=== PATIENT | male | born 1955 | race Caucasian/White ===

== ENCOUNTER 2016-12-27 20:20 | Inpatient (IN) | payer MEDICARE, OTHER ==
[~2016-12-27] VITALS: Ht 170.2 cm; Wt 75.8 kg
[~2016-12-27 20:20] MED LIST: ACHD5005 PO; ADV1DS; ALBU0.632 IH; AMBIEN; AMIT50TA3 PO; AZOPT OP; BRIM5DRO12 OU; BRIN1S OU; CYAN1TAB16 PO; DLT180CCR PO; FLUT1DIS2 IH; FLUT1DIS26 IH; FOLI1TAB24 PO; GLAUCOMA EYE DROPS; HYDR-2890 PO; HYDR1TAB66 PO; IBP600T1 PO; LISI1TAB10 PO; OMEP20CA12 PO; ONDA8TAB6 PO; PRD20T PO; PRD50T PO; PRILOSEC OTC PO; TRAV5DRO OU; TRAVATAN; XANAX; [UNRECOGNIZED DRUG - CODE]
--- OUTSIDE RECORDS SUMMARY | 2016-12-27 20:25 | XMS REPORT | Clinical Summary ---
Author Author [facility] Organization [facility] Address Unknown Phone Unavailable Care Team Providers Care Dosimetrist Name Role Phone PCP Unavailable Source Comments Some departments are not documenting in the electronic medical record. If you do not see the information that you expected, contact Release of Information in the Health Information Management department at [phone] for further assistance in locating additional records.[facility] Allergies Not on File Current Medications Not on file Active Problems Not on file Social History Tobacco Use Types Packs/Day Years Used Date Never Assessed Sex Assigned at Date Recorded Not on file Last Filed Vital Signs Not on file Plan of Treatment Health Maintenance Due Date Last Done Comments HEPATITIS C SCREENING 1957 PHYSICAL (COMPREHENSIVE) 1964 EXAM PERTUSSIS VACCINE 1968 TETANUS VACCINE 1974 COLORECTAL CANCER 2007 SCREENING INFLUENZA VACCINE 01/08/2017 Results Not on filefrom Last 3 Months
--- OUTSIDE RECORDS SUMMARY | 2016-12-27 20:25 | XMS REPORT | Continuity of Care Document ---
Author Author [facility] Address Unknown Phone Unavailable Allergies Active Description Code Type Severity Reaction Onset Reported/Identified Relationship to Patient Clinical Status Yes NKANo Known Allergies NKA Miscellaneous Allergy Unknown N/ A 09/07/2006 Medications Problems Date Dx Coded Attending Type Code Diagnosis Diagnosed By 04/08/2011 Ot 562.11 04/08/2011 Ot 789.09 06/24/2011 Ot 211.3 06/24/2011 Ot 211.4 06/24/2011 Ot 562.10 06/24/2011 Ot V45.3 06/24/2011 Ot V45.72 06/24/2011 Ot V76.51 12/25/2011 Ot 491.21 12/25/2011 Ot 847.0 12/25/2011 Ot 910.0 12/25/2011 Ot 912.0 12/25/2011 Ot 922.1 12/25/2011 Ot 959.11 12/25/2011 Ot E000.8 12/25/2011 Ot E816.0 02/16/2014 SAMAN COLEMAN, JACEK Dee Ot 202.10 02/16/2014 SAMAN COLEMAN, JACEK Dee Ot 401.9 02/16/2014 SAMAN COLEMAN, JACEK Dee Ot 786.6 02/16/2014 SAMAN COLEMAN, JACEK Dee Ot V10.11 02/16/2014 SAMAN COLEMAN, JACEK Dee Ot V58.69 02/20/2014 ELBA CHAVA MORLEY V03.82 PCV-13 (PREVNAR) DX 04/17/2014 RAYMUNDO COLEMAN, RHONDA Maldonado Ot 276.50 04/17/2014 RAYMUNDO COLEMAN, RHONDA Maldonado Ot 288.00 04/17/2014 RAYMUNDO COLEMAN, RHONDA Maldonado Ot 427.31 04/17/2014 RHONDA FONSECA MD Ot 496 04/17/2014 RAYMUNDO COLEMAN, RHONDA Maldonado Ot 780.61 04/17/2014 RAYMUNDO COLEMAN, RHONDA Maldonado Ot V15.82 04/17/2014 RHONDA FONSECA MD Ot 197.0 04/17/2014 RAYMUNDO COLEMAN, RHONDA Maldonado Ot 198.5 04/17/2014 RAYMUNDO COLEMAN, RHONDA Maldonado Ot 198.89 04/17/2014 RAYMUNDO COLEMAN, RHONDA Maldonado Ot 202.10 04/17/2014 RAYMUNDO COLEMAN, RHONDA Maldonado Ot 276.50 04/17/2014 RAYMUNDO COLEMAN, RHONDA Maldonado Ot 288.00 04/17/2014 RAYMUNDO COLEMAN, RHONDA Maldonado Ot 427.31 04/17/2014 RAYMUNDO COLEMAN, RHONDA Maldonado Ot 491.21 04/17/2014 RAYMUNDO COLEMAN, RHONDA Maldonado Ot 496 04/17/2014 RAYMUNDO COLEMAN, RHONDA Maldonado Ot 585.3 04/17/2014 RAYMUNDO COLEMAN, RHONDA Maldonado Ot 780.61 04/17/2014 RAYMUNDO COLEMAN, RHONDA Maldonado Ot V10.11 04/17/2014 RAYMUNDO COLEMAN, RHONDA Maldonado Ot V12.55 04/17/2014 RAYMUNDO COLEMAN, RHONDA Maldonado Ot V15.82 04/18/2014 Ot 162.9 04/18/2014 Ot V72.84 04/18/2014 Ot 721.0 04/18/2014 Ot 737.30 04/18/2014 Ot E000.8 04/18/2014 Ot E816.0 04/18/2014 Ot V58.9 04/18/2014 Ot 162.9 04/18/2014 Ot 202.10 04/18/2014 RAYMUNDO COLEMAN, RHONDA Maldonado Ot 786.50 04/18/2014 RAYMUNDO COLEMAN, RHONDA Maldonado Ot 202.10 04/18/2014 RAYMUNDO COLEMAN, RHONDA Maldonado Ot 496 04/18/2014 RAYMUNDO COLEMAN, RHONDA Maldonado Ot V10.05 04/18/2014 RAYMUNDO COLEMAN, RHONDA Maldonado Ot 202.10 04/18/2014 RAYMUNDO COLEMAN, RHONDA Maldonado Ot 202.10 04/18/2014 RAYMUNDO COLEMAN, RHONDA Maldonado Ot 786.52 04/18/2014 Ot 202.10 04/18/2014 Ot 401.9 04/18/2014 Ot 786.6 04/18/2014 Ot V10.11 04/18/2014 Ot V58.69 04/21/2014 Ot 202.10 04/21/2014 Ot 401.9 04/21/2014 Ot 786.6 04/21/2014 Ot V10.11 04/21/2014 Ot V58.69 05/23/2014 ZORAIDA COLEMAN, WILFRED Wade Ot 202.10 05/23/2014 WILFRED CONWAY MD Ot 401.9 05/23/2014 WILFRED CONWAY MD Ot V10.11 05/23/2014 WILFRED CONWAY MD Ot V58.0 05/23/2014 WILFRED CONWAY MD Ot V58.69 07/20/2014 WILFRED CONWAY MD Ot 202.10 07/20/2014 WILFRED CONWAY MD Ot 401.9 07/20/2014 WILFRED CONWAY MD Ot V10.11 07/20/2014 WILFRED CONWAY MD Ot V58.0 07/20/2014 WILFRED CONWAY MD Ot V58.69 Procedures Results Encounters ACCT No. Visit Date/Time Discharge Status Pt. Type Provider Facility Loc./Unit Complaint [id number] 02/20/2014 16:01:00 02/20/2014 23: 59:59 CLS Outpatient ELBA MORLEYCHAVA Luiz [id number] 07/21/2014 00:10:00 2014 23:59:59 CLS Preadmit WILFRED CONWAY MD [facility] ONC [id number] 05/09/2014 09:42:00 2014 00:01:00 DIS Outpatient WILFRED CONWAY MD [facility] ONC [id number] 04/15/2014 20:04:00 2014 13:30:00 DIS Inpatient RHONDA FONSECA MD [facility] CSD [id number] 11/18/2013 12:14:00 2013 00:01:00 DIS Outpatient JACEK DAVISON MD [facility] ONC [id number] 10/16/2013 15:50:00 2013 23:59:59 CLS Outpatient RHONDA FONSECA MD [facility] RAD [id number] 07/19/2013 08:40:00 2013 23:59:59 CLS Outpatient RHONDA FONSECA MD [facility] LAB [id number] 04/19/2013 10:43:00 2013 23:59:59 CLS Outpatient RHONDA FONSECA MD [facility] LAB [id number] 12/21/2012 07:44:00 2012 23:59:59 CLS Outpatient RHONDA FONSECA MD [facility] LAB [id number] 11/12/2012 11:53:00 2012 23:59:59 CLS Outpatient RHONDA FONSECA MD [facility] LAB [id number] 12/27/2016 20:21:00 ACT Emergency KHALIF NASH DO [facility] ER ANXIETY;TROUBLE BREATHING [id number] 02/17/2014 00:00:00 Document Registration [id number] 04/26/2012 15:32:00 Document Registration [id number] 12/30/2011 10:55:00 Document Registration [id number] 12/25/2011 06:22:00 Document Registration [id number] 06/24/2011 07:01:00 Document Registration [id number] 06/22/2011 07:27:00 Document Registration [id number] 04/08/2011 09:04:00 Document Registration [id number] 02/14/2011 15:45:00 Document Registration
--- NOTE | 2016-12-27 20:46 | ED Respiratory ---
General Chief Complaint: Respiratory Problems Stated Complaint: ANXIETY;TROUBLE BREATHING Source: patient History of Present Illness Time seen by provider: 20:38 Initial Comments PT ARRIVES VIA POV FROM HOME STATES HE HAS SEVERE ANXIETY, AND GOT VERY ANXIOUS TODAY, AND THEN HAD A HARD TIME BREATHING STATES HE WAS STARTED ON A NEW MEDICATION TODAY AND THEN GOT VERY NERVOUS ABOUT TAKING IT--STARTED ON MORPHINE, (WAS ON FENTANYL PATCHES) FOR STAGE 4 LUNG CANCER. PT HAD CHEMO TODAY IN [place]--HAS BEEN ON THIS SAME CHEMO/SAME DOSE PT HAS HOME O2 WHICH HE USES PRN, BUT HAS NOT USED LATELY, AND NOT AT ALL TODAY , UNTIL JUST PRIOR TO ARRIVAL--USED IT ON THE WAY HERE PT ALSO HAS AN ALBUTEROL INHALER, WHICH HE USED ONCE THIS AM, BUT NOT SINCE STATES HE FEELS BETTER NOW. O2 SAT 95-98% ON 2L/NC ON ARRIVAL NO CHEST PAIN, OR PALPITATIONS NO FEVER NO SWELLING IN LEGS/ FEET OR PAIN IN CALVES PT SHORTLY AFTER ARRIVAL, PT NOW C/O NAUSEA AND ABDOMINAL DISCOMFORT PT WAS ADMITTED AT [facility] LAST WEEK FOR SMALL BOWEL OBSTRUCTION, TREATED WITH NG TUBE HAS NOT HAD A BM SINCE HE WAS DISMISSED ON MONDAY HAS HAD DECREASED INTAKE TODAY, AND DECREASED URINE OUTPUT STATES HE DID RECEIVE HEPARIN SHOTS WHILE HE WAS IN HOSPITAL FOR DVT PROPHYLAXIS , DOES NOT NORMALLY TAKE ANY ANTICOAGULANTS PCP: DR. FONSECA Allergies and Home Medications Allergies Coded Allergies: Cee Known Allergies (Verified Allergy, Unknown, 09/07/06) Home Medications Albuterol Sulfate 0.63 Mg/3 Ml Vial.neb, 1 EACH IH Q 4 - 6 HRS PRN, (Reported) Brimonidine Tartrate 10 Ml Drops, 1 DROP OU BID, (Reported) 0.1% Brinzolamide 5 Ml Drops.susp, 1 DROP OU BID, (Reported) Cyanocobalamin/Fa/Pyridoxine 1 Tab Tablet, 1 TAB PO DAILY, (Reported) Diltiazem Hcl 180 Mg Cap.er.24h, 180 MG PO DAILY, #30 Ref 12 Prescribed by: RHONDA FONSECA on 04/17/14 0821 Fluticasone/Salmeterol 1 Each Disk.w.dev, 0 IH Q12HR, #1 1 PUFF Prescribed by: RHONDA FONSECA on 04/17/14 0822 Folic Acid 1 Mg Tablet, 1 MG PO DAILY, (Reported) Hydrocodone Bit/Acetaminophen 1 Each Tablet, 1-2 TAB PO Q6H PRN for PAIN, ( Reported) Omeprazole 20 Mg Capsule.dr, 20 MG PO DAILY, (Reported) Ondansetron Hcl 8 Mg Tablet, 8 MG PO Q8H PRN for NAUSEA, (Reported) Prednisone 20 Mg Tab, 20 MG PO DAILY@0700 for 5 Days Prescribed by: RHONDA FONSECA on 04/17/14 0824 Travoprost 5 Ml Drops, 1 DROP OU HS, (Reported) Constitutional: No chills, No diaphoresis, No fever, malaise, weakness EENTM: no symptoms reported Respiratory: see HPI, cough, short of breath Cardiovascular: No chest pain, No edema, No palpitations, No syncope Gastrointestinal: see HPI, abdominal pain, loss of appetite, nausea, No vomiting Genitourinary: decreased output Musculoskeletal: other (HAS CHRONIC PAIN, ESPECIALLY IN BACK--HAS BONE METS) Skin: no symptoms reported Psychiatric/Neurological: See HPI, Anxiety Hematologic/Lymphatic: See HPI Immunological/Allergic: see HPI Past [id number] Hx Patient Social History Alcohol Use: Past History (MODERATE USE IN PAST, NONE FOR A FEW YEARS, PER PT ON 12/27/16) Recreational Drug Use: No Smoking Status: Former Smoker (04/11 PPD--QUIT 01/18/2005) Type Used: Cigarettes 2nd Hand Smoke Exposure: No Recent Foreign Travel: No Contact w/Someone Who Travel: No Recent Hopitalizations: No Physical Abuse: No Sexual Abuse: No Immunizations Up To Date Date of Pneumonia Vaccine: Oct 13, 2013 Date of Influenza Vaccine: Jan 13, 2014 Seasonal Allergies Seasonal Allergies: No Surgeries History of Surgeries: Yes (3 INGUNIAL HERNIA REPAIRS; 2 INCISIONAL HERNIA REPAIRS; COLON RESECTION FOR DIVERTICULAR DISEASE WITH TEMP COLOSTOMY AND LATER TAKEDOWN; LAZER SURGERY ON THROAT FOR SLEEP APNEA; EGD/COLONOSCOPIES; DRAINAGE OF ABDOMINAL WALL ABSCESS; RIGHT UPPER LOBECTOMY 2005; PORT LEFT CHEST;REPAIR OF PECTUS EXCAVATUM) Surgeries: Abdominal, Bowel Surgery, Lobectomy Respiratory History of Respiratory Disorde: Yes (LUNG CANCER) Respiratory Disorders: COPD Cardiovascular History of Cardiac Disorders: Yes (PAROXYSMAL A.FIB--NOT ON ANTICOAGULANTS OR ANTIARRHYTHMICS OF 12/27/16) Cardiac Disorders: Atrial Fibrillation, Hypertension Neurological History of Neurological Disord: No Reproductive System Hx Reproductive Disorders: No Genitourinary History of Genitourinary Disor: Yes (CHRONIC RENAL INSUFFICIENCY SINCE STARTING CHEMO ) Genitourinary Disorders: Renal Failure Gastrointestinal History of Gastrointestinal Di: Yes (MULTIPLE ABDOMINAL HERNIAS) Gastrointestinal Disorders: Abdominal Hernia, Gastroesophageal Reflux, Diverticulosis, Polyps Musculoskeletal History of Musculoskeletal Dis: No Endocrine History of Endocrine Disorders: No HEENT History of HEENT Disorders: Yes HEENT Disorders: Glaucoma Cancer History of Cancer: Yes Cancer: Lung Cancer Comment: LUNG CANCER DX 2005--HAD RUL LOBECTOMY, NO CHEMO OR RADIATION HAD RECURRENCE DX 2013--WITH METS TO BONE, HAS HAD RADIATION AND STILL RECEIVING CHEMO OF 12/27/16 Psychosocial History of Psychiatric Problem: Yes Behavioral Health Disorders: Anxiety, Depression Suicide Risk Score: 0 Integumentary History of Skin or Integumenta: No (MYCOSIS FUNGOIDES) Blood Transfusions History of Blood Disorders: No Family Medical History Family Medial History: Asthma Cancer of mouth 19 FATHER Cataracts 19 FATHER Prostate cancer 19 FATHER Respiratory disorder 19 FATHER Severe allergy G8 BROTHER No Family History of: AIDS Abdominal aortic aneurysm [place]'s disease Alcoholism Alzheimer's disease Aphasia Arthritis Cardiovascular disease Colon cancer Completed stroke Congenital disease Congenital heart disease Coronary thrombosis Cystic fibrosis Deafness or hearing loss Dementia Diabetes mellitus Drug abuse Dysphasia Fibrocystic disease of breast Gastroenteritis Glaucoma Headache disorder Hypercholesterolemia Hypertension Infertility Kidney disease Myocardial infarction Neoplasm Not obtainable due to adoption Osteoporosis Parkinson's disease Psychosocial problem Seizure disorder Thyroid disease Tuberculosis Visual disorder Physical Exam Vital Signs Vital Sign - Last 12Hours 12/27/16 20:22 Temp 98.1 Pulse 135 Resp 20 B/P (MAP) 145/91 Pulse Ox 96 O2 Delivery Nasal Cannula O2 Flow Rate 5.00 FiO2 96 Capillary Refill : General Appearance: mild distress, other (ANXIOUS) HEENT: PERRL/EOMI Neck: normal inspection Respiratory: decreased breath sounds (IN BASES RIGHT > LEFT), No rales, No rhonchi, No wheezing, other (MILDLY DYSPNEIC, TACHYPNEIC) Cardiovascular: no murmur, tachycardia Gastrointestinal: soft, distended (SLIGHTLY), No guarding, No rebound, tenderness (MILD DIFFUSE UPPER ABDMOMINAL TENDERNESS) Extremities: normal capillary refill, pedal edema (TRACE BILATERALLY) Neurologic/Psychiatric: engineering faculty II-XII nml as tested, no motor/sensory deficits, alert, oriented x 3 Skin: warm/dry, pallor Progress/Results/Core Measures Results/Orders Lab Results Laboratory Tests Test 12/27/16 19:48 12/27/16 21:32 12/28/16 00:48 Range/Units Blood Gas Puncture Site RIGHT RADIAL Blood Gas Patient Temperature 97.3 Arterial Blood pH 7.32 *L 7.37-7.43 Arterial Blood Partial Pressure CO2 51 H 35-45 MMHG Arterial Blood Partial Pressure O2 119 H 79-93 MMHG Arterial Blood HCO3 26 23-27 MMOL/L Arterial Blood Total CO2 27.2 21.0-31.0 MMOL/L Arterial Blood Oxygen Saturation 99 94-100 % Arterial Blood Base Excess 0.1 -2.5-2.5 MMOL/L Zachary Test POSITIVE Blood Gas Ventilator Setting NO Blood Gas Inspired Oxygen 5L White Blood Count 11.1 H 4.3-11.0 10^3/uL Red Blood Count 4.88 4.35-5.85 10^6/uL Hemoglobin 13.1 L 13.3-17.7 G/DL Hematocrit 44 40-54 % Mean Corpuscular Volume 91 80-99 FL Mean Corpuscular Hemoglobin 27 25-34 PG Mean Corpuscular Hemoglobin Concent 30 L 32-36 G/DL Red Cell Distribution Width 20.3 H 10.0-14.5 % Platelet Count 515 H 130-400 10^3/uL Mean Platelet Volume 11.1 H 7.4-10.4 FL Neutrophils (%) (Auto) 94 H 42-75 % Lymphocytes (%) (Auto) 3 L 12-44 % Monocytes (%) (Auto) 3 0-12 % Eosinophils (%) (Auto) 0 0-10 % Basophils (%) (Auto) 0 0-10 % Neutrophils # (Auto) 10.4 H 1.8-7.8 X 10^3 Lymphocytes # (Auto) 0.3 L 1.0-4.0 X 10^3 Monocytes # (Auto) 0.3 0.0-1.0 X 10^3 Eosinophils # (Auto) 0.0 0.0-0.3 10^3/uL Basophils # (Auto) 0.0 0.0-0.1 10^3/uL Neutrophils % (Manual) 89 % Lymphocytes % (Manual) 4 % Monocytes % (Manual) 0 % Eosinophils % (Manual) 0 % Basophils % (Manual) 0 % Band Neutrophils 7 % Blood Morphology Comment NORMAL Prothrombin Time 13.2 12.2-14.7 SEC INR Comment 1.0 0.8-1.4 Activated Partial Thromboplast Time 30 24-35 SEC Sodium Level 137 135-145 MMOL/L Potassium Level 4.6 3.6-5.0 MMOL/L Chloride Level 99 98-107 MMOL/L Carbon Dioxide Level 26 21-32 MMOL/L Anion Gap 12 5-14 MMOL/L Blood Urea Nitrogen 24 H 7-18 MG/DL Creatinine 1.75 H 0.60-1.30 MG/DL Estimat Glomerular Filtration Rate 40 BUN/Creatinine Ratio 14 Glucose Level 157 H 70-105 MG/DL Calcium Level 9.7 8.5-10.1 MG/DL Magnesium Level 1.7 L 1.8-2.4 MG/DL Total Bilirubin 0.5 0.1-1.0 MG/DL Aspartate Amino Transf (AST/SGOT) 10 5-34 U/L Alanine Aminotransferase (ALT/SGPT) 11 0-55 U/L Alkaline Phosphatase 72 40-136 U/L Total Creatine Kinase 30 30-200 U/L Creatine Kinase MB 1.1 <6.6 NG/ML Troponin I < 0.30 <0.30 NG/ML B-Type Natriuretic Peptide < 10.0 <100.0 PG/ML Total Protein 7.7 6.4-8.2 GM/DL Albumin 4.3 3.2-4.5 GM/DL Amylase Level 104 25-125 U/L Lipase 72 8-78 U/L TSH [place] Testing 1.50 0.35-4.94 UIU/ML Urine Color YELLOW Urine Clarity CLEAR Urine pH 5 5-9 Urine Specific Topping 1.025 H 1.016-1.022 Urine Protein 1+ H NEGATIVE Urine Glucose (UA) NEGATIVE NEGATIVE Urine Ketones NEGATIVE NEGATIVE Urine Nitrite NEGATIVE NEGATIVE Urine Bilirubin NEGATIVE NEGATIVE Urine Urobilinogen NORMAL NORMAL MG/DL Urine Leukocyte Esterase NEGATIVE NEGATIVE Urine RBC (Auto) NEGATIVE NEGATIVE Urine RBC NONE /HPF Urine WBC NONE /HPF Urine Squamous Epithelial Cells 0-2 /HPF Urine Crystals PRESENT H /LPF Urine Amorphous Sediment FEW ASHLEE URATES H /LPF Urine Bacteria TRACE /HPF Urine Casts PRESENT /LPF Urine Hyaline Casts 2-5 H /LPF Urine Mucus SMALL H /LPF Urine Culture Indicated NO My Orders Orders - CHARITY,KHALIF K DO Ekg Tracing (12/27/16 20:41) O2 (12/27/16 20:41) Monitor-Rhythm Ecg Trace Only (12/27/16 20:41) Chest Pa/Lat (2 View) (12/27/16 20:41) Saline Lock/Iv-Start (12/27/16 21:03) Arterial Blood Gas (12/27/16 21:03) BNP (12/27/16 21:03) Cbc With Automated Diff (12/27/16 21:03) Comprehensive Metabolic Panel (12/27/16 21:03) Creatine Kinase (12/27/16 21:03) Creatine Kinase Mb (12/27/16 21:03) Magnesium (12/27/16 21:03) Protime With Inr (12/27/16 21:03) Partial Thromboplastin Time (12/27/16 21:03) Thyroid Analyzer (12/27/16 21:03) Troponin I (12/27/16 21:03) Saline Lock/Iv-Start (12/27/16 21:03) Ns Iv 1000 Ml (Sodium Chloride 0.9%) (12/27/16 21:03) Ondansetron Injection (Zofran Injectio (12/27/16 21:15) Manual Differential (12/27/16 21:32) Ct Abdomen/Pelvis Wo (12/27/16 23:02) Amylase (12/27/16 23:28) Lipase (12/27/16 23:28) Ua Culture If Indicated (12/27/16 23:28) Ondansetron Injection (Zofran Injectio (12/27/16 23:45) Saline Lock/Iv-Start (12/27/16 23:45) Ng Tube Insert & Assessment (12/28/16 00:24) Chest 1 View, Ap/Pa Only (12/28/16 00:45) Ondansetron Injection (Zofran Injectio (12/28/16 01:00) Morphine Injection (Morphine Injection (12/28/16 00:51) Enoxaparin Injection (Lovenox Injection) (12/28/16 01:15) Fentanyl Injection (Sublimaze Injection (12/28/16 01:18) Medications Given in ED Current Medications Medications Dose Ordered Sig/Felix Route Start Time Stop Time Status Last Admin Dose Admin Enoxaparin Sodium 70 mg ONCE ONCE SC 12/28/16 01:15 12/28/16 01:16 DC 12/28/16 01:37 70 MG Ondansetron HCl 4 mg ONCE ONCE IVP 12/27/16 23:45 12/27/16 23:47 DC 12/28/16 00:01 4 MG Ondansetron HCl 8 mg ONCE ONCE IVP 12/27/16 21:15 12/27/16 21:16 DC 12/27/16 21:40 8 MG Ondansetron HCl 8 mg ONCE ONCE IVP 12/28/16 01:00 12/28/16 01:01 DC 12/28/16 01:06 8 MG Sodium Chloride 1,000 ml @ 0 mls/hr Q0M ONCE IV 12/27/16 21:03 12/27/16 21:06 DC 12/27/16 21:39 1,000 MLS/HR Vital Signs/I&O Vital Sign - Last 12Hours 12/27/16 12/27/16 20:22 20:22 Temp 98.1 Pulse 135 Resp 20 B/P (MAP) 145/91 Pulse Ox 96 96 O2 Delivery Nasal Cannula Nasal Cannula O2 Flow Rate 5.00 5.00 FiO2 96 Progress Note : Progress Note PT BEGAN VOMITING SHORTLY AFTER ARRIVAL, AND HAVING INCREASED ABDOMINAL AND BACK PAIN PT'S HEART RATE DID COME DOWN TO 110'S WITH FLUIDS, BUT STILL REMAINS MILDLY TACHYCARDIC O2 SATS DROPPED TO 90-91% ON 2L--O2 INCREASED TO 4L/NC AND SATS WENT UP TO 93-94 % AND REMAINED THERE FOR REMAINDER OF ER STAY ECG Initial ECG Impression Time: 20:45 Initial ECG Rate: 128 Initial ECG Rhythm: S.Tach Initial ECG Impression: Nonspecific Changes Initial ECG Comparisson: No Previous ECG Available Diagnostic Imaging Comments CXR--CHRONIC APPEARING CHANGES IN RIGHT LUNG BASE, PENDING RADIOLOGIST REVIEW CT ABDOMEN/ PELVIS--ILEUS VS PARTIAL SBO, CHOLELITHIASIS; BILATERAL LUNG NODULES , LIVER LESION, SUSPECTED LYTIC LESIONS OF OSSEOUS STRUCTURES--PER [facility] VIA FAX @ 4030 Reviewed: Reviewed by Me Departure Communication (Admissions) Progress Notes 0104--SPOKE WITH DR. MURRY, ACCEPTS PT FOR ADMIT. 0112--SPOKE WITH DR. HUNT, FOR HOSPITALIST CONSULT. WILL CONSULT E-ICU WELL Impression Impression: Primary Impression: DYSPNEA WITH HYPOXIA Additional Impressions: Metastatic lung cancer (metastasis from lung to other site) Small bowel obstruction Dehydration Renal insufficiency Disposition: ADMITTED INPATIENT Condition: Improved Admissions Decision to Admit Reason: Admit from ER (General) Decision to Admit/Date: Dec 28, 2016 Time/Decision to Admit Time: 01:05 Departure-Patient Inst. Referrals: RHONDA FONSECA MD (PCP) Primary Care Physician KHALIF NASH DO Dec 27, 2016 20:46
[2016-12-27] MEDS ORDERED: NS IV 1000 ML 1,000 ML IV ONE (21:03)
[2016-12-27] MEDS ORDERED: ONDANSETRON 4 MG/2 ML (SDV) Z0FRAN IVP ONE ×2 (21:15→23:45)
[2016-12-27 21:42] LABS: BASOPHILS % (AUTO) 0 % (0-10); EOSINOPHILS % (AUTO) 0 % (0-10); LYMPHOCYTES # (AUTO) 0.3 X 10^3 (1.0-4.0); LYMPHOCYTES % (AUTO) 3 % (12-44); MEAN CORPUSCULAR HEMOGLOBIN 27 PG (25-34); MEAN CORPUSCULAR HGB CONC 30 G/DL (32-36); MEAN CORPUSCULAR VOLUME 91 FL (80-99); MEAN PLATELET VOLUME 11.1 FL (7.4-10.4); MONOCYTES # (AUTO) 0.3 X 10^3 (0.0-1.0); MONOCYTES % (AUTO) 3 % (0-12); NEUTROPHILS # (AUTO) 10.4 X 10^3 (1.8-7.8); NEUTROPHILS % (AUTO) 94 % (42-75); PLATELET COUNT 515 10^3/uL (130-400); RED BLOOD COUNT 4.88 10^6/uL (4.35-5.85); RED CELL DISTRIBUTION WIDTH 20.3 % (10.0-14.5); WHITE BLOOD COUNT 11.1 10^3/uL (4.3-11.0)
[2016-12-27 21:57] LABS: BAND NEUTROPHILS 7 %; BASOPHILS % (MANUAL) 0 %; EOSINOPHILS % (MANUAL) 0 %; LYMPHOCYTES % (MANUAL) 4 %; NEUTROPHILS % (MANUAL) 89 %
[2016-12-27 22:02] LABS: ABG BASE EXCESS 0.1 MMOL/L (-2.5-2.5); ABG HCO3 26 MMOL/L (23-27); ABG OXYGEN SATURATION 99 % (94-100); ABG PCO2 51 MMHG (35-45); ABG PO2 119 MMHG (79-93); ABG TCO2 27.2 MMOL/L (21.0-31.0)
[2016-12-27 22:03] LABS: ALANINE AMINOTRANSFERASE 11 U/L (0-55); ALBUMIN 4.3 GM/DL (3.2-4.5); ANION GAP 12 MMOL/L (5-14); ASPARTATE AMINO TRANSFERASE 10 U/L (5-34); BILIRUBIN,TOTAL 0.5 MG/DL (0.1-1.0); BLOOD UREA NITROGEN 24 MG/DL (7-18); BUN/CREATININE RATIO 14; CALCIUM 9.7 MG/DL (8.5-10.1); CARBON DIOXIDE 26 MMOL/L (21-32); CHLORIDE 99 MMOL/L (98-107); CREATINE KINASE 30 U/L (30-200); CREATININE SERUM 1.75 MG/DL (0.60-1.30); GFR ESTIMATED 40; GLUCOSE 157 MG/DL (70-105); MAGNESIUM 1.7 MG/DL (1.8-2.4); POTASSIUM 4.6 MMOL/L (3.6-5.0); SODIUM 137 MMOL/L (135-145); TOTAL PROTEIN 7.7 GM/DL (6.4-8.2)
[2016-12-27 22:05] LABS: ABG PH 7.32 (7.37-7.43); ALLENS TEST POSITIVE; PATIENT TEMP 97.3
[2016-12-27 22:17] LABS: TROPONIN I < 0.30 NG/ML (<0.30)
[2016-12-27 23:13] LABS: PROTHROMBIN TIME PATIENT 13.2 SEC (12.2-14.7)
[2016-12-28] VITALS (10 sets, daily range): BP systolic 107–152; BP diastolic 60–111
[2016-12-28] LABS: AMYLASE 104 U/L (25-125); LIPASE 72 U/L (8-78)
[2016-12-28] MEDS ORDERED: morphine INJ 10 MG/ML 1ML (SYR OR VIAL) IVP STA (00:51)
[2016-12-28 00:54] LABS: BILIRUBIN,URINE NEGATIVE (NEGATIVE); KETONES,URINE NEGATIVE (NEGATIVE); LEUKOCYTE ESTERASE ,URINE NEGATIVE (NEGATIVE); NITRITE,URINE NEGATIVE (NEGATIVE); PH,URINE 5 (5-9); PROTEIN,URINE 1+ (NEGATIVE); UROBILINOGEN,URINE NORMAL (NORMAL)
[2016-12-28] MEDS ORDERED: ONDANSETRON 4 MG/2 ML (SDV) Z0FRAN IVP ONE (01:00)
[2016-12-28 01:02] LABS: SQUAMOUS EPITHELIAL CELL,UR 0-2 /HPF
[2016-12-28] MEDS ORDERED: ENOXAPARIN 80 MG/0.8 ML (LOVENOX) SYR SC ONE (01:15)
[2016-12-28] MEDS ORDERED: fentaNYL INJECTION 100 MCG/2 ML AMP IVP STA (01:18)
--- OUTSIDE RECORDS SUMMARY | 2016-12-28 02:20 | XMS REPORT | Clinical Summary ---
Author Author [facility] Organization [facility] Address Unknown Phone Unavailable Care Team Providers Care Sales Promoter Name Role Phone PCP Unavailable Source Comments Some departments are not documenting in the electronic medical record. If you do not see the information that you expected, contact Release of Information in the Health Information Management department at [phone] for further assistance in locating additional records.[facility] Allergies Not on File Current Medications Not [...]
[2016-12-28] MEDS ORDERED: D5 1/2 NS W/KCL 20 MEQ/L 1,000 ML IV ONE (02:35)
[2016-12-28] MEDS ORDERED: morphine INJ 10 MG/ML 1ML (SYR OR VIAL) IVP PRN (03:15)
[2016-12-28] MEDS ORDERED: fentaNYL INJECTION 100 MCG/2 ML AMP IVP PRN (03:15)
[2016-12-28] MEDS ORDERED: RT-ALBUTEROL SULF 2.5 MG/3 ML PRE-MIX VIAL IH PRN (03:30)
[2016-12-28] MEDS ORDERED: morphine INJ 10 MG/ML 1ML (SYR OR VIAL) IV PRN (03:30)
[2016-12-28] MEDS ORDERED: fentaNYL INJECTION 100 MCG/2 ML AMP IV PRN (03:30)
[2016-12-28] MEDS: CHLORASEPTIC SPRAY 177 ML LIQUID MC PRN ×3 (04:15→06:05)
[2016-12-28 04:16] LABS: BASOPHILS % (AUTO) 0 % (0-10); EOSINOPHILS % (AUTO) 0 % (0-10); LYMPHOCYTES # (AUTO) 0.4 X 10^3 (1.0-4.0); LYMPHOCYTES % (AUTO) 4 % (12-44); MEAN CORPUSCULAR HEMOGLOBIN 27 PG (25-34); MEAN CORPUSCULAR HGB CONC 30 G/DL (32-36); MEAN CORPUSCULAR VOLUME 91 FL (80-99); MONOCYTES # (AUTO) 0.4 X 10^3 (0.0-1.0); MONOCYTES % (AUTO) 5 % (0-12); NEUTROPHILS # (AUTO) 8.6 X 10^3 (1.8-7.8); NEUTROPHILS % (AUTO) 91 % (42-75); PLATELET COUNT 443 10^3/uL (130-400); RED BLOOD COUNT 4.49 10^6/uL (4.35-5.85); RED CELL DISTRIBUTION WIDTH 20.2 % (10.0-14.5); WHITE BLOOD COUNT 9.4 10^3/uL (4.3-11.0)
[2016-12-28 04:48] LABS: ALANINE AMINOTRANSFERASE 10 U/L (0-55); ALBUMIN 3.8 GM/DL (3.2-4.5); ANION GAP 9 MMOL/L (5-14); ASPARTATE AMINO TRANSFERASE 9 U/L (5-34); BILIRUBIN,TOTAL 0.3 MG/DL (0.1-1.0); BLOOD UREA NITROGEN 26 MG/DL (7-18); BUN/CREATININE RATIO 18; CALCIUM 9.1 MG/DL (8.5-10.1); CARBON DIOXIDE 24 MMOL/L (21-32); CHLORIDE 103 MMOL/L (98-107); CREATININE SERUM 1.46 MG/DL (0.60-1.30); GFR ESTIMATED 49; GLUCOSE 141 MG/DL (70-105); MAGNESIUM 1.9 MG/DL (1.8-2.4); PHOSPHORUS 3.6 MG/DL (2.3-4.7); POTASSIUM 4.6 MMOL/L (3.6-5.0); SODIUM 136 MMOL/L (135-145); TOTAL PROTEIN 6.8 GM/DL (6.4-8.2)
[2016-12-28 04:53] LABS: TROPONIN I < 0.30 NG/ML (<0.30)
[2016-12-28] MEDS: ONDANSETRON 4 MG/2 ML (SDV) Z0FRAN IV PRN (05:56)
[2016-12-28] MEDS ORDERED: MAGNESIUM 1 GM/100 ML IVPB 100 ML IV SCH (06:00)
[2016-12-28] MEDS: inSUlin (REGULAR) HUMAN 1 UNIT/0.01 ML (CHARGE PER UNIT) SC SCH ×3 (06:00→18:25)
[2016-12-28] MEDS ORDERED: KCL 20 MEQ TAB (K-DUR) PO SCH (06:00)
[2016-12-28] MEDS ORDERED: POTASSIUM CL 10MEQ/50ML IVPB 50 ML IV SCH (06:00)
[2016-12-28] MEDS: RT-ALBUTEROL SULF 2.5 MG/3 ML PRE-MIX VIAL IH SCH ×5 (06:38→22:06)
[2016-12-28] MEDS: RT-ADVAIR HFA 115/21 MCG PER PUFF IH SCH ×2 (06:40→18:50)
--- NOTE | 2016-12-28 06:49 | Pulmonary Consultation ---
History of Present Illness History of Present Illness Date of Consultation 12/28/16 06:44 Time Seen by Provider: 06:44 Date of Admission History of Present Illness 61yo with hx of lung cancer with mets presented secondary to worsening SOB, anxiety, and abdominal pain. He was found to have a SBO in the ED and admitted to ICU. While in ICU he had 2 large BMs. He still complains of abdominal pain and nausea. Pt is only requiring 2 liters of oxygen which is what he uses at home. Pt is currently undergoing chemotherapy in [place] and last chemo was yesterday prior to admit. PT was recently in [facility] for SBO last week. SOB is at his baseline. Denies CP currently. I am consulted for ICU management. Allergies and Home Medications Allergies Coded Allergies: Cee Known Allergies (Verified Allergy, Unknown, 09/07/06) Home Medications Albuterol Sulfate 0.63 Mg/3 Ml Vial.neb, 1 EACH IH Q 4 - 6 HRS PRN, (Reported) Brimonidine Tartrate 10 Ml Drops, 1 DROP OU BID, (Reported) 0.1% Brinzolamide 5 Ml Drops.susp, 1 DROP OU BID, (Reported) Cyanocobalamin/Fa/Pyridoxine 1 Tab Tablet, 1 TAB PO DAILY, (Reported) Diltiazem Hcl 180 Mg Cap.er.24h, 180 MG PO DAILY, #30 Ref 12 Prescribed by: RHONDA FONSECA on 04/17/14 0821 Fluticasone/Salmeterol 1 Each Disk.w.dev, 0 IH Q12HR, #1 1 PUFF Prescribed by: RHONDA FONSECA on 04/17/14 0822 Folic Acid 1 Mg Tablet, 1 MG PO DAILY, (Reported) Hydrocodone Bit/Acetaminophen 1 Each Tablet, 1-2 TAB PO Q6H PRN for PAIN, ( Reported) Omeprazole 20 Mg Capsule.dr, 20 MG PO DAILY, (Reported) Ondansetron Hcl 8 Mg Tablet, 8 MG PO Q8H PRN for NAUSEA, (Reported) Prednisone 20 Mg Tab, 20 MG PO DAILY@0700 for 5 Days Prescribed by: RHONDA FONSECA on 04/17/14 0824 Travoprost 5 Ml Drops, 1 DROP OU HS, (Reported) Past Btivjsc-Perczq-Fmqhqm Hx Patient Social History Alcohol Use: Past History Recreational Drug Use: No Smoking Status: Former Smoker Type Used: Cigarettes Former Smoker, Quit: Jan 18, 2005 2nd Hand Smoke Exposure: No Recent Foreign Travel: No Contact w/Someone Who Travel: No Recent Infectious Disease Expo: No Recent Hopitalizations: No Physical Abuse: No Sexual Abuse: No Immunizations Up To Date Date of Pneumonia Vaccine: Oct 13, 2013 Date of Influenza Vaccine: Jan 13, 2014 Seasonal Allergies Seasonal Allergies: No Surgeries History of Surgeries: Yes Surgeries: Abdominal, Bowel Surgery, Lobectomy Respiratory History of Respiratory Disorde: Yes (LUNG CANCER) Respiratory Disorders: COPD Currently Using CPAP: No Currently Using BIPAP: No Cardiovascular History of Cardiac Disorders: Yes (PAROXYSMAL A.FIB--NOT ON ANTICOAGULANTS OR ANTIARRHYTHMICS OF 12/27/16) Cardiac Disorders: Atrial Fibrillation, Hypertension Neurological History of Neurological Disord: No Reproductive System Hx Reproductive Disorders: No Genitourinary History of Genitourinary Disor: Yes (CHRONIC RENAL INSUFFICIENCY SINCE STARTING CHEMO ) Genitourinary Disorders: Renal Failure Gastrointestinal History of Gastrointestinal Di: Yes (MULTIPLE ABDOMINAL HERNIAS) Gastrointestinal Disorders: Abdominal Hernia, Gastroesophageal Reflux, Diverticulosis, Polyps Musculoskeletal History of Musculoskeletal Dis: No Endocrine History of Endocrine Disorders: No HEENT History of HEENT Disorders: Yes HEENT Disorders: Glaucoma Cancer History of Cancer: Yes Cancer: Lung Cancer Comment: LUNG CANCER DX 2005--HAD RUL LOBECTOMY, NO CHEMO OR RADIATION HAD RECURRENCE DX 2013--WITH METS TO BONE, HAS HAD RADIATION AND STILL RECEIVING CHEMO OF 12/27/16 Psychosocial History of Psychiatric Problem: Yes Behavioral Health Disorders: Anxiety, Depression Suicide Risk Score: 0 Integumentary History of Skin or Integumenta: No (MYCOSIS FUNGOIDES) Blood Transfusions History of Blood Disorders: No Family Medical History Family Medial History: Asthma Cancer of mouth 19 FATHER Cataracts 19 FATHER Prostate cancer 19 FATHER Respiratory disorder 19 FATHER Severe allergy G8 BROTHER No Family History of: AIDS Abdominal aortic aneurysm [place]'s disease Alcoholism Alzheimer's disease Aphasia Arthritis Cardiovascular disease Colon cancer Completed stroke Congenital disease Congenital heart disease Coronary thrombosis Cystic fibrosis Deafness or hearing loss Dementia Diabetes mellitus Drug abuse Dysphasia Fibrocystic disease of breast Gastroenteritis Glaucoma Headache disorder Hypercholesterolemia Hypertension Infertility Kidney disease Myocardial infarction Neoplasm Not obtainable due to adoption Osteoporosis Parkinson's disease Psychosocial problem Seizure disorder Thyroid disease Tuberculosis Visual disorder Review of Systems Time Seen by Provider: 07:07 Constitutional: Weakness, Malaise, No: Fever, Chills, Sweats, Other Respiratory: Cough, Dry, Shortness of breath, SOB with excertion Cardiovascular: Chest Pain, Edema Gastrointestinal: Nausea, Abdominal Pain, Constipation Neurological: Weakness Exam Exam Vital Signs Date Time Temp Pulse Resp B/P (MAP) Pulse Ox O2 Delivery O2 Flow Rate FiO2 12/28/16 06:00 102 10 128/79 96 Nasal Cannula 2.00 12/28/16 05:00 112 19 127/78 97 Nasal Cannula 2.00 12/28/16 04:00 105 14 143/85 96 Nasal Cannula 2.00 12/28/16 04:00 96 Nasal Cannula 2.00 12/28/16 03:13 104 94 12/28/16 03:00 104 12 130/80 96 Nasal Cannula 2.00 12/28/16 02:58 104 12/28/16 02:40 96 Nasal Cannula 2.00 12/28/16 02:35 98.1 105 20 94 Nasal Cannula 2.00 12/28/16 02:34 96 Nasal Cannula 2.00 12/28/16 02:30 96.3 106 16 152/90 96 Nasal Cannula 2.00 12/27/16 20:22 98.1 135 20 145/91 96 Nasal Cannula 5.00 12/27/16 20:22 96 Nasal Cannula 5.00 96 General Appearance: No Apparent Distress, WD/WN Neck: No JVD Respiratory: No Accessory Muscle Use, No Respiratory Distress, Decreased Breath Sounds Cardiovascular: Regular Rate, Rhythm, No Edema Capillary Refill: Less Than 3 Seconds Gastrointestinal: soft, distended (SLIGHTLY), No guarding, No rebound, tenderness (MILD DIFFUSE UPPER ABDMOMINAL TENDERNESS) Neurologic/Psychiatric: Alert, Oriented x3 Skin: Normal Color, Warm/Dry Results Lab Laboratory Tests 12/27/16 21:32 12/28/16 03:59 Assessment/Plan Assessment/Plan Abdominal pain with Constipation - improved -Pt had 2 large BMs last night SOB - now improved and currently at baseline -PT is only on 2 liters of oxygen- which he has at home -Advair - pt uses breo at home -Continue PRN SVNs Metastatic lung cancer -PT follows with [facility] renal failure probably prerenal -IVF Pt is doing much better will transfer to 4th floor. 254 Clinical Quality Measures DVT/VTE Risk/Contraindication: Risk Factor Score Per Nursin RFS Level Per Nursing on Admit: 4+=Very High LILLY BARROW DO Dec 28, 2016 06:49
[2016-12-28] MEDS ORDERED: morphine INJ 4 MG/ML 1 ML (VIAL/SYRINGE) IV PRN (07:15)
--- NOTE | 2016-12-28 07:52 | Diagnostic Imaging Report ---
INDICATION: Tube placement. TECHNIQUE: Single view chest 12:51 AM. CORRELATION STUDY: 12/27/2016 FINDINGS: Since prior study, a gastric tube has been placed with tip of the left hemidiaphragm. Side port, however, likely just proximal to the EG junction. Heart size and mediastinum appear unremarkable. Hilar structures are slightly prominent. There are scattered areas of parenchymal nodularity about the lungs concerning for underlying pulmonary nodules or masses. No definitive infiltrate. IMPRESSION: 1. Gastric tube is in place with tip just within the region of the body of the stomach with side-port just proximal to the EG junction. 2. Multiple pulmonary nodules suspect. Correlation with CT imaging recommended. Dictated by: Dictated on workstation # [id number]
--- NOTE | 2016-12-28 08:02 | Diagnostic Imaging Report ---
INDICATION: Increasing shortness of breath.. TECHNIQUE: Two view chest 10:39 PM CORRELATION STUDY: 04/15/2014 FINDINGS: Heart size and mediastinum are relatively stable. There is abnormal fullness and irregularity of the right michelle. There is asymmetric elevation of the right hemidiaphragm. Lungs are hyperinflated and lucent compatible with changes of COPD. No definitive superimposed infiltrate. Scattered areas of nodularity are suggested worrisome for underlying pulmonary nodules/masses. IMPRESSION: 1. Bilateral pulmonary nodules worrisome for potential neoplasm. No definitive consolidating infiltrate. Abnormal fullness of the right hilum could be reflective of underlying adenopathy or mass as well. Dictated by: Dictated on workstation # [id number]
[2016-12-28] MEDS: PANTOPRAZOLE 40 MG/10 ML (PROTONIX) VIAL IV SCH (08:37)
--- NOTE | 2016-12-28 08:45 | Diagnostic Imaging Report ---
PROCEDURE: CT abdomen and pelvis without contrast. TECHNIQUE: Multiple contiguous axial images were obtained through the abdomen and pelvis without the use of intravenous contrast. INDICATION: Low back and abdominal pain. History of small bowel obstruction. CORRELATION STUDY: 04/08/2011. FINDINGS: The lung bases demonstrate multiple bilateral lung nodules/masses, worrisome for metastatic disease. No definitive basilar infiltrate. There is rather prominent asymmetric elevation of the right diaphragm. Evaluation of the liver is limited. There is, however, at least one indeterminate low-density liver lesion at the right lobe. Given the findings in the chest, this raises concern for potential neoplasm. The gallbladder contains some high density contents dependently which may reflect debris or sludge with the presence of gallstones as well. The spleen, pancreas, and adrenal glands are unremarkable. The kidneys are unremarkable without evidence for obstruction. There is, however, the presence of nonspecific low-density foci in the kidneys. Moderate wall calcification of the abdominal aorta, nonaneurysmal. Gastric and small bowel distention without discrete transition identified. Air/fluid levels are present in the small bowel. The features favor a probable ileus or perhaps enteritis over a partial obstructive process. Moderate colonic stool retention is noted. There is the presence of diverticuli without evidence for diverticulitis. The stomach is rather significantly distended. The urinary bladder is unremarkable. The prostate gland is mildly prominent. The osseous structures demonstrate multiple areas of sclerosis and possible lytic foci. These findings have changed from the prior study. IMPRESSION: 1. Diffuse gastric and small bowel distention without definitive transition point. Features favor a probable ileus or enteritis versus partial obstructive process. Moderate colonic stool retention. 2. Bilateral lung nodules are most concerning for pulmonary metastatic disease. 3. At least one low-density mass within the liver is also worrisome for potential neoplasm given the overall findings. 4. Multifocal areas of sclerosis and potential lytic changes of the osseous structures, suspect for osseous metastasis. 5. A preliminary report was provided by [employer]. Dictated by: Dictated on workstation # [id number]
--- NOTE | 2016-12-28 08:51 | History & Physical-Hospitalist ---
HPI History of Present Illness: HPI/Chief Complaint Mr. 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 Initially there was no abdominal pain and he attributed to a reaction to recently administered morphine. He was concerned about an allergic reaction presented to the emergency room. There he did develop progressive abdominal pain followed by nausea and vomiting. CT scan of the abdomen was compatible with either small bowel obstruction or ileus he was subsequent admitted after NG tube placement to low intermittent suction. There was no evidence for intra-abdominal tumor but he did have a fair amount of stool in the right colon.previously he been on fentanyl and hydrocodone but he was having difficulty getting his patch to stick with progressive lumbar and right buttock pain. He has known L4 5 metastasis and probable iliac metastasis. Jennifer's undergone palliative radiotherapy for right rib metastasis and right femoral neck metastasis. He denied chills or fever. He had a similar admission a little over a week ago to [facility] for what was felt to be a partial small bowel obstruction. He was discharged requiring nothing but several days of NG tube decompression. Date Seen 12/28/16 Time Seen by Provider: 07:00 Attending Physician Rhonda Neville PCP Rhonda Morgan MD Referring Physician Date of Admission Dec 28, 2016 at 01:00 Home Medications & Allergies Home Medications Reviewed patient Home Medication Reconciliation Form Allergies Allergies Coded Allergies NKANo Known Allergies (Verified Allergy, Unknown, 09/07/06) Past Xgilpmb-Jzlizw-Ztjaez Hx Patient Social History Alcohol Use: Past History Recreational Drug Use: No Smoking Status: Former Smoker Former Smoker, Quit: Jan 18, 2005 Type Used: Cigarettes 2nd Hand Smoke Exposure: No Physical Abuse Screen: No Sexual Abuse: No Recent Foreign Travel: No Contact w/other who traveled: No Recent Hopitalizations: No Recent Infectious Disease Expo: No Immunizations Up To Date Date of Pneumonia Vaccine: Oct 13, 2013 Date of Influenza Vaccine: Jan 13, 2014 Seasonal Allergies Seasonal Allergies: No Surgeries Yes Abdominal, Bowel Surgery, Lobectomy Respiratory Yes (LUNG CANCER) Currently Using CPAP: No Currently Using BIPAP: No Cardiovascular Yes (PAROXYSMAL A.FIB--NOT ON ANTICOAGULANTS OR ANTIARRHYTHMICS OF 12/27/16) Atrial Fibrillation, Hypertension Neurological No Reproductive System Hx Reproductive Disorders: No Genitourinary Yes (CHRONIC RENAL INSUFFICIENCY SINCE STARTING CHEMO ) Renal Failure Gastrointestinal Yes (MULTIPLE ABDOMINAL HERNIAS) Abdominal Hernia, Gastroesophageal Reflux, Diverticulosis, Polyps Musculoskeletal No Endocrine History of Endocrine Disorders: No HEENT History of HEENT Disorders: Yes HEENT Disorders: Glaucoma Cancer Yes Lung Cancer Comment: LUNG CANCER DX 2005--HAD RUL LOBECTOMY, NO CHEMO OR RADIATION HAD RECURRENCE DX 2014--WITH METS TO BONE, HAS HAD RADIATION AND STILL RECEIVING CHEMO OF 12/27/16 Psychosocial History of Psychiatric Problem: Yes Behavioral Health Disorders: Anxiety, Depression Integumentary History of Skin or Integumenta: No (MYCOSIS FUNGOIDES) Blood Transfusions History of Blood Disorders: No Family Medical History Family Hx: Asthma Cancer of mouth 19 FATHER Cataracts 19 FATHER Prostate cancer 19 FATHER Respiratory disorder 19 FATHER Severe allergy G8 BROTHER No Family History of: AIDS Abdominal aortic aneurysm [place]'s disease Alcoholism Alzheimer's disease Aphasia Arthritis Cardiovascular disease Colon cancer Completed stroke Congenital disease Congenital heart disease Coronary thrombosis Cystic fibrosis Deafness or hearing loss Dementia Diabetes mellitus Drug abuse Dysphasia Fibrocystic disease of breast Gastroenteritis Glaucoma Headache disorder Hypercholesterolemia Hypertension Infertility Kidney disease Myocardial infarction Neoplasm Not obtainable due to adoption Osteoporosis Parkinson's disease Psychosocial problem Seizure disorder Thyroid disease Tuberculosis Visual disorder Review of Systems Constitutional: No chills, No diaphoresis, No dizziness, No fever, No malaise, No weakness, No weight gain, weight loss, No other Cardiovascular: No no symptoms reported, see HPI, No chest pain, No edema, No Hx of Intervention, No palpitations, No syncope, No vascular heart diseas, No other Gastrointestinal: No RUQ, No LUQ, RLQ (pain), No LLQ, No no symptoms reported, No see HPI, abdominal pain (RLQ), No constipation, No diarrhea, No dysphagia, No hematemesis, No heartburn, No jaundice, loss of appetite, No melena, nausea, vomiting, No other Skin: rash (Lila's rash laterally above left iliac crest unchanged no evidence for plaque formation is noted no skin breakdown is noted.) Physical Exam Physical Exam Vital Signs Vital Sign - Last 12Hours 12/27/16 20:22 Temp 98.1 Pulse 135 Resp 20 B/P (MAP) 145/91 Pulse Ox 96 O2 Delivery Nasal Cannula O2 Flow Rate 5.00 FiO2 96 Capillary Refill : Less Than 3 Seconds General Appearance: Anxious, Chronically ill Results Results/Procedures Lab Laboratory Tests 12/29/16 05:15 Assessment/Plan Admission Diagnosis 1. Partial small bowel obstruction appears to be resolving will clamp NG tube and defer further management to Dr. George. 2. Adenocarcinoma the lung with bony metastasis. Patient most symptomatically in the L45 area and right ischial area will consult Dr. Portillo to evaluate for possibility of radiation therapy for palliation. Patient will require rather high-dose narcotic therapy that he is been used to likely reinitiating long- acting morphine 100 twice a day when the patient is taking by mouth fluids again. Continue IV morphine for now. Clinical Quality Measures DVT/VTE Risk/Contraindication: Risk Factor Score Per Nursin RFS Level Per Nursing on Admit: 4+=Very High RHONDA MORGAN MD Dec 28, 2016 08:51
[2016-12-28] MEDS ORDERED: MORP100T37 PO (09:11)
[2016-12-28] MEDS ORDERED: FLUT1AER INH (09:16)
[2016-12-28] MEDS ORDERED: AMIT100T2 PO (09:16)
[2016-12-28] MEDS ORDERED: FURO20TA4 PO (09:16)
[2016-12-28] MEDS ORDERED: HYDR-3820 PO (09:16)
[2016-12-28] MEDS ORDERED: OMEP20TA33 PO (09:16)
[2016-12-28] MEDS ORDERED: LORA-407 PO (09:21)
[2016-12-28] MEDS ORDERED: LEVO50TA6 PO (09:21)
[2016-12-28] MEDS ORDERED: RT-ALBUINH IH (09:21)
[2016-12-28] MEDS ORDERED: ONDA8TAB9 PO (09:21)
[2016-12-28] MEDS: D5 1/2 NS W/KCL 20 MEQ/L 1,000 ML IV SCH ×3 (09:44→21:47)
[2016-12-28] MEDS ORDERED: LEVO25TA5 PO (10:31)
[2016-12-28] MEDS: morphine INJ 10 MG/ML 1ML (SYR OR VIAL) IVP PRN ×5 (11:00→23:37)
--- NOTE | 2016-12-28 17:30 | Consultation ---
History of Present Illness History of Present Illness Patient Consulted On(mack/time) 12/28/16 17:25 Date Seen by Provider: Dec 28, 2016 Time Seen by Provider: 08:30 History of Present Illness Consult requested for partial small bowel obstruction Dr. Morgan. Patient is a 61-year-old male with metastatic lung cancer. Patient has also had previous multiple hernia and colon surgery. Patient 1 week ago was in the hospital for small bowel obstruction which was resolved and patient discharged from [facility]. Patient began having abdominal distention again some abdominal discomfort with mild discomfort diffusely. No radiation of pain. Patient also some shortness of breath which she is on home oxygen. Patient had a CT scan demonstrating dilated stomach and small bowel with no definitive transition point. An NG tube was placed in the emergency department and placed to low intermittent wall suction. Patient overnight started passing flatus and had 2 large bowel movements. Patient states that his abdominal distention has improved and he is feeling better. He still has issues with his chronic pain which is the hips and low back. His NG tube has been clamped. He is not having any nausea or vomiting at this time. He denies any fever sweats chills shortness of breath or chest pain. He did receive chemotherapy yesterday. Allergies and Home Medications Allergies Coded Allergies: SERENAANo Known Allergies (Verified Allergy, Unknown, 09/07/06) Home Medications Albuterol Sulfate 1 Puff Puff, 2 PUFF IH Q4H PRN for SHORTNESS OF BREATH, ( Reported) 1 PUFF = 90 MCG Amitriptyline HCl 100 Mg Tablet, 100 MG PO HS, (Reported) Fluticasone/Vilanterol 1 Each Blst.w.dev, 1 PUFF INH DAILY, (Reported) Furosemide 20 Mg Tablet, 10 MG PO DAILY, (Reported) TAKES 1/2 (20MG) TABLET Hydrocodone/Acetaminophen 1 Each Tablet, 2 TAB PO Q4H PRN for PAIN-BREAKTHROUGH, (Reported) Levothyroxine Sodium 25 Mcg Tablet, 25 MCG PO DAILY, (Reported) Lorazepam 2 Mg Tablet, 2 MG PO Q6H PRN for ANXIETY, (Reported) Morphine Sulfate 100 Mg Tablet.er, 100 MG PO BID, (Reported) Omeprazole Magnesium 20 Mg Tablet.dr, 20 MG PO DAILY, (Reported) Ondansetron 8 Mg Tab.rapdis, 8 MG PO Q8H PRN for NAUSEA/VOMITING-1ST LINE, ( Reported) Past Vaowpzc-Mchyqm-Frvqvi Hx Patient Social History Alcohol Use: Past History Recreational Drug Use: No Smoking Status: Former Smoker Former Smoker, Quit: Jan 18, 2005 Type Used: Cigarettes 2nd Hand Smoke Exposure: No Recent Foreign Travel: No Contact w/Someone Who Travel: No Recent Infectious Disease Expo: No Recent Hopitalizations: No Physical Abuse Screen: No Sexual Abuse: No Immunizations Up To Date Date of Pneumonia Vaccine: Oct 13, 2013 Date of Influenza Vaccine: Jan 13, 2014 Seasonal Allergies Seasonal Allergies: No Surgeries History of Surgeries: Yes Surgeries: Abdominal, Bowel Surgery, Lobectomy Respiratory History of Respiratory Disorde: Yes (LUNG CANCER) Respiratory Disorders: COPD Cardiovascular History of Cardiac Disorders: Yes (PAROXYSMAL A.FIB--NOT ON ANTICOAGULANTS OR ANTIARRHYTHMICS OF 12/27/16) Cardiac Disorders: Atrial Fibrillation, Hypertension Neurological History of Neurological Disord: No Reproductive System Hx Reproductive Disorders: No Genitourinary History of Genitourinary Disor: Yes (CHRONIC RENAL INSUFFICIENCY SINCE STARTING CHEMO ) Genitourinary Disorders: Renal Failure Gastrointestinal History of Gastrointestinal Di: Yes (MULTIPLE ABDOMINAL HERNIAS) Gastrointestinal Disorders: Abdominal Hernia, Gastroesophageal Reflux, Diverticulosis, Polyps Musculoskeletal History of Musculoskeletal Dis: No Endocrine History of Endocrine Disorders: No HEENT History of HEENT Disorders: Yes HEENT Disorders: Glaucoma Cancer History of Cancer: Yes Cancer: Lung Psychosocial History of Psychiatric Problem: Yes Behavioral Health Disorders: Anxiety, Depression Integumentary History of Skin or Integumenta: No (MYCOSIS FUNGOIDES) Blood Transfusions History of Blood Disorders: No Family Medical History Significant Family History: No Pertinent Family Hx Family Medial History: Asthma Cancer of mouth 19 FATHER Cataracts 19 FATHER Prostate cancer 19 FATHER Respiratory disorder 19 FATHER Severe allergy G8 BROTHER No Family History of: AIDS Abdominal aortic aneurysm Garland's disease Alcoholism Alzheimer's disease Aphasia Arthritis Cardiovascular disease Colon cancer Completed stroke Congenital disease Congenital heart disease Coronary thrombosis Cystic fibrosis Deafness or hearing loss Dementia Diabetes mellitus Drug abuse Dysphasia Fibrocystic disease of breast Gastroenteritis Glaucoma Headache disorder Hypercholesterolemia Hypertension Infertility Kidney disease Myocardial infarction Neoplasm Not obtainable due to adoption Osteoporosis Parkinson's disease Psychosocial problem Seizure disorder Thyroid disease Tuberculosis Visual disorder Review of Systems-General Constitutional: no symptoms reported EENTM: no symptoms reported Respiratory: see HPI Cardiovascular: no symptoms reported Gastrointestinal: see HPI Genitourinary: no symptoms reported Musculoskeletal: see HPI, back pain Skin: no symptoms reported Psychiatric/Neurological: No Symptoms Reported Physical Exam-General Problems Physical Exam Vital Signs Vital Sign - Last 12Hours 12/27/16 20:22 Temp 98.1 Pulse 135 Resp 20 B/P (MAP) 145/91 Pulse Ox 96 O2 Delivery Nasal Cannula O2 Flow Rate 5.00 FiO2 96 Capillary Refill : Less Than 3 Seconds General Appearance: no apparent distress HEENT: PERRL/EOMI Neck: supple Respiratory: no respiratory distress, no accessory muscle use Cardiovascular: irregularly irregular Gastrointestinal: soft, distended (some tympany with percussion, no significant tenderness on palpation, no organomegaly), No guarding, No rebound Rectal: deferred Back: other (slight low back tenderness) Extremities: non-tender Neurologic/Psychiatric: alert, normal mood/affect, oriented x 3 Skin: warm/dry Lymphatic: no adenopathy Data Review Labs Laboratory Tests 12/27/16 19:48: Blood Gas Puncture Site RIGHT RADIAL, Blood Gas Patient Temperature 97.3, Arterial Blood pH 7.32*L, Arterial Blood Partial Pressure CO2 51H, Arterial Blood Partial Pressure O2 119H, Arterial Blood HCO3 26, Arterial Blood Total CO2 27.2, Arterial Blood Oxygen Saturation 99, Arterial Blood Base Excess 0.1, Zachary Test POSITIVE, Blood Gas Ventilator Setting NO, Blood Gas Inspired Oxygen 5L 12/27/16 21:32: White Blood Count 11.1H, Red Blood Count 4.88, Hemoglobin 13.1L, Hematocrit 44, Mean Corpuscular Volume 91, Mean Corpuscular Hemoglobin 27, Mean Corpuscular Hemoglobin Concent 30L, Red Cell Distribution Width 20.3H, Platelet Count 515H, Mean Platelet Volume 11.1H, Neutrophils (%) (Auto) 94H, Lymphocytes (%) (Auto) 3L, Monocytes (%) (Auto) 3, Eosinophils (%) (Auto) 0, Basophils (%) (Auto) 0, Neutrophils # (Auto) 10.4H, Lymphocytes # (Auto) 0.3L, Monocytes # (Auto) 0.3, Eosinophils # (Auto) 0.0, Basophils # (Auto) 0.0, Neutrophils % (Manual) 89, Lymphocytes % (Manual) 4, Monocytes % (Manual) 0, Eosinophils % (Manual) 0, Basophils % (Manual) 0, Band Neutrophils 7, Blood Morphology Comment NORMAL, Prothrombin Time 13.2, INR Comment 1.0, Activated Partial Thromboplast Time 30, Sodium Level 137, Potassium Level 4.6, Chloride Level 99, Carbon Dioxide Level 26, Anion Gap 12, Blood Urea Nitrogen 24H, Creatinine 1.75H, Estimat Glomerular Filtration Rate 40, BUN/Creatinine Ratio 14, Glucose Level 157H, Calcium Level 9.7, Magnesium Level 1.7L, Total Bilirubin 0.5, Aspartate Amino Transf (AST/SGOT ) 10, Alanine Aminotransferase (ALT/SGPT) 11, Alkaline Phosphatase 72, Total Creatine Kinase 30, Creatine Kinase MB 1.1, Troponin I < 0.30, B-Type Natriuretic Peptide < 10.0, Total Protein 7.7, Albumin 4.3, Amylase Level 104, Lipase 72, TSH Elbert Testing 1.50 12/28/16 00:48: Urine Color YELLOW, Urine Clarity CLEAR, Urine pH 5, Urine Specific Hines 1.025H, Urine Protein 1+H, Urine Glucose (UA) NEGATIVE, Urine Ketones NEGATIVE, Urine Nitrite NEGATIVE, Urine Bilirubin NEGATIVE, Urine Urobilinogen NORMAL, Urine Leukocyte Esterase NEGATIVE, Urine RBC (Auto) NEGATIVE, Urine RBC NONE, Urine WBC NONE, Urine Squamous Epithelial Cells 0-2, Urine Crystals PRESENTH, Urine Amorphous Sediment FEW ASHLEE URATESH, Urine Bacteria TRACE, Urine Casts PRESENT, Urine Hyaline Casts 2-5H, Urine Mucus SMALLH, Urine Culture Indicated NO 12/28/16 03:59: White Blood Count 9.4, Red Blood Count 4.49, Hemoglobin 12.1L, Hematocrit 41, Mean Corpuscular Volume 91, Mean Corpuscular Hemoglobin 27, Mean Corpuscular Hemoglobin Concent 30L, Red Cell Distribution Width 20.2H, Platelet Count 443H, Mean Platelet Volume 11.0H, Neutrophils (%) (Auto) 91H, Lymphocytes (%) (Auto) 4L, Monocytes (%) (Auto) 5, Eosinophils (%) (Auto) 0, Basophils (%) (Auto) 0, Neutrophils # (Auto) 8.6H, Lymphocytes # (Auto) 0.4L, Monocytes # (Auto) 0.4, Eosinophils # (Auto) 0.0, Basophils # (Auto) 0.0, Sodium Level 136, Potassium Level 4.6, Chloride Level 103, Carbon Dioxide Level 24, Anion Gap 9, Blood Urea Nitrogen 26H, Creatinine 1.46H, Estimat Glomerular Filtration Rate 49, BUN/ Creatinine Ratio 18, Glucose Level 141H, Calcium Level 9.1, Magnesium Level 1.9 , Total Bilirubin 0.3, Aspartate Amino Transf (AST/SGOT) 9, Alanine Aminotransferase (ALT/SGPT) 10, Alkaline Phosphatase 60, Troponin I < 0.30, Total Protein 6.8, Albumin 3.8, Phosphorus Level 3.6 12/28/16 12:32: Glucometer 110 Assessment/Plan Assessment/Plan Assessment/Plan Partial small bowel obstruction, metastatic lung cancer, renal failure, shortness of breath Patient passing flatus and having bowel movement overnight abdomen less distended NG tube is been clamped. If continues to pass flatus or bowel movement could discontinue and started on liquids. If he does not continue to progress would get a small bowel follow-through Pain control IV hydration No surgical intervention at this time we'll continue to follow Clinical Quality Measures DVT/VTE Risk/Contraindication: Risk Factor Score Per Nursin RFS Level Per Nursing on Admit: 4+=Very High DESTIN MURRY DO Dec 28, 2016 17:30
[2016-12-28] MEDS: morphine ER 100 MG (MS CONTIN) TAB PO SCH (20:16)
[2016-12-28] MEDS ORDERED: morphine ER 100 MG (MS CONTIN) TAB PO SCH (21:00)
[2016-12-29] VITALS: BP 136/67
[2016-12-29] MEDS: inSUlin (REGULAR) HUMAN 1 UNIT/0.01 ML (CHARGE PER UNIT) SC SCH ×4 (00:17→18:23)
[2016-12-29] MEDS: RT-ALBUTEROL SULF 2.5 MG/3 ML PRE-MIX VIAL IH SCH ×6 (02:28→22:12)
[2016-12-29 04:00] VITALS: BP_SYST 117; BP_SYST 129; BP_DIAS 68; BP_DIAS 74
[2016-12-29] MEDS: morphine INJ 10 MG/ML 1ML (SYR OR VIAL) IVP PRN ×4 (04:06→16:30)
[2016-12-29] MEDS: D5 1/2 NS W/KCL 20 MEQ/L 1,000 ML IV SCH ×3 (04:12→20:17)
[2016-12-29 05:27] LABS: BASOPHILS % (AUTO) 0 % (0-10); EOSINOPHILS % (AUTO) 1 % (0-10); LYMPHOCYTES # (AUTO) 0.5 X 10^3 (1.0-4.0); LYMPHOCYTES % (AUTO) 9 % (12-44); MEAN CORPUSCULAR HEMOGLOBIN 27 PG (25-34); MEAN CORPUSCULAR HGB CONC 30 G/DL (32-36); MEAN CORPUSCULAR VOLUME 93 FL (80-99); MEAN PLATELET VOLUME 10.8 FL (7.4-10.4); MONOCYTES # (AUTO) 0.6 X 10^3 (0.0-1.0); MONOCYTES % (AUTO) 11 % (0-12); NEUTROPHILS # (AUTO) 4.5 X 10^3 (1.8-7.8); NEUTROPHILS % (AUTO) 80 % (42-75); PLATELET COUNT 337 10^3/uL (130-400); RED BLOOD COUNT 3.74 10^6/uL (4.35-5.85); RED CELL DISTRIBUTION WIDTH 20.1 % (10.0-14.5); WHITE BLOOD COUNT 5.6 10^3/uL (4.3-11.0)
[2016-12-29 06:39] LABS: ANION GAP 7 MMOL/L (5-14); BLOOD UREA NITROGEN 15 MG/DL (7-18); BUN/CREATININE RATIO 13; CALCIUM 7.9 MG/DL (8.5-10.1); CARBON DIOXIDE 25 MMOL/L (21-32); CHLORIDE 103 MMOL/L (98-107); CREATININE SERUM 1.19 MG/DL (0.60-1.30); GFR ESTIMATED > 60; GLUCOSE 123 MG/DL (70-105); MAGNESIUM 1.6 MG/DL (1.8-2.4); PHOSPHORUS 2.8 MG/DL (2.3-4.7); POTASSIUM 4.5 MMOL/L (3.6-5.0); SODIUM 135 MMOL/L (135-145)
[2016-12-29 08:00] VITALS: BP 122/70
[2016-12-29] MEDS: RT-ADVAIR HFA 115/21 MCG PER PUFF IH SCH ×3 (08:12→19:00)
--- NOTE | 2016-12-29 08:34 | Progress Note-Hospitalist ---
Subjective HPI/CC On Admission Date Seen by Provider: Dec 29, 2016 Time Seen by Provider: 07:00 Subjective/Events-last exam patient denies abdominal pain or bloating. NG tube has been clamped since yesterday. He is not however pass any gas and has had no further bowel movements. His biggest complaint is lumbar-related back pain where he has known metastatic disease from his adenocarcinoma of the lung. He denies any radicular associated pain. There've been no issues with oversedation with the initiation of morphine high-dose 100 mg every 12. He is still requiring IV morphine for breakthrough symptoms. He reports that he is not yet feeling hungry. Objective Exam Vital Signs Vital Sign - Last 12Hours 12/27/16 20:22 Temp 98.1 Pulse 135 Resp 20 B/P (MAP) 145/91 Pulse Ox 96 O2 Delivery Nasal Cannula O2 Flow Rate 5.00 FiO2 96 Capillary Refill : Less Than 3 Seconds General Appearance: Anxious Respiratory: Other (scattered rales without rhonchi or wheezing there are diminished breath sounds posteriorly but at this patient's baseline.) Cardiovascular: Regular Rate, Rhythm, No Edema, No Gallop, No JVD, No Murmur, Normal Peripheral Pulses Gastrointestinal: No Organomegaly, Non Tender, Soft, Other (mild distention unchanged from yesterday. Hypoactive bowel sounds are noted no tenderness to palpation is noted.) Extremity: Normal Inspection, Normal Range of Motion, Non Tender, No Calf Tenderness, No Pedal Edema Results/Procedures Lab Laboratory Tests 12/29/16 05:15 Assessment/Plan Assessment and Plan Assess & Plan/Chief Complaint 1. Partial small bowel obstruction versus ileus. Unfortunately there is probable component of narcotic bowel but due to pain from bony metastasis he will continue to require high-dose morphine. Dr. Adams has been consulted for evaluation for palliative radiotherapy. Patient encouraged to ambulate at least 3 times daily. 2. Adenocarcinoma the lung with bony metastasis. 3. 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 RHONDA FONSECA MD Dec 29, 2016 08:33
[2016-12-29] MEDS: ONDANSETRON 4 MG/2 ML (SDV) Z0FRAN IV PRN ×3 (08:54→21:09)
[2016-12-29] MEDS: PANTOPRAZOLE 40 MG/10 ML (PROTONIX) VIAL IV SCH (09:01)
[2016-12-29] MEDS: morphine ER 100 MG (MS CONTIN) TAB PO SCH ×2 (09:04→20:17)
[2016-12-29] MEDS: PROMETHAZINE INJ 25 MG/ML (PHENERGAN) AMP IVP PRN ×2 (10:23→17:42)
[2016-12-29 12:00] VITALS: BP 103/66
[2016-12-29] MEDS: morphine INJ 4 MG/ML 1 ML (VIAL/SYRINGE) IVP NR ×2 (14:45→14:58)
--- NOTE | 2016-12-29 15:49 | Progress Note ---
Subjective Date Seen by Provider: Dec 29, 2016 Time Seen by Provider: 15:44 Subjective/Events-last exam Patient states having some right lower quadrant abdominal pain. He is not passing more flatus or having any more bowel movements. Patient states he has more discomfort in the right lower quadrant. He needs more pain medication he states. Patient NG tube has been clamped. He feels like his abdomen is getting more distended today. He is not having any significant nausea or vomiting. He denies any fever sweats chills shortness breath chest pain. Objective Exam Vital Signs Date Time Temp Pulse Resp B/P (MAP) Pulse Ox O2 Delivery O2 Flow Rate FiO2 12/29/16 14:37 91 Nasal Cannula 1.00 12/29/16 13:00 118 12/29/16 12:00 100.1 128 20 103/66 91 Nasal Cannula 2.00 12/29/16 11:18 91 Nasal Cannula 1.00 12/29/16 08:12 93 Nasal Cannula 1.00 12/29/16 08:00 Nasal Cannula 12/29/16 08:00 99.8 116 18 122/70 90 Nasal Cannula 2.00 12/29/16 07:00 108 12/29/16 04:00 99.4 110 12 117/74 93 Nasal Cannula 2.00 12/29/16 02:28 90 Nasal Cannula 1.00 12/29/16 01:00 109 12/29/16 00:00 99.8 115 12 136/67 96 Nasal Cannula 2.00 12/28/16 22:06 89 Nasal Cannula 1.00 12/28/16 20:10 Nasal Cannula 12/28/16 20:00 98.9 115 20 121/60 94 Nasal Cannula 2.00 12/28/16 19:00 119 12/28/16 18:47 93 Nasal Cannula 1.00 12/28/16 18:21 98.8 12/28/16 16:54 98.8 12/28/16 16:32 98.8 12/28/16 16:01 98.6 12/28/16 16:00 98.8 117 20 136/62 91 Nasal Cannula 2.00 I & O 12/30/16 07:00 Intake Total 0 ml Output Total 975 ml Balance -975 ml Capillary Refill : Less Than 3 Seconds General Appearance: No Apparent Distress Neck: Supple, No JVD Respiratory: No Accessory Muscle Use, No Respiratory Distress, Other ( scattered rales without rhonchi or wheezing there are diminished breath sounds posteriorly but at this patient's baseline.) Cardiovascular: Regular Rate, Rhythm Gastrointestinal: soft, distended (some slight tenderness the right lower quadrant slightly more distended today), No guarding, No rebound Extremity: Normal Inspection, Normal Range of Motion, Non Tender, No Calf Tenderness, No Pedal Edema Neurologic/Psychiatric: Alert, Oriented x3 Skin: Normal Color, Warm/Dry Results Lab Laboratory Tests 12/28/16 18:04: Glucometer 112H 12/29/16 00:01: Glucometer 123H 12/29/16 05:15: White Blood Count 5.6, Red Blood Count 3.74L, Hemoglobin 10.2L, Hematocrit 35L, Mean Corpuscular Volume 93, Mean Corpuscular Hemoglobin 27, Mean Corpuscular Hemoglobin Concent 30L, Red Cell Distribution Width 20.1H, Platelet Count 337, Mean Platelet Volume 10.8H, Neutrophils (%) (Auto) 80H, Lymphocytes (%) (Auto) 9L, Monocytes (%) (Auto) 11, Eosinophils (%) (Auto) 1, Basophils (%) (Auto) 0, Neutrophils # (Auto) 4.5, Lymphocytes # (Auto) 0.5L, Monocytes # (Auto) 0.6, Eosinophils # (Auto) 0.0, Basophils # (Auto) 0.0, Sodium Level 135, Potassium Level 4.5, Chloride Level 103, Carbon Dioxide Level 25, Anion Gap 7, Blood Urea Nitrogen 15, Creatinine 1.19, Estimat Glomerular Filtration Rate > 60, BUN/ Creatinine Ratio 13, Glucose Level 123H, Calcium Level 7.9L, Phosphorus Level 2.8, Magnesium Level 1.6L 12/29/16 05:17: Glucometer 118H Microbiology 12/28/16 MRSA Screen - Final, Complete MRSA not isolated Assessment/Plan Assessment/Plan Assessment/Plan Partial small bowel obstruction, metastatic lung cancer, renal failure, shortness of breath Patient abdominal distention allowed bit worse today and having more right lower quadrant abdominal pain. We'll place him back on low intermittent wall suction. We'll go ahead and plan on small bowel follow-through tomorrow morning. This could be related narcotic bowel to one sure that he has no obstruction. Patient is in agreement with plan. We'll also give him 1 time dose of 2 mg morphine for breakthrough pain. Clinical Quality Measures DVT/VTE Risk/Contraindication: Risk Factor Score Per Nursin RFS Level Per Nursing on Admit: 4+=Very High DESTIN MURRY DO Dec 29, 2016 15:49
[2016-12-29 16:17] VITALS: BP 117/81
[2016-12-29 19:11] VITALS: BP 129/66
[2016-12-30] VITALS (7 sets, daily range): BP systolic 108–161; BP diastolic 58–73
[2016-12-30] MEDS: PROMETHAZINE INJ 25 MG/ML (PHENERGAN) AMP IVP PRN (00:28)
[2016-12-30] MEDS: inSUlin (REGULAR) HUMAN 1 UNIT/0.01 ML (CHARGE PER UNIT) SC SCH ×3 (00:40→11:57)
[2016-12-30] MEDS: RT-ALBUTEROL SULF 2.5 MG/3 ML PRE-MIX VIAL IH SCH ×5 (02:49→18:51)
[2016-12-30] MEDS: morphine INJ 10 MG/ML 1ML (SYR OR VIAL) IVP PRN ×6 (03:13→21:14)
[2016-12-30] MEDS: D5 1/2 NS W/KCL 20 MEQ/L 1,000 ML IV SCH ×4 (03:13→20:45)
[2016-12-30] MEDS: RT-ADVAIR HFA 115/21 MCG PER PUFF IH SCH ×2 (06:34→18:59)
[2016-12-30] MEDS: PANTOPRAZOLE 40 MG/10 ML (PROTONIX) VIAL IV SCH (07:49)
[2016-12-30] MEDS: morphine ER 100 MG (MS CONTIN) TAB PO SCH ×2 (07:50→20:42)
[2016-12-30] MEDS ORDERED: DIATRIZOATE MEGLUM/SODIUM 37% 120 ML (GASTROGRAFIN) NG ONE (09:30)
[2016-12-30] MEDS: ONDANSETRON 4 MG/2 ML (SDV) Z0FRAN IV PRN ×3 (10:03→21:14)
--- NOTE | 2016-12-30 12:51 | Diagnostic Imaging Report ---
EXAMINATION: Gastrografin small bowel follow through. INDICATION: Bowel obstruction and bloating. TECHNIQUE: Assistant Associate Full Professor image of the abdomen was performed. Subsequently, the patient was given Gastrografin via NG tube and serial images of the abdomen were obtained. FINDINGS: Assistant Associate Full Professor image of the abdomen demonstrates small to moderate amount of fecal material. Surgical clips also seen in the mid and lower abdomen There is prompt gastric emptying into the small bowel loops. There is a transient time through the small bowel of 2 hours. The small bowel caliber and fold pattern and thickness are normal. The terminal ileum appears normal. There are no filling defects seen. IMPRESSION: Unremarkable small bowel follow through. Dictated by: Dictated on workstation # [id number]
--- NOTE | 2016-12-30 13:05 | Progress Note-Hospitalist ---
Subjective HPI/CC On Admission Date Seen by Provider: Dec 30, 2016 Time Seen by Provider: 12:30 Subjective/Events-last exam patient had some mild nausea with instillation of barium for small bowel follow- through this morning. Otherwise he has had no nausea and reports decreased right lower quadrant abdominal pain. Lumbar and right posterior buttock discomfort under improved control on morphine without oversedation. Patient had a large amount of gas with liquid stool for which she was incontinent this morning. Objective Exam Vital Signs Vital Sign - Last 12Hours 12/27/16 20:22 Temp 98.1 Pulse 135 Resp 20 B/P (MAP) 145/91 Pulse Ox 96 O2 Delivery Nasal Cannula O2 Flow Rate 5.00 FiO2 96 Capillary Refill : Less Than 3 Seconds General Appearance: Anxious, Chronically ill Respiratory: No Accessory Muscle Use, No Respiratory Distress, Other (few fine bilateral rales diminished breath sounds posteriorly with no wheezing patient's baseline exam.) Cardiovascular: Regular Rate, Rhythm, No Edema, No Murmur, Tachycardia (regular ) Gastrointestinal: Other (sounds present but hypoactive abdominal distention mild stable from yesterday with clamped NG tube. No masses organomegaly noted mild right lower quadrant discomfort to palpation without rebound or guarding.) Assessment/Plan Assessment and Plan Assess & Plan/Chief Complaint 1. all bowel follow-through reveals no evidence for intestinal blockage. Symptoms most compatible with ileus considering no evidence for obstruction. Patient encouraged to continue ice chips with NG tube in place. A for Dr. George's evaluation later on today consideration for removal if he is tolerating ice chips.. Unfortunately there is probable component of narcotic bowel but due to pain from bony metastasis he will continue to require high- dose morphine. Dr. Adams has been consulted for evaluation for palliative radiotherapy. Patient encouraged to ambulate at least 3 times daily. 2. Adenocarcinoma the lung with bony metastasis. 3. 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 RHONDA FONSECA MD Dec 30, 2016 13:05
--- NOTE | 2016-12-30 16:02 | Progress Note ---
Subjective Date Seen by Provider: Dec 30, 2016 Time Seen by Provider: 09:00 Subjective/Events-last exam Patient with less pain today. Slight nausea with small bowel follow through which then resolved. Patient reported not passing any flatus or bm last night but now passing flatus and small bm. Patient still with chronic pain. No nausea fever sweats chills shortness of breath or chest pain at this time. Objective Exam Vital Signs Date Time Temp Pulse Resp B/P (MAP) Pulse Ox O2 Delivery O2 Flow Rate FiO2 12/30/16 14:10 94 OxyMask 3.00 12/30/16 13:00 115 12/30/16 12:30 99.3 120 28 118/58 98 OxyMask 3.50 12/30/16 08:30 97.3 113 22 116/73 92 OxyMask 2.00 12/30/16 08:00 Nasal Cannula 3.00 12/30/16 06:34 95 OxyMask 3.00 12/30/16 04:12 99.2 107 20 158/71 95 Nasal Cannula 2.00 12/30/16 02:50 94 Nasal Cannula 3.00 12/30/16 01:00 117 12/30/16 00:05 100.4 122 18 161/69 93 Nasal Cannula 2.00 12/29/16 22:13 93 Nasal Cannula 3.00 12/29/16 20:32 100.4 12/29/16 20:00 Nasal Cannula 3.00 12/29/16 19:42 120 12/29/16 19:11 101.4 124 14 129/66 94 12/29/16 19:00 94 Nasal Cannula 3.00 12/29/16 16:17 98.0 124 16 117/81 92 Nasal Cannula 3.00 Capillary Refill : Less Than 3 Seconds General Appearance: Anxious HEENT: PERRL/EOMI Neck: Supple, No JVD Respiratory: No Accessory Muscle Use, No Respiratory Distress Cardiovascular: Regular Rate, Rhythm, No Edema, No Murmur, Tachycardia (regular ) Gastrointestinal: soft, distended (some slight tenderness the right lower quadrant improved, less distention compared to yesterday.), No guarding, No rebound Extremity: Normal Inspection, Normal Range of Motion, Non Tender, No Calf Tenderness, No Pedal Edema Neurologic/Psychiatric: Alert, Oriented x3 Skin: Normal Color, Warm/Dry Results Lab Laboratory Tests 12/29/16 17:57: Glucometer 101 12/30/16 00:36: Glucometer 114H 12/30/16 04:48: Glucometer 114H 12/30/16 11:36: Glucometer 101 Microbiology 12/28/16 MRSA Screen - Final, Complete MRSA not isolated Assessment/Plan Assessment/Plan Assessment/Plan Partial small bowel obstruction, metastatic lung cancer, renal failure, shortness of breath Patient with small bowel follow through. Demonstrates unremarkable study. Likely narcotic bowel. Will DC ng tube and start clears, would slowly advance if tolerates. No surgical intervention at this time. Clinical Quality Measures DVT/VTE Risk/Contraindication: Risk Factor Score Per Nursin RFS Level Per Nursing on Admit: 4+=Very High DESTIN MURRY DO Dec 30, 2016 16:02
[2016-12-31] VITALS: BP 96/54
[2016-12-31 04:00] VITALS: BP 123/75
[2016-12-31] MEDS: morphine INJ 10 MG/ML 1ML (SYR OR VIAL) IVP PRN ×7 (04:08→23:24)
[2016-12-31] MEDS: D5 1/2 NS W/KCL 20 MEQ/L 1,000 ML IV SCH (05:03)
[2016-12-31 06:43] LABS: BASOPHILS % (AUTO) 1 % (0-10); EOSINOPHILS # (AUTO) 0.1 10^3/uL (0.0-0.3); EOSINOPHILS % (AUTO) 1 % (0-10); LYMPHOCYTES # (AUTO) 0.5 X 10^3 (1.0-4.0); LYMPHOCYTES % (AUTO) 10 % (12-44); MEAN CORPUSCULAR HEMOGLOBIN 27 PG (25-34); MEAN CORPUSCULAR HGB CONC 29 G/DL (32-36); MEAN CORPUSCULAR VOLUME 92 FL (80-99); MEAN PLATELET VOLUME 10.7 FL (7.4-10.4); MONOCYTES # (AUTO) 0.1 X 10^3 (0.0-1.0); MONOCYTES % (AUTO) 2 % (0-12); NEUTROPHILS # (AUTO) 4.5 X 10^3 (1.8-7.8); NEUTROPHILS % (AUTO) 86 % (42-75); PLATELET COUNT 273 10^3/uL (130-400); RED CELL DISTRIBUTION WIDTH 19.3 % (10.0-14.5); WHITE BLOOD COUNT 5.3 10^3/uL (4.3-11.0)
[2016-12-31] MEDS: RT-ALBUTEROL SULF 2.5 MG/3 ML PRE-MIX VIAL IH SCH ×4 (06:56→18:52)
[2016-12-31] MEDS: RT-ADVAIR HFA 115/21 MCG PER PUFF IH SCH ×2 (06:56→18:52)
[2016-12-31 07:00] LABS: ANION GAP 5 MMOL/L (5-14); BLOOD UREA NITROGEN 14 MG/DL (7-18); BUN/CREATININE RATIO 13; CALCIUM 7.9 MG/DL (8.5-10.1); CARBON DIOXIDE 27 MMOL/L (21-32); CHLORIDE 101 MMOL/L (98-107); CREATININE SERUM 1.07 MG/DL (0.60-1.30); GFR ESTIMATED > 60; GLUCOSE 105 MG/DL (70-105); SODIUM 133 MMOL/L (135-145)
[2016-12-31 08:00] VITALS: BP 129/67
[2016-12-31] MEDS: morphine ER 100 MG (MS CONTIN) TAB PO SCH ×2 (08:04→20:11)
[2016-12-31] MEDS: PANTOPRAZOLE 40 MG/10 ML (PROTONIX) VIAL IV SCH (08:04)
--- NOTE | 2016-12-31 11:02 | Progress Note-Hospitalist ---
Subjective HPI/CC On Admission Date Seen by Provider: Dec 31, 2016 Time Seen by Provider: 10:40 Mr. 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 Initially there was no abdominal pain and he attributed to a reaction to recently administered morphine. He was concerned about an allergic reaction presented to the emergency room. There he did develop progressive abdominal pain followed by nausea and vomiting. CT scan of the abdomen was compatible with either small bowel obstruction or ileus he was subsequent admitted after NG tube placement to low intermittent suction. There was no evidence for intra-abdominal tumor but he did have a fair amount of stool in the right colon.previously he been on fentanyl and hydrocodone but he was having difficulty getting his patch to stick with progressive lumbar and right buttock pain. He has known L4 5 metastasis and probable iliac metastasis. Jianely's undergone palliative radiotherapy for right rib metastasis and right femoral neck metastasis. He denied chills or fever. He had a similar admission a little over a week ago to [facility] for what was felt to be a partial small bowel obstruction. He was discharged requiring nothing but several days of NG tube decompression. Subjective/Events-last exam Pt reports feeling better today. Feels weak still but abdomen feels better tolerating diet, would like to advance. Objective Exam Vital Signs Vital Sign - Last 12Hours 12/27/16 20:22 Temp 98.1 Pulse 135 Resp 20 B/P (MAP) 145/91 Pulse Ox 96 O2 Delivery Nasal Cannula O2 Flow Rate 5.00 FiO2 96 Capillary Refill : Less Than 3 Seconds General Appearance: No Apparent Distress, WD/WN Respiratory: Lungs Clear, No Respiratory Distress Cardiovascular: Regular Rate, Rhythm, No Murmur Gastrointestinal: Normal Bowel Sounds, Non Tender, Soft, Distended Extremity: Non Tender, No Calf Tenderness Neurologic/Psychiatric: Alert, Oriented x3 Results/Procedures Lab Laboratory Tests 12/31/16 06:35 Assessment/Plan Assessment and Plan Assess & Plan/Chief Complaint SBO Diagnosis/Problems Diagnosis/Problems (1) Small bowel obstruction Status: Acute Assessment & Plan: Had small bowel follow through yesterday Doing well, NGT removed Tolerating CLD Having BMs Likely due to naroctic bowel (though has history of multiple abd surgeries) (2) Metastatic lung cancer (metastasis from lung to other site) Status: Acute Assessment & Plan: Rad/Onc consulted for possible palliative radiation Continue pain meds (3) Normocytic anemia Status: Acute Assessment & Plan: Likely hemoconcentrated on arrival Will continue to trend as has dropped from 13-9 since admission Will not FOBT as will likely be positive with recent NGT (4) Debility Assessment & Plan: Feeling weak PT/OT consulted for DC planning (5) Prophylactic measure Assessment & Plan: SCDs only with Hgb drop CLD, advance per surgery recs Saline lock ELEANOR CARTWRIGHT MD Dec 31, 2016 11:02
--- NOTE | 2016-12-31 11:08 | Progress Note (SOAP) ---
Subjective Date Seen by Provider: Dec 31, 2016 Time Seen by Provider: 10:50 Subjective/Events-last exam Patient seen with Dr. Zuniga. Patient reports that he is doing well today. Having multiple liquid BMs and passing flatus. No fever/chills. No N/V. ambulating well and tolerating diet. Review of Systems General: No Chills, No Night Sweats Gastrointestinal: No: Nausea, Vomiting, Abdominal Pain Objective Exam Vital Signs Date Time Temp Pulse Resp B/P (MAP) Pulse Ox O2 Delivery O2 Flow Rate FiO2 12/31/16 08:00 98.9 107 20 129/67 95 OxyMask 4.00 12/31/16 07:00 126 12/31/16 06:59 95 OxyMask 3.00 12/31/16 04:00 97.5 110 20 123/75 94 OxyMask 12/31/16 01:00 135 12/31/16 00:00 98.9 115 22 96/54 91 OxyMask 4.00 12/30/16 21:59 Nasal Cannula 3.00 12/30/16 21:06 117 12/30/16 20:40 Nasal Cannula 3.00 12/30/16 20:30 135 12/30/16 20:05 100.2 119 24 108/65 95 OxyMask 3.00 12/30/16 19:08 122 12/30/16 18:51 76 Room Air 12/30/16 15:35 98.1 113 22 108/61 97 OxyMask 3.50 12/30/16 14:10 94 OxyMask 3.00 12/30/16 13:00 115 12/30/16 12:30 99.3 120 28 118/58 98 OxyMask 3.50 Capillary Refill : Less Than 3 Seconds General Appearance: No Apparent Distress, WD/WN HEENT: PERRL/EOMI, TMs Normal, Normal ENT Inspection, Pharynx Normal Neck: Full Range of Motion, Normal Inspection, Non Tender, Supple Respiratory: Lungs Clear, Normal Breath Sounds, No Accessory Muscle Use, No Respiratory Distress Cardiovascular: Regular Rate, Rhythm, No Edema Gastrointestinal: normal bowel sounds, soft, tenderness Extremity: Normal Capillary Refill, Normal Inspection, Normal Range of Motion, Non Tender, No Calf Tenderness Neurologic/Psychiatric: Alert, Oriented x3 Skin: Normal Color, Warm/Dry Results Lab Laboratory Tests 12/30/16 11:36: Glucometer 101 12/31/16 06:35: White Blood Count 5.3, Red Blood Count 3.40L, Hemoglobin 9.2L, Hematocrit 31L, Mean Corpuscular Volume 92, Mean Corpuscular Hemoglobin 27, Mean Corpuscular Hemoglobin Concent 29L, Red Cell Distribution Width 19.3H, Platelet Count 273, Mean Platelet Volume 10.7H, Neutrophils (%) (Auto) 86H, Lymphocytes (%) (Auto) 10L, Monocytes (%) (Auto) 2, Eosinophils (%) (Auto) 1, Basophils (%) (Auto) 1, Neutrophils # (Auto) 4.5, Lymphocytes # (Auto) 0.5L, Monocytes # (Auto) 0.1, Eosinophils # (Auto) 0.1, Basophils # (Auto) 0.0, Sodium Level 133L, Potassium Level 5.0, Chloride Level 101, Carbon Dioxide Level 27, Anion Gap 5, Blood Urea Nitrogen 14, Creatinine 1.07, Estimat Glomerular Filtration Rate > 60, BUN/ Creatinine Ratio 13, Glucose Level 105, Calcium Level 7.9L Microbiology 12/28/16 MRSA Screen - Final, Complete MRSA not isolated Assessment/Plan Assessment/Plan Assess & Plan/Chief Complaint A 61 year old male with Partial small bowel obstruction, metastatic lung cancer , renal failure, shortness of breath VSS. WBC WNL. Tolerating clear liquid diet with multiple BMs will advance to DYS3 diet. Clinical Quality Measures DVT/VTE Risk/Contraindication: Risk Factor Score Per Nursin RFS Level Per Nursing on Admit: 4+=Very High HEATHER IZAGUIRRE APRN Dec 31, 2016 11:08 am
--- NOTE | 2016-12-31 11:29 | Physical Therapy Evaluation ---
PT Evaluation-General Medical Diagnosis Admission Date Dec 28, 2016 at 01:00 Medical Diagnosis: SBO Onset Date: Dec 28, 2016 Therapy Diagnosis Therapy Diagnosis: weakness Height/Weight Height (Feet): 5 Height (Inches): 7.00 Weight (Pounds): 167 Weight (Ounces): 0.0 Precautions Precautions/Isolations: Chemo Precautions, Standard Precautions Referral Physician: Noe Reason for Referral: Evaluation/Treatment Medical History Additional Medical History Lung CA with bony mets Current History SBO Reviewed History: Yes Social History Home: Single Level Current Living Status: Alone Prior/Core FIM Prior Level of Function Functional Addison Measure 0=Not Assessed/NA 4=Minimal Assistance 1=Total Assistance 5=Supervision or Setup 2=Maximal Assistance 6=Modified Addison 3=Moderate Assistance 7=Complete Addison Pt lives alone and cares for himself PT Evaluation-Current Subjective agrees to PT. Reports he is feeling better. Pain Location: Lower Location Body Site: Back Pain Description: Ache Objective Patient Orientation: Person, Place, Time, Situation ROM/Strength ROM Lower Extremities wFL Strenght Lower Extremities WFL Integumentary/Posture Integumentary refer to nursing notes Bowel Incontinence: No Bladder Incontinence: No Neuromuscular (Tone, Coordination, Reflexes) WFL Sensory Vision: Functional Hearing: Functional Sensation Right Lower Extremit: Intact Sensation Left Lower Extremity: Intact Transfers Functional Addison Measure 0=Not Assessed/NA 4=Minimal Assistance 1=Total Assistance 5=Supervision or Setup 2=Maximal Assistance 6=Modified Addison 3=Moderate Assistance 7=Complete Addison SBA with bed mobility and transfers. Gait Comments/Gait Description SBA gait without AD x 250 ft. Balance Sitting Static: Good Sitting Dynamic: Good Standing Static: Good Standing Dynamic: Good Assessment/Needs LImited OOB activity recently. Physician requested Pt for increased activity. Rehab Potential: Good PT Space Officer Goals Space Officer Goals PT Prison Goals Time Frame: Jan 04, 2017 Transfers (B,C,W/C) (FIM): 7 Gait (FIM): 7 PT Plan Problem List Problem List: Activity Tolerance, Functional Strength Treatment/Plan Treatment Plan: Continue Plan of Care Treatment Plan: Functional Strength, Gait, Transfers Treatment Duration: Jan 04, 2017 Frequency: 5 times per week Estimated Hrs Per Day: .25 hour per day Patient and/or Family Agrees t: Yes Safety Risks/Education Patient Education: Safety Issues Teaching Recipient: Patient Response to Teaching: Reinforcement Needed Time/GCodes Time In: 1115 Time Out: 1130 Total Billed Treatment Time: 15 Total Billed Treatment visit EVM 15 DEBORA JADE PT Dec 31, 2016 11:29
[2016-12-31 12:00] VITALS: BP 117/61
[2016-12-31 16:00] VITALS: BP 127/63
[2016-12-31] MEDS: ONDANSETRON 4 MG/2 ML (SDV) Z0FRAN IV PRN (18:14)
[2017-01-01] VITALS: BP 102/57
[2017-01-01] MEDS: morphine INJ 10 MG/ML 1ML (SYR OR VIAL) IVP PRN ×2 (03:41→07:56)
[2017-01-01 05:41] LABS: BASOPHILS # (AUTO) 0.1 10^3/uL (0.0-0.1); BASOPHILS % (AUTO) 1 % (0-10); EOSINOPHILS # (AUTO) 0.2 10^3/uL (0.0-0.3); EOSINOPHILS % (AUTO) 2 % (0-10); LYMPHOCYTES # (AUTO) 0.4 X 10^3 (1.0-4.0); LYMPHOCYTES % (AUTO) 7 % (12-44); MEAN CORPUSCULAR HEMOGLOBIN 27 PG (25-34); MEAN CORPUSCULAR HGB CONC 30 G/DL (32-36); MEAN CORPUSCULAR VOLUME 91 FL (80-99); MEAN PLATELET VOLUME 10.7 FL (7.4-10.4); MONOCYTES # (AUTO) 0.2 X 10^3 (0.0-1.0); MONOCYTES % (AUTO) 3 % (0-12); NEUTROPHILS # (AUTO) 5.7 X 10^3 (1.8-7.8); NEUTROPHILS % (AUTO) 88 % (42-75); PLATELET COUNT 297 10^3/uL (130-400); RED BLOOD COUNT 3.64 10^6/uL (4.35-5.85); RED CELL DISTRIBUTION WIDTH 18.8 % (10.0-14.5); WHITE BLOOD COUNT 6.5 10^3/uL (4.3-11.0)
[2017-01-01 05:58] LABS: ANION GAP 9 MMOL/L (5-14); BLOOD UREA NITROGEN 11 MG/DL (7-18); BUN/CREATININE RATIO 11; CALCIUM 8.4 MG/DL (8.5-10.1); CARBON DIOXIDE 26 MMOL/L (21-32); CHLORIDE 99 MMOL/L (98-107); CREATININE SERUM 1.03 MG/DL (0.60-1.30); GFR ESTIMATED > 60; GLUCOSE 96 MG/DL (70-105); POTASSIUM 4.5 MMOL/L (3.6-5.0); SODIUM 134 MMOL/L (135-145)
[2017-01-01] MEDS: RT-ALBUTEROL SULF 2.5 MG/3 ML PRE-MIX VIAL IH SCH ×4 (07:40→19:56)
[2017-01-01] MEDS: RT-ADVAIR HFA 115/21 MCG PER PUFF IH SCH ×2 (07:40→19:57)
[2017-01-01 08:00] VITALS: BP 153/82
[2017-01-01] MEDS: PANTOPRAZOLE 40 MG/10 ML (PROTONIX) VIAL IV SCH (08:00)
[2017-01-01] MEDS: morphine ER 100 MG (MS CONTIN) TAB PO SCH ×2 (08:01→20:42)
--- NOTE | 2017-01-01 10:09 | Progress Note (SOAP) ---
Subjective Date Seen by Provider: Jan 01, 2017 Time Seen by Provider: 10:00 Subjective/Events-last exam doing well. having BM's. tolerating diet. no abdominal pain. Objective Exam Vital Signs Date Time Temp Pulse Resp B/P (MAP) Pulse Ox O2 Delivery O2 Flow Rate FiO2 01/01/17 08:00 93 Nasal Cannula 3.00 01/01/17 08:00 98.0 117 18 153/82 94 OxyMask 2.00 01/01/17 07:48 93 Nasal Cannula 3.00 01/01/17 07:00 108 01/01/17 01:00 102 01/01/17 00:00 96.9 108 12 102/57 92 OxyMask 2.00 12/31/16 21:18 95 OxyMask 3.00 12/31/16 20:46 80 20 95 40.00 12/31/16 20:10 Nasal Cannula 2.00 12/31/16 19:00 111 12/31/16 18:57 98 Nasal Cannula 2.00 12/31/16 18:53 80 Room Air 0.00 12/31/16 16:00 98.2 114 20 127/63 93 Nasal Cannula 2.00 12/31/16 15:03 95 Nasal Cannula 2.00 12/31/16 13:00 117 12/31/16 12:00 98.2 105 20 117/61 OxyMask 4.00 12/31/16 11:02 98 OxyMask 3.00 Capillary Refill : Less Than 3 Seconds General Appearance: No Apparent Distress HEENT: PERRL/EOMI Neck: Full Range of Motion, Normal Inspection Respiratory: Decreased Breath Sounds, Rales, Rhonci Cardiovascular: Regular Rate, Rhythm Gastrointestinal: normal bowel sounds, non tender, soft Extremity: Normal Capillary Refill Neurologic/Psychiatric: Alert, Oriented x3 Skin: Normal Color Lymphatic: No Adenopathy Results Lab Laboratory Tests 01/01/17 05:32: White Blood Count 6.5, Red Blood Count 3.64L, Hemoglobin 9.9L, Hematocrit 33L, Mean Corpuscular Volume 91, Mean Corpuscular Hemoglobin 27, Mean Corpuscular Hemoglobin Concent 30L, Red Cell Distribution Width 18.8H, Platelet Count 297, Mean Platelet Volume 10.7H, Neutrophils (%) (Auto) 88H, Lymphocytes (%) (Auto) 7L, Monocytes (%) (Auto) 3, Eosinophils (%) (Auto) 2, Basophils (%) (Auto) 1, Neutrophils # (Auto) 5.7, Lymphocytes # (Auto) 0.4L, Monocytes # (Auto) 0.2, Eosinophils # (Auto) 0.2, Basophils # (Auto) 0.1, Sodium Level 134L, Potassium Level 4.5, Chloride Level 99, Carbon Dioxide Level 26, Anion Gap 9, Blood Urea Nitrogen 11, Creatinine 1.03, Estimat Glomerular Filtration Rate > 60, BUN/ Creatinine Ratio 11, Glucose Level 96, Calcium Level 8.4L Microbiology 12/28/16 MRSA Screen - Final, Complete MRSA not isolated Assessment/Plan Assessment/Plan Assess & Plan/Chief Complaint metastatic lung cancer. worsening respiratory status however stable and part of disease process. diet as tolerated. ok for home when ok with PMD Clinical Quality Measures DVT/VTE Risk/Contraindication: Risk Factor Score Per Nursin RFS Level Per Nursing on Admit: 4+=Very High LES ALEXANDER MD Jan 01, 2017 10:09 am
--- NOTE | 2017-01-01 10:14 | Progress Note (SOAP) ---
Subjective Date Seen by Provider: Jan 01, 2017 Time Seen by Provider: 10:00 Subjective/Events-last exam Patient seen with Dr. Zuniga. Patient reports that he is doing better. Reports that he is eating and tolerating diet, but is not eating very much. Reports last BM was last night. No Fever/chills. No N/V. No abdominal pain. Ambulating well. Review of Systems General: No Chills, No Night Sweats Gastrointestinal: No: Nausea, Vomiting, Abdominal Pain Objective Exam Vital Signs Date Time Temp Pulse Resp B/P (MAP) Pulse Ox O2 Delivery O2 Flow Rate FiO2 01/01/17 08:00 93 Nasal Cannula 3.00 01/01/17 08:00 98.0 117 18 153/82 94 OxyMask 2.00 01/01/17 07:48 93 Nasal Cannula 3.00 01/01/17 07:00 108 01/01/17 01:00 102 01/01/17 00:00 96.9 108 12 102/57 92 OxyMask 2.00 12/31/16 21:18 95 OxyMask 3.00 12/31/16 20:46 80 20 95 40.00 12/31/16 20:10 Nasal Cannula 2.00 12/31/16 19:00 111 12/31/16 18:57 98 Nasal Cannula 2.00 12/31/16 18:53 80 Room Air 0.00 12/31/16 16:00 98.2 114 20 127/63 93 Nasal Cannula 2.00 12/31/16 15:03 95 Nasal Cannula 2.00 12/31/16 13:00 117 12/31/16 12:00 98.2 105 20 117/61 OxyMask 4.00 12/31/16 11:02 98 OxyMask 3.00 Capillary Refill : Less Than 3 Seconds General Appearance: No Apparent Distress, WD/WN HEENT: PERRL/EOMI, TMs Normal, Normal ENT Inspection, Pharynx Normal Neck: Full Range of Motion, Normal Inspection, Non Tender, Supple Respiratory: Lungs Clear, Normal Breath Sounds, No Accessory Muscle Use, No Respiratory Distress Cardiovascular: Regular Rate, Rhythm, No Edema Gastrointestinal: normal bowel sounds, soft, tenderness (RLQ) Extremity: Normal Capillary Refill, Normal Inspection, Normal Range of Motion, Non Tender, No Calf Tenderness, No Pedal Edema Neurologic/Psychiatric: Alert, Oriented x3 Skin: Normal Color, Warm/Dry Results Lab Laboratory Tests 01/01/17 05:32: White Blood Count 6.5, Red Blood Count 3.64L, Hemoglobin 9.9L, Hematocrit 33L, Mean Corpuscular Volume 91, Mean Corpuscular Hemoglobin 27, Mean Corpuscular Hemoglobin Concent 30L, Red Cell Distribution Width 18.8H, Platelet Count 297, Mean Platelet Volume 10.7H, Neutrophils (%) (Auto) 88H, Lymphocytes (%) (Auto) 7L, Monocytes (%) (Auto) 3, Eosinophils (%) (Auto) 2, Basophils (%) (Auto) 1, Neutrophils # (Auto) 5.7, Lymphocytes # (Auto) 0.4L, Monocytes # (Auto) 0.2, Eosinophils # (Auto) 0.2, Basophils # (Auto) 0.1, Sodium Level 134L, Potassium Level 4.5, Chloride Level 99, Carbon Dioxide Level 26, Anion Gap 9, Blood Urea Nitrogen 11, Creatinine 1.03, Estimat Glomerular Filtration Rate > 60, BUN/ Creatinine Ratio 11, Glucose Level 96, Calcium Level 8.4L Microbiology 12/28/16 MRSA Screen - Final, Complete MRSA not isolated Assessment/Plan Assessment/Plan Assess & Plan/Chief Complaint A 61 year old male with Partial small bowel obstruction, metastatic lung cancer , renal failure, shortness of breath VSS. WBC WNL. Tolerating diet and having BMs. Ok to DC when ok with PMD Clinical Quality Measures DVT/VTE Risk/Contraindication: Risk Factor Score Per Nursin RFS Level Per Nursing on Admit: 4+=Very High HEATHER IZAGUIRRE CLIENT SERVICE MANAGER Jan 01, 2017 10:14
--- NOTE | 2017-01-01 10:15 | Progress Note-Hospitalist ---
Subjective HPI/CC On Admission Date Seen by Provider: Jan 01, 2017 Time Seen by Provider: 10:05 Mr. 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 Initially there was no abdominal pain and he attributed to a reaction to recently administered morphine. He was concerned about an allergic reaction presented to the emergency room. There he did develop progressive abdominal pain followed by nausea and vomiting. CT scan of the abdomen was compatible with either small bowel obstruction or ileus he was subsequent admitted after NG tube placement to low intermittent suction. There was no evidence for intra-abdominal tumor but he did have a fair amount of stool in the right colon.previously he been on fentanyl and hydrocodone but he was having difficulty getting his patch to stick with progressive lumbar and right buttock pain. He has known L4 5 metastasis and probable iliac metastasis. Jianely's undergone palliative radiotherapy for right rib metastasis and right femoral neck metastasis. He denied chills or fever. He had a similar admission a little over a week ago to [facility] for what was felt to be a partial small bowel obstruction. He was discharged requiring nothing but several days of NG tube decompression. Subjective/Events-last exam Reports feeling okay. Tolerating diet so far. Does not feel ready to go home. Over last 24 hours has needed 35mg IV morphine. Discussed need to switch to oral regimen in preparation for DC. He was agreeable to plan. Objective Exam Vital Signs Vital Sign - Last 12Hours 12/27/16 20:22 Temp 98.1 Pulse 135 Resp 20 B/P (MAP) 145/91 Pulse Ox 96 O2 Delivery Nasal Cannula O2 Flow Rate 5.00 FiO2 96 Capillary Refill : Less Than 3 Seconds General Appearance: No Apparent Distress, WD/WN Respiratory: Lungs Clear, Normal Breath Sounds Cardiovascular: Regular Rate, Rhythm, No Murmur Gastrointestinal: Normal Bowel Sounds, Non Tender, Soft, Distended Neurologic/Psychiatric: Alert, Oriented x3, Normal Mood/Affect Results/Procedures Lab Laboratory Tests 01/01/17 05:32 Assessment/Plan Assessment and Plan Assess & Plan/Chief Complaint SBO Diagnosis/Problems Diagnosis/Problems (1) Small bowel obstruction Status: Acute Assessment & Plan: Had BM last night Tolerating current diet Likely due to naroctic bowel (though has history of multiple abd surgeries) management per primary (2) Metastatic lung cancer (metastasis from lung to other site) Status: Acute Assessment & Plan: Rad/Onc consulted for possible palliative radiation Continue pain meds On oxygen,will try to titrate off Does use prn at home though (3) Chronic pain due to neoplasm Status: Chronic Assessment & Plan: On 100mg MS Contin at home, receiving here Received 35mg IV morphine yesterday Will add Percocet today in attempt to transition to oral regimen for home (4) Normocytic anemia Status: Acute Assessment & Plan: Likely hemoconcentrated on arrival Will continue to trend as has dropped from 13-9 since admission Up to 9.9 today, likely near baseline Will not FOBT as will likely be positive with recent NGT (5) Debility Assessment & Plan: Feeling weak PT/OT consulted for DC planning (6) Prophylactic measure Assessment & Plan: SCDs only with Hgb drop tolerating Dysphagia 3 diet Saline lock ELEANOR CARTWRIGHT MD Jan 01, 2017 10:15
[2017-01-01] MEDS ORDERED: morphine INJ 10 MG/ML 1ML (SYR OR VIAL) IVP PRN (10:30)
[2017-01-01] MEDS: oxyCODONE/APAP 5/325MG (PERCOCET 5) TABLET PO PRN (12:38)
[2017-01-01] MEDS ORDERED: NON-FORMULARY MEDICATION 1 EA EA (Lorazepam (Ativan) 2 MG) PO PRN (12:45)
[2017-01-01] MEDS ORDERED: LORazepam 1 MG (ATIVAN) TAB PO PRN (13:00)
[2017-01-01 15:57] VITALS: BP 125/0
[2017-01-01 16:00] VITALS: BP 125/60
[2017-01-01] MEDS: AMITRIPTYLINE 50 MG (ELAVIL) TAB PO SCH (20:42)
[2017-01-01] MEDS ORDERED: NON-FORMULARY MEDICATION 1 EA EA (Amitriptyline HCl 100 MG) PO SCH (21:00)
[2017-01-02] VITALS (7 sets, daily range): BP systolic 92–133; BP diastolic 51–87
[2017-01-02] MEDS: LEVOTHYROXINE 25 MCG (LEVOTHROID) TAB PO SCH (05:38)
[2017-01-02] MEDS: RT-ALBUTEROL SULF 2.5 MG/3 ML PRE-MIX VIAL IH SCH ×4 (07:26→19:17)
[2017-01-02] MEDS: RT-ADVAIR HFA 115/21 MCG PER PUFF IH SCH ×2 (07:26→19:18)
[2017-01-02] MEDS: PANTOPRAZOLE 40 MG/10 ML (PROTONIX) VIAL IV SCH (08:02)
[2017-01-02] MEDS: morphine ER 100 MG (MS CONTIN) TAB PO SCH ×3 (08:02→20:06)
--- NOTE | 2017-01-02 08:39 | Progress Note-Hospitalist ---
Subjective HPI/CC On Admission Date Seen by Provider: Jan 02, 2017 Time Seen by Provider: 07:45 Mr. 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 Initially there was no abdominal pain and he attributed to a reaction to recently administered morphine. He was concerned about an allergic reaction presented to the emergency room. There he did develop progressive abdominal pain followed by nausea and vomiting. CT scan of the abdomen was compatible with either small bowel obstruction or ileus he was subsequent admitted after NG tube placement to low intermittent suction. There was no evidence for intra-abdominal tumor but he did have a fair amount of stool in the right colon.previously he been on fentanyl and hydrocodone but he was having difficulty getting his patch to stick with progressive lumbar and right buttock pain. He has known L4 5 metastasis and probable iliac metastasis. Jianely's undergone palliative radiotherapy for right rib metastasis and right femoral neck metastasis. He denied chills or fever. He had a similar admission a little over a week ago to [place] for what was felt to be a partial small bowel obstruction. He was discharged requiring nothing but several days of NG tube decompression. Subjective/Events-last exam Patient slightly confused this morning and appears a little lethargic. He reports that his pain is under good control and he reports eating about half of an average meal without nausea. It's been about 36 hours since his last bowel movement. He denies abdominal pain. Reports he is quite weak and this morning did require a bump in his oxygen to 5 L. This is maintaining saturations 92-93 percent. Objective Exam Vital Signs Vital Sign - Last 12Hours 12/27/16 20:22 Temp 98.1 Pulse 135 Resp 20 B/P (MAP) 145/91 Pulse Ox 96 O2 Delivery Nasal Cannula O2 Flow Rate 5.00 FiO2 96 Capillary Refill : Less Than 3 Seconds General Appearance: No Apparent Distress, Anxious, Chronically ill Respiratory: No Accessory Muscle Use, No Respiratory Distress, Other ( Respirations somewhat shallow and nonlabored mild expiratory wheezing throughout no rhonchi or rales are appreciated. There is significant diminishment of breath sounds posteriorly but no different than his baseline.) Cardiovascular: Regular Rate, Rhythm, No Edema, No Gallop, No JVD, No Murmur, Normal Peripheral Pulses Gastrointestinal: Normal Bowel Sounds, No Organomegaly, No Pulsatile Mass, Non Tender, Soft, Distended (Mild) Extremity: No Pedal Edema Assessment/Plan Assessment and Plan Assess & Plan/Chief Complaint 1. She'll small bowel obstruction versus ileus resolved. I'm concerned about morphine building up in the system so we will cut back. It also been on lorazepam IV which may be contributing. This is been discontinued last dose yesterday evening was 2 mg by mouth we'll decrease to 1 mg every 6 when necessary. Discussed my concerns with the patient. 2. Adenocarcinoma the lung with bony metastasis. 3. 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 4. Deconditioning multifactorial continue physical therapy consider discharge tomorrow as long as the patient is less sedate. Long-acting morphine being decreased 80 mg twice a day and MiraLAX added to avoid constipation. 5. Confusion multifactorial likely combination of morphine and lorazepam dose reductions as per above. Diagnosis/Problems Diagnosis/Problems (1) Small bowel obstruction Status: Acute Assessment & Plan: Had BM last night Tolerating current diet Likely due to naroctic bowel (though has history of multiple abd surgeries) management per primary (2) Metastatic lung cancer (metastasis from lung to other site) Status: Acute Assessment & Plan: Rad/Onc consulted for possible palliative radiation Continue pain meds On oxygen,will try to titrate off Does use prn at home though (3) Chronic pain due to neoplasm Status: Chronic Assessment & Plan: On 100mg MS Contin at home, receiving here Received 35mg IV morphine yesterday Will add Percocet today in attempt to transition to oral regimen for home (4) Normocytic anemia Status: Acute Assessment & Plan: Likely hemoconcentrated on arrival Will continue to trend as has dropped from 13-9 since admission Up to 9.9 today, likely near baseline Will not FOBT as will likely be positive with recent NGT (5) Debility Assessment & Plan: Feeling weak PT/OT consulted for DC planning (6) Prophylactic measure Assessment & Plan: SCDs only with Hgb drop tolerating Dysphagia 3 diet Saline lock RHONDA FONSECA MD Jan 02, 2017 08:39
[2017-01-02] MEDS: POLYETHYLENE GLYCOL 17 GM (MIRALAX) PACK PO SCH ×2 (10:18→20:06)
--- NOTE | 2017-01-02 10:19 | Physical Therapy Daily Note ---
PT Daily Note-Current Subjective Patient agrees to PT. Pain Numeric Pain Scale: 0-No Pain Location: No Pain Reported Mental Status Patient Orientation: Person, Time, Situation Attachments: Oxygen Transfers Functional [place] Measure 0=Not Assessed/NA 4=Minimal Assistance 1=Total Assistance 5=Supervision or Setup 2=Maximal Assistance 6=Modified [place] 3=Moderate Assistance 7=Complete IndependenceIRFPAI Quality Coding Scale 6 Independent with activity with or without an assistive device 5 Patient requires set up or clean up by helper. Patient completes activity by themselves 4 Supervision or touching assist (CGA). [place] provide cues , steadying assist 3 The helper provides less than half the effort to complete the activity 2 The helper provides more than half the effort to complete the activity 1 Dependent. The helper does all the effort to complete an activity 7 Patient refused to complete or attempt activity 9 The patient did not perform the activity before the current illness or injury 88 Not attempted due to Medical conditions or safety concerns Transfers (B, C, W/C) (FIM): 5 Scootin Rollin Supine to/from Sit: 7 Sit to/from Stand: 5 Gait Training Gait (FIM): 5 Distance (FIM): 3=150 ft Distance: 400' Gait Level of Assist: 5 Gait Persons Needed: 1 Gait Assistive Device: FWW Initially started gait training independently, however, is unsteady on this date and was issued a FWW which improved his gait. Assessment Patient tolerated treatment well and is up in recliner with needs met. Patient would benefit from FWW for home use upon dismissal. PT [facility] Goals Office Communication Professor Goals PT [facility] Goals Time Frame: Jan 04, 2017 Transfers (B,C,W/C) (FIM): 7 Gait (FIM): 7 PT Plan Treatment/Plan Treatment Plan: Continue Plan of Care Treatment Plan: Functional Strength, Gait, Transfers Treatment Duration: Jan 04, 2017 Frequency: 5 times per week Estimated Hrs Per Day: .25 hour per day Patient and/or Family Agrees t: Yes Safety Risks/Education Patient Education: Gait Training Teaching Recipient: Patient Teaching Methods: Demonstration, Discussion Response to Teaching: Verbalize Understanding, Return Demonstration Discharge Recommendations Equpiment Recommendations-D/C: Front Wheeled Walker Time/GCodes Time In: 910 Time Out: 920 Total Billed Treatment Time: 10 Total Billed Treatment 1 visit GT 10 min SONU LIU PT Jan 02, 2017 10:19
--- NOTE | 2017-01-02 12:50 | Occupational Therapy Eval ---
OT Evaluation-General/PLF Medical Diagnosis Admission Date Dec 28, 2016 at 01:00 Medical Diagnosis: SBO Onset Date: Dec 28, 2016 Therapy Diagnosis Therapy Diagnosis: decreased self care skills Height/Weight Height (Feet): 5 Height (Inches): 7.00 Weight (Pounds): 162 Weight (Ounces): 8.0 Precautions Precautions/Isolations: Chemo Precautions, Standard Precautions Safety Interventions: None Referral Physician: Noe Medical History Pertinent Medical History: Atrial Fib, COPD, GERD, HTN, Renal Insufficiency Additional Medical History lobectomy, abdominal hernia, diverticulosis, anxiety, depression Reviewed History: Yes Social History Home: Single Level Current Living Status: Alone Entry Into Home: Stairs With Railing ADL-Prior Level of Function ADL PLOF Comments Pt states he is normally independent with self care and mobility. DME/Equipment: Bath Chair DME/Equipment Comments Is having a walk in shower installed. Pt states he has oxygen at home, but has not been using it. Drive Self: Yes OT Current Status Subjective Pt in bed, agrees to therapy. Pt states he is tired today, but does not currently have any pain. Mental Status/Objective Patient Orientation: Person, Place, Situation Attachments: Oxygen Current Glasses/Contacts: Yes Hearing Aids: No Dentures/Partials: No Hand Dominance: Right Upper Extremity ROM Grossly WFL Upper Extremity Sensation Intact per pt report ADL-Treatment ADL-Current Pt supine to sit with modified independence. Pt donned bilateral slip on shoes with set up. Sit to stand with supervision. Pt demonstrated ability to perform transfer to/from [facility] with supervision. Pt states he took a shower with nursing assisting with set up and drying yesterday. Pt states he is feeding himself without assistance. Pt sit to supine without assistance. In bed with needs met after session. Functional [place] Measure 0=Not Assessed/NA 4=Minimal Assistance 1=Total Assistance 5=Supervision or Setup 2=Maximal Assistance 6=Modified [place] 3=Moderate Assistance 7=Complete IndependenceIRFPAI Quality Coding Scale 6 Independent with activity with or without an assistive device 5 Patient requires set up or clean up by helper. Patient completes activity by themselves 4 Supervision or touching assist (CGA). [place] provide cues , steadying assist 3 The helper provides less than half the effort to complete the activity 2 The helper provides more than half the effort to complete the activity 1 Dependent. The helper does all the effort to complete an activity 7 Patient refused to complete or attempt activity 9 The patient did not perform the activity before the current illness or injury 88 Not attempted due to Medical conditions or safety concerns Eating (FIM): 6 Lower Body Dressing (FIM): 5 Education OT Patient Education: Rehab process Teaching Recipient: Patient Teaching Methods: Discussion Response to Teaching: Verbalize Understanding OT Short Term Goals Short Term Goals 1=Demonstrate adherence to instructed precautions during ADL tasks. 2=Patient will verbalize/demonstrate understanding of assistive devices/ modifications for ADL. 3=Patient will improve strength/tolerance for activity to enable patient to perform ADL's. OT Materials Inspector Goals [facility] Goals Time Frame: Jan 09, 2017 Eating (FIM): 6 Grooming(FIM): 6 Upper Body Dressing(FIM): 6 Lower Body Dressing(FIM): 6 Toileting(FIM): 6 Additional Goals: 2-Verbalize Understanding, 3-ImproveStrength/[place] 1=Demonstrate adherence to instructed precautions during ADL tasks. 2=Patient will verbalize/demonstrate understanding of assistive devices/ modifications for ADL. 3=Patient will improve strength/tolerance for activity to enable patient to perform ADL's. OT Education/Plan Problem List/Assessment Assessment: Decreased Activ Tolerance, Dependent Transfers, Impaired Self-Care Skills Discharge Recommendations Plan/Recommendations: Continue POC Treatment Plan/Plan of Care Treatment,Training & Education: Yes Patient would benefit from OT for education, treatment and training to promote independence in ADL's, mobility, safety and/or upper extremity function for ADL' s. Plan of Care: ADL Retraining, Functional Mobility, UE Funct Exercise/Act Treatment Duration: Jan 09, 2017 Frequency: 5 times per week Estimated Hrs Per Day: .25 hour per day Agreement: Yes Rehab Potential: Good Time/GCodes Start Time: 11:43 Stop Time: 11:57 Total Time Billed (hr/min): 14 Billed Treatment Time 1 visit, DEENA(14minutes) GARRETT SU OT Jan 02, 2017 12:50
[2017-01-02] MEDS ORDERED: LORazepam 1 MG (ATIVAN) TAB PO PRN (13:00)
--- NOTE | 2017-01-02 18:21 | Progress Note ---
Subjective Date Seen by Provider: Jan 02, 2017 Time Seen by Provider: 12:45 Subjective/Events-last exam Patient reports that he'll last bowel movement yesterday evening. Patient states that he is not having significant pain that he was having previously. He is passing flatus. Not having any nausea or vomiting at this time. He denies any fever sweats chills shortness of breath or chest pain. Objective Exam Vital Signs Date Time Temp Pulse Resp B/P (MAP) Pulse Ox O2 Delivery O2 Flow Rate FiO2 01/02/17 15:40 97.8 120 16 113/56 93 01/02/17 14:46 92 Nasal Cannula 5.00 01/02/17 13:00 115 01/02/17 12:00 98.7 92 20 132/75 97 Nasal Cannula 2.00 01/02/17 10:40 91 Nasal Cannula 5.00 01/02/17 10:37 98 98 28 01/02/17 08:00 Nasal Cannula 2.00 01/02/17 08:00 98.5 98 18 112/69 98 Nasal Cannula 2.00 01/02/17 07:31 92 Nasal Cannula 5.00 01/02/17 07:27 66 Room Air 01/02/17 07:00 97 01/02/17 04:23 97.4 75 20 113/82 98 Nasal Cannula 2.00 01/02/17 01:00 87 01/02/17 00:26 97.9 94 20 133/87 97 Nasal Cannula 2.00 01/01/17 20:45 Nasal Cannula 3.50 01/01/17 20:01 91 Nasal Cannula 5.00 01/01/17 19:57 83 Nasal Cannula 2.00 01/01/17 19:00 103 I & O 01/03/17 07:00 Intake Total 560 ml Balance 560 ml Capillary Refill : Less Than 3 Seconds General Appearance: No Apparent Distress, Chronically ill HEENT: PERRL/EOMI, TMs Normal, Normal ENT Inspection, Pharynx Normal Neck: Normal Inspection, Non Tender Respiratory: No Accessory Muscle Use, No Respiratory Distress, Other Cardiovascular: Regular Rate, Rhythm Gastrointestinal: normal bowel sounds, soft (no significant tenderness on palpation) Extremity: No Pedal Edema Neurologic/Psychiatric: Alert, Oriented x3, Normal Mood/Affect Skin: Normal Color, Warm/Dry Lymphatic: No Adenopathy Results Lab Microbiology 12/28/16 MRSA Screen - Final, Complete MRSA not isolated Assessment/Plan Assessment/Plan Assessment/Plan A 61 year old male with Partial small bowel obstruction, metastatic lung cancer , renal failure, shortness of breath Patient not having any bowel issues at this time. Most likely component of narcotic bowel he's been started on lax which I agree with. Patient instructed to try to limit overall use of narcotics but still achieve pain control. No surgical intervention at this time. Diagnosis/Problems Diagnosis/Problems (1) Small bowel obstruction Status: Acute Assessment & Plan: Had BM last night Tolerating current diet Likely due to naroctic bowel (though has history of multiple abd surgeries) management per primary (2) Metastatic lung cancer (metastasis from lung to other site) Status: Acute Assessment & Plan: Rad/Onc consulted for possible palliative radiation Continue pain meds On oxygen,will try to titrate off Does use prn at home though (3) Chronic pain due to neoplasm Status: Chronic Assessment & Plan: On 100mg MS Contin at home, receiving here Received 35mg IV morphine yesterday Will add Percocet today in attempt to transition to oral regimen for home (4) Normocytic anemia Status: Acute Assessment & Plan: Likely hemoconcentrated on arrival Will continue to trend as has dropped from 13-9 since admission Up to 9.9 today, likely near baseline Will not FOBT as will likely be positive with recent NGT (5) Debility Assessment & Plan: Feeling weak PT/OT consulted for DC planning (6) Prophylactic measure Assessment & Plan: SCDs only with Hgb drop tolerating Dysphagia 3 diet Saline lock Clinical Quality Measures DVT/VTE Risk/Contraindication: Risk Factor Score Per Nursin RFS Level Per Nursing on Admit: 4+=Very High DESTIN MURRY DO Jan 02, 2017 18:21
[2017-01-02] MEDS: oxyCODONE/APAP 5/325MG (PERCOCET 5) TABLET PO PRN (18:44)
[2017-01-02] MEDS: AMITRIPTYLINE 50 MG (ELAVIL) TAB PO SCH (20:06)
[2017-01-03 00:24] VITALS: BP 97/58
[2017-01-03 04:00] VITALS: BP 133/65
[2017-01-03] MEDS: LEVOTHYROXINE 25 MCG (LEVOTHROID) TAB PO SCH (05:52)
[2017-01-03] MEDS: RT-ALBUTEROL SULF 2.5 MG/3 ML PRE-MIX VIAL IH SCH ×4 (07:33→19:16)
[2017-01-03] MEDS: RT-ADVAIR HFA 115/21 MCG PER PUFF IH SCH ×2 (07:34→19:16)
[2017-01-03 08:00] VITALS: BP 122/73
[2017-01-03] MEDS: PANTOPRAZOLE 40 MG (PROTONIX) TAB PO SCH (08:48)
[2017-01-03] MEDS: POLYETHYLENE GLYCOL 17 GM (MIRALAX) PACK PO SCH ×2 (08:48→20:08)
[2017-01-03] MEDS: morphine ER 100 MG (MS CONTIN) TAB PO SCH ×2 (08:49→20:09)
[2017-01-03] MEDS ORDERED: LORazepam 1 MG (ATIVAN) TAB PO NR (10:30)
--- NOTE | 2017-01-03 10:42 | Progress Note-Hospitalist ---
Subjective HPI/CC On Admission Date Seen by Provider: Jan 03, 2017 Time Seen by Provider: 10:20 Mr. 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 Initially there was no abdominal pain and he attributed to a reaction to recently administered morphine. He was concerned about an allergic reaction presented to the emergency room. There he did develop progressive abdominal pain followed by nausea and vomiting. CT scan of the abdomen was compatible with either small bowel obstruction or ileus he was subsequent admitted after NG tube placement to low intermittent suction. There was no evidence for intra-abdominal tumor but he did have a fair amount of stool in the right colon.previously he been on fentanyl and hydrocodone but he was having difficulty getting his patch to stick with progressive lumbar and right buttock pain. He has known L4 5 metastasis and probable iliac metastasis. Jianely's undergone palliative radiotherapy for right rib metastasis and right femoral neck metastasis. He denied chills or fever. He had a similar admission a little over a week ago to [facility] for what was felt to be a partial small bowel obstruction. He was discharged requiring nothing but several days of NG tube decompression. Subjective/Events-last exam patient feeling better and is much more alert this morning. He reports appetite not back to normal but he did have a small bowel movement this morning without blood or pain. He has been passing gas and denies abdominal pain. He does report some mild dysphasia sounds like it is more difficulty with getting food out of his mouth he denies a sticking sensation in the chest or epigastric area. He denies any pain on swallowing. He does report feeling anxious this morning and normally takes 2 mg of lorazepam each morning. He has not had any at this morning. Objective Exam Vital Signs Vital Sign - Last 12Hours 12/28/16 01/02/17 02:30 10:37 Temp 96.3 Pulse 106 Resp 16 B/P (MAP) 152/90 Pulse Ox 96 O2 Delivery Nasal Cannula O2 Flow Rate 2.00 FiO2 28 Capillary Refill : Less Than 3 Seconds General Appearance: Anxious, Chronically ill Respiratory: Chest Non Tender, No Accessory Muscle Use, No Respiratory Distress , Other (mild expiratory wheezing posteriorly with diminished breath sounds no rales or rhonchi appreciated.) Cardiovascular: No Gallop, No JVD, No Murmur, Tachycardia (regular) Extremity: Other (1+ edema to the mid tibia bilaterally) Neurologic/Psychiatric: Oriented x3, No Motor/Sensory Deficits, Other (patient is exhibiting myoclonus of the upper and lower extremities brief goes away with ambulation) Assessment/Plan Assessment and Plan Assess & Plan/Chief Complaint 1. Small bowel obstruction versus ileus resolved. is less sedated reducing his morphine dose. He is still requiring 3-4 L of O2 with saturations in the low 90s predominantly. We will repeat O2 saturation on room air this afternoon he very well may need home oxygen with hopeful discharge tomorrow. 2. Adenocarcinoma the lung with bony metastasis. 3. 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 4. Deconditioning multifactorial continue physical therapy consider discharge tomorrow as long as the patient is less sedate. Long-acting morphine being decreased 80 mg twice a day and MiraLAX added to avoid constipation. 5. mild dysphasia suspect anxiety and dry mouth or contributing. Mild clonus may be secondary to benzodiazepine withdrawal we will give 1 mg of lorazepam now. Persistent symptoms will require further workup including consideration for EGD. Diagnosis/Problems Diagnosis/Problems (1) Small bowel obstruction Status: Acute Assessment & Plan: Had BM last night Tolerating current diet Likely due to naroctic bowel (though has history of multiple abd surgeries) management per primary (2) Metastatic lung cancer (metastasis from lung to other site) Status: Acute Assessment & Plan: Rad/Onc consulted for possible palliative radiation Continue pain meds On oxygen,will try to titrate off Does use prn at home though (3) Chronic pain due to neoplasm Status: Chronic Assessment & Plan: On 100mg MS Contin at home, receiving here Received 35mg IV morphine yesterday Will add Percocet today in attempt to transition to oral regimen for home (4) Normocytic anemia Status: Acute Assessment & Plan: Likely hemoconcentrated on arrival Will continue to trend as has dropped from 13-9 since admission Up to 9.9 today, likely near baseline Will not FOBT as will likely be positive with recent NGT (5) Debility Assessment & Plan: Feeling weak PT/OT consulted for DC planning (6) Prophylactic measure Assessment & Plan: SCDs only with Hgb drop tolerating Dysphagia 3 diet Saline lock RHONDA FONSECA MD Jan 03, 2017 10:42
--- NOTE | 2017-01-03 11:53 | Physical Therapy Daily Note ---
PT Daily Note-Current Subjective Patient agrees to PT. No c/o. Pain Numeric Pain Scale: 0-No Pain Location: No Pain Reported Mental Status Patient Orientation: Normal For Age Attachments: Oxygen (4L ) Transfers Functional [place] Measure 0=Not Assessed/NA 4=Minimal Assistance 1=Total Assistance 5=Supervision or Setup 2=Maximal Assistance 6=Modified [place] 3=Moderate Assistance 7=Complete IndependenceIRFPAI Quality Coding Scale 6 Independent with activity with or without an assistive device 5 Patient requires set up or clean up by helper. Patient completes activity by themselves 4 Supervision or touching assist (CGA). [place] provide cues , steadying assist 3 The helper provides less than half the effort to complete the activity 2 The helper provides more than half the effort to complete the activity 1 Dependent. The helper does all the effort to complete an activity 7 Patient refused to complete or attempt activity 9 The patient did not perform the activity before the current illness or injury 88 Not attempted due to Medical conditions or safety concerns Transfers (B, C, W/C) (FIM): 7 Scootin Rollin Supine to/from Sit: 7 Sit to/from Stand: 7 Gait Training Gait (FIM): 6 Distance (FIM): 3=150 ft Distance: 500' Gait Level of Assist: 6 Gait Assistive Device: FWW improved stability and gait sequence Assessment Patient to dismiss to home tomorrow per Dr. Morgan. Patient has improved with gross motor skills and will require a FWW for home use PRN. PT [facility] Goals Rolling Down Machine Operator Goals PT Rolling Down Machine Operator Goals Time Frame: Jan 04, 2017 Transfers (B,C,W/C) (FIM): 7 Gait (FIM): 7 PT Plan Treatment/Plan Treatment Plan: Continue Plan of Care Treatment Plan: Functional Strength, Gait, Transfers Treatment Duration: Jan 04, 2017 Frequency: 5 times per week Estimated Hrs Per Day: .25 hour per day Patient and/or Family Agrees t: Yes Time/GCodes Time In: 1010 Time Out: 1025 Total Billed Treatment Time: 15 Total Billed Treatment 1 visit FA 15 min SONU LIU PT Jan 03, 2017 11:53
[2017-01-03 12:00] VITALS: BP 132/73
--- NOTE | 2017-01-03 13:05 | Occupational Ther Daily Note ---
OT Current Status-Daily Note Subjective Pt in the bathroom when HERNANDEZ walked into room. Pt agreed to therapy. No c/o pain. Mental Status/Objective Patient Orientation: Person, Place, Time, Situation Functional [place] Measure 0=Not Assessed/NA 4=Minimal Assistance 1=Total Assistance 5=Supervision or Setup 2=Maximal Assistance 6=Modified [place] 3=Moderate Assistance 7=Complete [place] Attachments: Oxygen ADL-Treatment Toileting (FIM): 6 Transfers (B, C, W/C) (FIM): 6 Toilet/Commode Transfer (FIM): 6 Other Treatment Pt is up ad [place] in room. Toileting and transfers is modified independent using FWW. Pt then sat in recliner to complete UE exercises against gravity to increase activity tolerance and strength for daily functional tasks. 3 sets 10 reps with recovery break between reps. Pt tolerated well with minimal SOA throughout treatment. After therapy, pt sitting in recliner with call light/ phone in reach. All needs met in room. OT Short Term Goals Short Term Goals 1=Demonstrate adherence to instructed precautions during ADL tasks. 2=Patient will verbalize/demonstrate understanding of assistive devices/ modifications for ADL. 3=Patient will improve strength/tolerance for activity to enable patient to perform ADL's. OT Assisted Goals Music Journalist Goals Time Frame: Jan 09, 2017 Eating (FIM): 6 Grooming(FIM): 6 Upper Body Dressing(FIM): 6 Lower Body Dressing(FIM): 6 Toileting(FIM): 6 Additional Goals: 2-Verbalize Understanding, 3-ImproveStrength/[place] 1=Demonstrate adherence to instructed precautions during ADL tasks. 2=Patient will verbalize/demonstrate understanding of assistive devices/ modifications for ADL. 3=Patient will improve strength/tolerance for activity to enable patient to perform ADL's. OT Education/Plan Discharge Recommendations Plan/Recommendations: Continue POC Treatment Plan/Plan of Care Patient would benefit from OT for education, treatment and training to promote independence in ADL's, mobility, safety and/or upper extremity function for ADL' s. Plan of Care: ADL Retraining, Functional Mobility, UE Funct Exercise/Act Treatment Duration: Jan 09, 2017 Frequency: 5 times per week Estimated Hrs Per Day: .25 hour per day Agreement: Yes Rehab Potential: Good Time/GCodes Start Time: 12:27 Stop Time: 12:43 Total Time Billed (hr/min): 16 Billed Treatment Time 1 visit-EX 1 (16 min) DEBORA MARTÍNEZ Jan 03, 2017 13:05
--- NOTE | 2017-01-03 15:13 | Progress Note ---
Subjective Date Seen by Provider: Jan 03, 2017 Time Seen by Provider: 15:08 Subjective/Events-last exam Patient states small bm this morning. Tolerating diet but was having some dysphagia. This has improved some today. Patient pain is controlled. No significant abdominal pain in the right lower quadrant still. Most of his pain seems to originate from back into buttock. No n/v fever sweats chills shortness of breath or chest pain. Objective Exam Vital Signs Date Time Temp Pulse Resp B/P (MAP) Pulse Ox O2 Delivery O2 Flow Rate FiO2 01/03/17 12:00 99.5 105 16 132/73 96 Nasal Cannula 4.50 01/03/17 11:23 76 Room Air 01/03/17 09:22 96.0 01/03/17 08:49 96.0 01/03/17 08:00 Nasal Cannula 2.00 01/03/17 08:00 96.0 106 14 122/73 93 Nasal Cannula 4.50 01/03/17 07:33 90 Nasal Cannula 4.00 01/03/17 04:00 97.7 114 18 133/65 92 Nasal Cannula 4.50 01/03/17 00:53 93 01/03/17 00:24 98.1 102 16 97/58 94 Nasal Cannula 4.50 01/02/17 22:38 97.3 82 14 92/51 90 01/02/17 20:10 Nasal Cannula 2.00 01/02/17 19:21 Nasal Cannula 01/02/17 19:20 94 Nasal Cannula 4.00 01/02/17 19:07 111 01/02/17 15:40 97.8 120 16 113/56 93 I & O 01/04/17 07:00 Intake Total 610 ml Balance 610 ml Capillary Refill : Less Than 3 Seconds General Appearance: Anxious, Chronically ill HEENT: PERRL/EOMI, Normal ENT Inspection, Pharynx Normal Neck: Normal Inspection, Non Tender Respiratory: Chest Non Tender, No Accessory Muscle Use, No Respiratory Distress , Other Cardiovascular: No Gallop, No JVD, No Murmur, Tachycardia (regular) Gastrointestinal: normal bowel sounds, soft (no significant tenderness on palpation), no organomegaly Extremity: Non Tender, Other (edema b/l) Neurologic/Psychiatric: Oriented x3, No Motor/Sensory Deficits, Other (patient is exhibiting myoclonus of the upper and lower extremities brief goes away with ambulation) Skin: Normal Color, Warm/Dry Lymphatic: No Adenopathy Results Lab Microbiology 12/28/16 MRSA Screen - Final, Complete MRSA not isolated Assessment/Plan Assessment/Plan Assessment/Plan A 61 year old male with Partial small bowel obstruction, metastatic lung cancer , renal failure, shortness of breath Dysphagia, patient feels this has improved some through the day. If doesn't continue to improve agree with EGD for further evaluation. Pain control likely causing bowel function issues would keep on bowel regimen. Dr. Fregoso seeing patient for pain control for bony mets. No surgical intervention, will follow. Diagnosis/Problems Diagnosis/Problems (1) Small bowel obstruction Status: Acute Assessment & Plan: Had BM last night Tolerating current diet Likely due to naroctic bowel (though has history of multiple abd surgeries) management per primary (2) Metastatic lung cancer (metastasis from lung to other site) Status: Acute Assessment & Plan: Rad/Onc consulted for possible palliative radiation Continue pain meds On oxygen,will try to titrate off Does use prn at home though (3) Chronic pain due to neoplasm Status: Chronic Assessment & Plan: On 100mg MS Contin at home, receiving here Received 35mg IV morphine yesterday Will add Percocet today in attempt to transition to oral regimen for home (4) Normocytic anemia Status: Acute Assessment & Plan: Likely hemoconcentrated on arrival Will continue to trend as has dropped from 13-9 since admission Up to 9.9 today, likely near baseline Will not FOBT as will likely be positive with recent NGT (5) Debility Assessment & Plan: Feeling weak PT/OT consulted for DC planning (6) Prophylactic measure Assessment & Plan: SCDs only with Hgb drop tolerating Dysphagia 3 diet Saline lock Clinical Quality Measures DVT/VTE Risk/Contraindication: Risk Factor Score Per Nursin RFS Level Per Nursing on Admit: 4+=Very High DESTIN MURRY DO Jan 03, 2017 15:13
[2017-01-03 15:44] VITALS: BP 120/87
--- NOTE | 2017-01-03 15:46 | History & Physicial ---
History of Present Illness History of Present Illness Reason for visit/HPI Bone metastases from lung cancer primary with associated pain HPI: *61 y/o white male [place] resident well known to me from two previous courses of palliative xrt. *04/24/14 thru 05/09/14 at [facility] he received 30 Gy / 10 fxs to the right hip and right 4th rib *09/02/15 thru 09/17/15 at [facility] he received 30 Gy / 10 fxs to the bilateral SI joints *Patient reported pain improvement with both courses of xrt. *He is currently undergoing chemotherapy under the supervision of his medical oncologist, Dr. Roscoe Gonzalez, at [facility]. *12/27/16 He was admitted to [facility] for progressive abdominal pain with nausea/vomiting - for small bowel obstruction vs ileus. *CT abd/pelvis IMPRESSION: 1. Diffuse gastric and small bowel distention without definitive transition point. Features favor a probable ileus or enteritis versus partial obstructive process. Moderate colonic stool retention. 2. Bilateral lung nodules are most concerning for pulmonary metastatic disease. 3. At least one low-density mass within the liver is also worrisome for potential neoplasm given the overall findings. 4. Multifocal areas of sclerosis and potential lytic changes of the osseous structures, suspect for osseous metastasis. *The patient reported to his admitting provider, Dr. Morgan, he was having progressive lumbar and right buttock pain. *A radiation oncology referral was made for evaluation and consideration of palliative xrt; thus my visit with the patient today. Date of Admission Dec 28, 2016 at 01:00 Date Seen by Provider: Jan 03, 2017 Time Seen by Provider: 14:30 I consulted on this patient on 01/03/17 14:52 Attending Physician Alecia Louis DO Admitting Physician Rhonda Morgan MD Consult Fidel Fregoso MD Radiation Oncology Allergies and Home Medications Allergies Coded Allergies: NKANo Known Allergies (Verified Allergy, Unknown, 09/07/06) Home Medications Albuterol Sulfate 1 Puff Puff, 2 PUFF IH Q4H PRN for SHORTNESS OF BREATH, ( Reported) 1 PUFF = 90 MCG Amitriptyline HCl 100 Mg Tablet, 100 MG PO HS, (Reported) Fluticasone/Vilanterol 1 Each Blst.w.dev, 1 PUFF INH DAILY, (Reported) Furosemide 20 Mg Tablet, 10 MG PO DAILY, (Reported) TAKES 1/2 (20MG) TABLET Hydrocodone/Acetaminophen 1 Each Tablet, 2 TAB PO Q4H PRN for PAIN-BREAKTHROUGH, (Reported) Levothyroxine Sodium 25 Mcg Tablet, 25 MCG PO DAILY, (Reported) Lorazepam 2 Mg Tablet, 2 MG PO Q6H PRN for ANXIETY, (Reported) Morphine Sulfate 100 Mg Tablet.er, 100 MG PO BID, (Reported) Omeprazole Magnesium 20 Mg Tablet.dr, 20 MG PO DAILY, (Reported) Ondansetron 8 Mg Tab.rapdis, 8 MG PO Q8H PRN for NAUSEA/VOMITING-1ST LINE, ( Reported) Past Yemppje-Pnauxa-Hsages Hx Patient Social History Alcohol Use: Past History Recreational Drug Use: No Smoking Status: Former Smoker Former Smoker, Quit: Jan 18, 2005 Type Used: Cigarettes 2nd Hand Smoke Exposure: No Physical Abuse Screen: No Sexual Abuse: No Recent Foreign Travel: No Contact w/other who traveled: No Recent Hopitalizations: No Recent Infectious Disease Expo: No Immunizations Up To Date Date of Pneumonia Vaccine: Oct 13, 2013 Date of Influenza Vaccine: Jan 13, 2014 Seasonal Allergies Seasonal Allergies: No Surgeries Yes Abdominal, Bowel Surgery, Lobectomy Respiratory Yes (LUNG CANCER) Currently Using CPAP: No Currently Using BIPAP: No Cardiovascular Yes (PAROXYSMAL A.FIB--NOT ON ANTICOAGULANTS OR ANTIARRHYTHMICS OF 12/27/16) Atrial Fibrillation, Hypertension Neurological No Reproductive System Hx Reproductive Disorders: No Genitourinary Yes (CHRONIC RENAL INSUFFICIENCY SINCE STARTING CHEMO ) Renal Failure Gastrointestinal Yes (MULTIPLE ABDOMINAL HERNIAS) Abdominal Hernia, Gastroesophageal Reflux, Diverticulosis, Polyps Musculoskeletal No Endocrine History of Endocrine Disorders: No HEENT History of HEENT Disorders: Yes HEENT Disorders: Glaucoma Cancer Yes Lung Cancer Comment: LUNG CANCER DX 2005--HAD RUL LOBECTOMY, NO CHEMO OR RADIATION HAD RECURRENCE DX 2013--WITH METS TO BONE, HAS HAD RADIATION AND STILL RECEIVING CHEMO OF 12/27/16 Psychosocial History of Psychiatric Problem: Yes Behavioral Health Disorders: Anxiety, Depression Integumentary History of Skin or Integumenta: No (MYCOSIS FUNGOIDES) Blood Transfusions History of Blood Disorders: No Family Medical History Significant Family History: No Pertinent Family Hx Family Hx: Asthma Cancer of mouth 19 FATHER Cataracts 19 FATHER Prostate cancer 19 FATHER Respiratory disorder 19 FATHER Severe allergy G8 BROTHER No Family History of: AIDS Abdominal aortic aneurysm Garland's disease Alcoholism Alzheimer's disease Aphasia Arthritis Cardiovascular disease Colon cancer Completed stroke Congenital disease Congenital heart disease Coronary thrombosis Cystic fibrosis Deafness or hearing loss Dementia Diabetes mellitus Drug abuse Dysphasia Fibrocystic disease of breast Gastroenteritis Glaucoma Headache disorder Hypercholesterolemia Hypertension Infertility Kidney disease Myocardial infarction Neoplasm Not obtainable due to adoption Osteoporosis Parkinson's disease Psychosocial problem Seizure disorder Thyroid disease Tuberculosis Visual disorder Constitutional: weakness EENTM: no symptoms reported Respiratory: dyspnea on exertion Cardiovascular: other (holter monitor) Gastrointestinal: see HPI Genitourinary: no symptoms reported Musculoskeletal: back pain (lower and right hip with some radiation down leg) Skin: no symptoms reported Psychiatric/Neurological: Weakness All Other Systems Reviewed Negative Unless Noted: Yes Physical Exam Vital Signs Vital Sign - Last 12Hours 12/28/16 01/02/17 02:30 10:37 Temp 96.3 Pulse 106 Resp 16 B/P (MAP) 152/90 Pulse Ox 96 O2 Delivery Nasal Cannula O2 Flow Rate 2.00 FiO2 28 Capillary Refill : Less Than 3 Seconds General Appearance: No Apparent Distress, WD/WN, Other (sitting in chair at bedside with brother, Álvaro) Eyes: Bilateral Eye PERRL, Bilateral Eye EOMI Neurologic/Psychiatric: Alert, Oriented x3, Normal Mood/Affect Skin: Normal Color, Warm/Dry Comments Patient able to locate pain with hand Assessment/Plan Assessment and Plan Bone metastases from lung cancer primary with associated pain Recurrent pain at site of previous xrt Plan: Will obtain records/plan from [facility] Treat minimum of 20 Gy / 10 fxs to the lumbosacral spine / bilateral SI joints May escalate dose to 30 Gy / 10 fxs depending on technical factors to be determined during treatment planning A treatment planning ct simulation to be performed tomorrow morning 01/04 We will initiate his course of palliative xrt soon thereafter Problems: Admission Diagnosis Small bowel obstruction vs ileus Clinical Quality Measures DVT/VTE Risk/Contraindication: Risk Factor Score Per Nursin RFS Level Per Nursing on Admit: 4+=Very High Copy Copies To 1: RHONDA MORGAN MD, DUANE E MD Jan 03, 2017 15:46
[2017-01-03 19:47] VITALS: BP 127/74
[2017-01-03] MEDS: AMITRIPTYLINE 50 MG (ELAVIL) TAB PO SCH (20:09)
[2017-01-04] VITALS: BP 100/59
[2017-01-04 04:38] VITALS: BP 117/69
[2017-01-04] MEDS: PANTOPRAZOLE 40 MG (PROTONIX) TAB PO SCH (05:49)
[2017-01-04] MEDS: LEVOTHYROXINE 25 MCG (LEVOTHROID) TAB PO SCH (05:49)
[2017-01-04] MEDS: RT-ALBUTEROL SULF 2.5 MG/3 ML PRE-MIX VIAL IH SCH ×4 (06:51→19:04)
[2017-01-04] MEDS: RT-ADVAIR HFA 115/21 MCG PER PUFF IH SCH ×2 (06:54→19:04)
[2017-01-04] MEDS ORDERED: POLY17PO6 PO (07:42)
[2017-01-04 08:00] VITALS: BP 110/72
[2017-01-04] MEDS ORDERED: MORP60TA PO (08:39)
[2017-01-04] MEDS: POLYETHYLENE GLYCOL 17 GM (MIRALAX) PACK PO SCH ×2 (09:02→21:04)
[2017-01-04] MEDS: morphine ER 100 MG (MS CONTIN) TAB PO SCH (09:04)
[2017-01-04 12:00] VITALS: BP 125/73
--- NOTE | 2017-01-04 14:52 | Occupational Ther Daily Note ---
OT Current Status-Daily Note Subjective Pt alert, sitting in recliner. Finishing up with PT. Agreed to OT. No c/o pain at this time. Pt had just received personal FWW. Mental Status/Objective Patient Orientation: Person, Place, Time, Situation Functional [place] Measure 0=Not Assessed/NA 4=Minimal Assistance 1=Total Assistance 5=Supervision or Setup 2=Maximal Assistance 6=Modified [place] 3=Moderate Assistance 7=Complete [place] Attachments: Oxygen Other Treatment PT reported that pt had completed toileting mod I at the beginning of treatment. Pt completed medium resistance theraband exercises, 2 sets 10 reps. Pt demonstrated understanding of exercises and was able to complete appropriately. Did need verbal cues to remember exercises during the 2nd set. Pt reported that he was fatigued from the 2 sets of exercises. After therapy, pt sitting in recliner with call light/phone in reach. Pt asked about the last time he had his pain pills, HERNANDEZ told nrsg senior assistant manager pt's question. All needs met in room. OT Short Term Goals Short Term Goals 1=Demonstrate adherence to instructed precautions during ADL tasks. 2=Patient will verbalize/demonstrate understanding of assistive devices/ modifications for ADL. 3=Patient will improve strength/tolerance for activity to enable patient to perform ADL's. OT Reading Teacher Goals Residential Goals Time Frame: Jan 09, 2017 Eating (FIM): 6 Grooming(FIM): 6 Upper Body Dressing(FIM): 6 Lower Body Dressing(FIM): 6 Toileting(FIM): 6 Additional Goals: 2-Verbalize Understanding, 3-ImproveStrength/[place] 1=Demonstrate adherence to instructed precautions during ADL tasks. 2=Patient will verbalize/demonstrate understanding of assistive devices/ modifications for ADL. 3=Patient will improve strength/tolerance for activity to enable patient to perform ADL's. OT Education/Plan Discharge Recommendations Plan/Recommendations: Continue POC Treatment Plan/Plan of Care Patient would benefit from OT for education, treatment and training to promote independence in ADL's, mobility, safety and/or upper extremity function for ADL' s. Plan of Care: ADL Retraining, Functional Mobility, UE Funct Exercise/Act Treatment Duration: Jan 09, 2017 Frequency: 5 times per week Estimated Hrs Per Day: .25 hour per day Agreement: Yes Rehab Potential: Good Time/GCodes Start Time: 14:25 Stop Time: 14:40 Total Time Billed (hr/min): 15 Billed Treatment Time 1 visit-EX 1 (15 min) DEBORA MARTÍNEZ Jan 04, 2017 14:52
--- NOTE | 2017-01-04 15:04 | Physical Therapy Daily Note ---
PT Daily Note-Current Subjective Pt sitting in recliner upon arrival. Pt agrees to PT but needs to use restroom. Pain Location: No Pain Reported Mental Status Patient Orientation: Person, Place, Situation Attachments: Oxygen Transfers Functional [place] Measure 0=Not Assessed/NA 4=Minimal Assistance 1=Total Assistance 5=Supervision or Setup 2=Maximal Assistance 6=Modified [place] 3=Moderate Assistance 7=Complete IndependenceIRFPAI Quality Coding Scale 6 Independent with activity with or without an assistive device 5 Patient requires set up or clean up by helper. Patient completes activity by themselves 4 Supervision or touching assist (CGA). [place] provide cues , steadying assist 3 The helper provides less than half the effort to complete the activity 2 The helper provides more than half the effort to complete the activity 1 Dependent. The helper does all the effort to complete an activity 7 Patient refused to complete or attempt activity 9 The patient did not perform the activity before the current illness or injury 88 Not attempted due to Medical conditions or safety concerns Scootin Sit to/from Stand: 6 Weight Bearing Full Weight Bearing Full Weight Bearing Gait Training Distance (FIM): 1=up to 49 ft Distance: 20' Gait Level of Assist: 6 Gait Persons Needed: 1 Gait Assistive Device: FWW Pt walks to restroom during tx. Nursing reports pt had just taken walk in hallway and had been pushing O2 bottle himself. Exercises Seated Therapy Exercises: Ankle pumps, Long arc quads, Hip flexion, Kicking activity Seated Reps: 20 Treatments Pt transfers from recliner to standing and ambulates to restroom at Mod I. Pt returns to recliner and completes Seated Ex in recliner. Pt has all needs met at end of tx. OT to see pt for tx immediately following. Assessment Current Status: Good Progress Pt able to transfer and ambulate independently. PT [facility] Goals Old Testament Professor Goals PT [facility] Goals Time Frame: Jan 04, 2017 Transfers (B,C,W/C) (FIM): 7 Gait (FIM): 7 PT Plan Treatment/Plan Treatment Plan: Continue Plan of Care Treatment Plan: Functional Strength, Gait, Transfers Treatment Duration: Jan 04, 2017 Frequency: 5 times per week Estimated Hrs Per Day: .25 hour per day Patient and/or Family Agrees t: Yes Safety Risks/Education Patient Education: Transfer Techniques, Correct Positioning, Safety Issues Teaching Recipient: Patient Teaching Methods: Discussion Response to Teaching: Verbalize Understanding Time/GCodes Time In: 1410 Time Out: 1425 Total Billed Treatment Time: 15 Total Billed Treatment visit, EX (15m) KATHY GARCIA PTA Jan 04, 2017 15:04
[2017-01-04] MEDS: LORazepam 0.5 MG (ATIVAN) TABLET PO PRN (15:46)
[2017-01-04 16:01] VITALS: BP 141/76
--- NOTE | 2017-01-04 17:31 | Progress Note ---
Subjective Date Seen by Provider: Jan 04, 2017 Time Seen by Provider: 08:41 Subjective/Events-last exam Patient somnolent, time of my examination. Patient would await briefly and then go back to sleep. Nursing communicated that his medications have been decreased now and on hold. Patient does tell me that he is not having any abdominal pain. He is passing flatus. His last bowel movement was yesterday morning. He has no other complaints. Objective Exam Vital Signs Date Time Temp Pulse Resp B/P (MAP) Pulse Ox O2 Delivery O2 Flow Rate FiO2 01/04/17 16:01 98.2 117 20 141/76 94 Nasal Cannula 4.50 01/04/17 15:01 94 Nasal Cannula 4.00 01/04/17 12:00 97.3 110 20 125/73 94 Nasal Cannula 4.50 01/04/17 10:48 96 Nasal Cannula 4.00 01/04/17 08:00 97.1 90 16 110/72 99 Nasal Cannula 4.50 01/04/17 07:54 Nasal Cannula 4.00 01/04/17 07:00 93 01/04/17 06:51 98 Nasal Cannula 4.00 01/04/17 04:38 97.0 100 20 117/69 94 Nasal Cannula 4.50 01/04/17 01:24 102 01/04/17 00:00 97.8 115 24 100/59 91 Nasal Cannula 4.50 01/03/17 20:10 Nasal Cannula 4.00 01/03/17 19:47 96.6 96 20 127/74 99 Nasal Cannula 4.50 01/03/17 19:16 97 Nasal Cannula 4.00 01/03/17 19:00 84 I & O 01/05/17 07:00 Intake Total 1100 ml Balance 1100 ml Capillary Refill : Less Than 3 Seconds General Appearance: No Apparent Distress (somnolent), WD/WN, Other HEENT: PERRL/EOMI, Normal ENT Inspection, Pharynx Normal Neck: Normal Inspection, Non Tender Respiratory: Chest Non Tender, No Accessory Muscle Use, No Respiratory Distress Cardiovascular: Regular Rate, Rhythm, No Gallop, No JVD, No Murmur Gastrointestinal: normal bowel sounds, soft (no significant tenderness on palpation), no organomegaly Extremity: Non Tender, Other (edema b/l) Neurologic/Psychiatric: Other (somnolent, is arousable and does answer questions) Skin: Normal Color, Warm/Dry Lymphatic: No Adenopathy Results Lab Microbiology 12/28/16 MRSA Screen - Final, Complete MRSA not isolated Assessment/Plan Assessment/Plan Assessment/Plan A 61 year old male with Partial small bowel obstruction, metastatic lung cancer , renal failure, shortness of breath Dysphagia, If doesn't continue to improve agree with EGD for further evaluation. Pain control likely causing bowel function issues would keep on bowel regimen, which are decreasing narcotics due to somnolence. Dr. Fregoso seeing patient for pain control for bony mets. No surgical intervention, will sign off at this time please call if needed. Diagnosis/Problems Diagnosis/Problems (1) Small bowel obstruction Status: Acute Assessment & Plan: Had BM last night Tolerating current diet Likely due to naroctic bowel (though has history of multiple abd surgeries) management per primary (2) Metastatic lung cancer (metastasis from lung to other site) Status: Acute Assessment & Plan: Rad/Onc consulted for possible palliative radiation Continue pain meds On oxygen,will try to titrate off Does use prn at home though (3) Chronic pain due to neoplasm Status: Chronic Assessment & Plan: On 100mg MS Contin at home, receiving here Received 35mg IV morphine yesterday Will add Percocet today in attempt to transition to oral regimen for home (4) Normocytic anemia Status: Acute Assessment & Plan: Likely hemoconcentrated on arrival Will continue to trend as has dropped from 13-9 since admission Up to 9.9 today, likely near baseline Will not FOBT as will likely be positive with recent NGT (5) Debility Assessment & Plan: Feeling weak PT/OT consulted for DC planning (6) Prophylactic measure Assessment & Plan: SCDs only with Hgb drop tolerating Dysphagia 3 diet Saline lock Clinical Quality Measures DVT/VTE Risk/Contraindication: Risk Factor Score Per Nursin RFS Level Per Nursing on Admit: 4+=Very High DESTIN MURRY DO Jan 04, 2017 17:31
[2017-01-04] MEDS ORDERED: LORazepam 1 MG (ATIVAN) TAB PO PRN (19:00)
[2017-01-04 19:16] VITALS: BP 111/69
[2017-01-04] MEDS ORDERED: morphine ER 100 MG (MS CONTIN) TAB PO SCH (21:00)
[2017-01-04] MEDS ORDERED: morphine ER 30 MG (MS CONTIN) TAB PO SCH (21:00)
[2017-01-04] MEDS: AMITRIPTYLINE 50 MG (ELAVIL) TAB PO SCH (21:11)
[2017-01-05] VITALS (8 sets, daily range): BP systolic 100–136; BP diastolic 47–74
[2017-01-05] MEDS: PANTOPRAZOLE 40 MG (PROTONIX) TAB PO SCH (06:30)
[2017-01-05] MEDS: LEVOTHYROXINE 25 MCG (LEVOTHROID) TAB PO SCH (06:30)
[2017-01-05] MEDS: RT-ALBUTEROL SULF 2.5 MG/3 ML PRE-MIX VIAL IH SCH ×4 (07:13→18:55)
[2017-01-05] MEDS: RT-ADVAIR HFA 115/21 MCG PER PUFF IH SCH ×2 (07:14→18:55)
--- NOTE | 2017-01-05 08:41 | Progress Note-Hospitalist ---
Subjective HPI/CC On Admission Date Seen by Provider: Jan 05, 2017 Time Seen by Provider: 08:40 Mr. 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 Initially there was no abdominal pain and he attributed to a reaction to recently administered morphine. He was concerned about an allergic reaction presented to the emergency room. There he did develop progressive abdominal pain followed by nausea and vomiting. CT scan of the abdomen was compatible with either small bowel obstruction or ileus he was subsequent admitted after NG tube placement to low intermittent suction. There was no evidence for intra-abdominal tumor but he did have a fair amount of stool in the right colon.previously he been on fentanyl and hydrocodone but he was having difficulty getting his patch to stick with progressive lumbar and right buttock pain. He has known L4 5 metastasis and probable iliac metastasis. Jennifer's undergone palliative radiotherapy for right rib metastasis and right femoral neck metastasis. He denied chills or fever. He had a similar admission a little over a week ago to [place] for what was felt to be a partial small bowel obstruction. He was discharged requiring nothing but several days of NG tube decompression. Subjective/Events-last exam Guero was alert and anxious this morning he is concerned because his oxygen level is up to 5 and this is what is been required to maintain saturations greater than 95 percent. His room air saturation yesterday was 76 percent. He reports associated wheezing denies chest pain or sputum production. He has a mild nonproductive cough and has had no chills or fever. He denies abdominal pain and has been passing gas. Due to sedation morphine has been held as has lorazepam and he does appear anxious morning. Ports back pain but has not been incapacitating when he is trying to hold off on morphine due to its sedating effects despite the fact that we had decreased his dose to 60 mg from a total of 100 twice a day Objective Exam Vital Signs Vital Sign - Last 12Hours 12/31/16 01/02/17 00:00 10:37 Temp 98.9 Pulse 115 Resp 22 B/P (MAP) 96/54 Pulse Ox 91 O2 Delivery OxyMask O2 Flow Rate 4.00 FiO2 28 Capillary Refill : Less Than 3 Seconds General Appearance: Anxious, Chronically ill Respiratory: No Accessory Muscle Use, No Respiratory Distress, Other ( Scattered rhonchi and mild expiratory wheezing throughout) Cardiovascular: Regular Rate, Rhythm, No Gallop, No JVD, No Murmur, Normal Peripheral Pulses, Other ('s lower extremity edema to the lower tibia.) Gastrointestinal: Normal Bowel Sounds, No Organomegaly, No Pulsatile Mass, Non Tender, Soft Assessment/Plan Assessment and Plan Assess & Plan/Chief Complaint 1. Small bowel obstruction versus ileus resolved. still feeling significantly short of breath with wheezing compatible with COPD exacerbation. He has no infectious symptoms but is very anxious about going home and requiring higher dose oxygen. We are also having difficulty with oversedation despite reducing lorazepam and MS Contin. We will plan on adding anticholinergic inhaler therapy and Solu-Medrol today for COPD exacerbation. He will receive his first radiation therapy treatment this morning and if doing better tomorrow his brother will be returning who can help and we can send him home on a prednisone taper. His pain has been under reasonable control will switch to scheduled hydrocodone which she has tolerated without sedation in the past. 2. Adenocarcinoma the lung with bony metastasis. 3. 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 4. Deconditioning multifactorial continue physical therapy consider discharge tomorrow as long as the patient is less sedate. Long-acting morphine being decreased 80 mg twice a day and MiraLAX added to avoid constipation. 5. mild dysphasia suspect anxiety and dry mouth or contributing. Mild clonus may be secondary to benzodiazepine withdrawal we will give 1 mg of lorazepam now. Persistent symptoms will require further workup including consideration for EGD. Diagnosis/Problems Diagnosis/Problems (1) Small bowel obstruction Status: Acute Assessment & Plan: Had BM last night Tolerating current diet Likely due to naroctic bowel (though has history of multiple abd surgeries) management per primary (2) Metastatic lung cancer (metastasis from lung to other site) Status: Acute Assessment & Plan: Rad/Onc consulted for possible palliative radiation Continue pain meds On oxygen,will try to titrate off Does use prn at home though (3) Chronic pain due to neoplasm Status: Chronic Assessment & Plan: On 100mg MS Contin at home, receiving here Received 35mg IV morphine yesterday Will add Percocet today in attempt to transition to oral regimen for home (4) Normocytic anemia Status: Acute Assessment & Plan: Likely hemoconcentrated on arrival Will continue to trend as has dropped from 13-9 since admission Up to 9.9 today, likely near baseline Will not FOBT as will likely be positive with recent NGT (5) Debility Assessment & Plan: Feeling weak PT/OT consulted for DC planning (6) Prophylactic measure Assessment & Plan: SCDs only with Hgb drop tolerating Dysphagia 3 diet Saline lock RHONDA FONSECA MD Jan 05, 2017 08:41
[2017-01-05] MEDS: POLYETHYLENE GLYCOL 17 GM (MIRALAX) PACK PO SCH ×2 (08:53→20:19)
[2017-01-05] MEDS: LORazepam 0.5 MG (ATIVAN) TABLET PO PRN ×2 (09:05→18:35)
[2017-01-05] MEDS: methylPREDNISolone 40 MG/ML (Solu-MEDROL) VIAL IV SCH ×2 (09:05→20:18)
[2017-01-05] MEDS: HYDROcodone/APAP 10 MG/325 MG (LORTAB) TAB PO SCH ×3 (09:06→20:19)
--- NOTE | 2017-01-05 10:38 | Physical Therapy Daily Note ---
PT Daily Note-Current Subjective Patient in good spirits and agrees to PT. Pain Numeric Pain Scale: 0-No Pain Location: No Pain Reported Mental Status Patient Orientation: Normal For Age Attachments: Oxygen Transfers Functional [place] Measure 0=Not Assessed/NA 4=Minimal Assistance 1=Total Assistance 5=Supervision or Setup 2=Maximal Assistance 6=Modified [place] 3=Moderate Assistance 7=Complete IndependenceIRFPAI Quality Coding Scale 6 Independent with activity with or without an assistive device 5 Patient requires set up or clean up by helper. Patient completes activity by themselves 4 Supervision or touching assist (CGA). [place] provide cues , steadying assist 3 The helper provides less than half the effort to complete the activity 2 The helper provides more than half the effort to complete the activity 1 Dependent. The helper does all the effort to complete an activity 7 Patient refused to complete or attempt activity 9 The patient did not perform the activity before the current illness or injury 88 Not attempted due to Medical conditions or safety concerns Transfers (B, C, W/C) (FIM): 7 Scootin Rollin Supine to/from Sit: 7 Sit to/from Stand: 7 Weight Bearing Full Weight Bearing Full Weight Bearing Gait Training Gait (FIM): 7 Distance (FIM): 3=150 ft Distance: 650' Gait Level of Assist: 7 Gait Assistive Device: None patient pulled his own O2 tank with RT monitoring SAO2 for home qualification. Assessment Current Status: Excellent Progress Patient is currently at independent OF with gross motor skills safely. PT to dismiss from services at this time. Patient and family encouraged to ambulate PRN in hallway. PT Supervisor [place] Goals Supervisor [employer] Goals PT Senior Care Goals Time Frame: Jan 04, 2017 Transfers (B,C,W/C) (FIM): 7 Gait (FIM): 7 PT Plan Treatment/Plan Treatment Plan: Discontinue PT, goals met Treatment Plan: Functional Strength, Gait, Transfers Treatment Duration: Jan 04, 2017 Frequency: 5 times per week Estimated Hrs Per Day: .25 hour per day Patient and/or Family Agrees t: Yes Time/GCodes Time In: 1011 Time Out: 1021 Total Billed Treatment Time: 10 Total Billed Treatment 1 visit FA 10 min SONU LIU PT Jan 05, 2017 10:38
[2017-01-05] MEDS: UMECLIDINIUM BROMIDE (INCRUSE ELLIPTA) 7'S IH SCH (11:10)
[2017-01-05] MEDS: FUROSEMIDE 40 MG (LASIX) TAB PO SCH (11:54)
--- NOTE | 2017-01-05 13:41 | Occ Therapy Progress Note ---
Therapy Progress Note Chart reviewed. Pt. independent/Mod I at this time with daily tasks and transfers. Will discharge from skilled OT, as it is not warranted at this time. 1340 ANAHI GLORIA OT Jan 05, 2017 13:41
[2017-01-05] MEDS: AMITRIPTYLINE 50 MG (ELAVIL) TAB PO SCH (20:18)
[2017-01-06] MEDS: HYDROcodone/APAP 10 MG/325 MG (LORTAB) TAB PO SCH ×3 (02:28→14:28)
[2017-01-06 04:15] VITALS: BP 121/68
[2017-01-06] MEDS: PANTOPRAZOLE 40 MG (PROTONIX) TAB PO SCH (06:06)
[2017-01-06] MEDS: LEVOTHYROXINE 25 MCG (LEVOTHROID) TAB PO SCH (06:06)
[2017-01-06] MEDS: RT-ALBUTEROL SULF 2.5 MG/3 ML PRE-MIX VIAL IH SCH ×3 (07:15→14:45)
[2017-01-06] MEDS: UMECLIDINIUM BROMIDE (INCRUSE ELLIPTA) 7'S IH SCH (07:15)
[2017-01-06] MEDS: RT-ADVAIR HFA 115/21 MCG PER PUFF IH SCH (07:15)
[2017-01-06 08:00] VITALS: BP 124/64
[2017-01-06] MEDS: FUROSEMIDE 40 MG (LASIX) TAB PO SCH (08:11)
[2017-01-06] MEDS: POLYETHYLENE GLYCOL 17 GM (MIRALAX) PACK PO SCH (08:12)
[2017-01-06] MEDS: methylPREDNISolone 40 MG/ML (Solu-MEDROL) VIAL IV SCH (08:12)
[2017-01-06] MEDS: LORazepam 0.5 MG (ATIVAN) TABLET PO PRN ×2 (08:19→16:24)
[2017-01-06 10:57] VITALS: BP 124/64
[2017-01-06] MEDS ORDERED: PRD20T PO (11:53)
[2017-01-06] MEDS ORDERED: UMEC62.5 IH (11:53)
[2017-01-06 12:00] VITALS: BP 113/62
[2017-01-06 16:00] VITALS: BP 114/61
--- NOTE | 2017-01-06 16:32 | Discharge Summary-Hospitalist ---
Diagnosis/Chief Complaint Date of Admission Dec 28, 2016 at 01:00 Date of Discharge Discharge Date: Jan 05, 2017 Admission Diagnosis 1. Partial small bowel obstruction appears to be resolving will clamp NG tube and defer further management to Dr. George. 2. Adenocarcinoma the lung with bony metastasis. Patient most symptomatically in the L45 area and right ischial area will consult Dr. Portillo to evaluate for possibility of radiation therapy for palliation. Patient will require rather high-dose narcotic therapy that he is been used to likely reinitiating long- acting morphine 100 twice a day when the patient is taking by mouth fluids again. Continue IV morphine for now. Discharge Diagnosis 1. Small bowel obstruction versus ileus resolved. still feeling significantly short of breath with wheezing compatible with COPD exacerbation. He has no infectious symptoms but is very anxious about going home and requiring higher dose oxygen. We are also having difficulty with oversedation despite reducing lorazepam and MS Contin. We will plan on adding anticholinergic inhaler therapy and Solu-Medrol today for COPD exacerbation. He will receive his first radiation therapy treatment this morning and if doing better tomorrow his brother will be returning who can help and we can send him home on a prednisone taper. His pain has been under reasonable control will switch to scheduled hydrocodone which she has tolerated without sedation in the past. 2. Adenocarcinoma the lung with bony metastasis. 3. 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 4. Deconditioning multifactorial continue physical therapy consider discharge tomorrow as long as the patient is less sedate. Long-acting morphine being decreased 80 mg twice a day and MiraLAX added to avoid constipation. 5. mild dysphasia suspect anxiety and dry mouth or contributing. Mild clonus may be secondary to benzodiazepine withdrawal we will give 1 mg of lorazepam now. Persistent symptoms will require further workup including consideration for EGD. (1) Small bowel obstruction Status: Acute Assessment & Plan: Had BM last night Tolerating current diet Likely due to naroctic bowel (though has history of multiple abd surgeries) management per primary (2) Metastatic lung cancer (metastasis from lung to other site) Status: Acute Assessment & Plan: Rad/Onc consulted for possible palliative radiation Continue pain meds On oxygen,will try to titrate off Does use prn at home though (3) Chronic pain due to neoplasm Status: Chronic Assessment & Plan: On 100mg MS Contin at home, receiving here Received 35mg IV morphine yesterday Will add Percocet today in attempt to transition to oral regimen for home (4) Normocytic anemia Status: Acute Assessment & Plan: Likely hemoconcentrated on arrival Will continue to trend as has dropped from 13-9 since admission Up to 9.9 today, likely near baseline Will not FOBT as will likely be positive with recent NGT (5) Debility Assessment & Plan: Feeling weak PT/OT consulted for DC planning (6) Prophylactic measure Assessment & Plan: SCDs only with Hgb drop tolerating Dysphagia 3 diet Saline lock Discharge Summary Discharge Physical Examination Allergies: Coded Allergies: NKANo Known Allergies (Verified Allergy, Unknown, 09/07/06) Vitals & I&Os Vital Signs Date Time Temp Pulse Resp B/P (MAP) Pulse Ox O2 Delivery O2 Flow Rate FiO2 01/06/17 14:45 96 Nasal Cannula 3.00 01/06/17 12:00 98.5 101 26 113/62 01/06/17 10:57 28 Hospital Course Mr. Khanna presented emergency room with abdominal distention pain and anxiety. While there he developed nausea and vomiting and subsequent CT scan revealed findings suspicious for small bowel obstruction. He also a lot of stool in the right colon with no evidence for infection and no evidence for intra-abdominal tumor. NG tube placement was performed with surgical consultation with Dr. George. Within 48 hours he started passing gas and had a small stool. He did suffer COPD exacerbation and I could not rule out the possibility of mild aspiration as its cause. His initial chest x-ray revealed no evidence for pneumonia. His O2 saturation requirements were increased over baseline requiring 5 L per nasal cannula to keep saturations greater than 90 percent. He had recently been started on morphine a switch from fentanyl and hydrocodone. Despite significantly cutting back on his dose he had periods of significant sedation especially with a combination of Ativan that he is used to taking at home for anxiety. He has known L4 5 metastasis and iliac metastasis is predominant reason for needing narcotics. Radiation oncology was consult did and radiotherapy was initiated per Dr. Portillo. We did initiate anticholinergic therapy in addition to his long-acting beta agonist steroid combination and Solu-Medrol was initiated as well. On the day of this discharge wheezing had improved significantly and on 3 L he was maintaining saturation of 96 percent when last checked. With a switch to 10 mg of hydrocodone 4 times a day his pain was under reasonable control. He is advised to use this as his only pain medication and that could be increased to every 4 when necessary. He will continue prednisone 40 mg daily 5 days and Incruse daily inhaler was added. He will be staying with his brother and will return to see me in the office in approximately one week. He'll continue his other home medications minus long-acting morphine. Labs (last 24 hrs) Microbiology 12/28/16 MRSA Screen - Final, Complete MRSA not isolated Discharge Home Medications: Active Scripts Active Incruse Ellipta (Umeclidinium [place]) 62.5 Mcg Blst.w.dev 62.5 Mcg IH 1 30 Days Prednisone 20 Mg Tab 40 Mg PO DAILY 5 Days Morphabond ER (Morphine Sulfate) 60 Mg Tab.er.12h 60 Mg PO BID 30 Days Miralax (Polyethylene Glycol 3350) 17 Gm Powd.pack 17 Gm PO BID 60 Days Reported Levothyroxine Sodium 25 Mcg Tablet 25 Mcg PO DAILY Ativan (Lorazepam) 2 Mg Tablet 2 Mg PO Q6H PRN Zofran Odt (Ondansetron) 8 Mg Tab.rapdis 8 Mg PO Q8H PRN Proair Hfa (Albuterol Sulfate) 1 Puff Puff 2 Puff IH Q4H PRN 1 PUFF = 90 MCG Breo Ellipta 100-25 Mcg INH (Fluticasone/Vilanterol) 1 Each Blst.w.dev 1 Puff INH DAILY Amitriptyline HCl 100 Mg Tablet 100 Mg PO HS Furosemide 20 Mg Tablet 10 Mg PO DAILY TAKES 1/2 (20MG) TABLET Hydrocodon-Acetaminophn 10-325 (Hydrocodone/Acetaminophen) 1 Each Tablet 2 Tab PO Q4H PRN Prilosec Otc (Omeprazole Magnesium) 20 Mg Tablet.dr 20 Mg PO DAILY Instructions to patient/family Please see electronic discharge instructions given to patient. Clinical Quality Measures DVT/VTE Risk/Contraindication: Risk Factor Score Per Nursin RFS Level Per Nursing on Admit: 4+=Very High RHONDA FONSECA MD Jan 06, 2017 16:32
== END 2017-01-06 18:45 | disposition home or self-care (01) | DRG 327 ==
LOC: EDUNIT# 20:20 → ER 20:21 → ICU 12-28 01:00 → 4TH 12-28 10:19
PROVIDERS: ADMIT Internal Medicine; ATTEND Internal Medicine
PROC: 0D9470Z Drainage of Esophagogastric Junction with Drainage Device, Via Natural or Artificial Opening (ICD-10-PCS; principal; 2016-12-28)
DX: K56.69 Other intestinal obstruction (principal); E86.0 Dehydration; C79.51 Secondary malignant neoplasm of bone; C79.89 Secondary malignant neoplasm of other specified sites; J44.9 Chronic obstructive pulmonary disease, unspecified; I48.0 Paroxysmal atrial fibrillation; D64.9 Anemia, unspecified; I12.9 Hypertensive chronic kidney disease with stage 1 through stage 4 chronic kidney disease, or unspecified chronic kidney disease; N18.9 Chronic kidney disease, unspecified; T45.1X5A Adverse effect of antineoplastic and immunosuppressive drugs, initial encounter; F41.9 Anxiety disorder, unspecified; F32.9 Major depressive disorder, single episode, unspecified; K21.9 Gastro-esophageal reflux disease without esophagitis; H40.9 Unspecified glaucoma; K57.90 Diverticulosis of intestine, part unspecified, without perforation or abscess without bleeding; T40.2X5A Adverse effect of other opioids, initial encounter; Z85.118 Personal history of other malignant neoplasm of bronchus and lung; Z90.2 Acquired absence of lung [part of]; Z99.81 Dependence on supplemental oxygen; Z92.3 Personal history of irradiation; Z79.899 Other long term (current) drug therapy; Z87.891 Personal history of nicotine dependence; Z86.010 Personal history of colon polyps
CPT/HCPCS: 36415; 71010; 71020; 74176; 74250; 77290; 77295; 77300; 77334; 77417; 77470; 80048; 80053; 81000; 82150; 82550; 82553; 82805; 82962; 83690; 83735; 83880; 84100; 84443; 84484; 85007; 85025; 85027; 85610; 85730; 87081; 93005; 93041; 94640; 94660; 94664; 94760; 94761; 96361; 96372; 96374; 96375; 96376

== ENCOUNTER → 2017-03-10 | Outpatient (CLI) | payer MEDICARE, OTHER ==
[~2017-03-10] MED LIST changes: +AMIT100T2 PO; +FLUT1AER INH; +FURO20TA4 PO; +HYDR-3820 PO; +LEVO25TA5 PO; +LEVO50TA6 PO; +LORA-407 PO; +MORP100T37 PO; +MORP60TA PO; +OMEP20TA33 PO; +ONDA8TAB9 PO; +POLY17PO6 PO; +RT-ALBUINH IH; +UMEC62.5 IH
--- NOTE | 2017-03-10 12:40 | Diagnostic Imaging Report ---
PROCEDURE: CT chest without contrast. TECHNIQUE: Multiple contiguous axial images were obtained through the chest without the use of intravenous contrast. 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 Patient just completed a chemotherapy. Noncontrasted study was performed due to allergy to iodine. No previous studies available at this time for comparison. FINDINGS: Lungs are well aerated. There are multiple parenchymal masses present throughout both lungs. The largest mass is in the left lower lobe anterolaterally measuring 3 cm. This does abut the pleura. There is a nodule just anterior to this measuring 2 cm. There are multiple additional smaller nodules in the left lower lobe. The right lower lobe shows multiple nodules as well. A nodule along the right lung base laterally measures 1.6 cm. Paraspinal mass along the infrahilar region on the right measures 3 x 2.5 cm. There are several additional smaller nodules superiorly in the right lower lobe. There is also nodule in the remaining right middle lobe measuring approximately 1 cm. There is pleural scarring present with destructive bony lesion noted along the right anterolateral fourth rib with associated soft tissue thickening around the rib. No pleural effusions or pericardial effusions. There is a Port-A-Cath on the left in good position. IMPRESSION: 1. Findings are consistent with metastatic cancer to the lungs bilaterally as described with multiple nodules, see report above. 2. Destructive bony changes are seen anterolaterally on the right within the fourth rib. Dictated by: Dictated on workstation # [id number]
== END ==
LOC: RAD 11:04
PROVIDERS: ATTEND Internal Medicine Hematology & Oncology
DX: C34.91 Malignant neoplasm of unspecified part of right bronchus or lung (principal); M89.8X8 Other specified disorders of bone, other site; Z90.2 Acquired absence of lung [part of]
CPT/HCPCS: 71250

== ENCOUNTER 2017-03-15 09:46 | Day surgery (SDC) | payer MEDICARE, OTHER ==
[2017-03-15] VITALS (21 sets, daily range): BP systolic 92–121; BP diastolic 60–90
[~2017-03-15] VITALS: Ht 170.2 cm; Wt 75.8 kg
--- OUTSIDE RECORDS SUMMARY | 2017-03-15 09:52 | XMS REPORT | Clinical Summary ---
Author Author [facility] Organization [facility] Address Unknown Phone Unavailable Care Team Providers Care Jewel Sorter Name Role Phone PCP Unavailable Source Comments Some departments are not documenting in the electronic medical record. If you do not see the information that you expected, contact Release of Information in the Health Information Management department at [phone] for further assistance in locating additional records.[facility] Allergies Not on File Current Medications Not [...] 1974 COLORECTAL CANCER 2007 SCREENING INFLUENZA VACCINE 11/08/2016 Results Not on filefrom Last 3 Months
[2017-03-15] MEDS ORDERED: LIDOCAINE 1% INJ 20 ML (XYLOCAINE) VIAL ONE (10:09)
[2017-03-15] MEDS ORDERED: fentaNYL INJECTION 100 MCG/2 ML AMP ONE (10:09)
[2017-03-15] MEDS ORDERED: LIDOCAINE 1% INJ 20 ML (XYLOCAINE) VIAL INJ ONE (10:15)
[2017-03-15 10:20] LABS: MEAN PLATELET VOLUME 10.2 FL (7.4-10.4); RED BLOOD COUNT 4.66 10^6/uL (4.35-5.85); RED CELL DISTRIBUTION WIDTH 16.9 % (10.0-14.5); WHITE BLOOD COUNT 6.1 10^3/uL (4.3-11.0)
[2017-03-15 10:31] LABS: PROTHROMBIN TIME PATIENT 13.4 SEC (12.2-14.7)
[2017-03-15] MEDS: fentaNYL INJECTION 100 MCG/2 ML AMP IVP PRN ×2 (11:56→12:01)
[2017-03-15] MEDS ORDERED: MIDAZOLAM 2 MG/2 ML (VERSED) VIAL ONE (12:02)
[2017-03-15] MEDS ORDERED: NS IV 1000 ML 1,000 ML ONE (12:02)
[2017-03-15] MEDS: MIDAZOLAM 10 MG/2 ML (VERSED) VIAL IVP PRN ×3 (12:06→12:13)
[2017-03-15] MEDS ORDERED: HYDROcodone/APAP 5 MG/325 MG (LORTAB) TAB PO PRN (12:45)
[2017-03-15] MEDS ORDERED: NS 1000 ML IV BAG IV ONE (13:45)
--- NOTE | 2017-03-15 14:20 | Pre-Procedure Progress Note ---
Pre-Procedure Progress Note H&P Reviewed The H&P was reviewed, patient examined and no changes noted. Date H&P Reviewed: Mar 15, 2017 Time H&P Reviewed: 11:00 Pre-Procedure Diagnosis: rib mass RADHA GILLIS MD Mar 15, 2017 14:20
--- NOTE | 2017-03-15 15:04 | Diagnostic Imaging Report ---
EXAMINATION: CT-guided biopsy-rib. INDICATION: Right 4th rib mass. Current history and physical and other medical records are reviewed prior to the procedure. CONSENT: Informed consent was obtained from the patient. The risks, benefits, potential complications and alternatives were reviewed and all questions answered to the patient's satisfaction. The patient's vital signs, cardiac rhythm, and pulse oximetry were observed throughout the procedure by qualified nursing personnel. Sedation/medications: Versed 0.5mg IV, Fentanyl 50mcg. Conscious sedation total time is 50 minutes. FINDINGS: Right 4th rib lytic mass. PROCEDURE: After maximal sterile barrier technique preparation and draping, 1% lidocaine was utilized for local anesthesia. With the patient in supine position, and via anterior approach, a 17-gauge guide needle is introduced into the right 4th rib lytic lesion under CT scan guidance. After confirming adequate positioning with saved CT images, multiple 18 gauge core biopsy specimens were obtained. The patient tolerated the procedure well with no immediate complications. IMPRESSION: Successful CT-guided biopsy of right rib lytic mass. Dictated by: Dictated on workstation # [id number]
--- NOTE | 2017-03-15 15:47 | Diagnostic Imaging Report ---
EXAMINATION: Expiratory AP view of the chest. INDICATION: Right mass postbiopsy. Metastatic disease. FINDINGS: There are bilateral pulmonary nodules and masses up to 4 cm in the left lung base. There is no pneumothorax after a right rib biopsy. The heart size is normal. The elevated right hemidiaphragm is again seen, similar to 12/28/2016. No effusion or pneumothorax. The mediastinum and michelle are unremarkable. There is a left subclavian infusion port seen in place without significant change from the prior exams. IMPRESSION: Multiple pulmonary metastases. Dictated by: Dictated on workstation # [id number]
== END 2017-03-15 16:30 | disposition home or self-care (01) ==
LOC: RAD 09:46
PROVIDERS: ATTEND Internal Medicine Hematology & Oncology
DX: R22.2 Localized swelling, mass and lump, trunk (principal)
CPT/HCPCS: 36415; 71035; 77012; 85027; 85610; 85730

== ENCOUNTER → 2017-03-16 | Outpatient (CLI) | payer MEDICARE, OTHER ==
--- NOTE | 2017-03-16 12:41 | Diagnostic Imaging Report ---
PA and lateral views of the chest. INDICATION: Non-small cell carcinoma. Cough. FINDINGS: There are multiple lung masses and nodules up to 4 cm in size in the left lung base. Pleural thickening in the right apex is noted. Right perihilar scarring is also seen. The findings are similar to prior exams. The heart size is normal. No effusion or pneumothorax. The mediastinum and michelle appear unremarkable. There is an infusion port through the left subclavian vein with the tip at the SVC level. Sternotomy wires are seen. IMPRESSION: Pulmonary metastasis up to 4 cm in the left lung base. No acute process. Dictated by: Dictated on workstation # [id number]
== END ==
LOC: RAD 11:14
PROVIDERS: ATTEND Internal Medicine Hematology & Oncology
DX: C34.91 Malignant neoplasm of unspecified part of right bronchus or lung (principal); C78.02 Secondary malignant neoplasm of left lung
CPT/HCPCS: 71020

== ENCOUNTER 2017-04-28 16:43 | Emergency (ER) | payer MEDICARE, OTHER ==
[~2017-04-28] VITALS: Ht 170.2 cm; Wt 68.0 kg
[~2017-04-28 16:43] MED LIST changes: -ALBU2.5V4 IH
--- OUTSIDE RECORDS SUMMARY | 2017-04-28 17:13 | XMS REPORT | Clinical Summary ---
Author Author [facility] Organization [facility] Address Unknown Phone Unavailable Care Team Providers Care Marketing Outreach Coordinator Name Role Phone PCP Unavailable Source Comments Some departments are not documenting in the electronic medical record. If you do not see the information that you expected, contact Release of Information in the Health Information Management department at [phone] for further assistance in locating additional records.[facility] Allergies Not on File Current Medications Not [...]
--- OUTSIDE RECORDS SUMMARY | 2017-04-28 17:14 | XMS REPORT | Continuity of Care Document ---
Author Author [facility] Address Unknown Phone Unavailable Allergies Active Description Code Type Severity Reaction Onset Reported/Identified Relationship to Patient Clinical Status Yes NKANo Known Allergies NKA Miscellaneous Allergy Unknown N/A 09/07/2006 Medications There is no data. 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] 03/09/1652 WILFRED CONWAY MD, Ot Z92.3 PERSONAL HISTORY OF IRRADIATION 04/08/2011 Ot 562.11 04/08/2011 Ot 789.09 06/24/2011 [...] SAMAN COLEMAN, JACEK Dee Ot V58.69 02/20/2014 CHAVA ARREOLA DO V03.82 PCV-13 (PREVNAR) DX 04/17/2014 RAYMUNDO COLEMAN, RHONDA Maldonado Ot 276.50 04/17/2014 RAYMUNDO COLEMAN, RHONDA Maldonado Ot 288.00 04/17/2014 RAYMUNDO COLEMAN, RHONDA Maldonado Ot 427.31 04/17/2014 RAYMUNDO COLEMAN, RHONDA Maldonado Ot 496 04/17/2014 RAYMUNDO COLEMAN, RHONDA Maldonado Ot 780.61 04/17/2014 RAYMUNDO COLEMAN, RHONDA Maldonado Ot V15.82 04/17/2014 RAYMUNDO COLEMAN, RHONDA Maldonado Ot 197.0 04/17/2014 RAYMUNDO COLEMAN, RHONDA Maldonado Ot 198.5 04/17/2014 RAMYUNDO COLEMAN, RHONDA Maldonado Ot 198.89 04/17/2014 RAYMUNDO [...] 04/21/2014 Ot V58.69 05/23/2014 ZORAIDA COLEMAN, WILFRED E Ot 202.10 05/23/2014 ZORAIDA COLEMAN, WILFRED E Ot 401.9 05/23/2014 ZORAIDA COLEMAN, WILFRED E Ot V10.11 05/23/2014 ZORAIDA COLEMAN, WILFRED E Ot V58.0 05/23/2014 ZORAIDA COLEMAN, WILFRED E Ot V58.69 07/20/2014 ZORAIDA COLEMAN, WILFRED E Ot 202.10 07/20/2014 ZORAIDA COLEMAN, WILFRED E Ot 401.9 07/20/2014 ZORAIDA COLEMAN, WILFRED E Ot V10.11 07/20/2014 ZORAIDA COLEMAN, WILFRED E Ot V58.0 07/20/2014 ZORAIDA COLEMAN, WILFRED E Ot V58.69 01/03/2017 CARLTON HUNT DO Ot C79.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 01/03/2017 CARLTON HUNT DO Ot 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 NEOPLASM OF OTHER SP 01/03/2017 CARLTON HUNT DO Ot E86.0 DEHYDRATION 01/03/2017 CARLTON HUNT DO Ot F32.9 MAJOR DEPRESSIVE DISORDER, SINGLE EPISOD 01/03/2017 CARLTON HUNT DO Ot F41.9 ANXIETY DISORDER, UNSPECIFIED 01/03/2017 CHRISTOFER HUNT DOI Ot H40.9 UNSPECIFIED GLAUCOMA 01/03/2017 CHRISTOFER HUNT DOI Ot I10 ESSENTIAL (PRIMARY) HYPERTENSION 01/03/2017 CARLTON HUNT DO Ot I48.0 PAROXYSMAL ATRIAL FIBRILLATION 01/03/2017 CARLTON HNUT DO Ot J44.9 CHRONIC OBSTRUCTIVE PULMONARY DISEASE, U 01/03/2017 CARLTON HUNT DO Ot K21.9 GASTRO-ESOPHAGEAL REFLUX DISEASE WITHOUT 01/03/2017 CHRISTOFER HUNT DOI Ot K56.69 OTHER INTESTINAL OBSTRUCTION 01/03/2017 CARLTON HUNT DO Ot K57.90 DVRTCLOS OF INTEST, PART UNSP, W/O PERF 01/03/2017 CARLTON HUNT DO Ot N18.9 CHRONIC KIDNEY DISEASE, UNSPECIFIED 01/03/2017 CARLTON HUNT DO Ot T40.2X5A ADVERSE EFFECT OF OTHER OPIOIDS, INITIAL 01/03/2017 CARLTON HUNT DO Ot T45.1X5A ADVERSE EFFECT OF ANTINEOPLASTIC AND IMM 01/03/2017 CARLTON HUNT DO Ot Z79.899 OTHER COAL WEIGHER (CURRENT) DRUG THERAPY 01/03/2017 CARLTON HUNT DO Ot Z85.118 PERSONAL HISTORY OF MALIGNANT NEOPLASM O 01/03/2017 CHRISTOFER HUNT DOI Ot Z86.010 PERSONAL HISTORY OF COLONIC POLYPS 01/03/2017 CARLTON HUNT DO Ot Z87.891 PERSONAL HISTORY OF NICOTINE DEPENDENCE 01/03/2017 CARLTON HUNT DO Ot 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] 01/03/2017 CARLTON HUNT DO Ot Z92.3 PERSONAL HISTORY OF IRRADIATION 01/03/2017 CARLTON HUNT DO Ot Z99.81 DEPENDENCE ON SUPPLEMENTAL OXYGEN 01/04/2017 CHRISTOFER HUNT DOI Ot C79.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 01/04/2017 CHRISTOFER HUNT DOI Ot 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 NEOPLASM 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 01/04/2017 CARLTON HUNT DO Ot E86.0 DEHYDRATION 01/04/2017 CHRISTOFER HUNT DOI Ot F32.9 MAJOR DEPRESSIVE DISORDER, SINGLE EPISOD 01/04/2017 CHRISTOFER HUNT DOI Ot F41.9 ANXIETY DISORDER, UNSPECIFIED 01/04/2017 CHRISTOFER HUNT DOI Ot H40.9 UNSPECIFIED GLAUCOMA 01/04/2017 MARILEE MORLEY CARLTON Ot I10 ESSENTIAL (PRIMARY) HYPERTENSION 01/04/2017 CHRISTOFER HUNT DOI Ot I48.0 PAROXYSMAL ATRIAL FIBRILLATION 01/04/2017 CARLTON HUNT DO Ot J44.9 CHRONIC OBSTRUCTIVE PULMONARY DISEASE, U 01/04/2017 CARLTON HUNT DO Ot K21.9 GASTRO-ESOPHAGEAL REFLUX DISEASE WITHOUT 01/04/2017 CHRISTOFER HUNT DOI Ot K56.69 OTHER INTESTINAL OBSTRUCTION 01/04/2017 CHRISTOFER HUNT DOI Ot K57.90 DVRTCLOS OF INTEST, PART UNSP, W/O PERF 01/04/2017 CARLTON HUNT DO Ot N18.9 CHRONIC KIDNEY DISEASE, UNSPECIFIED 01/04/2017 CARLTON HUNT DO Ot T40.2X5A ADVERSE EFFECT OF OTHER OPIOIDS, INITIAL 01/04/2017 CARLTON HUNT DO Ot T45.1X5A ADVERSE EFFECT OF ANTINEOPLASTIC AND IMM 01/04/2017 CARLTON HUNT DO Ot Z79.899 OTHER COAL WEIGHER (CURRENT) DRUG THERAPY 01/04/2017 CARLTON HUNT DO Ot Z85.118 PERSONAL HISTORY OF MALIGNANT NEOPLASM O 01/04/2017 CARLTON HUNT DO Ot Z86.010 PERSONAL HISTORY OF COLONIC POLYPS 01/04/2017 CARLTON HUNT DO Ot Z87.891 PERSONAL HISTORY OF NICOTINE DEPENDENCE 01/04/2017 CARLTON HUNT DO Ot 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] 01/04/2017 CARLTON HUNT DO Ot Z92.3 PERSONAL HISTORY OF IRRADIATION 01/04/2017 CARLTON HUNT DO Ot Z99.81 DEPENDENCE ON SUPPLEMENTAL OXYGEN 01/04/2017 CARLTON HUNT DO Ot C79.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 01/04/2017 CARLTON HUNT DO Ot 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 NEOPLASM OF OTHER SP 01/04/2017 CARLTON HUNT DO Ot E86.0 DEHYDRATION 01/04/2017 CARLTON HUNT DO Ot F32.9 MAJOR DEPRESSIVE DISORDER, SINGLE EPISOD 01/04/2017 CARLTON HUNT DO Ot F41.9 ANXIETY DISORDER, UNSPECIFIED 01/04/2017 CARLTON HUNT DO Ot H40.9 UNSPECIFIED GLAUCOMA 01/04/2017 CARLTON HUNT DO Ot I10 ESSENTIAL (PRIMARY) HYPERTENSION 01/04/2017 CARLTON HUNT DO Ot I48.0 PAROXYSMAL ATRIAL FIBRILLATION 01/04/2017 CARLTON HUNT DO Ot J44.9 CHRONIC OBSTRUCTIVE PULMONARY DISEASE, U 01/04/2017 CARLTON HUNT DO Ot K21.9 GASTRO-ESOPHAGEAL REFLUX DISEASE WITHOUT 01/04/2017 CARLTON HUNT DO Ot K56.69 OTHER INTESTINAL OBSTRUCTION 01/04/2017 CARLTON UHNT DO Ot K57.90 DVRTCLOS OF INTEST, PART UNSP, W/O PERF 01/04/2017 CARLTON HUNT DO Ot N18.9 CHRONIC KIDNEY DISEASE, UNSPECIFIED 01/04/2017 CARLTON HUNT DO Ot T40.2X5A ADVERSE EFFECT OF OTHER OPIOIDS, INITIAL 01/04/2017 CARLTON HUNT DO Ot T45.1X5A ADVERSE EFFECT OF ANTINEOPLASTIC AND IMM 01/04/2017 CARLTON HUNT DO Ot Z79.899 OTHER COAL WEIGHER (CURRENT) DRUG THERAPY 01/04/2017 CARLTON HUNT DO Ot Z85.118 PERSONAL HISTORY OF MALIGNANT NEOPLASM O 01/04/2017 CARLTON HUNT DO Ot Z86.010 PERSONAL HISTORY OF COLONIC POLYPS 01/04/2017 CARLTON HUNT DO Ot Z87.891 PERSONAL HISTORY OF NICOTINE DEPENDENCE 01/04/2017 CARLTON HUNT DO Ot 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] 01/04/2017 CARLTON HUNT DO Ot Z92.3 PERSONAL HISTORY OF IRRADIATION 01/04/2017 CARLTON HUNT DO Ot Z99.81 DEPENDENCE ON SUPPLEMENTAL OXYGEN 01/05/2017 CARLTON HUNT DO Ot C79.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 01/05/2017 CARLTON HUNT DO Ot 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 NEOPLASM 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 01/05/2017 CARLTON HUNT DO Ot E86.0 DEHYDRATION 01/05/2017 CARLTON HUNT DO Ot F32.9 MAJOR DEPRESSIVE DISORDER, SINGLE EPISOD 01/05/2017 CARLTON HUNT DO Ot F41.9 ANXIETY DISORDER, UNSPECIFIED 01/05/2017 CARLTON HUNT DO Ot H40.9 UNSPECIFIED GLAUCOMA 01/05/2017 CARLTON HUNT DO Ot I10 ESSENTIAL (PRIMARY) HYPERTENSION 01/05/2017 CARLTON HUNT DO Ot I48.0 PAROXYSMAL ATRIAL FIBRILLATION 01/05/2017 CARLTON HUNT DO Ot J44.9 CHRONIC OBSTRUCTIVE PULMONARY DISEASE, U 01/05/2017 CARLTON HUNT DO Ot K21.9 GASTRO-ESOPHAGEAL REFLUX DISEASE WITHOUT 01/05/2017 CARLTON HUNT DO Ot K56.69 OTHER INTESTINAL OBSTRUCTION 01/05/2017 CARLTON HUNT DO Ot K57.90 DVRTCLOS OF INTEST, PART UNSP, W/O PERF 01/05/2017 CALRTON HUNT DO Ot N18.9 CHRONIC KIDNEY DISEASE, UNSPECIFIED 01/05/2017 CARLTON HUNT DO Ot T40.2X5A ADVERSE EFFECT OF OTHER OPIOIDS, INITIAL 01/05/2017 CARLTON HUNT DO Ot T45.1X5A ADVERSE EFFECT OF ANTINEOPLASTIC AND IMM 01/05/2017 CARLTON HUNT DO Ot Z79.899 OTHER COAL WEIGHER (CURRENT) DRUG THERAPY 01/05/2017 CARLTON HUNT DO Ot Z85.118 PERSONAL HISTORY OF MALIGNANT NEOPLASM O 01/05/2017 CARLTON HUNT DO Ot Z86.010 PERSONAL HISTORY OF COLONIC POLYPS 01/05/2017 CARLTON HUNT DO Ot Z87.891 PERSONAL HISTORY OF NICOTINE DEPENDENCE 01/05/2017 CARLTON HUNT DO Ot 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] 01/05/2017 CARLTON HUNT DO Ot Z92.3 PERSONAL HISTORY OF IRRADIATION 01/05/2017 CARLTON HUNT DO Ot Z99.81 DEPENDENCE ON SUPPLEMENTAL OXYGEN 01/06/2017 CARLTON HUNT DO Ot C79.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 01/06/2017 CARLTON HUNT DO Ot 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 NEOPLASM OF OTHER SP 01/06/2017 CARLTON HUNT DO Ot E86.0 DEHYDRATION 01/06/2017 CARLTON HUNT DO Ot F32.9 MAJOR DEPRESSIVE DISORDER, SINGLE EPISOD 01/06/2017 CARLTON HUNT DO Ot F41.9 ANXIETY DISORDER, UNSPECIFIED 01/06/2017 CARLTON HUNT DO Ot H40.9 UNSPECIFIED GLAUCOMA 01/06/2017 CHRISTOFER HUNT DOI Ot I10 ESSENTIAL (PRIMARY) HYPERTENSION 01/06/2017 CARLTON HUNT DO Ot I48.0 PAROXYSMAL ATRIAL FIBRILLATION 01/06/2017 CARLTON HUNT DO Ot J44.9 CHRONIC OBSTRUCTIVE PULMONARY DISEASE, U 01/06/2017 CARLTON HUNT DO Ot K21.9 GASTRO-ESOPHAGEAL REFLUX DISEASE WITHOUT 01/06/2017 CHRISTOFER HUNT DOI Ot K56.69 OTHER INTESTINAL OBSTRUCTION 01/06/2017 CARLTON HUNT DO Ot K57.90 DVRTCLOS OF INTEST, PART UNSP, W/O PERF 01/06/2017 CARLTON HUNT DO Ot N18.9 CHRONIC KIDNEY DISEASE, UNSPECIFIED 01/06/2017 CARLTON HUNT DO Ot T40.2X5A ADVERSE EFFECT OF OTHER OPIOIDS, INITIAL 01/06/2017 CARLTON HUNT DO Ot T45.1X5A ADVERSE EFFECT OF ANTINEOPLASTIC AND IMM 01/06/2017 CARLTON HUNT DO Ot Z79.899 OTHER LONG-TERM (CURRENT) DRUG THERAPY 01/06/2017 CARLTON HUNT DO Ot Z85.118 PERSONAL HISTORY OF MALIGNANT NEOPLASM O 01/06/2017 CARLTON HUNT DO Ot Z86.010 PERSONAL HISTORY OF COLONIC POLYPS 01/06/2017 CARLTON HUNT DO Ot Z87.891 PERSONAL HISTORY OF NICOTINE DEPENDENCE 01/06/2017 CARLTON HUNT DO Ot 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] 01/06/2017 CARLTON HUNT DO Ot Z92.3 PERSONAL HISTORY OF IRRADIATION 01/06/2017 CARLTON HUNT DO Ot Z99.81 DEPENDENCE ON SUPPLEMENTAL OXYGEN 01/06/2017 CARLTON HUNT DO Ot C79.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 01/06/2017 CARLTON HUNT DO Ot 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 NEOPLASM OF OTHER SP 01/06/2017 CARLTON HUNT DO Ot D64.9 ANEMIA, UNSPECIFIED 01/06/2017 CARLTON HUNT DO Ot E86.0 DEHYDRATION 01/06/2017 CARLTON HUNT DO Ot F32.9 MAJOR DEPRESSIVE DISORDER, SINGLE EPISOD 01/06/2017 CARLTON HUNT DO Ot F41.9 ANXIETY DISORDER, UNSPECIFIED 01/06/2017 CARLTON HUNT DO Ot H40.9 UNSPECIFIED GLAUCOMA 01/06/2017 CARLTON HUNT DO Ot I12.9 HYPERTENSIVE CHRONIC KIDNEY DISEASE W ST 01/06/2017 CARLTON HUNT DO Ot I48.0 PAROXYSMAL ATRIAL FIBRILLATION 01/06/2017 CARLTON HUNT DO Ot J44.9 CHRONIC OBSTRUCTIVE PULMONARY DISEASE, U 01/06/2017 CARLTON HUNT DO Ot K21.9 GASTRO-ESOPHAGEAL REFLUX DISEASE WITHOUT 01/06/2017 CHRISTOFER HUNT DOI Ot K56.69 OTHER INTESTINAL OBSTRUCTION 01/06/2017 CARLTON HUNT DO Ot K57.90 DVRTCLOS OF INTEST, PART UNSP, W/O PERF 01/06/2017 CARLTON HUNT DO Ot N18.9 CHRONIC KIDNEY DISEASE, UNSPECIFIED 01/06/2017 CARLTON HUNT DO Ot T40.2X5A ADVERSE EFFECT OF OTHER OPIOIDS, INITIAL 01/06/2017 CARLTON HUNT DO Ot T45.1X5A ADVERSE EFFECT OF ANTINEOPLASTIC AND IMM 01/06/2017 CARLTON HUNT DO Ot Z79.899 OTHER COAL WEIGHER (CURRENT) DRUG THERAPY 01/06/2017 CARLTON HUNT DO Ot Z85.118 PERSONAL HISTORY OF MALIGNANT NEOPLASM O 01/06/2017 CARLTON HUNT DO Ot Z86.010 PERSONAL HISTORY OF COLONIC POLYPS 01/06/2017 CARLTON HUNT DO Ot Z87.891 PERSONAL HISTORY OF NICOTINE DEPENDENCE 01/06/2017 CARLTON HUNT DO Ot 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] 01/06/2017 CARLTON HUNT DO Ot Z92.3 PERSONAL HISTORY OF IRRADIATION 01/06/2017 CARLTON HUNT DO Ot Z99.81 DEPENDENCE ON SUPPLEMENTAL OXYGEN 01/10/2017 WILFRED CONWAY MD Ot C79.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 01/10/2017 WILFRED CONWAY MD Ot 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 NEOPLASM OF OTHER SP 01/10/2017 WILFRED CONWAY MD Ot Z85.118 PERSONAL HISTORY OF MALIGNANT NEOPLASM O 01/10/2017 WILFRED CONWAY MD Ot 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] 01/10/2017 WILFRED CONWAY MD Ot Z92.3 PERSONAL HISTORY OF IRRADIATION 02/16/2017 WILFRED CONWAY MD Ot C79.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 02/16/2017 WILFRED CONWAY MD Ot 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 NEOPLASM OF OTHER SP 02/16/2017 WILFRED CONWAY MD Ot Z85.118 PERSONAL HISTORY OF MALIGNANT NEOPLASM O 02/16/2017 WILFRED CONWAY MD Ot 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] 02/16/2017 WILFRED CONWAY MD Ot Z92.3 PERSONAL HISTORY OF IRRADIATION 02/16/2017 WILFRED CONWAY MD Ot C79.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 02/16/2017 WILFRED CONWAY MD Ot 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 NEOPLASM OF OTHER SP 02/16/2017 WILFRED CONWAY MD Ot Z85.118 PERSONAL HISTORY OF MALIGNANT NEOPLASM O 02/16/2017 WILFRED CONWAY MD Ot 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] 02/16/2017 WILFRED CONWAY MD Ot Z92.3 PERSONAL HISTORY OF IRRADIATION 03/15/2017 LIBAN LIRA MD Ot 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 03/15/2017 LIBAN LIRA MD Ot C79.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 03/15/2017 LIBAN LIRA MD Ot I10 ESSENTIAL (PRIMARY) HYPERTENSION 03/15/2017 LIBAN LIRA MD Ot Z79.899 OTHER COAL WEIGHER (CURRENT) DRUG THERAPY 03/15/2017 LIBAN LIRA MD Ot Z87.891 PERSONAL HISTORY OF NICOTINE DEPENDENCE 03/16/2017 LIBAN LIRA MD Ot R22.2 LOCALIZED SWELLING, MASS AND LUMP, TRUNK 03/17/2017 LIBAN LIRA MD Ot 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 NEOPLASM OF UNSP PART OF RIGHT 03/17/2017 LIBAN LIRA MD Ot 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 03/21/2017 LIBAN LIRA MD Ot 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 03/21/2017 LIBAN LIRA MD Ot C79.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 03/21/2017 LIBAN LIRA MD Ot I10 ESSENTIAL (PRIMARY) HYPERTENSION 03/21/2017 LIBAN LIRA MD Ot Z79.899 OTHER COAL WEIGHER (CURRENT) DRUG THERAPY 03/21/2017 LIBAN LIRA MD Ot Z87.891 PERSONAL HISTORY OF NICOTINE DEPENDENCE 04/04/2017 LIBAN LIRA MD Ot C78.00 SECONDARY MALIGNANT NEOPLASM OF UNSPECIF 04/04/2017 LIBAN LIRA MD Ot C79.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 04/04/2017 LIBAN LIRA MD Ot 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 NEOPLASM OF OTHER SP 04/04/2017 LIBAN LIRA MD Ot 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, EXTRANODAL AND SOLID 04/04/2017 LIBAN LIRA MD Ot Z85.118 PERSONAL HISTORY OF MALIGNANT NEOPLASM O 04/04/2017 LIBAN LIRA MD Ot 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] 04/04/2017 LIBAN LIRA MD Ot Z92.3 PERSONAL HISTORY OF IRRADIATION 04/04/2017 LIBAN LIRA MD Ot 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 NEOPLASM OF UNSP PART OF RIGHT 04/04/2017 LIBAN LIRA MD Ot M89.8X8 OTHER SPECIFIED DISORDERS OF BONE, OTHER 04/04/2017 LIBAN LIRA MD Ot 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] 04/06/2017 LIBAN LIRA MD, Ot 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 NEOPLASM OF UNSP PART OF RIGHT 04/06/2017 LIBAN LIRA MD, Ot 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 04/13/2017 LIBAN LIRA MD, Ot 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 NEOPLASM OF UNSP PART OF RIGHT 04/13/2017 LIBAN LIRA MD, Ot 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 Procedures Code Description Performed By Performed On [id number] DRAINAGE OF ESOPHAGAST JUNCT WITH DRAIN 12/28/2016 Results Test Result Range Arterial blood gas measurement - 12/27/16 19:48 Blood pCO2 51 mm[Hg] 35-45 Blood pO2 119 mm[Hg] 79-93 Arterial blood bicarbonate measurement (moles/volume) 26 mmol/L 23-27 Arterial blood base excess by calculation 0.1 mmol/L -2.5 -2.5 Arterial blood oxygen saturation measurement 99 % 94-100 * Inhaled oxygen flow rate 5L NRG Arterial blood pH measurement with patient temperature correction 7.32 7.37-7.43 Arterial blood carbon dioxide, total measurement (moles/volume) 27.2 mmol/L 21.0-31.0 Body site RIGHT RADIAL NRG Assessment of wrist artery patency prior to arterial puncture POSITIVE NRG Setting of ventilation mode NO NRG Measurement of body temperature 97.3 NRG Complete blood count (CBC) with automated white blood cell (WBC) differential - 12/27/16 21:32 Blood leukocytes automated count (number/volume) 11.1 10*3/uL 4.3-11.0 Blood erythrocytes automated count (number/volume) 4.88 10*6/uL 4.35-5.85 Venous blood hemoglobin measurement (mass/volume) 13.1 g/dL 13.3-17.7 Blood hematocrit (volume fraction) 44 % 40-54 Automated erythrocyte mean corpuscular volume 91 [foz_us] 80-99 Automated erythrocyte mean corpuscular hemoglobin (mass per erythrocyte) 27 pg 25-34 Automated erythrocyte mean corpuscular hemoglobin concentration measurement ( mass/volume) 30 g/dL 32-36 Automated erythrocyte distribution width ratio 20.3 % 10.0-14.5 Automated blood platelet count (count/volume) 515 10*3/uL 130-400 Automated blood platelet mean volume measurement 11.1 [foz_us] 7.4-10.4 Automated blood neutrophils/100 leukocytes 94 % 42-75 Automated blood lymphocytes/100 leukocytes 3 % 12-44 Blood monocytes/100 leukocytes 3 % 0-12 Automated blood eosinophils/100 leukocytes 0 % 0-10 Automated blood basophils/100 leukocytes 0 % 0-10 Blood neutrophils automated count (number/volume) 10.4 10*3 1.8-7.8 Blood lymphocytes automated count (number/volume) 0.3 10*3 1.0-4.0 Blood monocytes automated count (number/volume) 0.3 10*3 0.0-1.0 Automated eosinophil count 0.0 10*3/uL 0.0-0.3 Automated blood basophil count (count/volume) 0.0 10*3/uL 0.0-0.1 PT panel in platelet poor plasma by coagulation assay - 12/27/16 21:32 Prothrombin time (PT) in platelet poor plasma by coagulation assay 13.2 s 12.2-14.7 INR in platelet poor plasma or blood by coagulation assay 1.0 0.8-1.4 Blood manual differential performed detection - 12/27/16 21:32 Blood monocytes/100 leukocytes 0 % NR Manual blood segmented neutrophils/100 leukocytes 89 % NRG Blood band neutrophils/100 leukocytes 7 % NRG Manual blood lymphocytes/100 leukocytes 4 % NRG Manual eosinophils/100 leukocytes in nose 0 % NR Manual blood basophils/100 leukocytes 0 % NR Blood erythrocyte morphology finding identification [facility] Comprehensive metabolic panel - 12/27/16 21:32 Serum or plasma sodium measurement (moles/volume) 137 mmol/L 135-145 Serum or plasma potassium measurement (moles/volume) 4.6 mmol/L 3.6-5.0 Serum or plasma chloride measurement (moles/volume) 99 mmol/L 98-107 Carbon dioxide 26 mmol/L 21-32 Serum or plasma anion gap determination (moles/volume) 12 mmol/L 5-14 Serum or plasma urea nitrogen measurement (mass/volume) 24 mg/dL 7-18 Serum or plasma creatinine measurement (mass/volume) 1.75 mg/dL 0.60-1.30 Serum or plasma urea nitrogen/creatinine mass ratio 14 NRG Serum or plasma creatinine measurement with calculation of estimated glomerular filtration rate 40 NRG Serum or plasma glucose measurement (mass/volume) 157 mg/dL 70-105 Serum or plasma calcium measurement (mass/volume) 9.7 mg/dL 8.5-10.1 Serum or plasma total bilirubin measurement (mass/volume) 0.5 mg/dL 0.1-1.0 Serum or plasma alkaline phosphatase measurement (enzymatic activity/volume) 72 U/L 40-136 Serum or plasma aspartate aminotransferase measurement (enzymatic activity/ volume) 10 U/L 5-34 Serum or plasma alanine aminotransferase measurement (enzymatic activity/volume ) 11 U/L 0-55 Serum or plasma protein measurement (mass/volume) 7.7 g/dL 6.4-8.2 Serum or plasma albumin measurement (mass/volume) 4.3 g/dL 3.2-4.5 Magnesium - 12/27/16 21:32 Magnesium 1.7 mg/dL 1.8-2.4 Serum or plasma creatine kinase measurement (enzymatic activity/volume) - 12/27 21:32 Serum or plasma creatine kinase measurement (enzymatic activity/volume) 30 U/L 30-200 Serum or plasma lithium measurement (moles/volume) - 12/27/16 21:32 BNP level < pg/mL <100.0 Serum or plasma creatine kinase MB measurement (enzymatic activity/volume) - 21:32 Serum or plasma creatine kinase MB measurement (enzymatic activity/volume) 1.1 ng/mL <6.6 Serum or plasma troponin i.cardiac measurement (mass/volume) - 12/27/16 21:32 Serum or plasma troponin i.cardiac measurement (mass/volume) < ng/ mL <0.30 Serum or plasma thyrotropin measurement by detection limit <=0.05 miu/l (units/ volume) - 12/27/16 21:32 Serum or plasma thyrotropin measurement by detection limit <=0.05 miu/l (units/ volume) 1.50 u[iU]/mL 0.35-4.94 Activated partial thromboplastin time (aPTT) in platelet poor plasma bycoagulation assay - 12/27/16 21:32 Activated partial thromboplastin time (aPTT) in platelet poor plasma bycoagulation assay 30 s 24-35 Serum or plasma amylase measurement (enzymatic activity/volume) - 12/27/16 21: 32 Serum or plasma amylase measurement (enzymatic activity/volume) 104 U/L 25-125 Lipase - 12/27/16 21:32 Lipase 72 U/L 8-78 Complete urinalysis with reflex to culture - 12/28/16 00:48 Urine color determination YELLOW NRG Urine clarity determination CLEAR NRG Urine pH measurement by test strip 5 5-9 Specific gravity of urine by test strip 1.025 1.016- 1.022 Urine protein assay by test strip, semi-quantitative 1+ NEGATIVE Urine glucose detection by automated test strip NEGATIVE NEGATIVE Erythrocytes detection in urine sediment by light microscopy NEGATIVE NEGATIVE Urine ketones detection by automated test strip NEGATIVE NEGATIVE Urine nitrite detection by test strip NEGATIVE NEGATIVE Urine total bilirubin detection by test strip NEGATIVE NEGATIVE Urine urobilinogen measurement by automated test strip (mass/volume) NORMAL NORMAL Urine leukocyte esterase detection by dipstick NEGATIVE NEGATIVE Automated urine sediment erythrocyte count by microscopy (number/high power field) NONE NRG Automated urine sediment leukocyte count by microscopy (number/high power field ) NONE NRG Bacteria detection in urine sediment by light microscopy TRACE NRG Squamous epithelial cells detection in urine sediment by light microscopy 0-2 NRG Crystals detection in urine sediment by light microscopy PRESENT NRG Casts detection in urine sediment by light microscopy PRESENT NRG Mucus detection in urine sediment by light microscopy SMALL NRG Complete urinalysis with reflex to culture NO NRG Amorphous sediment detection in urine sediment by light microscopy FEW ASHLEE URATES NRG Hyaline casts detection in urine sediment by light microscopy 2-5 NRG Methicillin resistant Staphylococcus aureus (MRSA) screening culture - 02:40 Methicillin resistant Staphylococcus aureus (MRSA) screening culture NEG NRG Complete blood count (CBC) with automated white blood cell (WBC) differential - 12/28/16 03:59 Blood leukocytes automated count (number/volume) 9.4 10*3/uL 4.3-11.0 Blood erythrocytes automated count (number/volume) 4.49 10*6/uL 4.35-5.85 Venous blood hemoglobin measurement (mass/volume) 12.1 g/dL 13.3-17.7 Blood hematocrit (volume fraction) 41 % 40-54 Automated erythrocyte mean corpuscular volume 91 [foz_us] 80-99 Automated erythrocyte mean corpuscular hemoglobin (mass per erythrocyte) 27 pg 25-34 Automated erythrocyte mean corpuscular hemoglobin concentration measurement ( mass/volume) 30 g/dL 32-36 Automated erythrocyte distribution width ratio 20.2 % 10.0-14.5 Automated blood platelet count (count/volume) 443 10*3/uL 130-400 Automated blood platelet mean volume measurement 11.0 [foz_us] 7.4-10.4 Automated blood neutrophils/100 leukocytes 91 % 42-75 Automated blood lymphocytes/100 leukocytes 4 % 12-44 Blood monocytes/100 leukocytes 5 % 0-12 Automated blood eosinophils/100 leukocytes 0 % 0-10 Automated blood basophils/100 leukocytes 0 % 0-10 Blood neutrophils automated count (number/volume) 8.6 10*3 1.8-7.8 Blood lymphocytes automated count (number/volume) 0.4 10*3 1.0-4.0 Blood monocytes automated count (number/volume) 0.4 10*3 0.0-1.0 Automated eosinophil count 0.0 10*3/uL 0.0-0.3 Automated blood basophil count (count/volume) 0.0 10*3/uL 0.0-0.1 Comprehensive metabolic panel - 12/28/16 03:59 Serum or plasma sodium measurement (moles/volume) 136 mmol/L 135-145 Serum or plasma potassium measurement (moles/volume) 4.6 mmol/L 3.6-5.0 Serum or plasma chloride measurement (moles/volume) 103 mmol/L 98-107 Carbon dioxide 24 mmol/L 21-32 Serum or plasma anion gap determination (moles/volume) 9 mmol/L 5-14 Serum or plasma urea nitrogen measurement (mass/volume) 26 mg/dL 7-18 Serum or plasma creatinine measurement (mass/volume) 1.46 mg/dL 0.60-1.30 Serum or plasma urea nitrogen/creatinine mass ratio 18 NRG Serum or plasma creatinine measurement with calculation of estimated glomerular filtration rate 49 NRG Serum or plasma glucose measurement (mass/volume) 141 mg/dL 70-105 Serum or plasma calcium measurement (mass/volume) 9.1 mg/dL 8.5-10.1 Serum or plasma total bilirubin measurement (mass/volume) 0.3 mg/dL 0.1-1.0 Serum or plasma alkaline phosphatase measurement (enzymatic activity/volume) 60 U/L 40-136 Serum or plasma aspartate aminotransferase measurement (enzymatic activity/ volume) 9 U/L 5-34 Serum or plasma alanine aminotransferase measurement (enzymatic activity/volume ) 10 U/L 0-55 Serum or plasma protein measurement (mass/volume) 6.8 g/dL 6.4-8.2 Serum or plasma albumin measurement (mass/volume) 3.8 g/dL 3.2-4.5 Serum or plasma phosphate measurement (mass/volume) - 12/28/16 03:59 Serum or plasma phosphate measurement (mass/volume) 3.6 mg/dL 2.3-4.7 Magnesium - 12/28/16 03:59 Magnesium 1.9 mg/dL 1.8-2.4 Serum or plasma troponin i.cardiac measurement (mass/volume) - 12/28/16 03:59 Serum or plasma troponin i.cardiac measurement (mass/volume) < ng/ mL <0.30 Capillary blood glucose measurement by glucometer (mass/volume) - 12/28/16 12: 32 Capillary blood glucose measurement by glucometer (mass/volume) 110 mg/dL 70-110 Capillary blood glucose measurement by glucometer (mass/volume) - 12/28/16 18: 04 Capillary blood glucose measurement by glucometer (mass/volume) 112 mg/dL 70-110 Capillary blood glucose measurement by glucometer (mass/volume) - 12/29/16 00: 01 Capillary blood glucose measurement by glucometer (mass/volume) 123 mg/dL 70-110 Complete blood count (CBC) with automated white blood cell (WBC) differential - 12/29/16 05:15 Blood leukocytes automated count (number/volume) 5.6 10*3/uL 4.3-11.0 Blood erythrocytes automated count (number/volume) 3.74 10*6/uL 4.35-5.85 Venous blood hemoglobin measurement (mass/volume) 10.2 g/dL 13.3-17.7 Blood hematocrit (volume fraction) 35 % 40-54 Automated erythrocyte mean corpuscular volume 93 [foz_us] 80-99 Automated erythrocyte mean corpuscular hemoglobin (mass per erythrocyte) 27 pg 25-34 Automated erythrocyte mean corpuscular hemoglobin concentration measurement ( mass/volume) 30 g/dL 32-36 Automated erythrocyte distribution width ratio 20.1 % 10.0-14.5 Automated blood platelet count (count/volume) 337 10*3/uL 130-400 Automated blood platelet mean volume measurement 10.8 [foz_us] 7.4-10.4 Automated blood neutrophils/100 leukocytes 80 % 42-75 Automated blood lymphocytes/100 leukocytes 9 % 12-44 Blood monocytes/100 leukocytes 11 % 0-12 Automated blood eosinophils/100 leukocytes 1 % 0-10 Automated blood basophils/100 leukocytes 0 % 0-10 Blood neutrophils automated count (number/volume) 4.5 10*3 1.8-7.8 Blood lymphocytes automated count (number/volume) 0.5 10*3 1.0-4.0 Blood monocytes automated count (number/volume) 0.6 10*3 0.0-1.0 Automated eosinophil count 0.0 10*3/uL 0.0-0.3 Automated blood basophil count (count/volume) 0.0 10*3/uL 0.0-0.1 Whole blood basic metabolic panel - 12/29/16 05:15 Serum or plasma sodium measurement (moles/volume) 135 mmol/L 135-145 Serum or plasma potassium measurement (moles/volume) 4.5 mmol/L 3.6-5.0 Serum or plasma chloride measurement (moles/volume) 103 mmol/L 98-107 Carbon dioxide 25 mmol/L 21-32 Serum or plasma anion gap determination (moles/volume) 7 mmol/L 5-14 Serum or plasma urea nitrogen measurement (mass/volume) 15 mg/dL 7-18 Serum or plasma creatinine measurement (mass/volume) 1.19 mg/dL 0.60-1.30 Serum or plasma urea nitrogen/creatinine mass ratio 13 NRG Serum or plasma creatinine measurement with calculation of estimated glomerular filtration rate > NRG Serum or plasma glucose measurement (mass/volume) 123 mg/dL 70-105 Serum or plasma calcium measurement (mass/volume) 7.9 mg/dL 8.5-10.1 Serum or plasma phosphate measurement (mass/volume) - 12/29/16 05:15 Serum or plasma phosphate measurement (mass/volume) 2.8 mg/dL 2.3-4.7 Magnesium - 12/29/16 05:15 Magnesium 1.6 mg/dL 1.8-2.4 Capillary blood glucose measurement by glucometer (mass/volume) - 12/29/16 05: 17 Capillary blood glucose measurement by glucometer (mass/volume) 118 mg/dL 70-110 Capillary blood glucose measurement by glucometer (mass/volume) - 12/29/16 17: 57 Capillary blood glucose measurement by glucometer (mass/volume) 101 mg/dL 70-110 Capillary blood glucose measurement by glucometer (mass/volume) - 12/30/16 00: 36 Capillary blood glucose measurement by glucometer (mass/volume) 114 mg/dL 70-110 Capillary blood glucose measurement by glucometer (mass/volume) - 12/30/16 04: 48 Capillary blood glucose measurement by glucometer (mass/volume) 114 mg/dL 70-110 Capillary blood glucose measurement by glucometer (mass/volume) - 12/30/16 11: 36 Capillary blood glucose measurement by glucometer (mass/volume) 101 mg/dL 70-110 Complete blood count (CBC) with automated white blood cell (WBC) differential - 12/31/16 06:35 Blood leukocytes automated count (number/volume) 5.3 10*3/uL 4.3-11.0 Blood erythrocytes automated count (number/volume) 3.40 10*6/uL 4.35-5.85 Venous blood hemoglobin measurement (mass/volume) 9.2 g/dL 13.3-17.7 Blood hematocrit (volume fraction) 31 % 40-54 Automated erythrocyte mean corpuscular volume 92 [foz_us] 80-99 Automated erythrocyte mean corpuscular hemoglobin (mass per erythrocyte) 27 pg 25-34 Automated erythrocyte mean corpuscular hemoglobin concentration measurement ( mass/volume) 29 g/dL 32-36 Automated erythrocyte distribution width ratio 19.3 % 10.0-14.5 Automated blood platelet count (count/volume) 273 10*3/uL 130-400 Automated blood platelet mean volume measurement 10.7 [foz_us] 7.4-10.4 Automated blood neutrophils/100 leukocytes 86 % 42-75 Automated blood lymphocytes/100 leukocytes 10 % 12-44 Blood monocytes/100 leukocytes 2 % 0-12 Automated blood eosinophils/100 leukocytes 1 % 0-10 Automated blood basophils/100 leukocytes 1 % 0-10 Blood neutrophils automated count (number/volume) 4.5 10*3 1.8-7.8 Blood lymphocytes automated count (number/volume) 0.5 10*3 1.0-4.0 Blood monocytes automated count (number/volume) 0.1 10*3 0.0-1.0 Automated eosinophil count 0.1 10*3/uL 0.0-0.3 Automated blood basophil count (count/volume) 0.0 10*3/uL 0.0-0.1 Whole blood basic metabolic panel - 09/23/17 06:35 Serum or plasma sodium measurement (moles/volume) 133 mmol/L 135-145 Serum or plasma potassium measurement (moles/volume) 5.0 mmol/L 3.6-5.0 Serum or plasma chloride measurement (moles/volume) 101 mmol/L 98-107 Carbon dioxide 27 mmol/L 21-32 Serum or plasma anion gap determination (moles/volume) 5 mmol/L 5-14 Serum or plasma urea nitrogen measurement (mass/volume) 14 mg/dL 7-18 Serum or plasma creatinine measurement (mass/volume) 1.07 mg/dL 0.60-1.30 Serum or plasma urea nitrogen/creatinine mass ratio 13 NRG Serum or plasma creatinine measurement with calculation of estimated glomerular filtration rate > NRG Serum or plasma glucose measurement (mass/volume) 105 mg/dL 70-105 Serum or plasma calcium measurement (mass/volume) 7.9 mg/dL 8.5-10.1 Complete blood count (CBC) with automated white blood cell (WBC) differential - 01/01/17 05:32 Blood leukocytes automated count (number/volume) 6.5 10*3/uL 4.3-11.0 Blood erythrocytes automated count (number/volume) 3.64 10*6/uL 4.35-5.85 Venous blood hemoglobin measurement (mass/volume) 9.9 g/dL 13.3-17.7 Blood hematocrit (volume fraction) 33 % 40-54 Automated erythrocyte mean corpuscular volume 91 [foz_us] 80-99 Automated erythrocyte mean corpuscular hemoglobin (mass per erythrocyte) 27 pg 25-34 Automated erythrocyte mean corpuscular hemoglobin concentration measurement ( mass/volume) 30 g/dL 32-36 Automated erythrocyte distribution width ratio 18.8 % 10.0-14.5 Automated blood platelet count (count/volume) 297 10*3/uL 130-400 Automated blood platelet mean volume measurement 10.7 [foz_us] 7.4-10.4 Automated blood neutrophils/100 leukocytes 88 % 42-75 Automated blood lymphocytes/100 leukocytes 7 % 12-44 Blood monocytes/100 leukocytes 3 % 0-12 Automated blood eosinophils/100 leukocytes 2 % 0-10 Automated blood basophils/100 leukocytes 1 % 0-10 Blood neutrophils automated count (number/volume) 5.7 10*3 1.8-7.8 Blood lymphocytes automated count (number/volume) 0.4 10*3 1.0-4.0 Blood monocytes automated count (number/volume) 0.2 10*3 0.0-1.0 Automated eosinophil count 0.2 10*3/uL 0.0-0.3 Automated blood basophil count (count/volume) 0.1 10*3/uL 0.0-0.1 Whole blood basic metabolic panel - 01/01/17 05:32 Serum or plasma sodium measurement (moles/volume) 134 mmol/L 135-145 Serum or plasma potassium measurement (moles/volume) 4.5 mmol/L 3.6-5.0 Serum or plasma chloride measurement (moles/volume) 99 mmol/L 98-107 Carbon dioxide 26 mmol/L 21-32 Serum or plasma anion gap determination (moles/volume) 9 mmol/L 5-14 Serum or plasma urea nitrogen measurement (mass/volume) 11 mg/dL 7-18 Serum or plasma creatinine measurement (mass/volume) 1.03 mg/dL 0.60-1.30 Serum or plasma urea nitrogen/creatinine mass ratio 11 NRG Serum or plasma creatinine measurement with calculation of estimated glomerular filtration rate > NRG Serum or plasma glucose measurement (mass/volume) 96 mg/dL 70-105 Serum or plasma calcium measurement (mass/volume) 8.4 mg/dL 8.5-10.1 Automated blood complete blood count (hemogram) panel - 03/15/17 10:15 Blood leukocytes automated count (number/volume) 6.1 10*3/uL 4.3-11.0 Blood erythrocytes automated count (number/volume) 4.66 10*6/uL 4.35-5.85 Venous blood hemoglobin measurement (mass/volume) 12.1 g/dL 13.3-17.7 Blood hematocrit (volume fraction) 40 % 40-54 Automated erythrocyte mean corpuscular volume 86 [foz_us] 80-99 Automated erythrocyte mean corpuscular hemoglobin (mass per erythrocyte) 26 pg 25-34 Automated erythrocyte mean corpuscular hemoglobin concentration measurement ( mass/volume) 30 g/dL 32-36 Automated erythrocyte distribution width ratio 16.9 % 10.0-14.5 Automated blood platelet count (count/volume) 229 10*3/uL 130-400 Automated blood platelet mean volume measurement 10.2 [foz_us] 7.4-10.4 PT panel in platelet poor plasma by coagulation assay - 03/15/17 10:15 Prothrombin time (PT) in platelet poor plasma by coagulation assay 13.4 s 12.2-14.7 INR in platelet poor plasma or blood by coagulation assay 1.0 0.8-1.4 Activated partial thromboplastin time (aPTT) in platelet poor plasma bycoagulation assay - 03/15/17 10:15 Activated partial thromboplastin time (aPTT) in platelet poor plasma bycoagulation assay 69 s 24-35 Encounters ACCT No. Visit Date/Time Discharge Status Pt. Type Provider Facility Loc./Unit Complaint [id number] 02/20/2014 16:01:00 02/20/2014 23:59:59 CLS Outpatient CHAVA ARREOLA DO [id number] 04/21/2017 11:14:00 04/21/2017 23:59:59 CLS Outpatient LIBAN LIRA MD [facility] ONC [id number] 03/16/2017 11:14:00 03/16/2017 23:59:59 CLS Outpatient LIBAN LIRA MD [facility] RAD [id number] 03/15/2017 09:46:00 03/15/2017 16:30:00 DIS Outpatient LIBAN LIRA MD [facility] RAD NON-SMALL CELL CA OF RT LUNG [id number] 03/10/2017 11:04:00 03/10/2017 23:59:59 CLS Outpatient LIBAN LIRA MD [facility] RAD 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 [id number] 01/18/2017 10:38:00 02/16/2017 16:53:00 DIS Outpatient WILFRED CONWAY MD [facility] ONC [id number] 12/28/2016 01:00:00 01/06/2017 18:45:00 DIS Inpatient CARLTON HUNT DO [facility] 4TH SMALL BOWEL OBSTRUCTION; DYSPNEA W/ HYPOXIA; [id number] 07/21/2014 00:10:00 07/21/2014 23:59:59 CLS Preadmit WILFRED CONWAY MD [facility] ONC [id number] 05/09/2014 09:42:00 07/20/2014 00:01:00 DIS Outpatient WILFRED CONWAY MD [facility] ONC [id number] 04/15/2014 20:04:00 04/17/2014 13:30:00 DIS Inpatient RHONDA FONSECA MD [facility] CSD [id number] 11/18/2013 12:14:00 02/16/2014 00:01:00 DIS Outpatient JACEK DAVISON MD [facility] ONC [id number] 10/16/2013 15:50:00 10/16/2013 23:59:59 CLS Outpatient RHONDA FONSECA MD [facility] RAD [id number] 07/19/2013 08:40:00 07/19/2013 23:59:59 CLS Outpatient RHONDA FONSECA MD [facility] LAB [id number] 04/19/2013 10:43:00 04/19/2013 23:59:59 CLS Outpatient RHONDA FONSECA MD [facility] LAB [id number] 12/21/2012 07:44:00 12/21/2012 23:59:59 CLS Outpatient RHONDA FONSECA MD [facility] LAB [id number] 11/12/2012 11:53:00 11/12/2012 23:59:59 CLS Outpatient RHONDA FONSECA MD [facility] LAB [id number] 04/28/2017 16:44:00 ACT Emergency HUSSEIN BERRY MD [facility] ER CHEST PAIN WHEN BREATHING/SOB [id number] 04/28/2017 11:54:00 ACT Outpatient LIBAN LIRA MD [facility] RAD NON-SMALL CELL CA OF RT LUNG PAIN [id number] 02/17/2014 00:00:00 Document Registration [id number] 04/26/2012 15:32:00 Document Registration [id number] 12/30/2011 10:55:00 Document Registration [id number] 12/25/2011 06:22:00 Document Registration [id number] 06/24/2011 07:01:00 Document Registration [id number] 06/22/2011 07:27:00 Document Registration [id number] 04/08/2011 09:04:00 Document Registration [id number] 02/14/2011 15:45:00 Document Registration
[2017-04-28] MEDS ORDERED: LACTATED RINGERS 1,000 ML IV ONE (17:32)
--- NOTE | 2017-04-28 17:37 | ED Respiratory ---
General Chief Complaint: Chest Wall/Rib Pain Stated Complaint: CHEST PAIN WHEN BREATHING/SOB Source: patient Exam Limitations: no limitations (HUSSEIN BERRY) History of Present Illness Date Seen by Provider: Apr 28, 2017 Time Seen by Provider: 17:24 Initial Comments Patient presents to ER by private conveyance with chief complaint of chest pain started up this morning and is worsened by deep inspiration or coughing. He's had a productive cough. He has a history of lung cancer non-small cell first diagnosed in about 2005. He had a upper lobectomy at that time which I thought cured but then it came back on his pleura on the right side similar where he is having his pain today and he had radiation and chemotherapy. He now has it again and underwent a bone scan this morning. After he got off the table for the bone scan by Dr. iLra is when he first noticed the pain. He is not currently on chemotherapy or radiation therapy. He does not have any coronary history. He does of a history of COPD and quit smoking back in 2005. He uses Ventolin and feels that this helped some with the wheezing and shortness of breath. His last dose of Ventolin was 2 hours prior to arrival. He is more concerned that he might have a pneumonia developing. He denies any fevers, chills, nausea, vomiting, diarrhea. The patient had a CT scan of the chest about a month ago at [place] that did not reveal any pneumonia at that time but he did have active cancer. (HUSSEIN BERRY) Allergies and Home Medications Allergies Coded Allergies: SERENAANo Known Allergies (Verified Allergy, Unknown, 09/07/06) Home Medications Albuterol Sulfate 1 Puff Puff, 2 PUFF IH Q4H PRN for SHORTNESS OF BREATH, ( Reported) 1 PUFF = 90 MCG Amitriptyline HCl 100 Mg Tablet, 100 MG PO HS, (Reported) Fluticasone/Vilanterol 1 Each Blst.w.dev, 1 PUFF INH DAILY, (Reported) Furosemide 20 Mg Tablet, 10 MG PO DAILY, (Reported) TAKES 1/2 (20MG) TABLET Hydrocodone/Acetaminophen 1 Each Tablet, 2 TAB PO Q4H PRN for PAIN-BREAKTHROUGH, (Reported) Levothyroxine Sodium 25 Mcg Tablet, 25 MCG PO DAILY, (Reported) Lorazepam 2 Mg Tablet, 2 MG PO Q6H PRN for ANXIETY, (Reported) Morphine Sulfate 60 Mg Tab.er.12h, 60 MG PO BID for 30 Days, #60 Prescribed by: RHONDA FONSECA on 01/04/17 0839 Omeprazole Magnesium 20 Mg Tablet.dr, 20 MG PO DAILY, (Reported) Ondansetron 8 Mg Tab.rapdis, 8 MG PO Q8H PRN for NAUSEA/VOMITING-1ST LINE, ( Reported) Polyethylene Glycol 3350 17 Gm Powd.pack, 17 GM PO BID for 60 Days, Ref 12 Prescribed by: RHONDA FONSECA on 01/04/17 0742 Prednisone 20 Mg Tab, 40 MG PO DAILY for 5 Days, #10 Prescribed by: RHONDA FONSECA on 01/06/17 1153 Umeclidinium Sherman 62.5 Mcg Blst.w.dev, 62.5 MCG IH 1 for 30 Days, #1 Ref 6 Prescribed by: RHONDA FONSECA on 01/06/17 1153 Constitutional: No chills, No fever, No malaise EENTM: No ear pain, No blurred vision Respiratory: see HPI, cough, phlegm, short of breath, wheezing Cardiovascular: see HPI, chest pain, No Hx of Intervention, No syncope Gastrointestinal: No abdominal pain, No constipation, No diarrhea Genitourinary: No discharge, No dysuria Skin: No pruritus, No rash Psychiatric/Neurological: Denies Headache, Denies Numbness, Denies Paresthesia (HUSSEIN BERYR) Past Qvdyczw-Jlxvhs-Azcspe Hx Patient Social History Alcohol Use: Denies Use Recreational Drug Use: No Smoking Status: Former Smoker Type Used: Cigarettes Former Smoker, Quit: Jan 18, 2005 2nd Hand Smoke Exposure: No Recent Foreign Travel: No Contact w/Someone Who Travel: No Recent Hopitalizations: No (HUSSEIN BERRY) Immunizations Up To Date Tetanus Booster (TDap): Unknown PED Vaccines UTD: No Date of Pneumonia Vaccine: Oct 13, 2013 Date of Influenza Vaccine: Jan 13, 2014 (HUSSEIN BERRY) Seasonal Allergies Seasonal Allergies: No (HUSSEIN BERRY) Surgeries History of Surgeries: Yes (3 INGUNIAL HERNIA REPAIRS,LASER SURGERY ON THROAT FOR SLEEP APNEA) Surgeries: Abdominal, Bowel Surgery, Lobectomy (HUSSEIN BERRY) Respiratory History of Respiratory Disorde: Yes (LUNG CANCER) Respiratory Disorders: COPD Currently Using CPAP: No Currently Using BIPAP: No (HUSSEIN BERRY) Cardiovascular History of Cardiac Disorders: Yes (PAROXYSMAL A.FIB--NOT ON ANTICOAGULANTS OR ANTIARRHYTHMICS OF 12/27/16) Cardiac Disorders: Atrial Fibrillation, Hypertension (HUSSEIN BERRY) Neurological History of Neurological Disord: No (HUSSEIN BRERY) Reproductive System Hx Reproductive Disorders: No (HUSSEIN BERRY) Genitourinary History of Genitourinary Disor: Yes (CHRONIC RENAL INSUFFICIENCY SINCE STARTING CHEMO ) Genitourinary Disorders: Renal Failure (HUSSEIN BERRY) Gastrointestinal History of Gastrointestinal Di: Yes (MULTIPLE ABDOMINAL HERNIAS) Gastrointestinal Disorders: Abdominal Hernia, Gastroesophageal Reflux, Diverticulosis, Polyps (HUSSEIN BERRY) Musculoskeletal History of Musculoskeletal Dis: No (HUSSEIN BERRY) Endocrine History of Endocrine Disorders: No (HUSSEIN BERRY) HEENT History of HEENT Disorders: Yes HEENT Disorders: Glaucoma (HUSSEIN BERRY) Cancer History of Cancer: Yes (mets) Cancer: Lung (HUSSEIN BERRY) Psychosocial History of Psychiatric Problem: Yes Behavioral Health Disorders: Anxiety, Depression (HUSSEIN BERRY) Integumentary History of Skin or Integumenta: No (MYCOSIS FUNGOIDES) (HUSSEIN BERRY) Blood Transfusions History of Blood Disorders: No (HUSSEIN BERRY) Family Medical History Significant Family History: No Pertinent Family Hx Family Medial History: Asthma Cancer of mouth 19 FATHER Cataracts 19 FATHER Prostate cancer 19 FATHER Respiratory disorder 19 FATHER Severe allergy G8 BROTHER No Family History of: AIDS Abdominal aortic aneurysm [place]'s disease Alcoholism Alzheimer's disease Aphasia Arthritis Cardiovascular disease Colon cancer Completed stroke Congenital disease Congenital heart disease Coronary thrombosis Cystic fibrosis Deafness or hearing loss Dementia Diabetes mellitus Drug abuse Dysphasia Fibrocystic disease of breast Gastroenteritis Glaucoma Headache disorder Hypercholesterolemia Hypertension Infertility Kidney disease Myocardial infarction Neoplasm Not obtainable due to adoption Osteoporosis Parkinson's disease Psychosocial problem Seizure disorder Thyroid disease Tuberculosis Visual disorder (HUSSEIN BERRY) Family Medial History: Asthma Cancer of mouth 19 FATHER Cataracts 19 FATHER Prostate cancer 19 FATHER Respiratory disorder 19 FATHER Severe allergy G8 BROTHER No Family History of: AIDS Abdominal aortic aneurysm [place]'s disease Alcoholism Alzheimer's disease Aphasia Arthritis Cardiovascular disease Colon cancer Completed stroke Congenital disease Congenital heart disease Coronary thrombosis Cystic fibrosis Deafness or hearing loss Dementia Diabetes mellitus Drug abuse Dysphasia Fibrocystic disease of breast Gastroenteritis Glaucoma Headache disorder Hypercholesterolemia Hypertension Infertility Kidney disease Myocardial infarction Neoplasm Not obtainable due to adoption Osteoporosis Parkinson's disease Psychosocial problem Seizure disorder Thyroid disease Tuberculosis Visual disorder (JEANNIE CHEATHAM MD) Physical Exam Vital Signs Vital Sign - Last 12Hours 04/28/17 17:00 Temp 98.5 Pulse 110 Resp 20 B/P (MAP) 118/67 (84) Pulse Ox 93 O2 Delivery Room Air (JEANNIE CHEATHAM MD) Vital Signs Capillary Refill : (HUSSEIN BERRY) General Appearance: WD/WN, no apparent distress Eyes: Bilateral Eye Normal Inspection, Bilateral Eye PERRL, Bilateral Eye EOMI HEENT: PERRL/EOMI, normal ENT inspection, pharynx normal Neck: non-tender, full range of motion, supple, normal inspection Respiratory: chest non-tender, no respiratory distress, no accessory muscle use , wheezing (right worse than left) Cardiovascular: normal peripheral pulses, regular rate, rhythm, no edema Gastrointestinal: non tender, soft Neurologic/Psychiatric: alert, oriented x 3 Skin: normal color, warm/dry (HUSSEIN BERRY) Focused Exam Evaluation Lactate Level Laboratory Tests 04/28/17 18:24: Lactic Acid Level 0.89 (JEANNIE CHEATHAM MD) Lactic Acid Level Laboratory Tests Test 04/28/17 18:24 Lactic Acid Level 0.89 MMOL/L (0.50-2.00) (JEANNIE CHEATHAM MD) Progress/Results/Core Measures Suspected Sepsis SIRS Temperature: Pulse: Respiratory Rate: Blood Pressure / Mean: (HUSSEIN BERRY) Results/Orders Lab Results Laboratory Tests Test 04/28/17 18:24 Range/Units White Blood Count 7.0 4.3-11.0 10^3/uL Red Blood Count 5.13 4.35-5.85 10^6/uL Hemoglobin 12.7 L 13.3-17.7 G/DL Hematocrit 41 40-54 % Mean Corpuscular Volume 80 80-99 FL Mean Corpuscular Hemoglobin 25 25-34 PG Mean Corpuscular Hemoglobin Concent 31 L 32-36 G/DL Red Cell Distribution Width 15.6 H 10.0-14.5 % Platelet Count 264 130-400 10^3/uL Mean Platelet Volume 9.9 7.4-10.4 FL Neutrophils (%) (Auto) 73 42-75 % Lymphocytes (%) (Auto) 16 12-44 % Monocytes (%) (Auto) 8 0-12 % Eosinophils (%) (Auto) 3 0-10 % Basophils (%) (Auto) 1 0-10 % Neutrophils # (Auto) 5.1 1.8-7.8 X 10^3 Lymphocytes # (Auto) 1.1 1.0-4.0 X 10^3 Monocytes # (Auto) 0.5 0.0-1.0 X 10^3 Eosinophils # (Auto) 0.2 0.0-0.3 10^3/uL Basophils # (Auto) 0.0 0.0-0.1 10^3/uL Sodium Level 137 135-145 MMOL/L Potassium Level 4.2 3.6-5.0 MMOL/L Chloride Level 98 98-107 MMOL/L Carbon Dioxide Level 27 21-32 MMOL/L Anion Gap 12 5-14 MMOL/L Blood Urea Nitrogen 12 7-18 MG/DL Creatinine 1.23 0.60-1.30 MG/DL Estimat Glomerular Filtration Rate 60 BUN/Creatinine Ratio 10 Glucose Level 100 70-105 MG/DL Lactic Acid Level 0.89 0.50-2.00 MMOL/L Calcium Level 9.3 8.5-10.1 MG/DL Total Bilirubin 0.3 0.1-1.0 MG/DL Aspartate Amino Transf (AST/SGOT) 17 5-34 U/L Alanine Aminotransferase (ALT/SGPT) 11 0-55 U/L Alkaline Phosphatase 81 40-136 U/L C-Reactive Protein High Sensitivity 1.17 H 0.00-0.50 MG/DL Total Protein 7.0 6.4-8.2 GM/DL Albumin 3.9 3.2-4.5 GM/DL (JEANNIE CHEATHAM MD) Micro Results Microbiology 04/28/17 Influenza Types A,B Antigen (FL[place]) - Final, Complete (JEANNIE CHEATHAM MD) My Orders Orders - JEANNIE CHEATHAM MD Albuterol Pre-Mix Nebs (Rt) (Proventil (04/28/17 19:16) Dexamethasone Pf Injection (Decadron Pf (04/28/17 19:16) Svn Sm Volume Nebulizer Rt-Rfs (04/28/17 19:16) Breathing Machine Home Use-Dme (04/28/17 19:24) (JEANNIE CHEATHAM MD) Medications Given in ED Current Medications Medications Dose Ordered Sig/Felix Route Start Time Stop Time Status Last Admin Dose Admin Albuterol/ Ipratropium 3 ml ONCE ONCE INH 04/28/17 18:00 04/28/17 18:01 DC 04/28/17 18:04 3 ML Lactated Ringer's 1,000 ml @ 0 mls/hr Q0M ONCE IV 04/28/17 17:32 04/28/17 17:34 DC 04/28/17 19:06 0 MLS/HR (JEANNIE CHEATHAM MD) Vital Signs/I&O Vital Sign - Last 12Hours 04/28/17 04/28/17 17:00 18:05 Temp 98.5 Pulse 110 Resp 20 B/P (MAP) 118/67 (84) Pulse Ox 93 96 O2 Delivery Room Air Room Air (JEANNIE CHEATHAM MD) Vital Signs/I&O Capillary Refill : (HUSSEIN BERRY) Progress Note : Time: 17:38 Progress Note Patient has known active cancer and there is lateral side of his pain. Pleural chest pain could be due from the cancer versus obstructive pneumonia. We'll do a flu swab, basic labs and forego the chest x-ray does to get a CT scan as it is likely his chest be so busy it would be difficult to rule in or out anything based on plain film. We'll also give DuoNeb and albuterol treatment see if we can improve his wheezing. He may benefit from a nebulized outpatient treatment. The next question we will have to answer is inpatient versus outpatient. His vitals are certainly fine with a normal blood pressure, satting 93% on room air and 98.5F. Based on what the imaging shows and how the patient feels we may attempt outpatient therapy. (HUSSEIN BERRY) Progress Note : Progress Note 1924: Patient was much better after nebulized treatments. Labs and CT of the reviewed. Patient does have metastatic cancer and this has worsened since previous. He is no longer on chemotherapy as the cancer is not responding and essentially will be palliative measures from here on out. No indications of infection or pneumonia. I did talk at length the patient about options for therapy and it seems that the nebulized treatment was hopeful. 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 Due to concerns about inflammation around his enlarging masses, will initiate steroid treatment as well as for the lungs. Risk and benefits discussed with the patient and he agreed with steroid treatment. Decadron 10 mg IV. Repeat albuterol neb and we will send patient home with a nebulizer machine. RT will provide teaching. Discharged home with return precautions. Patient and family verbalize understanding instructions and agreement with plan. (JEANNIE CHEATHAM MD) Diagnostic Imaging Diagonstic Imaging: CT Plain Films/CT/US/NM/MRI: chest (c/o) Reviewed: Reviewed by Me (HUSSEIN BERRY) Diagonstic Imaging: CT Comments VIA [facility]. [place], [place] NAME: CASSIDY GALAVIZ [facility] REC#: [id number] PT STATUS: REG ER : 1955 PHYSICIAN: HUSSEIN BERRY MD ADMIT DATE: 04/28/17/ER Draft Date of Exam:04/28/17 CT CHEST WO PROCEDURE: CT chest without contrast. TECHNIQUE: Multiple contiguous axial images were obtained through the chest without the use of intravenous contrast. INDICATION: Cough and chest pain. Known metastatic lung cancer. COMPARISON: CT chest of 03/10/2017 FINDINGS: Lungs and airway: No endoluminal lesion in the trachea or central bronchi. Multiple bilateral pulmonary nodules and masses have increased in size since prior examination. The right lower lobe central mass now measures 4.5 x 3.0 cm (previously 3.0 x 2.5 cm). Left lower lobe dominant nodule previously measuring 2.9 cm now measures 3.5 x 2.9 cm. The round nodule in the superior segment of the right lower lobe now measuring 1.3 x 1.2 cm (previously 1.0 x 1.1 cm). Numerous additional smaller nodules have also increased. No definitive new nodules. No airspace consolidation to indicate pneumonia. Centrilobular and paraseptal emphysema is unchanged. Pleura: No pleural effusion or pneumothorax. Pleural nodularity along the anterior and lateral aspect of the right hemithorax is unchanged and has adjacent calcifications. Heart and mediastinum: Thyroid is normal. No supraclavicular or axillary lymphadenopathy. There are no new or enlarging mediastinal, discrete hilar or juxtaphrenic lymph nodes. Heart is normal in size without pericardial effusion. Thoracic aorta is normal in caliber with scattered atherosclerotic plaques. Left subclavian Port-A-Cath in place with tip terminating in the mid to lower SVC. Upper abdomen: Unchanged ill-defined focus within the liver and in the gallbladder fossa measuring 2.2 x 1.8 cm. No new concerning lesion within the upper abdomen. Musculoskeletal: Destructive lesion within the T12 vertebral body has mildly increased in size. No new osseous lesions. IMPRESSION: 1. Enlarging bilateral pulmonary nodules or masses are compatible with worsening of known metastatic lung cancer. 2. The T12 lytic metastasis is also increased now with complete destruction of the central aspect of the posterior cortex of vertebral body. No pathologic fracture seen at this time. 3. No airspace consolidation or micronodules to suggest an infectious process. Dictated on workstation # [id number] Dict: 04/28/17 1846 Trans: 04/28/17 1856 [facility] [id number] Interpreted by: LINDA PIERRE MD Electronically signed by: (JEANNIE CHEATHAM MD) Transfer of Care Care transferred to: Faviola (HUSSEIN BERRY) Departure Impression Impression: Primary Impression: Metastatic primary lung cancer Qualified Codes: C34.90 - Malignant neoplasm of unspecified part of unspecified bronchus or lung Additional Impressions: Metastatic cancer to bone Chest wall pain Bronchitis Disposition: HOME, SELF-CARE Condition: Stable Departure-Patient Inst. Decision time for Depature: 19:42 (JEANNIE CHEATHAM MD) Referrals: RHONDA FONSECA MD (PCP/Family) Primary Care Physician Patient Instructions: Acute Bronchitis, Adult (DC), Lung Cancer (DC), Pleuritic Chest Pain (DC) Add. Discharge Instructions: All discharge instructions reviewed with patient and/or family. Voiced understanding. Take medications as directed. Follow-up with your doctor next Monday for recheck and further evaluation. Discussed with your doctor regarding your pain medicine requirements as I do believe there are adjustments can be made to provide improved comfort to you. Use albuterol treatments every 4 hours as needed for congestion or shortness of breath. Return for worsening, fever, vomiting, weakness, recent problems or other concerns as needed. Scripts Albuterol Sulfate (Albuterol Sulfate) 2.5 Mg/3 Ml Vial.neb 2.5 MG IH Q4H Y for SHORTNESS OF BREATH, #30 EA 1 Refill Prov: JEANNIE CHEATHAM MD 04/28/17 Prednisone (Prednisone) 20 Mg Tab 40 MG PO DAILY, #12 TAB 0 Refills Prov: JEANNIE CHEATHAM MD 04/28/17 Copy Copies To 1: LIBAN LIRA MD, TITUS J Apr 28, 2017 17:37 JEANNIE CHEATHAM MD Apr 28, 2017 19:33
[2017-04-28] MEDS ORDERED: RT-ALBUTEROL SULF 2.5 MG/3 ML PRE-MIX VIAL INH STA ×2 (17:53→19:16)
[2017-04-28] MEDS ORDERED: RT-ALBUTEROL/IPRATROPIUM 3 ML (DUONEB) VIAL INH ONE (18:00)
[2017-04-28 18:35] LABS: BASOPHILS % (AUTO) 1 % (0-10); EOSINOPHILS # (AUTO) 0.2 10^3/uL (0.0-0.3); EOSINOPHILS % (AUTO) 3 % (0-10); HEMATOCRIT 41 % (40-54); HEMOGLOBIN 12.7 G/DL (13.3-17.7); LYMPHOCYTES # (AUTO) 1.1 X 10^3 (1.0-4.0); LYMPHOCYTES % (AUTO) 16 % (12-44); MEAN CORPUSCULAR HEMOGLOBIN 25 PG (25-34); MEAN CORPUSCULAR HGB CONC 31 G/DL (32-36); MEAN CORPUSCULAR VOLUME 80 FL (80-99); MEAN PLATELET VOLUME 9.9 FL (7.4-10.4); MONOCYTES # (AUTO) 0.5 X 10^3 (0.0-1.0); MONOCYTES % (AUTO) 8 % (0-12); NEUTROPHILS # (AUTO) 5.1 X 10^3 (1.8-7.8); NEUTROPHILS % (AUTO) 73 % (42-75); PLATELET COUNT 264 10^3/uL (130-400); RED BLOOD COUNT 5.13 10^6/uL (4.35-5.85); RED CELL DISTRIBUTION WIDTH 15.6 % (10.0-14.5)
[2017-04-28 18:53] LABS: ALBUMIN 3.9 GM/DL (3.2-4.5); BILIRUBIN,TOTAL 0.3 MG/DL (0.1-1.0); CALCIUM 9.3 MG/DL (8.5-10.1); CREATININE SERUM 1.23 MG/DL (0.60-1.30); POTASSIUM 4.2 MMOL/L (3.6-5.0)
--- NOTE | 2017-04-28 18:57 | Diagnostic Imaging Report ---
PROCEDURE: CT chest without contrast. TECHNIQUE: Multiple contiguous axial images were obtained through the chest without the use of intravenous contrast. INDICATION: Cough and chest pain. Known metastatic lung cancer. COMPARISON: CT chest of 03/10/2017 FINDINGS: Lungs and airway: No endoluminal lesion in the trachea or central bronchi. Multiple bilateral pulmonary nodules and masses have increased in size since prior examination. The right lower lobe central mass now measures 4.5 x 3.0 cm (previously 3.0 x 2.5 cm). Left lower lobe dominant nodule previously measuring 2.9 cm now measures 3.5 x 2.9 cm. The round nodule in the superior segment of the right lower lobe now measuring 1.3 x 1.2 cm (previously 1.0 x 1.1 cm). Numerous additional smaller nodules have also increased. No definitive new nodules. No airspace consolidation to indicate pneumonia. Centrilobular and paraseptal emphysema is unchanged. Pleura: No pleural effusion or pneumothorax. Pleural nodularity along the anterior and lateral aspect of the right hemithorax is unchanged and has adjacent calcifications. Heart and mediastinum: Thyroid is normal. No supraclavicular or axillary lymphadenopathy. There are no new or enlarging mediastinal, discrete hilar or juxtaphrenic lymph nodes. Heart is normal in size without pericardial effusion. Thoracic aorta is normal in caliber with scattered atherosclerotic plaques. Left subclavian Port-A-Cath in place with tip terminating in the mid to lower SVC. Upper abdomen: Unchanged ill-defined focus within the liver and in the gallbladder fossa measuring 2.2 x 1.8 cm. No new concerning lesion within the upper abdomen. Musculoskeletal: Destructive lesion within the T12 vertebral body has mildly increased in size. No new osseous lesions. IMPRESSION: 1. Enlarging bilateral pulmonary nodules and masses are compatible with worsening of known metastatic lung cancer. 2. The T12 lytic metastasis is also increased now with complete destruction of the central aspect of the posterior cortex of vertebral body. No pathologic fracture seen at this time. 3. No airspace consolidation or micronodules to suggest an infectious process. Dictated by: Dictated on workstation # [id number]
[2017-04-28] MEDS ORDERED: DEXAMETHASONE PF 10 MG/ML (DECADRON) VIAL IV STA (19:16)
[2017-04-28] MEDS ORDERED: PRD20T PO (19:48)
[2017-04-28] MEDS ORDERED: ALBU2.5V4 IH (19:48)
[2017-04-28 19:59] VITALS: BP 118/67
== END 2017-04-28 20:01 | disposition home or self-care (01) ==
LOC: EDUNIT# 16:43 → ER 16:44
DX: R07.89 Other chest pain (principal); C34.90 Malignant neoplasm of unspecified part of unspecified bronchus or lung; C79.51 Secondary malignant neoplasm of bone; J44.9 Chronic obstructive pulmonary disease, unspecified; I48.0 Paroxysmal atrial fibrillation; I12.9 Hypertensive chronic kidney disease with stage 1 through stage 4 chronic kidney disease, or unspecified chronic kidney disease; N18.9 Chronic kidney disease, unspecified; F41.9 Anxiety disorder, unspecified; F32.9 Major depressive disorder, single episode, unspecified; Z80.8 Family history of malignant neoplasm of other organs or systems; Z80.42 Family history of malignant neoplasm of prostate; Z87.891 Personal history of nicotine dependence; Z87.19 Personal history of other diseases of the digestive system; Z79.01 Long term (current) use of anticoagulants
CPT/HCPCS: 36415; 71250; 80053; 83605; 85025; 86141; 87040; 87804; 94640; 94664; 96361; 96374

== ENCOUNTER → 2017-04-28 | Outpatient (CLI) | payer MEDICARE, OTHER ==
[~2017-04-28] MED LIST changes: +ALBU2.5V4 IH
--- NOTE | 2017-04-28 15:52 | Diagnostic Imaging Report ---
INDICATION: History of right-sided non-small cell lung carcinoma. Patient complains of all over back pain. TECHNIQUE: The patient was administered 25.0 mCi of technetium 99m MDP intravenously and whole body imaging was performed after a three-hour delay. COMPARISON: Comparison is made with prior whole body bone scan from 11/25/2013. FINDINGS: There is uptake of activity by the axial and appendicular skeleton. There is uptake of activity by both kidneys with excretion into the urinary bladder. Several abnormal foci of tracer accumulation are noted but less intense when compared with prior outside bone scan. In particular, the longitudinally oriented activity involving the right upper anterior rib is less prominent. The foci involving the more inferior right-sided ribs also are present but less prominent. Activity involving right-sided posterior upper ribs remain present but less prominent. There is a new focus of uptake involving approximately T12 vertebral body, suspicious for a compression fracture. There is a tiny focus involving the upper thoracic vertebral body, indeterminate. The long bones are unremarkable. There is contamination overlying the right lower extremity. IMPRESSION: Numerous foci of abnormal uptake are identified involving bilateral ribs, however less intense when compared with outside bone scan from November 2013. There is new abnormal uptake involving approximately T12 vertebral bodies, suggestive of a compression fracture. Correlation with MRI would be useful for further evaluation. Dictated by: Dictated on workstation # [id number]
== END ==
LOC: RAD 11:54
PROVIDERS: ATTEND Internal Medicine Hematology & Oncology
DX: M54.9 Dorsalgia, unspecified (principal); Z85.118 Personal history of other malignant neoplasm of bronchus and lung
CPT/HCPCS: 78306

== ENCOUNTER → 2017-05-17 | Outpatient (CLI) | payer MEDICARE, OTHER ==
[~2017-05-17] MED LIST changes: +ALBU2.5V4 IH
== END ==
LOC: LAB 14:20
PROVIDERS: ATTEND Internal Medicine
DX: R50.9 Fever, unspecified (principal)
CPT/HCPCS: 87804

== ENCOUNTER 2017-05-23 12:45 | Outpatient (RCR) | payer MEDICARE, OTHER ==
[2017-05-19 11:31] LABS: BASOPHILS % (AUTO) 0 % (0-10); EOSINOPHILS # (AUTO) 0.1 10^3/uL (0.0-0.3); EOSINOPHILS % (AUTO) 2 % (0-10); HEMATOCRIT 40 % (40-54); HEMOGLOBIN 12.3 G/DL (13.3-17.7); LYMPHOCYTES # (AUTO) 0.4 X 10^3 (1.0-4.0); LYMPHOCYTES % (AUTO) 8 % (12-44); MEAN CORPUSCULAR HEMOGLOBIN 24 PG (25-34); MEAN CORPUSCULAR HGB CONC 31 G/DL (32-36); MEAN CORPUSCULAR VOLUME 79 FL (80-99); MEAN PLATELET VOLUME 10.4 FL (7.4-10.4); MONOCYTES # (AUTO) 0.5 X 10^3 (0.0-1.0); MONOCYTES % (AUTO) 9 % (0-12); NEUTROPHILS # (AUTO) 4.6 X 10^3 (1.8-7.8); NEUTROPHILS % (AUTO) 82 % (42-75); PLATELET COUNT 192 10^3/uL (130-400); RED BLOOD COUNT 5.06 10^6/uL (4.35-5.85); RED CELL DISTRIBUTION WIDTH 16.5 % (10.0-14.5); WHITE BLOOD COUNT 5.6 10^3/uL (4.3-11.0)
[2017-05-19 11:54] LABS: ALANINE AMINOTRANSFERASE 9 U/L (0-55); ALBUMIN 3.7 GM/DL (3.2-4.5); ALKALINE PHOSPHATASE 72 U/L (40-136); BILIRUBIN,TOTAL 0.7 MG/DL (0.1-1.0); BUN/CREATININE RATIO 14; CARBON DIOXIDE 27 MMOL/L (21-32); CHLORIDE 99 MMOL/L (98-107); CREATININE SERUM 1.03 MG/DL (0.60-1.30); GFR ESTIMATED > 60; GLUCOSE 114 MG/DL (70-105); POTASSIUM 4.6 MMOL/L (3.6-5.0); SODIUM 135 MMOL/L (135-145); TOTAL PROTEIN 6.6 GM/DL (6.4-8.2)
[~2017-05-23 12:45] MED LIST changes: +morphine INJ 10 MG/ML 1ML (CANCER CENTER) IV ONE; +morphine INJ 10 MG/ML 1ML (CANCER CENTER) IV PRN
== END 2017-05-25 | disposition home or self-care (01) ==
LOC: ONC 12:45
PROVIDERS: ATTEND Internal Medicine Hematology & Oncology
DX: Z51.0 Encounter for antineoplastic radiation therapy (principal); C84.09 Mycosis fungoides, extranodal and solid organ sites; C78.00 Secondary malignant neoplasm of unspecified lung; C79.51 Secondary malignant neoplasm of bone; C79.89 Secondary malignant neoplasm of other specified sites; Z85.118 Personal history of other malignant neoplasm of bronchus and lung; Z90.2 Acquired absence of lung [part of]; Z45.2 Encounter for adjustment and management of vascular access device
CPT/HCPCS: 36415; 36591; 77290; 77295; 77300; 77334; 77336; 77417; 77470; 80053; 85025; 96374; 96376; 96523; 99213; 99214

== ENCOUNTER → 2017-06-16 | Outpatient (CLI) | payer MEDICARE, OTHER ==
[~2017-06-16] MED LIST changes: -morphine INJ 10 MG/ML 1ML (CANCER CENTER) IV ONE; -morphine INJ 10 MG/ML 1ML (CANCER CENTER) IV PRN
== END ==
LOC: RAD 14:40
PROVIDERS: ATTEND Internal Medicine Hematology & Oncology
DX: M25.552 Pain in left hip (principal)

== ENCOUNTER 2017-07-06 18:11 | Emergency (ER) | payer MEDICARE, OTHER ==
[~2017-07-06] VITALS: Ht 170.2 cm; Wt 62.6 kg
[2017-07-06] MEDS ORDERED: LACTATED RINGERS 1,000 ML IV ONE (19:14)
--- NOTE | 2017-07-06 19:21 | ED Abdominal Pain ---
General Chief Complaint: Abdominal/GI Problems Stated Complaint: ABD PAIN R SIDE Nursing Triage Note: Pt c/o R sided abd pain starting yesterday and worse today. pt denies n/v/d. Sepsis Screen: Possible Sepsis Risk Source of Information: Patient, Old Records Exam Limitations: No Limitations History of Present Illness Date Seen by Provider: Jul 06, 2017 Time Seen by Provider: 19:09 Initial Comments The patient presents to the ER by private conveyance with a chief complaint of 2 days progressively worsening pain in the right side of his abdomen. Does not radiate anywhere is not having any nausea. He said the pain started out as very slight but is progressively gotten worse despite using his MS Contin and hydromorphone at home. He has a history of lung cancer with distant metastases to the spine but no known assess cc the GI tract. He's had normal bowel movements without diarrhea and no vomiting. He's had a portion of his colon removed secondary to diverticulitis as well as ventral hernia and inguinal hernia repairs more than 5 years ago. He's had no recent trauma. He is having no fevers or chills. He says the pain is about a 7 out of 10 at rest and a 9 out of 10 with anybody pushes on it. Allergies and Home Medications Allergies Coded Allergies: NKANo Known Allergies (Verified Allergy, Unknown, 09/07/06) Home Medications Albuterol Sulfate 1 Puff Puff, 2 PUFF IH Q4H PRN for SHORTNESS OF BREATH, ( Reported) 1 PUFF = 90 MCG Albuterol Sulfate 2.5 Mg/3 Ml Vial.neb, 2.5 MG IH Q4H PRN for SHORTNESS OF BREATH Prescribed by: JEANNIE CHEATHAM on 04/28/171947 Amitriptyline HCl 100 Mg Tablet, 100 MG PO HS, (Reported) Fluticasone/Vilanterol 1 Each Blst.w.dev, 1 PUFF INH DAILY, (Reported) Furosemide 20 Mg Tablet, 10 MG PO DAILY, (Reported) TAKES 1/2 (20MG) TABLET Hydrocodone/Acetaminophen 1 Each Tablet, 2 TAB PO Q4H PRN for PAIN-BREAKTHROUGH, (Reported) Levothyroxine Sodium 25 Mcg Tablet, 25 MCG PO DAILY, (Reported) Lorazepam 2 Mg Tablet, 2 MG PO Q6H PRN for ANXIETY, (Reported) Morphine Sulfate 60 Mg Tab.er.12h, 60 MG PO BID Prescribed by: RHONDA FONSECA on 01/04/17 0839 Omeprazole Magnesium 20 Mg Tablet.dr, 20 MG PO DAILY, (Reported) Ondansetron 8 Mg Tab.rapdis, 8 MG PO Q8H PRN for NAUSEA/VOMITING-1ST LINE, ( Reported) Polyethylene Glycol 3350 17 Gm Powd.pack, 17 GM PO BID Prescribed by: RHONDA FONSECA on 01/04/17 0742 Prednisone 20 Mg Tab, 40 MG PO DAILY Prescribed by: RHONDA FONSECA on 01/06/17 1153 Prednisone 20 Mg Tab, 40 MG PO DAILY Prescribed by: JEANNIE CHEATHAM on 04/28/17 194 Umeclidinium [place] 62.5 Mcg Blst.w.dev, 62.5 MCG IH 1 Prescribed by: RHONDA FONSECA on 01/06/17 1153 Patient Home Medication List Home Medication List Reviewed: Yes Review of Systems Constitutional: No chills, No diaphoresis EENTM: No Blurred Vision, No Double Vision Respiratory: Denies Cough, Denies Shortness of Air Cardiovascular: Denies Chest Pain, Denies Irregular Heart Rate, Denies Lightheadedness Gastrointestinal: See HPI, Denies Abdomen Distended, Abdominal Pain, Denies Constipated, Denies Diarrhea, Denies Difficulty Swallowing, Denies Nausea, Denies Poor Fluid Intake Genitourinary: Denies Burning, Denies Discharge Musculoskeletal: No back pain, No joint pain Skin: No pruritus, No rash Past Amyofwv-Ixrlls-Xkrpel Hx Patient Social History Recreational Drug Use: No Smoking Status: Former Smoker Type Used: Cigarettes Former Smoker, Quit: Jan 18, 2005 2nd Hand Smoke Exposure: No Recent Foreign Travel: No Contact w/Someone Who Travel: No Recent Infectious Disease Expo: No Recent Hopitalizations: No Immunizations Up To Date Tetanus Booster (TDap): Unknown PED Vaccines UTD: No Date of Pneumonia Vaccine: Oct 13, 2013 Date of Influenza Vaccine: Jan 13, 2014 Seasonal Allergies Seasonal Allergies: No Surgeries History of Surgeries: Yes (3 INGUNIAL HERNIA REPAIRS,LASER SURGERY ON THROAT FOR SLEEP APNEA) Surgeries: Abdominal, Bowel Surgery, Lobectomy Respiratory History of Respiratory Disorde: Yes (LUNG CANCER) Respiratory Disorders: COPD Currently Using CPAP: No Currently Using BIPAP: No Cardiovascular History of Cardiac Disorders: Yes (PAROXYSMAL A.FIB--NOT ON ANTICOAGULANTS OR ANTIARRHYTHMICS OF 12/27/16) Cardiac Disorders: Atrial Fibrillation, Hypertension Neurological History of Neurological Disord: No Reproductive System Hx Reproductive Disorders: No Genitourinary History of Genitourinary Disor: Yes (CHRONIC RENAL INSUFFICIENCY SINCE STARTING CHEMO ) Genitourinary Disorders: Renal Failure Gastrointestinal History of Gastrointestinal Di: Yes (MULTIPLE ABDOMINAL HERNIAS) Gastrointestinal Disorders: Abdominal Hernia, Gastroesophageal Reflux, Diverticulosis, Polyps Musculoskeletal History of Musculoskeletal Dis: No Endocrine History of Endocrine Disorders: No HEENT History of HEENT Disorders: Yes HEENT Disorders: Glaucoma Cancer History of Cancer: Yes (mets) Cancer: Lung Psychosocial History of Psychiatric Problem: Yes Behavioral Health Disorders: Anxiety, Depression Integumentary History of Skin or Integumenta: No (MYCOSIS FUNGOIDES) Blood Transfusions History of Blood Disorders: No Family Medical History Significant Family History: No Pertinent Family Hx Family Medial History: Asthma Cancer of mouth 19 FATHER Cataracts 19 FATHER Prostate cancer 19 FATHER Respiratory disorder 19 FATHER Severe allergy G8 BROTHER No Family History of: AIDS Abdominal aortic aneurysm Garland's disease Alcoholism Alzheimer's disease Aphasia Arthritis Cardiovascular disease Colon cancer Completed stroke Congenital disease Congenital heart disease Coronary thrombosis Cystic fibrosis Deafness or hearing loss Dementia Diabetes mellitus Drug abuse Dysphasia Fibrocystic disease of breast Gastroenteritis Glaucoma Headache disorder Hypercholesterolemia Hypertension Infertility Kidney disease Myocardial infarction Neoplasm Not obtainable due to adoption Osteoporosis Parkinson's disease Psychosocial problem Seizure disorder Thyroid disease Tuberculosis Visual disorder Physical Exam Vital Signs VS - Last 72 Hours, by Label 07/06/17 19:02 Temp 100.1 Pulse 119 Resp 18 B/P (MAP) 103/53 (70) Pulse Ox 84 O2 Delivery Room Air Capillary Refill : Less Than 3 Seconds General Appearance: WD/WN, mild distress HEENT: PERRL/EOMI, pharynx normal Neck: non-tender, normal inspection Respiratory: chest non-tender, lungs clear, normal breath sounds, no respiratory distress, no accessory muscle use Cardiovascular: normal peripheral pulses, regular rate, rhythm, other (1+ pitting edema bilateral ankles) Peripheral Pulses: 2+ Dorsalis Pedis (R), 2+ Left Dors-Pedis (L), 2+ Radial Pulses (R), 2+ Radial Pulses (L) Gastrointestinal: normal bowel sounds, no organomegaly, guarding, tenderness ( Right lower quadrant), No mass, other (Pain is not worsened over McBurney's point) Extremities: normal capillary refill, pedal edema (1+ bilateral ankle) Neurologic/Psychiatric: alert, oriented x 3 Skin: normal color, warm/dry Focused Exam Evaluation Lactate Level Laboratory Tests 07/06/17 19:27: Lactic Acid Level 0.89 Lactic Acid Level Laboratory Tests Test 07/06/17 19:27 Lactic Acid Level 0.89 MMOL/L (0.50-2.00) Progress/Results/Core Measures Results/Orders Lab Results Laboratory Tests Test 07/06/17 19:27 07/06/17 20:00 Range/Units White Blood Count 8.4 4.3-11.0 10^3/uL Red Blood Count 4.83 4.35-5.85 10^6/uL Hemoglobin 11.8 L 13.3-17.7 G/DL Hematocrit 38 L 40-54 % Mean Corpuscular Volume 79 L 80-99 FL Mean Corpuscular Hemoglobin 24 L 25-34 PG Mean Corpuscular Hemoglobin Concent 31 L 32-36 G/DL Red Cell Distribution Width 16.9 H 10.0-14.5 % Platelet Count 247 130-400 10^3/uL Mean Platelet Volume 10.1 7.4-10.4 FL Neutrophils (%) (Auto) 86 H 42-75 % Lymphocytes (%) (Auto) 5 L 12-44 % Monocytes (%) (Auto) 7 0-12 % Eosinophils (%) (Auto) 1 0-10 % Basophils (%) (Auto) 0 0-10 % Neutrophils # (Auto) 7.2 1.8-7.8 X 10^3 Lymphocytes # (Auto) 0.4 L 1.0-4.0 X 10^3 Monocytes # (Auto) 0.6 0.0-1.0 X 10^3 Eosinophils # (Auto) 0.1 0.0-0.3 10^3/uL Basophils # (Auto) 0.0 0.0-0.1 10^3/uL Neutrophils % (Manual) 84 % Lymphocytes % (Manual) 9 % Monocytes % (Manual) 7 % Eosinophils % (Manual) 0 % Basophils % (Manual) 0 % Band Neutrophils 0 % Hypochromasia SLIGHT Sodium Level 134 L 135-145 MMOL/L Potassium Level 4.4 3.6-5.0 MMOL/L Chloride Level 97 L 98-107 MMOL/L Carbon Dioxide Level 31 21-32 MMOL/L Anion Gap 6 5-14 MMOL/L Blood Urea Nitrogen 17 7-18 MG/DL Creatinine 0.97 0.60-1.30 MG/DL Estimat Glomerular Filtration Rate > 60 BUN/Creatinine Ratio 18 Glucose Level 117 H 70-105 MG/DL Lactic Acid Level 0.89 0.50-2.00 MMOL/L Calcium Level 9.4 8.5-10.1 MG/DL Magnesium Level 1.6 L 1.8-2.4 MG/DL Total Bilirubin 0.7 0.1-1.0 MG/DL Aspartate Amino Transf (AST/SGOT) 33 5-34 U/L Alanine Aminotransferase (ALT/SGPT) 17 0-55 U/L Alkaline Phosphatase 111 40-136 U/L C-Reactive Protein High Sensitivity 7.16 H 0.00-0.50 MG/DL Total Protein 6.9 6.4-8.2 GM/DL Albumin 3.9 3.2-4.5 GM/DL Lipase 43 8-78 U/L Urine Color YELLOW Urine Clarity CLEAR Urine pH 6 5-9 Urine Specific [place] 1.010 L 1.016-1.022 Urine Protein NEGATIVE NEGATIVE Urine Glucose (UA) NEGATIVE NEGATIVE Urine Ketones NEGATIVE NEGATIVE Urine Nitrite NEGATIVE NEGATIVE Urine Bilirubin NEGATIVE NEGATIVE Urine Urobilinogen NORMAL NORMAL MG/DL Urine Leukocyte Esterase 1+ H NEGATIVE Urine RBC (Auto) NEGATIVE NEGATIVE Urine RBC NONE /HPF Urine WBC RARE /HPF Urine Crystals NONE /LPF Urine Bacteria NEGATIVE /HPF Urine Casts NONE /LPF Urine Mucus NEGATIVE /LPF Urine Culture Indicated NO My Orders Orders - HUSSEIN BERRY Ct Abdomen/Pelvis W (07/06/17 19:14) Cbc With Automated Diff (07/06/17 19:14) Comprehensive Metabolic Panel (07/06/17 19:14) Hs C Reactive Protein (07/06/17 19:14) Lactic Acid Analyzer (07/06/17 19:14) Lipase (07/06/17 19:14) Magnesium (07/06/17 19:14) Ua Culture If Indicated (07/06/17 19:14) Saline Lock/Iv-Start (07/06/17 19:14) Lactated Ringers (Lr 1000 Ml Iv Solution (07/06/17 19:14) Iohexol Injection (Omnipaque 350 Mg/Ml 1 (07/06/17 19:30) Ns (Ivpb) (Sodium Chloride 0.9%) (07/06/17 19:30) Pharmacy Communication (Pharmacy Communi (07/06/17 19:18) Manual Differential (07/06/17 19:27) Magnesium 1 Gm/100 Ml Ivpb (Magnesium [place] (07/06/17 20:30) Hydromorphone Injection (Dilaudid Inject (07/06/17 21:15) Medications Given in ED Current Medications Medications Dose Ordered Sig/Felix Route Start Time Stop Time Status Last Admin Dose Admin Hydromorphone HCl 0.5 mg ONCE ONCE IVP 07/06/17 21:15 07/06/17 21:16 DC 07/06/17 21:14 0.5 MG Iohexol 100 ml ONCE ONCE IV 07/06/17 19:30 07/06/17 19:31 DC 07/06/17 20:39 100 ML Lactated Ringer's 1,000 ml @ 0 mls/hr Q0M ONCE IV 07/06/17 19:14 07/06/17 19:16 DC 07/06/17 19:35 1,000 MLS/HR Magnesium Sulfate/ Dextrose 100 ml @ 100 mls/hr ONCE ONCE IV 07/06/17 20:30 07/06/17 21:29 DC 07/06/17 22:20 100 MLS/HR Sodium Chloride 250 ml ONCE ONCE IV 07/06/17 19:30 07/06/17 19:31 DC 07/06/17 20:39 80 ML Vital Signs/I&O Vital Sign - Last 12Hours 07/06/17 19:02 Temp 100.1 Pulse 119 Resp 18 B/P (MAP) 103/53 (70) Pulse Ox 84 O2 Delivery Room Air Blood Pressure Mean: 70 Progress Note #1: Time: 19:20 Progress Note Tachycardia severe progressively worsening pain with a history of distant metastases from lung cancer. Also a history of diverticulitis. Possible bowel perforation versus appendicitis versus bowel obstruction. He has normal bowel sounds however and no issues with constipation or obstipation. We'll start with IV fluids labs and a CT scan of the abdomen with contrast. Progress Note #2: Time: 22:55 Progress Note Reexamination the patient is feeling much better his pains under control still having no nausea or vomiting. No evidence of constipation on the CT although he does have a moderate amount of ascending colon stool and maybe some inflammation indicative of mild colitis viral versus bacterial. I'll offer to put him on some ciprofloxacin for a couple days and have him try and follow-up tomorrow or early next week with his primary care physician or oncologist. Also encouraged him to get some stool softeners and have a bowel movement. He says it has been 2 days since his last bowel movement. Diagnostic Imaging Diagonstic Imaging: CT (With contrast) Plain Films/CT/US/NM/MRI: abdomen, pelvis Comments Maybe some mild right-sided ascending colon inflammation. NAME: CASSIDY GALAVIZ [facility] REC#: [id number] PHYSICIAN: HUSSEIN BERRY MD CC: BEATRIZ MONTEJO MD; HUSSEIN BERRY Page 2 of 2 RADIOLOGY REPORT [place], [place] CC: BEATRIZ MONTEJO MD; HUSSEIN BERRY Page 1 of 2 RADIOLOGY REPORT NAME: CASSIDY GALAVIZ [facility] REC#: [id number] PT STATUS: REG ER : 1955 PHYSICIAN: HUSSEIN BERRY MD ADMIT DATE: 07/06/17/ER Signed Date of Exam: 07/06/17 CT ABDOMEN/PELVIS W PROCEDURE: CT abdomen and pelvis with contrast. TECHNIQUE: Multiple contiguous axial images were obtained through the abdomen and pelvis after administration of intravenous contrast. INDICATION: Metastatic lung cancer. Comparison made with prior examination 04/28/2017. FINDINGS: Note is again made of a mass in the medial aspect of the right lung base. This measures up to 4.4 cm. There is a lobulated mass in the left lung base measuring 4.7 cm. Several other additional smaller masses are seen in both lung bases. Findings remain compatible with metastatic disease. There is a multilobulated mass in the caudal aspect of the right lobe of liver suspect for metastatic disease. This measures 7.8 cm. There are few other smaller low-density masses in liver as well also suspect for metastatic disease. There is no biliary ductal dilatation. There is cholelithiasis. Spleen is normal. The pancreas and adrenal glands are unremarkable. There are several cysts in the left kidney. There are also several small cysts in the right kidney. The abdominal aorta is nonaneurysmal. The bowel gas pattern is nonspecific. There is no free air. There is no ascites. There are no focal inflammatory changes. There is no pelvic mass, adenopathy or free fluid. There is a large lytic lesion in the T12 vertebral body suspect for osseous metastatic disease. IMPRESSION: Multiple bilateral lower lobe pulmonary nodules compatible with metastatic disease. Large multilobulated lesion in the caudal aspect of the right lobe of liver compatible with metastatic disease. There are several other smaller low-density lesions in the liver as well. Lytic lesion in T12 vertebral body compatible with metastatic disease. Bilateral renal cysts. No other acute abnormality in the abdomen or pelvis. Dictated by: Dictated on workstation # [id number] Dict: 07/06/172046 Trans: 07/06/172056 Interpreted by: BEATRIZ MONTEJO MD Electronically signed by: BEATRIZ MONTEJO MD 07/06/172056 Reviewed: Reviewed by Me Departure Impression Impression: Primary Impression: Abdominal pain Qualified Codes: R10.31 - Right lower quadrant pain Disposition: HOME, SELF-CARE Condition: Improved Departure-Patient Inst. Decision time for Depature: 22:57 Referrals: RHONDA FONSECA MD (PCP/Family) Primary Care Physician Patient Instructions: Constipation, Adult (DC) Add. Discharge Instructions: Take one capful of MiraLAX twice a day for the next 2 or 3 days to have a large bowel movement. You can also take 200 mg of Colace daily. supervisor production department the ciprofloxacin and take it one capsule twice a day for the next 5 days. Try to follow-up with either your primary care physician or oncologist prior to the weekend or early next week. Return to the ER if you have severe pain, nausea, diarrhea, other worrisome symptoms. All discharge instructions reviewed with patient and/or family. Voiced understanding. Scripts Polyethylene Glycol 3350 (Miralax) 17 Gm Powd.pack 17 GM PO BID PRN Y for CONSTIPATION-1ST LINE for 3 Days, #1 EACH 0 Refills Prov: HUSSEIN BERRY 07/06/17 Ciprofloxacin HCl (Ciprofloxacin HCl) 500 Mg Tablet 500 MG PO BID for 5 Days, #10 TAB Prov: HUSSEIN BERRY 07/06/17 Copy Copies To 1: RHONDA FONSECA MD; LIBAN LIRA MD, TITUS J Jul 06, 2017 19:21
[2017-07-06] MEDS ORDERED: IOHEXOL 350 MG/ML 100 ML (OMNIPAQUE 350) VIAL IV ONE (19:30)
[2017-07-06] MEDS ORDERED: NS 250 ML (IVPB) BAG IV ONE (19:30)
[2017-07-06 19:35] LABS: BASOPHILS % (AUTO) 0 % (0-10); EOSINOPHILS # (AUTO) 0.1 10^3/uL (0.0-0.3); EOSINOPHILS % (AUTO) 1 % (0-10); HEMATOCRIT 38 % (40-54); HEMOGLOBIN 11.8 G/DL (13.3-17.7); LYMPHOCYTES # (AUTO) 0.4 X 10^3 (1.0-4.0); LYMPHOCYTES % (AUTO) 5 % (12-44); MEAN CORPUSCULAR HEMOGLOBIN 24 PG (25-34); MEAN CORPUSCULAR HGB CONC 31 G/DL (32-36); MEAN CORPUSCULAR VOLUME 79 FL (80-99); MEAN PLATELET VOLUME 10.1 FL (7.4-10.4); MONOCYTES # (AUTO) 0.6 X 10^3 (0.0-1.0); MONOCYTES % (AUTO) 7 % (0-12); NEUTROPHILS # (AUTO) 7.2 X 10^3 (1.8-7.8); NEUTROPHILS % (AUTO) 86 % (42-75); PLATELET COUNT 247 10^3/uL (130-400); RED BLOOD COUNT 4.83 10^6/uL (4.35-5.85); RED CELL DISTRIBUTION WIDTH 16.9 % (10.0-14.5); WHITE BLOOD COUNT 8.4 10^3/uL (4.3-11.0)
[2017-07-06 19:52] LABS: ALANINE AMINOTRANSFERASE 17 U/L (0-55); ALBUMIN 3.9 GM/DL (3.2-4.5); ALKALINE PHOSPHATASE 111 U/L (40-136); BAND NEUTROPHILS 0 %; BASOPHILS % (MANUAL) 0 %; BILIRUBIN,TOTAL 0.7 MG/DL (0.1-1.0); BUN/CREATININE RATIO 18; CALCIUM 9.4 MG/DL (8.5-10.1); CARBON DIOXIDE 31 MMOL/L (21-32); CHLORIDE 97 MMOL/L (98-107); CREATININE SERUM 0.97 MG/DL (0.60-1.30); EOSINOPHILS % (MANUAL) 0 %; GFR ESTIMATED > 60; GLUCOSE 117 MG/DL (70-105); HYPOCHROMASIA SLIGHT; LIPASE 43 U/L (8-78); LYMPHOCYTES % (MANUAL) 9 %; MAGNESIUM 1.6 MG/DL (1.8-2.4); MONOCYTES % (MANUAL) 7 %; NEUTROPHILS % (MANUAL) 84 %; POTASSIUM 4.4 MMOL/L (3.6-5.0); SODIUM 134 MMOL/L (135-145); TOTAL PROTEIN 6.9 GM/DL (6.4-8.2)
[2017-07-06 20:04] LABS: BILIRUBIN,URINE NEGATIVE (NEGATIVE); CLARITY,URINE CLEAR; COLOR,URINE YELLOW; GLUCOSE, URINE (UA) NEGATIVE (NEGATIVE); KETONES,URINE NEGATIVE (NEGATIVE); LEUKOCYTE ESTERASE ,URINE 1+ (NEGATIVE); NITRITE,URINE NEGATIVE (NEGATIVE); PH,URINE 6 (5-9); PROTEIN,URINE NEGATIVE (NEGATIVE); UROBILINOGEN,URINE NORMAL (NORMAL)
[2017-07-06 20:21] LABS: BACTERIA,URINE NEGATIVE /HPF; WBC,URINE RARE /HPF
[2017-07-06] MEDS ORDERED: MAGNESIUM 1 GM/100 ML IVPB 100 ML IV ONE (20:30)
--- NOTE | 2017-07-06 20:55 | Diagnostic Imaging Report ---
PROCEDURE: CT abdomen and pelvis with contrast. TECHNIQUE: Multiple contiguous axial images were obtained through the abdomen and pelvis after administration of intravenous contrast. INDICATION: Metastatic lung cancer. Comparison made with prior examination 04/28/2017. FINDINGS: Note is again made of a mass in the medial aspect of the right lung base. This measures up to 4.4 cm. There is a lobulated mass in the left lung base measuring 4.7 cm. Several other additional smaller masses are seen in both lung bases. Findings remain compatible with metastatic disease. There is a multilobulated mass in the caudal aspect of the right lobe of liver suspect for metastatic disease. This measures 7.8 cm. There are few other smaller low-density masses in liver as well also suspect for metastatic disease. There is no biliary ductal dilatation. There is cholelithiasis. Spleen is normal. The pancreas and adrenal glands are unremarkable. There are several cysts in the left kidney. There are also several small cysts in the right kidney. The abdominal aorta is nonaneurysmal. The bowel gas pattern is nonspecific. There is no free air. There is no ascites. There are no focal inflammatory changes. There is no pelvic mass, adenopathy or free fluid. There is a large lytic lesion in the T12 vertebral body suspect for osseous metastatic disease. IMPRESSION: Multiple bilateral lower lobe pulmonary nodules compatible with metastatic disease. Large multilobulated lesion in the caudal aspect of the right lobe of liver compatible with metastatic disease. There are several other smaller low-density lesions in the liver as well. Lytic lesion in T12 vertebral body compatible with metastatic disease. Bilateral renal cysts. No other acute abnormality in the abdomen or pelvis. Dictated by: Dictated on workstation # [id number]
[2017-07-06] MEDS ORDERED: HYDROmorphone (DILAUDID) 2 MG/ML VIAL IVP ONE (21:15)
[2017-07-06] MEDS ORDERED: CIPR500T4 PO (23:00)
[2017-07-06] MEDS ORDERED: POLY17PO6 PO (23:00)
[2017-07-06] MEDS ORDERED: HEParin (CENTRAL IV FLUSH) 500 UNIT/5 ML SYR ONE (23:15)
[2017-07-06 23:22] VITALS: BP 107/75
== END 2017-07-06 23:23 | disposition home or self-care (01) ==
LOC: EDUNIT# 18:11 → ER 18:13
DX: R10.31 Right lower quadrant pain (principal); G47.30 Sleep apnea, unspecified; J44.9 Chronic obstructive pulmonary disease, unspecified; I48.91 Unspecified atrial fibrillation; I12.9 Hypertensive chronic kidney disease with stage 1 through stage 4 chronic kidney disease, or unspecified chronic kidney disease; N18.9 Chronic kidney disease, unspecified; K21.9 Gastro-esophageal reflux disease without esophagitis; F41.9 Anxiety disorder, unspecified; F32.9 Major depressive disorder, single episode, unspecified; Z86.010 Personal history of colon polyps; Z80.0 Family history of malignant neoplasm of digestive organs; Z80.42 Family history of malignant neoplasm of prostate; Z90.2 Acquired absence of lung [part of]; Z85.118 Personal history of other malignant neoplasm of bronchus and lung; Z85.848 Personal history of malignant neoplasm of other parts of nervous tissue; Z90.49 Acquired absence of other specified parts of digestive tract; Z87.19 Personal history of other diseases of the digestive system; Z88.1 Allergy status to other antibiotic agents; Z79.52 Long term (current) use of systemic steroids; Z79.51 Long term (current) use of inhaled steroids; Z87.891 Personal history of nicotine dependence
CPT/HCPCS: 36415; 36556; 74177; 80053; 81000; 83605; 83690; 83735; 85007; 85027; 86141; 96361; 96365; 96375

== ENCOUNTER 2017-07-21 13:35 | Outpatient (RCR) | payer MEDICARE, OTHER ==
[2017-06-16 13:44] LABS: BASOPHILS % (AUTO) 1 % (0-10); EOSINOPHILS # (AUTO) 0.1 10^3/uL (0.0-0.3); EOSINOPHILS % (AUTO) 2 % (0-10); HEMATOCRIT 42 % (40-54); HEMOGLOBIN 12.9 G/DL (13.3-17.7); LYMPHOCYTES # (AUTO) 0.5 X 10^3 (1.0-4.0); LYMPHOCYTES % (AUTO) 10 % (12-44); MEAN CORPUSCULAR HEMOGLOBIN 24 PG (25-34); MEAN CORPUSCULAR HGB CONC 31 G/DL (32-36); MEAN CORPUSCULAR VOLUME 78 FL (80-99); MEAN PLATELET VOLUME 9.8 FL (7.4-10.4); MONOCYTES # (AUTO) 0.5 X 10^3 (0.0-1.0); MONOCYTES % (AUTO) 10 % (0-12); NEUTROPHILS # (AUTO) 3.9 X 10^3 (1.8-7.8); NEUTROPHILS % (AUTO) 78 % (42-75); PLATELET COUNT 226 10^3/uL (130-400); RED BLOOD COUNT 5.31 10^6/uL (4.35-5.85); RED CELL DISTRIBUTION WIDTH 16.9 % (10.0-14.5)
[2017-06-16 14:08] LABS: ALANINE AMINOTRANSFERASE 13 U/L (0-55); ALBUMIN 4.1 GM/DL (3.2-4.5); ALKALINE PHOSPHATASE 111 U/L (40-136); BILIRUBIN,TOTAL 0.5 MG/DL (0.1-1.0); BUN/CREATININE RATIO 13; CALCIUM 9.6 MG/DL (8.5-10.1); CARBON DIOXIDE 30 MMOL/L (21-32); CHLORIDE 100 MMOL/L (98-107); CREATININE SERUM 1.08 MG/DL (0.60-1.30); GFR ESTIMATED > 60; GLUCOSE 121 MG/DL (70-105); POTASSIUM 4.1 MMOL/L (3.6-5.0); SODIUM 137 MMOL/L (135-145); TOTAL PROTEIN 7.2 GM/DL (6.4-8.2)
--- NOTE | 2017-06-16 15:21 | Diagnostic Imaging Report ---
INDICATION: Left hip pain radiating distally. The patient has a history of metastatic lung cancer. TIME OF EXAM: 03:09 p.m. FINDINGS: Two views of the left hip were obtained. Femoroacetabular alignment is normal. The joint space is well maintained. The femoral head and neck are intact. No fractures are seen. No definite osteolytic or blastic lesions are seen. The rami appear intact. There are surgical clips in the pelvis. IMPRESSION: No acute bony abnormality is detected. Dictated by: Dictated on workstation # [id number]
[2017-07-14 13:21] LABS: BASOPHILS % (AUTO) 1 % (0-10); EOSINOPHILS # (AUTO) 0.1 10^3/uL (0.0-0.3); EOSINOPHILS % (AUTO) 2 % (0-10); HEMATOCRIT 37 % (40-54); HEMOGLOBIN 11.3 G/DL (13.3-17.7); LYMPHOCYTES # (AUTO) 0.5 X 10^3 (1.0-4.0); LYMPHOCYTES % (AUTO) 8 % (12-44); MEAN CORPUSCULAR HEMOGLOBIN 24 PG (25-34); MEAN CORPUSCULAR HGB CONC 30 G/DL (32-36); MEAN CORPUSCULAR VOLUME 79 FL (80-99); MEAN PLATELET VOLUME 9.6 FL (7.4-10.4); MONOCYTES # (AUTO) 0.5 X 10^3 (0.0-1.0); MONOCYTES % (AUTO) 9 % (0-12); NEUTROPHILS # (AUTO) 4.3 X 10^3 (1.8-7.8); NEUTROPHILS % (AUTO) 79 % (42-75); PLATELET COUNT 271 10^3/uL (130-400); RED BLOOD COUNT 4.71 10^6/uL (4.35-5.85); RED CELL DISTRIBUTION WIDTH 16.5 % (10.0-14.5); WHITE BLOOD COUNT 5.4 10^3/uL (4.3-11.0)
[2017-07-14 13:45] LABS: ALANINE AMINOTRANSFERASE 15 U/L (0-55); ALBUMIN 3.7 GM/DL (3.2-4.5); ALKALINE PHOSPHATASE 124 U/L (40-136); BILIRUBIN,TOTAL 0.5 MG/DL (0.1-1.0); BUN/CREATININE RATIO 16; CALCIUM 9.6 MG/DL (8.5-10.1); CARBON DIOXIDE 37 MMOL/L (21-32); CHLORIDE 98 MMOL/L (98-107); CREATININE SERUM 0.98 MG/DL (0.60-1.30); GFR ESTIMATED > 60; GLUCOSE 104 MG/DL (70-105); POTASSIUM 4.2 MMOL/L (3.6-5.0); SODIUM 138 MMOL/L (135-145); TOTAL PROTEIN 6.8 GM/DL (6.4-8.2)
[~2017-07-21 13:35] MED LIST changes: +CIPR500T4 PO
[2017-07-30] MEDS ORDERED: POLY255P PO (11:08)
[2017-07-30] MEDS ORDERED: FLUT1DIS26 IH (11:08)
[2017-07-30] MEDS ORDERED: HYDR4TAB PO (11:08)
[2017-07-30] MEDS ORDERED: MORP60TA52 PO (11:08)
[2017-07-30] MEDS ORDERED: ALBU2.5V4 IH (16:06)
[2017-08-02] MEDS ORDERED: CELE100C84 PO (08:46)
[2017-08-04] MEDS ORDERED: PRD10T PO (07:15)
[2017-08-04] MEDS ORDERED: BACL10TA PO (07:15)
== END 2017-08-05 | disposition home or self-care (01) ==
LOC: ONC 13:35
PROVIDERS: ATTEND Internal Medicine Hematology & Oncology
DX: Z51.0 Encounter for antineoplastic radiation therapy (principal); C84.A0 Cutaneous T-cell lymphoma, unspecified, unspecified site; Z85.118 Personal history of other malignant neoplasm of bronchus and lung; C78.01 Secondary malignant neoplasm of right lung; C78.02 Secondary malignant neoplasm of left lung; C79.51 Secondary malignant neoplasm of bone; C79.89 Secondary malignant neoplasm of other specified sites; I10 Essential (primary) hypertension; E03.9 Hypothyroidism, unspecified; G89.3 Neoplasm related pain (acute) (chronic); M25.552 Pain in left hip; R63.0 Anorexia; Z90.2 Acquired absence of lung [part of]
CPT/HCPCS: 36415; 36591; 73502; 77290; 77295; 77300; 77334; 77336; 77417; 77470; 80053; 84443; 85025; 99213; 99214

== ENCOUNTER 2017-08-04 06:38 | Inpatient (IN) | payer MEDICARE, OTHER ==
[~2017-08-04] VITALS: Ht 172.7 cm; Wt 54.4 kg
[~2017-08-04 06:38] MED LIST changes: +CELE100C84 PO; +HYDR4TAB PO; +MORP60TA52 PO; +POLY255P PO
--- OUTSIDE RECORDS SUMMARY | 2017-08-04 06:42 | XMS REPORT | Clinical Summary ---
Author Author [facility] Organization [facility] Address Unknown Phone Unavailable Care Team Providers Care Calibration Technician Name Role Phone PCP Unavailable Source Comments Some departments are not documenting in the electronic medical record. If you do not see the information that you expected, contact Release of Information in the Health Information Management department at [phone] for further assistance in locating additional records.[facility] Allergies Not on File Current Medications Not on file Active Problems Not on file Social History Tobacco Use Types Packs/Day Years Used Date Never Assessed Sex Assigned at Date Recorded Not on file Last Filed Vital Signs Not on file Plan of Treatment Health Maintenance Due Date Last Done Comments HEPATITIS C SCREENING 1955 PHYSICAL (COMPREHENSIVE) 1964 EXAM PERTUSSIS VACCINE 1968 HIV SCREENING 1972 TETANUS VACCINE 1974 COLORECTAL CANCER 2007 SCREENING SHINGLES VACCINE 2017 INFLUENZA VACCINE 01/08/2018 Results Not on filefrom Last 3 Months
--- OUTSIDE RECORDS SUMMARY | 2017-08-04 06:45 | XMS REPORT | Continuity of Care Document ---
Author Author [facility] Address Unknown Phone Unavailable Allergies Active Description Code Type Severity Reaction Onset Reported/Identified Relationship to Patient Clinical Status Yes NKANo Known Allergies NKA Miscellaneous Allergy Unknown N/A 07/30/2017 Medications There is no data. Problems Date [...] COLEMAN, RHONDA Maldonado Ot 780.61 04/17/2014 RAYMUNDO COLMEAN, RHONDA Maldonado Ot V10.11 04/17/2014 RAYMUNDO COLEMAN, [...] Ot I48.0 PAROXYSMAL ATRIAL FIBRILLATION 01/03/2017 CARLTON HUNT DO Ot J44.9 CHRONIC OBSTRUCTIVE [...] 01/03/2017 CARLTON HUNT DO Ot Z79.899 OTHER SPINDRAW OPERATOR (CURRENT) DRUG THERAPY 01/03/2017 CARLTON HUNT DO [...] 01/04/2017 CARLTON HUNT DO Ot Z79.899 OTHER SPINDRAW OPERATOR (CURRENT) DRUG THERAPY 01/04/2017 CARLTON HUNT DO [...] Ot K56.69 OTHER INTESTINAL OBSTRUCTION 01/04/2017 CARLTON HUNT DO Ot K57.90 DVRTCLOS OF INTEST, PART UNSP, W/O PERF 01/04/2017 CARLTON HUNT DO Ot N18.9 CHRONIC KIDNEY DISEASE, UNSPECIFIED 01/04/2017 CARLTON HUNT DO Ot T40.2X5A ADVERSE EFFECT OF OTHER OPIOIDS, INITIAL 01/04/2017 CARLTON HUNT DO Ot T45.1X5A ADVERSE EFFECT OF ANTINEOPLASTIC AND IMM 01/04/2017 CARLTON HUNT DO Ot Z79.899 OTHER SPINDRAW OPERATOR (CURRENT) DRUG THERAPY 01/04/2017 CARLTON HUNT DO [...] Ot I10 ESSENTIAL (PRIMARY) HYPERTENSION 01/05/2017 CARLTON HUTN DO Ot I48.0 PAROXYSMAL ATRIAL FIBRILLATION 01/05/2017 CARLTON HUNT DO Ot J44.9 CHRONIC OBSTRUCTIVE PULMONARY DISEASE, U 01/05/2017 CARLTON HUNT DO Ot K21.9 GASTRO-ESOPHAGEAL REFLUX DISEASE WITHOUT 01/05/2017 CARLTON HUNT DO Ot K56.69 OTHER INTESTINAL OBSTRUCTION 01/05/2017 CARLTON HUNT DO Ot K57.90 DVRTCLOS OF INTEST, PART UNSP, W/O PERF 01/05/2017 CARLTON HUNT DO Ot N18.9 CHRONIC KIDNEY DISEASE, UNSPECIFIED 01/05/2017 CARLTON HUNT DO Ot T40.2X5A ADVERSE EFFECT OF OTHER OPIOIDS, INITIAL 01/05/2017 CARLTON HUNT DO Ot T45.1X5A ADVERSE EFFECT OF ANTINEOPLASTIC AND IMM 01/05/2017 CARLTON HUNT DO Ot Z79.899 OTHER SPINDRAW OPERATOR (CURRENT) DRUG THERAPY 01/05/2017 CARLTON HUNT DO [...] 01/06/2017 CARLTON HUNT DO Ot Z79.899 OTHER SHELTER (CURRENT) DRUG THERAPY 01/06/2017 CARLTON HUNT DO [...] 01/06/2017 CARLTON HUNT DO Ot Z79.899 OTHER SPINDRAW OPERATOR (CURRENT) DRUG THERAPY 01/06/2017 CARLTON HUNT DO [...] 03/15/2017 LIBAN LIRA MD Ot Z79.899 OTHER SPINDRAW OPERATOR (CURRENT) DRUG THERAPY 03/15/2017 LIBAN LIRA MD [...] 03/21/2017 LIBAN LIRA MD Ot Z79.899 OTHER SPINDRAW OPERATOR (CURRENT) DRUG THERAPY 03/21/2017 LIBAN LIRA MD [...] OF LUNG [PART OF] 04/06/2017 LIBAN LIRA MD Ot 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 NEOPLASM OF UNSP PART OF RIGHT 04/06/2017 LIBAN LIRA MD Ot 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0 PAROXYSMAL ATRIAL FIBRILLATION 04/28/2017 JEANNIE CHEATHAM MD Ot J44.9 CHRONIC OBSTRUCTIVE PULMONARY DISEASE, U 04/28/2017 JEANNIE CHEATHAM MD Ot N18.9 CHRONIC KIDNEY DISEASE, UNSPECIFIED 04/28/2017 JEANNIE CHEATHAM MD Ot R07.89 OTHER CHEST PAIN 04/28/2017 JEANNIE CHEATHAM MD Ot Z79.01 SPINDRAW OPERATOR (CURRENT) USE OF ANTICOAGULANT 04/28/2017 JEANNIE CHEATHAM MD Ot Z80.42 FAMILY HISTORY OF MALIGNANT NEOPLASM OF 04/28/2017 JEANNIE CHEATHAM MD Ot Z80.8 FAMILY HISTORY OF MALIGNANT NEOPLASM OF 04/28/2017 JEANNIE CHEATHAM MD Ot Z87.19 PERSONAL HISTORY OF OTHER DISEASES OF TH 04/28/2017 JEANNIE CHEATHAM MD Ot Z87.891 PERSONAL HISTORY OF NICOTINE DEPENDENCE 05/01/2017 JEANNIE CHEATHAM MD Ot C34.90 MALIGNANT NEOPLASM OF UNSP PART OF UNSP 05/01/2017 JEANNIE CHEATHAM MD Ot C79.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 05/01/2017 JEANNIE CHEATHAM MD Ot F32.9 MAJOR DEPRESSIVE DISORDER, SINGLE EPISOD 05/01/2017 JEANNIE CHEATHAM MD Ot F41.9 ANXIETY DISORDER, UNSPECIFIED 05/01/2017 JEANNIE CHEATHAM MD Ot I12.9 HYPERTENSIVE CHRONIC KIDNEY DISEASE W ST 05/01/2017 JEANNIE CHEATHAM MD Ot I48.0 PAROXYSMAL ATRIAL FIBRILLATION 05/01/2017 JEANNIE CHEATHAM MD Ot J44.9 CHRONIC OBSTRUCTIVE PULMONARY DISEASE, U 05/01/2017 JEANNIE CHEATHAM MD Ot N18.9 CHRONIC KIDNEY DISEASE, UNSPECIFIED 05/01/2017 JEANNIE CHEATHAM MD Ot R07.89 OTHER CHEST PAIN 05/01/2017 JEANNIE CHEATHAM MD Ot Z79.01 SPINDRAW OPERATOR (CURRENT) USE OF ANTICOAGULANT 05/01/2017 JEANNIE CHEATHAM MD Ot Z80.42 FAMILY HISTORY OF MALIGNANT NEOPLASM OF 05/01/2017 JEANNIE CHEATHAM MD Ot Z80.8 FAMILY HISTORY OF MALIGNANT NEOPLASM OF 05/01/2017 JEANNIE CHEATHAM MD Ot Z87.19 PERSONAL HISTORY OF OTHER DISEASES OF TH 05/01/2017 JEANNIE CHEATHAM MD Ot Z87.891 PERSONAL HISTORY OF NICOTINE DEPENDENCE 05/02/2017 JEANNIE CHEATHAM MD Ot C34.90 MALIGNANT NEOPLASM OF UNSP PART OF UNSP 05/02/2017 JEANNIE CHEATHAM MD Ot C79.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 05/02/2017 JEANNIE CHEATHAM MD Ot F32.9 MAJOR DEPRESSIVE DISORDER, SINGLE EPISOD 05/02/2017 JEANNIE CHEATHAM MD Ot F41.9 ANXIETY DISORDER, UNSPECIFIED 05/02/2017 JEANNIE CHEATHAM MD Ot I12.9 HYPERTENSIVE CHRONIC KIDNEY DISEASE W ST 05/02/2017 JEANNIE CHEATHAM MD Ot I48.0 PAROXYSMAL ATRIAL FIBRILLATION 05/02/2017 JEANNIE CHEATHAM MD Ot J44.9 CHRONIC OBSTRUCTIVE PULMONARY DISEASE, U 05/02/2017 JEANNIE CHEATHAM MD Ot N18.9 CHRONIC KIDNEY DISEASE, UNSPECIFIED 05/02/2017 JEANNIE CHEATHAM MD Ot R07.89 OTHER CHEST PAIN 05/02/2017 JEANNIE CHEATHAM MD Ot Z79.01 SHELTER (CURRENT) USE OF ANTICOAGULANT 05/02/2017 JEANNIE CHEATHAM MD Ot Z80.42 FAMILY HISTORY OF MALIGNANT NEOPLASM OF 05/02/2017 JEANNIE CHEATHAM MD Ot Z80.8 FAMILY HISTORY OF MALIGNANT NEOPLASM OF 05/02/2017 JEANNIE CHEATHAM MD Ot Z87.19 PERSONAL HISTORY OF OTHER DISEASES OF TH 05/02/2017 JEANNIE CHEATHAM MD Ot Z87.891 PERSONAL HISTORY OF NICOTINE DEPENDENCE 05/18/2017 RHONDA FONSECA MD Ot R50.9 FEVER, UNSPECIFIED 05/18/2017 LIBAN LIRA MD Ot C78.00 SECONDARY MALIGNANT NEOPLASM OF UNSPECIF 05/18/2017 LIBAN LIRA MD Ot C79.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 05/18/2017 LIBAN LIRA MD Ot 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 NEOPLASM OF OTHER SP 05/18/2017 LIBAN LIRA MD Ot 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, EXTRANODAL AND SOLID 05/18/2017 LIBAN LIRA MD Ot Z85.118 PERSONAL HISTORY OF MALIGNANT NEOPLASM O 05/18/2017 LIBAN LIRA MD Ot 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] 05/18/2017 LIBAN LIRA MD Ot Z92.3 PERSONAL HISTORY OF IRRADIATION 05/22/2017 LIBAN LIRA MD Ot M54.9 DORSALGIA, UNSPECIFIED 05/22/2017 CARLOS MANUEL LIRA MDNER Ot Z85.118 PERSONAL HISTORY OF MALIGNANT NEOPLASM O 05/25/2017 LIBAN LIRA MD Ot C78.00 SECONDARY MALIGNANT NEOPLASM OF UNSPECIF 05/25/2017 LIBAN LIRA MD Ot C79.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 05/25/2017 LIBAN LIRA MD Ot 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 NEOPLASM OF OTHER SP 05/25/2017 LIBAN LIRA MD Ot 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, EXTRANODAL AND SOLID 05/25/2017 CARLOS MANUEL LIRA MDNER Ot Z85.118 PERSONAL HISTORY OF MALIGNANT NEOPLASM O 05/25/2017 LIBAN LIRA MD Ot 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] 05/25/2017 LIBAN LIRA MD Ot Z92.3 PERSONAL HISTORY OF IRRADIATION 05/25/2017 LIBAN LIRA MD Ot M54.9 DORSALGIA, UNSPECIFIED 05/25/2017 LIBAN LIRA MD Ot Z85.118 PERSONAL HISTORY OF MALIGNANT NEOPLASM O 05/25/2017 LIBAN LIRA MD Ot M54.9 DORSALGIA, UNSPECIFIED 05/25/2017 LIBAN LIRA MD Ot Z85.118 PERSONAL HISTORY OF MALIGNANT NEOPLASM O 05/26/2017 LIBAN LIRA MD Ot C78.00 SECONDARY MALIGNANT NEOPLASM OF UNSPECIF 05/26/2017 LIBAN LIRA MD Ot C79.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 05/26/2017 LIBAN LIRA MD Ot 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 NEOPLASM OF OTHER SP 05/26/2017 LIBAN LIRA MD Ot 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, EXTRANODAL AND SOLID 05/26/2017 LIBAN LIRA MD Ot Z45.2 ENCOUNTER FOR ADJUSTMENT AND MANAGEMENT 05/26/2017 LIBAN LIRA MD Ot Z51.0 ENCOUNTER FOR ANTINEOPLASTIC RADIATION T 05/26/2017 LIBAN LIRA MD Ot Z85.118 PERSONAL HISTORY OF MALIGNANT NEOPLASM O 05/26/2017 LIBAN LIRA MD Ot 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] 05/31/2017 LIBAN LIRA MD Ot C78.00 SECONDARY MALIGNANT NEOPLASM OF UNSPECIF 05/31/2017 LIBAN LIRA MD Ot C79.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 05/31/2017 LIBAN LIRA MD Ot 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 NEOPLASM OF OTHER SP 05/31/2017 ILBAN LIRA MD Ot 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, EXTRANODAL AND SOLID 05/31/2017 LIBAN LIRA MD Ot Z45.2 ENCOUNTER FOR ADJUSTMENT AND MANAGEMENT 05/31/2017 LIBAN LIRA MD Ot Z51.0 ENCOUNTER FOR ANTINEOPLASTIC RADIATION T 05/31/2017 LIBAN LIRA MD Ot Z85.118 PERSONAL HISTORY OF MALIGNANT NEOPLASM O 05/31/2017 LIBAN LIRA MD Ot 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] 06/07/2017 RAYMUNDO COLEMAN, RHONDA Maldonado Ot R50.9 FEVER, UNSPECIFIED 06/15/2017 LIBAN LIRA MD Ot C78.00 SECONDARY MALIGNANT NEOPLASM OF UNSPECIF 06/15/2017 LIBAN LIRA MD Ot C79.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 06/15/2017 LIBAN LIRA MD Ot 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 NEOPLASM OF OTHER SP 06/15/2017 LIBAN LIRA MD Ot 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, EXTRANODAL AND SOLID 06/15/2017 LIBAN LIRA MD Ot Z85.118 PERSONAL HISTORY OF MALIGNANT NEOPLASM O 06/15/2017 LIBAN LIRA MD Ot 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] 06/15/2017 LIBAN LIRA MD Ot Z92.3 PERSONAL HISTORY OF IRRADIATION 06/17/2017 RAYMUNDO COLEMAN, RHONDA Maldonado Ot R50.9 FEVER, UNSPECIFIED 06/17/2017 LIBAN LIRA MD Ot C78.00 SECONDARY MALIGNANT NEOPLASM OF UNSPECIF 06/17/2017 LIBAN LIRA MD Ot C79.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 06/17/2017 LIBAN LIRA MD Ot 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 NEOPLASM OF OTHER SP 06/17/2017 LIBAN LIRA MD Ot 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, EXTRANODAL AND SOLID 06/17/2017 LIBAN LIRA MD Ot Z85.118 PERSONAL HISTORY OF MALIGNANT NEOPLASM O 06/17/2017 LIBAN LIRA MD Ot 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] 06/17/2017 LIBAN LIRA MD Ot Z92.3 PERSONAL HISTORY OF IRRADIATION 06/19/2017 LIBAN LIRA MD Ot C78.00 SECONDARY MALIGNANT NEOPLASM OF UNSPECIF 06/19/2017 LIBAN LIRA MD Ot C79.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 06/19/2017 LIBAN LIRA MD Ot 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 NEOPLASM OF OTHER SP 06/19/2017 LIBAN LIRA MD Ot 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, EXTRANODAL AND SOLID 06/19/2017 LIBAN LIRA MD Ot Z85.118 PERSONAL HISTORY OF MALIGNANT NEOPLASM O 06/19/2017 LIBAN LIRA MD Ot 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] 06/19/2017 LIBAN LIRA MD Ot Z92.3 PERSONAL HISTORY OF IRRADIATION 06/21/2017 LIBAN LIRA MD Ot M25.552 PAIN IN LEFT HIP 07/06/2017 HUSSEIN BERRY MD Ot F32.9 MAJOR DEPRESSIVE DISORDER, SINGLE EPISOD 07/06/2017 HUSSEIN BERRY MD Ot F41.9 ANXIETY DISORDER, UNSPECIFIED 07/06/2017 HUSSEIN BERRY MD Ot G47.30 SLEEP APNEA, UNSPECIFIED 07/06/2017 HUSSEIN BERRY MD Ot I12.9 HYPERTENSIVE CHRONIC KIDNEY DISEASE W ST 07/06/2017 HUSSEIN BERRY MD Ot I48.91 UNSPECIFIED ATRIAL FIBRILLATION 07/06/2017 HUSSEIN BERRY MD Ot J44.9 CHRONIC OBSTRUCTIVE PULMONARY DISEASE, U 07/06/2017 HUSSEIN BERRY MD Ot K21.9 GASTRO-ESOPHAGEAL REFLUX DISEASE WITHOUT 07/06/2017 HUSSEIN BERRY MD Ot N18.9 CHRONIC KIDNEY DISEASE, UNSPECIFIED 07/06/2017 HUSSEIN BERRY MD Ot R10.31 RIGHT LOWER QUADRANT PAIN 07/06/2017 HUSSEIN BERRY MD Ot Z79.51 SHELTER (CURRENT) USE OF INHALED STERO 07/06/2017 HUSSEIN BERRY MD Ot Z79.52 SPINDRAW OPERATOR (CURRENT) USE OF SYSTEMIC STER 07/06/2017 HUSSEIN BERRY MD Ot Z80.0 FAMILY HISTORY OF MALIGNANT NEOPLASM OF 07/06/2017 HUSSEIN BERRY MD Ot Z80.42 FAMILY HISTORY OF MALIGNANT NEOPLASM OF 07/06/2017 HUSSEIN BERRY MD Ot Z85.118 PERSONAL HISTORY OF MALIGNANT NEOPLASM O 07/06/2017 HUSSEIN BERRY MD Ot Z85.848 PERSONAL HISTORY OF MALIGNANT NEOPLASM O 07/06/2017 HUSSEIN BERRY MD Ot Z86.010 PERSONAL HISTORY OF COLONIC POLYPS 07/06/2017 HUSSEIN BERRY MD Ot Z87.19 PERSONAL HISTORY OF OTHER DISEASES OF TH 07/06/2017 HUSSEIN BERRY MD Ot Z87.891 PERSONAL HISTORY OF NICOTINE DEPENDENCE 07/06/2017 HUSSEIN BERRY MD Ot Z88.1 ALLERGY STATUS TO OTHER ANTIBIOTIC AGENT 07/06/2017 HUSSEIN BERRY MD Ot 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] 07/06/2017 HUSSEIN BERRY MD Ot Z90.49 ACQUIRED ABSENCE OF OTHER SPECIFIED PART 07/10/2017 HUSSEIN BERRY MD Ot F32.9 MAJOR DEPRESSIVE DISORDER, SINGLE EPISOD 07/10/2017 HUSSEIN BERRY MD Ot F41.9 ANXIETY DISORDER, UNSPECIFIED 07/10/2017 HUSSEIN BERRY MD Ot G47.30 SLEEP APNEA, UNSPECIFIED 07/10/2017 HUSSEIN BERRY MD Ot I12.9 HYPERTENSIVE CHRONIC KIDNEY DISEASE W ST 07/10/2017 HUSSEIN BERRY MD Ot I48.91 UNSPECIFIED ATRIAL FIBRILLATION 07/10/2017 HUSSEIN BERRY MD Ot J44.9 CHRONIC OBSTRUCTIVE PULMONARY DISEASE, U 07/10/2017 HUSSEIN BERRY MD Ot K21.9 GASTRO-ESOPHAGEAL REFLUX DISEASE WITHOUT 07/10/2017 HUSSEIN BERRY MD Ot N18.9 CHRONIC KIDNEY DISEASE, UNSPECIFIED 07/10/2017 HUSSEIN BERRY MD Ot R10.31 RIGHT LOWER QUADRANT PAIN 07/10/2017 HUSSEIN BERRY MD Ot Z79.51 SPINDRAW OPERATOR (CURRENT) USE OF INHALED STERO 07/10/2017 HUSSEIN BERRY MD Ot Z79.52 SHELTER (CURRENT) USE OF SYSTEMIC STER 07/10/2017 HUSSEIN BERRY MD Ot Z80.0 FAMILY HISTORY OF MALIGNANT NEOPLASM OF 07/10/2017 HUSSEIN BERRY MD Ot Z80.42 FAMILY HISTORY OF MALIGNANT NEOPLASM OF 07/10/2017 HUSSEIN BERRY MD Ot Z85.118 PERSONAL HISTORY OF MALIGNANT NEOPLASM O 07/10/2017 HUSSEIN BERRY MD Ot Z85.848 PERSONAL HISTORY OF MALIGNANT NEOPLASM O 07/10/2017 HUSSEIN BERRY MD Ot Z86.010 PERSONAL HISTORY OF COLONIC POLYPS 07/10/2017 HUSSEIN BERRY MD Ot Z87.19 PERSONAL HISTORY OF OTHER DISEASES OF TH 07/10/2017 HUSSEIN BERRY MD Ot Z87.891 PERSONAL HISTORY OF NICOTINE DEPENDENCE 07/10/2017 HUSSEIN BERRY MD Ot Z88.1 ALLERGY STATUS TO OTHER ANTIBIOTIC AGENT 07/10/2017 HUSSEIN BERRY MD Ot 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] 07/10/2017 HUSSEIN BERRY MD Ot Z90.49 ACQUIRED ABSENCE OF OTHER SPECIFIED PART 07/30/2017 RAYMUNDO COLEMAN, RHONDA Maldonado Ot R50.9 FEVER, UNSPECIFIED 07/30/2017 LIBAN LIRA MD Ot C78.00 SECONDARY MALIGNANT NEOPLASM OF UNSPECIF 07/30/2017 LIBAN LIRA MD Ot C79.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 07/30/2017 LIBAN LIRA MD Ot 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 NEOPLASM OF OTHER SP 07/30/2017 LIBAN LIRA MD Ot E03.9 HYPOTHYROIDISM, UNSPECIFIED 07/30/2017 LIBAN LIRA MD Ot G89.3 NEOPLASM RELATED PAIN (ACUTE) (CHRONIC) 07/30/2017 LIBAN LIRA MD Ot I10 ESSENTIAL (PRIMARY) HYPERTENSION 07/30/2017 LIBAN LIRA MD Ot M25.552 PAIN IN LEFT HIP 07/30/2017 LIBAN LIRA MD Ot R63.0 ANOREXIA 07/30/2017 LIBAN LIRA MD, Ot Z08 ENCNTR FOR FOLLOW-UP EXAM AFTER TRTMT FO 07/30/2017 LIBAN LIRA MD, Ot Z85.118 PERSONAL HISTORY OF MALIGNANT NEOPLASM O 07/30/2017 LIBAN LIRA MD, Ot Z85.72 PERSONAL HISTORY OF NON-HODGKIN LYMPHOMA 07/30/2017 LIBAN LIRA MD, Ot 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] 07/30/2017 LIBAN LIRA MD, Ot Z92.3 PERSONAL HISTORY OF IRRADIATION 07/30/2017 Ot 202.10 MYCOSIS FUNGOIDES EXTRANODAL SOLID ORG 07/30/2017 Ot 401.9 HYPERTENSION NOS 07/30/2017 Ot 786.6 CHEST SWELLING/MASS/LUMP 07/30/2017 Ot V10.11 HX- BRONCHOGENIC MALIGNAN 07/30/2017 Ot V58.69 OTH MED,LT, CURRENT USE 07/30/2017 WILFRED CONWAY MD Ot 202.10 MYCOSIS FUNGOIDES EXTRANODAL SOLID ORG 07/30/2017 WILFRED CONWAY MD Ot 401.9 HYPERTENSION NOS 07/30/2017 WILFRED CONWAY MD Ot 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-BRONCHOGENIC MALIGNAN 07/30/2017 WILFRED CONWAY MD Ot V58.0 ENCOUNTER FOR RADIOTHERAPY 07/30/2017 WILFRED CONWAY MD Ot V58.69 OTH MED,LT,CURRENT USE 08/01/2017 ELEANOR CARTWRIGHT MD Ot C78.00 SECONDARY MALIGNANT NEOPLASM OF UNSPECIF 08/01/2017 ELEANOR CARTWRIGHT MD Ot C79.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 08/01/2017 ELEANOR CARTWRIGHT MD Ot E03.9 HYPOTHYROIDISM, UNSPECIFIED 08/01/2017 ELEANOR CARTWRIGHT MD Ot F32.9 MAJOR DEPRESSIVE DISORDER, SINGLE EPISOD 08/01/2017 ELEANOR CARTWRIGHT MD Ot F41.9 ANXIETY DISORDER, UNSPECIFIED 08/01/2017 ELEANOR CARTWRIGHT MD Ot G89.3 NEOPLASM RELATED PAIN (ACUTE) (CHRONIC) 08/01/2017 ELEANOR CARTWRIGHT MD Ot H40.9 UNSPECIFIED GLAUCOMA 08/01/2017 ELEANOR CARTWRIGHT MD, Ot I12.9 HYPERTENSIVE CHRONIC KIDNEY DISEASE W ST 08/01/2017 ELEANOR CARTWRIGHT MD, Ot I48.0 PAROXYSMAL ATRIAL FIBRILLATION 08/01/2017 ELEANOR CARTWRIGHT MD Ot J44.1 CHRONIC OBSTRUCTIVE PULMONARY DISEASE W 08/01/2017 ELEANOR CARTWRIGHT MD Ot K21.9 GASTRO-ESOPHAGEAL REFLUX DISEASE WITHOUT 08/01/2017 ELEANOR CARTWRIGHT MD, Ot N18.9 CHRONIC KIDNEY DISEASE, UNSPECIFIED 08/01/2017 ELEANOR CARTWRIGHT MD Ot R06.03 ACUTE RESPIRATORY DISTRESS 08/01/2017 ELEANOR CARTWRIGHT MD Ot Z85.118 PERSONAL HISTORY OF MALIGNANT NEOPLASM O 08/01/2017 ELEANOR CARTWRIGHT MD Ot Z86.010 PERSONAL HISTORY OF COLONIC POLYPS 08/01/2017 ELEANOR CARTWRIGHT MD Ot Z87.19 PERSONAL HISTORY OF OTHER DISEASES OF TH 08/01/2017 ELEANOR CARTWRIGHT MD, Ot Z87.891 PERSONAL HISTORY OF NICOTINE DEPENDENCE 08/01/2017 ELEANOR CARTWRIGHT MD Ot 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] 08/01/2017 ELEANOR CARTWRIGHT MD Ot Z92.21 PERSONAL HISTORY OF ANTINEOPLASTIC CHEMO 08/02/2017 ELEANOR CARTWRIGHT MD Ot C78.00 SECONDARY MALIGNANT NEOPLASM OF UNSPECIF 08/02/2017 ELEANOR CARTWRIGHT MD Ot C79.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 08/02/2017 ELEANOR CARTWRIGHT MD Ot E03.9 HYPOTHYROIDISM, UNSPECIFIED 08/02/2017 ELEANOR CARTWRIGHT MD Ot F32.9 MAJOR DEPRESSIVE DISORDER, SINGLE EPISOD 08/02/2017 ELEANOR CARTWRIGHT MD, Ot F41.9 ANXIETY DISORDER, UNSPECIFIED 08/02/2017 ELEANOR CARTWRIGHT MD Ot G89.3 NEOPLASM RELATED PAIN (ACUTE) (CHRONIC) 08/02/2017 ELEANOR CARTWRIGHT MD, Ot H40.9 UNSPECIFIED GLAUCOMA 08/02/2017 ELEANOR CARTWRIGHT MD, Ot I12.9 HYPERTENSIVE CHRONIC KIDNEY DISEASE W ST 08/02/2017 ELEANOR CARTWRIGHT MD Ot I48.0 PAROXYSMAL ATRIAL FIBRILLATION 08/02/2017 ELEANOR CARTWRIGHT MD, Ot J44.1 CHRONIC OBSTRUCTIVE PULMONARY DISEASE W 08/02/2017 ELEANOR CARTWRIGHT MD, Ot K21.9 GASTRO-ESOPHAGEAL REFLUX DISEASE WITHOUT 08/02/2017 ELEANOR CARTWRIGHT MD, Ot N18.9 CHRONIC KIDNEY DISEASE, UNSPECIFIED 08/02/2017 ELEANOR CARTWRIGHT MD, Ot R06.03 ACUTE RESPIRATORY DISTRESS 08/02/2017 ELEANOR CARTWRIGHT MD, Ot Z85.118 PERSONAL HISTORY OF MALIGNANT NEOPLASM O 08/02/2017 ELEANOR CARTWRIGHT MD, Ot Z86.010 PERSONAL HISTORY OF COLONIC POLYPS 08/02/2017 ELEANOR CARTWRIGHT MD, Ot Z87.19 PERSONAL HISTORY OF OTHER DISEASES OF TH 08/02/2017 ELEANOR CARTWRIGHT MD, Ot Z87.891 PERSONAL HISTORY OF NICOTINE DEPENDENCE 08/02/2017 ELEANOR CARTWRIGHT MD, Ot 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] 08/02/2017 ELEANOR CARTWRIGHT MD, Ot Z92.21 PERSONAL HISTORY OF ANTINEOPLASTIC CHEMO 08/02/2017 LIBAN LIRA MD Ot C78.00 SECONDARY MALIGNANT NEOPLASM OF UNSPECIF 08/02/2017 LIBAN LIRA MD Ot C79.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 08/02/2017 LIBAN LIRA MD Ot 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 NEOPLASM OF OTHER SP 08/02/2017 LIBAN LIRA MD Ot E03.9 HYPOTHYROIDISM, UNSPECIFIED 08/02/2017 LIBAN LIRA MD Ot G89.3 NEOPLASM RELATED PAIN (ACUTE) (CHRONIC) 08/02/2017 LIBAN LIRA MD Ot I10 ESSENTIAL (PRIMARY) HYPERTENSION 08/02/2017 LIBAN LIRA MD Ot M25.552 PAIN IN LEFT HIP 08/02/2017 LIBAN LIRA MD Ot R63.0 ANOREXIA 08/02/2017 LIBAN LIRA MD Ot Z08 ENCNTR FOR FOLLOW-UP EXAM AFTER TRTMT FO 08/02/2017 LIBAN LIRA MD Ot Z85.118 PERSONAL HISTORY OF MALIGNANT NEOPLASM O 08/02/2017 LIBAN LIRA MD Ot Z85.72 PERSONAL HISTORY OF NON-HODGKIN LYMPHOMA 08/02/2017 LIBAN LIRA MD Ot 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] 08/02/2017 LIBAN LIRA MD Ot Z92.3 PERSONAL HISTORY OF IRRADIATION Procedures Code Description Performed By Performed On [id number] DRAINAGE OF ESOPHAGAST JUNCT WITH DRAIN 12/28/2016 [...] 12/27/16 21:32 Blood monocytes/100 leukocytes 0 % NRG Manual blood segmented neutrophils/100 leukocytes 89 % NRG Blood band neutrophils/100 leukocytes 7 % NRG Manual blood lymphocytes/100 leukocytes 4 % NRG Manual eosinophils/100 leukocytes in nose 0 % NRG Manual blood basophils/100 leukocytes 0 % NRG Blood erythrocyte morphology finding identification [facility] Comprehensive metabolic panel - 12/27/16 [...] 0.0-0.1 Whole blood basic metabolic panel - 12/31/16 06:35 Serum or plasma sodium measurement (moles/volume) [...] poor plasma bycoagulation assay 69 s 24-35 Bacterial blood culture - 04/28/17 17:56 Bacterial blood culture [facility] Complete blood count (CBC) with automated white blood cell (WBC) differential - 04/28/17 18:24 Blood leukocytes automated count (number/volume) 7.0 10*3/uL 4.3-11.0 Blood erythrocytes automated count (number/volume) 5.13 10*6/uL 4.35-5.85 Venous blood hemoglobin measurement (mass/volume) 12.7 g/dL 13.3-17.7 Blood hematocrit (volume fraction) 41 % 40-54 Automated erythrocyte mean corpuscular volume 80 [foz_us] 80-99 Automated erythrocyte mean corpuscular hemoglobin (mass per erythrocyte) 25 pg 25-34 Automated erythrocyte mean corpuscular hemoglobin concentration measurement ( mass/volume) 31 g/dL 32-36 Automated erythrocyte distribution width ratio 15.6 % 10.0-14.5 Automated blood platelet count (count/volume) 264 10*3/uL 130-400 Automated blood platelet mean volume measurement 9.9 [foz_us] 7.4-10.4 Automated blood neutrophils/100 leukocytes 73 % 42-75 Automated blood lymphocytes/100 leukocytes 16 % 12-44 Blood monocytes/100 leukocytes 8 % 0-12 Automated blood eosinophils/100 leukocytes 3 % 0-10 Automated blood basophils/100 leukocytes 1 % 0-10 Blood neutrophils automated count (number/volume) 5.1 10*3 1.8-7.8 Blood lymphocytes automated count (number/volume) 1.1 10*3 1.0-4.0 Blood monocytes automated count (number/volume) 0.5 10*3 0.0-1.0 Automated eosinophil count 0.2 10*3/uL 0.0-0.3 Automated blood basophil count (count/volume) 0.0 10*3/uL 0.0-0.1 Blood lactic acid measurement (moles/volume) - 04/28/17 18:24 Blood lactic acid measurement (moles/volume) 0.89 mmol/L 0.50-2.00 Influenza virus A and B antigen detection - 04/28/17 18:24 FLU RESULT NEGATIVE FOR INFLUENZA A AND B ANTIGENS BY [facility] Comprehensive metabolic panel - 04/28/17 18:24 Serum or plasma sodium measurement (moles/volume) 137 mmol/L 135-145 Serum or plasma potassium measurement (moles/volume) 4.2 mmol/L 3.6-5.0 Serum or plasma chloride measurement (moles/volume) 98 mmol/L 98-107 Carbon dioxide 27 mmol/L 21-32 Serum or plasma anion gap determination (moles/volume) 12 mmol/L 5-14 Serum or plasma urea nitrogen measurement (mass/volume) 12 mg/dL 7-18 Serum or plasma creatinine measurement (mass/volume) 1.23 mg/dL 0.60-1.30 Serum or plasma urea nitrogen/creatinine mass ratio 10 NR Serum or plasma creatinine measurement with calculation of estimated glomerular filtration rate 60 NRG Serum or plasma glucose measurement (mass/volume) 100 mg/dL 70-105 Serum or plasma calcium measurement (mass/volume) 9.3 mg/dL 8.5-10.1 Serum or plasma total bilirubin measurement (mass/volume) 0.3 mg/dL 0.1-1.0 Serum or plasma alkaline phosphatase measurement (enzymatic activity/volume) 81 U/L 40-136 Serum or plasma aspartate aminotransferase measurement (enzymatic activity/ volume) 17 U/L 5-34 Serum or plasma alanine aminotransferase measurement (enzymatic activity/volume ) 11 U/L 0-55 Serum or plasma protein measurement (mass/volume) 7.0 g/dL 6.4-8.2 Serum or plasma albumin measurement (mass/volume) 3.9 g/dL 3.2-4.5 Serum or plasma C reactive protein measurement (mass/volume) - 04/28/17 18:24 Serum or plasma C reactive protein measurement (mass/volume) 1.17 mg /dL 0.00-0.50 Bacterial blood culture - 04/28/17 18:24 Bacterial blood culture [facility] Influenza virus A and B antigen detection - 05/17/17 14:30 FLU RESULT NEGATIVE FOR INFLUENZA A AND B ANTIGENS BY [facility] Complete blood count (CBC) with automated white blood cell (WBC) differential - 07/06/17 19:27 Blood leukocytes automated count (number/volume) 8.4 10*3/uL 4.3-11.0 Blood erythrocytes automated count (number/volume) 4.83 10*6/uL 4.35-5.85 Venous blood hemoglobin measurement (mass/volume) 11.8 g/dL 13.3-17.7 Blood hematocrit (volume fraction) 38 % 40-54 Automated erythrocyte mean corpuscular volume 79 [foz_us] 80-99 Automated erythrocyte mean corpuscular hemoglobin (mass per erythrocyte) 24 pg 25-34 Automated erythrocyte mean corpuscular hemoglobin concentration measurement ( mass/volume) 31 g/dL 32-36 Automated erythrocyte distribution width ratio 16.9 % 10.0-14.5 Automated blood platelet count (count/volume) 247 10*3/uL 130-400 Automated blood platelet mean volume measurement 10.1 [foz_us] 7.4-10.4 Automated blood neutrophils/100 leukocytes 86 % 42-75 Automated blood lymphocytes/100 leukocytes 5 % 12-44 Blood monocytes/100 leukocytes 7 % 0-12 Automated blood eosinophils/100 leukocytes 1 % 0-10 Automated blood basophils/100 leukocytes 0 % 0-10 Blood neutrophils automated count (number/volume) 7.2 10*3 1.8-7.8 Blood lymphocytes automated count (number/volume) 0.4 10*3 1.0-4.0 Blood monocytes automated count (number/volume) 0.6 10*3 0.0-1.0 Automated eosinophil count 0.1 10*3/uL 0.0-0.3 Automated blood basophil count (count/volume) 0.0 10*3/uL 0.0-0.1 Blood lactic acid measurement (moles/volume) - 07/06/17 19:27 Blood lactic acid measurement (moles/volume) 0.89 mmol/L 0.50-2.00 Comprehensive metabolic panel - 07/06/17 19:27 Serum or plasma sodium measurement (moles/volume) 134 mmol/L 135-145 Serum or plasma potassium measurement (moles/volume) 4.4 mmol/L 3.6-5.0 Serum or plasma chloride measurement (moles/volume) 97 mmol/L 98-107 Carbon dioxide 31 mmol/L 21-32 Serum or plasma anion gap determination (moles/volume) 6 mmol/L 5-14 Serum or plasma urea nitrogen measurement (mass/volume) 17 mg/dL 7-18 Serum or plasma creatinine measurement (mass/volume) 0.97 mg/dL 0.60-1.30 Serum or plasma urea nitrogen/creatinine mass ratio 18 NRG Serum or plasma creatinine measurement with calculation of estimated glomerular filtration rate > NRG Serum or plasma glucose measurement (mass/volume) 117 mg/dL 70-105 Serum or plasma calcium measurement (mass/volume) 9.4 mg/dL 8.5-10.1 Serum or plasma total bilirubin measurement (mass/volume) 0.7 mg/dL 0.1-1.0 Serum or plasma alkaline phosphatase measurement (enzymatic activity/volume) 111 U/L 40-136 Serum or plasma aspartate aminotransferase measurement (enzymatic activity/ volume) 33 U/L 5-34 Serum or plasma alanine aminotransferase measurement (enzymatic activity/volume ) 17 U/L 0-55 Serum or plasma protein measurement (mass/volume) 6.9 g/dL 6.4-8.2 Serum or plasma albumin measurement (mass/volume) 3.9 g/dL 3.2-4.5 Magnesium - 07/06/17 19:27 Magnesium 1.6 mg/dL 1.8-2.4 Lipase - 07/06/17 19:27 Lipase 43 U/L 8-78 Serum or plasma C reactive protein measurement (mass/volume) - 07/06/17 19:27 Serum or plasma C reactive protein measurement (mass/volume) 7.16 mg /dL 0.00-0.50 Blood manual differential performed detection - 07/06/17 19:27 Blood monocytes/100 leukocytes 7 % NRG Manual blood segmented neutrophils/100 leukocytes 84 % NRG Blood band neutrophils/100 leukocytes 0 % NRG Manual blood lymphocytes/100 leukocytes 9 % NRG Manual eosinophils/100 leukocytes in nose 0 % NRG Manual blood basophils/100 leukocytes 0 % NRG Blood hypochromia detection by light microscopy SLIGHT NRG Complete urinalysis with reflex to culture - 07/06/17 20:00 Urine color determination YELLOW NRG Urine clarity determination CLEAR NRG Urine pH measurement by test strip 6 5-9 Specific gravity of urine by test strip 1.010 1.016- 1.022 Urine protein assay by test strip, semi-quantitative NEGATIVE NEGATIVE Urine glucose detection by automated test strip NEGATIVE NEGATIVE Erythrocytes detection in urine sediment by light microscopy NEGATIVE NEGATIVE Urine ketones detection by automated test strip NEGATIVE NEGATIVE Urine nitrite detection by test strip NEGATIVE NEGATIVE Urine total bilirubin detection by test strip NEGATIVE NEGATIVE Urine urobilinogen measurement by automated test strip (mass/volume) NORMAL NORMAL Urine leukocyte esterase detection by dipstick 1+ NEGATIVE Automated urine sediment erythrocyte count by microscopy (number/high power field) NONE NRG Automated urine sediment leukocyte count by microscopy (number/high power field ) RARE NRG Bacteria detection in urine sediment by light microscopy NEGATIVE NRG Crystals detection in urine sediment by light microscopy NONE NRG Casts detection in urine sediment by light microscopy NONE NRG Mucus detection in urine sediment by light microscopy NEGATIVE NRG Complete urinalysis with reflex to culture NO NRG Complete blood count (CBC) with automated white blood cell (WBC) differential - 07/30/17 06:43 Blood leukocytes automated count (number/volume) 5.6 10*3/uL 4.3-11.0 Blood erythrocytes automated count (number/volume) 4.38 10*6/uL 4.35-5.85 Venous blood hemoglobin measurement (mass/volume) 10.3 g/dL 13.3-17.7 Blood hematocrit (volume fraction) 37 % 40-54 Automated erythrocyte mean corpuscular volume 83 [foz_us] 80-99 Automated erythrocyte mean corpuscular hemoglobin (mass per erythrocyte) 24 pg 25-34 Automated erythrocyte mean corpuscular hemoglobin concentration measurement ( mass/volume) 28 g/dL 32-36 Automated erythrocyte distribution width ratio 17.2 % 10.0-14.5 Automated blood platelet count (count/volume) 226 10*3/uL 130-400 Automated blood platelet mean volume measurement 9.8 [foz_us] 7.4-10.4 Automated blood neutrophils/100 leukocytes 84 % 42-75 Automated blood lymphocytes/100 leukocytes 3 % 12-44 Blood monocytes/100 leukocytes 10 % 0-12 Automated blood eosinophils/100 leukocytes 2 % 0-10 Automated blood basophils/100 leukocytes 0 % 0-10 Blood neutrophils automated count (number/volume) 4.7 10*3 1.8-7.8 Blood lymphocytes automated count (number/volume) 0.2 10*3 1.0-4.0 Blood monocytes automated count (number/volume) 0.5 10*3 0.0-1.0 Automated eosinophil count 0.1 10*3/uL 0.0-0.3 Automated blood basophil count (count/volume) 0.0 10*3/uL 0.0-0.1 Blood lactic acid measurement (moles/volume) - 07/30/17 06:43 Blood lactic acid measurement (moles/volume) 0.90 mmol/L 0.50-2.00 PT panel in platelet poor plasma by coagulation assay - 07/30/17 06:43 Prothrombin time (PT) in platelet poor plasma by coagulation assay 14.1 s 12.2-14.7 INR in platelet poor plasma or blood by coagulation assay 1.1 0.8-1.4 Activated partial thromboplastin time (aPTT) in platelet poor plasma bycoagulation assay - 07/30/17 06:43 Activated partial thromboplastin time (aPTT) in platelet poor plasma bycoagulation assay 42 s 24-35 Comprehensive metabolic panel - 07/30/17 06:43 Serum or plasma sodium measurement (moles/volume) 137 mmol/L 135-145 Serum or plasma potassium measurement (moles/volume) 4.0 mmol/L 3.6-5.0 Serum or plasma chloride measurement (moles/volume) 93 mmol/L 98-107 Carbon dioxide 34 mmol/L 21-32 Serum or plasma anion gap determination (moles/volume) 10 mmol/L 5-14 Serum or plasma urea nitrogen measurement (mass/volume) 13 mg/dL 7-18 Serum or plasma creatinine measurement (mass/volume) 0.75 mg/dL 0.60-1.30 Serum or plasma urea nitrogen/creatinine mass ratio 17 NRG Serum or plasma creatinine measurement with calculation of estimated glomerular filtration rate > NRG Serum or plasma glucose measurement (mass/volume) 126 mg/dL 70-105 Serum or plasma calcium measurement (mass/volume) 9.8 mg/dL 8.5-10.1 Serum or plasma total bilirubin measurement (mass/volume) 0.7 mg/dL 0.1-1.0 Serum or plasma alkaline phosphatase measurement (enzymatic activity/volume) 149 U/L 40-136 Serum or plasma aspartate aminotransferase measurement (enzymatic activity/ volume) 34 U/L 5-34 Serum or plasma alanine aminotransferase measurement (enzymatic activity/volume ) 14 U/L 0-55 Serum or plasma protein measurement (mass/volume) 6.5 g/dL 6.4-8.2 Serum or plasma albumin measurement (mass/volume) 3.6 g/dL 3.2-4.5 Serum or plasma C reactive protein measurement (mass/volume) - 07/30/17 06:43 Serum or plasma C reactive protein measurement (mass/volume) 4.28 mg /dL 0.00-0.50 Bacterial blood culture - 07/30/17 06:43 Bacterial blood culture NG NRG PROCALCITONIN - 07/30/17 06:43 Procalcitonin [mass/volume] in serum or plasma 92.75 % <= 0.10 Sputum Gram stain - 07/30/17 07:05 Sputum Gram stain Few WBC's, and mixed bacterial mikhail NRG Bacterial sputum culture - 07/30/17 07:05 FREE TEXT EXTERNAL PLUS NORMAL MIKHAIL NRG QUANTITY OF GROWTH Abundant Growth NRG Bacterial sputum culture [id number] NRG Complete urinalysis with reflex to culture - 07/30/17 07:31 Urine color determination YELLOW NRG Urine clarity determination CLEAR NRG Urine pH measurement by test strip 7 5-9 Specific gravity of urine by test strip 1.010 1.016- 1.022 Urine protein assay by test strip, semi-quantitative NEGATIVE NEGATIVE Urine glucose detection by automated test strip NEGATIVE NEGATIVE Erythrocytes detection in urine sediment by light microscopy NEGATIVE NEGATIVE Urine ketones detection by automated test strip NEGATIVE NEGATIVE Urine nitrite detection by test strip NEGATIVE NEGATIVE Urine total bilirubin detection by test strip NEGATIVE NEGATIVE Urine urobilinogen measurement by automated test strip (mass/volume) 4 mg/dL NORMAL Urine leukocyte esterase detection by dipstick NEGATIVE NEGATIVE Automated urine sediment erythrocyte count by microscopy (number/high power field) NONE NRG Automated urine sediment leukocyte count by microscopy (number/high power field ) NONE NRG Bacteria detection in urine sediment by light microscopy NEGATIVE NRG Squamous epithelial cells detection in urine sediment by light microscopy 2-5 NRG Crystals detection in urine sediment by light microscopy NONE NRG Casts detection in urine sediment by light microscopy NONE NRG Mucus detection in urine sediment by light microscopy NEGATIVE NRG Complete urinalysis with reflex to culture NO NRG Amorphous sediment detection in urine sediment by light microscopy FEW ASHLEE URATES NRG Bacterial blood culture - 07/30/17 07:36 Bacterial blood culture NG NRG Complete blood count (CBC) with automated white blood cell (WBC) differential - 07/31/17 05:45 Blood leukocytes automated count (number/volume) 5.6 10*3/uL 4.3-11.0 Blood erythrocytes automated count (number/volume) 3.83 10*6/uL 4.35-5.85 Venous blood hemoglobin measurement (mass/volume) 9.1 g/dL 13.3-17.7 Blood hematocrit (volume fraction) 32 % 40-54 Automated erythrocyte mean corpuscular volume 83 [foz_us] 80-99 Automated erythrocyte mean corpuscular hemoglobin (mass per erythrocyte) 24 pg 25-34 Automated erythrocyte mean corpuscular hemoglobin concentration measurement ( mass/volume) 29 g/dL 32-36 Automated erythrocyte distribution width ratio 16.8 % 10.0-14.5 Automated blood platelet count (count/volume) 192 10*3/uL 130-400 Automated blood platelet mean volume measurement 9.2 [foz_us] 7.4-10.4 Automated blood neutrophils/100 leukocytes 85 % 42-75 Automated blood lymphocytes/100 leukocytes 5 % 12-44 Blood monocytes/100 leukocytes 10 % 0-12 Automated blood eosinophils/100 leukocytes 0 % 0-10 Automated blood basophils/100 leukocytes 0 % 0-10 Blood neutrophils automated count (number/volume) 4.8 10*3 1.8-7.8 Blood lymphocytes automated count (number/volume) 0.3 10*3 1.0-4.0 Blood monocytes automated count (number/volume) 0.6 10*3 0.0-1.0 Automated eosinophil count 0.0 10*3/uL 0.0-0.3 Automated blood basophil count (count/volume) 0.0 10*3/uL 0.0-0.1 Whole blood basic metabolic panel - 07/31/17 05:45 Serum or plasma sodium measurement (moles/volume) 140 mmol/L 135-145 Serum or plasma potassium measurement (moles/volume) 3.8 mmol/L 3.6-5.0 Serum or plasma chloride measurement (moles/volume) 100 mmol/L 98-107 Carbon dioxide 34 mmol/L 21-32 Serum or plasma anion gap determination (moles/volume) 6 mmol/L 5-14 Serum or plasma urea nitrogen measurement (mass/volume) 17 mg/dL 7-18 Serum or plasma creatinine measurement (mass/volume) 0.73 mg/dL 0.60-1.30 Serum or plasma urea nitrogen/creatinine mass ratio 23 NRG Serum or plasma creatinine measurement with calculation of estimated glomerular filtration rate > NRG Serum or plasma glucose measurement (mass/volume) 98 mg/dL 70-105 Serum or plasma calcium measurement (mass/volume) 8.4 mg/dL 8.5-10.1 Fibrin D-dimer FEU measurement in platelet poor plasma (mass/volume) - 10:40 Fibrin D-dimer FEU measurement in platelet poor plasma (mass/volume) 1.18 ug/mL 0.00-0.49 Encounters ACCT No. Visit Date/Time Discharge Status Pt. Type Provider Facility Loc./Unit Complaint [id number] 02/20/2014 16:01:00 02/20/2014 23:59:59 CLS Outpatient CHAVA ARREOLA DO [id number] 07/30/2017 07:50:00 08/02/2017 13:40:00 DIS Inpatient GABBIE COLEMAN, ELEANOR Jaquez [facility] 4TH CPOD,ACUTE EXACERBATION [id number] 07/21/2017 13:35:00 07/21/2017 23:59:59 CLS Outpatient LIBAN LIRA MD [facility] ONC [id number] 07/06/2017 18:13:00 07/06/2017 23:23:00 DIS Emergency HUSSEIN BERRY MD [facility] ER ABD PAIN R SIDE [id number] 06/26/2017 14:40:00 06/26/2017 14:40:00 CAN Preadmit LIBAN LIRA MD [facility] RAD M25.559 [id number] 05/23/2017 12:45:00 05/25/2017 00:01:00 DIS Outpatient LIBAN LIRA MD [facility] ONC [id number] 05/17/2017 14:20:00 05/17/2017 23:59:59 CLS Outpatient RHONDA FONSECA MD [facility] LAB CHILL,FEVER [id number] 04/28/2017 11:54:00 04/28/2017 23:59:59 CLS Outpatient LIBAN LIRA MD [facility] RAD NON-SMALL CELL CA OF RT LUNG PAIN [id number] 04/28/2017 16:44:00 04/28/2017 20:01:00 DIS Emergency JEANNIE CHEATHAM MD [facility] ER CHEST PAIN WHEN BREATHING/SOB [id number] 03/16/2017 11:14:00 03/16/2017 23:59:59 CLS Outpatient LIBAN LIRA MD [facility] RAD [id number] 03/15/2017 09:46:00 03/15/2017 16:30:00 DIS Outpatient LIBAN LIRA MD [facility] RAD NON-SMALL CELL CA OF RT LUNG [id number] 03/10/2017 11:04:00 03/10/2017 23:59:59 CLS Outpatient LIBAN LIRA MD [facility] RAD 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 [id number] 01/18/2017 10:38:00 02/16/2017 16:53:00 DIS Outpatient WILFRED CONWAY MD [facility] ONC [id number] 12/28/2016 01:00:00 01/06/2017 18:45:00 DIS Inpatient CARLTON HUNT DO [facility] 4TH SMALL BOWEL OBSTRUCTION; DYSPNEA W/ HYPOXIA; [id number] 07/21/2014 00:10:00 07/21/2014 23:59:59 CLS Preadmit WILFRED CONWAY MD [facility] ONC [id number] 05/09/2014 09:42:00 07/20/2014 00:01:00 DIS Outpatient WILFRED CONWAY MD [facility] ONC [id number] 04/15/2014 20:04:00 04/17/2014 13:30:00 DIS Inpatient RHONDA FONSECA MD [facility] CSD [id number] 11/18/2013 12:14:00 02/16/2014 00:01:00 DIS Outpatient JACEK DAVISON MD [facility] ONC [id number] 10/16/2013 15:50:00 10/16/2013 23:59:59 CLS Outpatient RHONDA FONSECA MD [facility] RAD [id number] 07/19/2013 08:40:00 07/19/2013 23:59:59 CLS Outpatient RHONDA FONSECA MD [facility] LAB [id number] 04/19/2013 10:43:00 04/19/2013 23:59:59 CLS Outpatient RHONDA FONSECA MD [facility] LAB [id number] 12/21/2012 07:44:00 12/21/2012 23:59:59 CLS Outpatient RHONDA FONSECA MD [facility] LAB [id number] 11/12/2012 11:53:00 11/12/2012 23:59:59 CLS Outpatient RHONDA FONSECA MD [facility] LAB [id number] 02/17/2014 00:00:00 Document Registration [id number] 04/26/2012 15:32:00 Document Registration [id number] 12/30/2011 10:55:00 Document Registration [id number] 12/25/2011 06:22:00 Document Registration [id number] 06/24/2011 07:01:00 Document Registration [id number] 06/22/2011 07:27:00 Document Registration [id number] 04/08/2011 09:04:00 Document Registration [id number] 02/14/2011 15:45:00 Document Registration [id number] 05/17/2014 09:09:55 ACT Document Registration
[2017-08-04] MEDS ORDERED: RT-ALBUTEROL SULF 2.5 MG/3 ML PRE-MIX VIAL INH STA (06:48)
[2017-08-04 06:54] VITALS: BP 142/85
[2017-08-04 06:56] LABS: BASOPHILS % (AUTO) 0 % (0-10); EOSINOPHILS % (AUTO) 0 % (0-10); HEMATOCRIT 39 % (40-54); HEMOGLOBIN 10.9 G/DL (13.3-17.7); LYMPHOCYTES # (AUTO) 0.3 X 10^3 (1.0-4.0); LYMPHOCYTES % (AUTO) 3 % (12-44); MEAN CORPUSCULAR HEMOGLOBIN 24 PG (25-34); MEAN CORPUSCULAR HGB CONC 28 G/DL (32-36); MEAN CORPUSCULAR VOLUME 85 FL (80-99); MEAN PLATELET VOLUME 10.5 FL (7.4-10.4); MONOCYTES # (AUTO) 0.6 X 10^3 (0.0-1.0); MONOCYTES % (AUTO) 5 % (0-12); NEUTROPHILS # (AUTO) 10.1 X 10^3 (1.8-7.8); NEUTROPHILS % (AUTO) 92 % (42-75); PLATELET COUNT 217 10^3/uL (130-400); RED CELL DISTRIBUTION WIDTH 17.3 % (10.0-14.5)
[2017-08-04] MEDS ORDERED: RT-IPRATROPIUM (ATROVENT) 0.5MG/2.5ML AMP IH ONE (07:00)
[2017-08-04] MEDS ORDERED: methylPREDNISolone 125 MG (Solu-MEDROL) VIAL IVP ONE (07:00)
[2017-08-04] MEDS ORDERED: BACL10TA PO (07:15)
[2017-08-04] MEDS ORDERED: PRD10T PO (07:15)
[2017-08-04 07:16] LABS: ANISOCYTOSIS SLIGHT; HYPOCHROMASIA MODERATE; LYMPHOCYTES % (MANUAL) 1 %; MICROCYTOSIS SLIGHT; MONOCYTES % (MANUAL) 3 %; NEUTROPHILS % (MANUAL) 96 %; POIKILOCYTOSIS SLIGHT
[2017-08-04 07:20] LABS: ALANINE AMINOTRANSFERASE 16 U/L (0-55); ALBUMIN 3.7 GM/DL (3.2-4.5); ALKALINE PHOSPHATASE 154 U/L (40-136); BILIRUBIN,TOTAL 0.7 MG/DL (0.1-1.0); BUN/CREATININE RATIO 21; CALCIUM 9.5 MG/DL (8.5-10.1); CARBON DIOXIDE 36 MMOL/L (21-32); CHLORIDE 94 MMOL/L (98-107); GFR ESTIMATED > 60; GLUCOSE 121 MG/DL (70-105); POTASSIUM 4.1 MMOL/L (3.6-5.0); SODIUM 141 MMOL/L (135-145); TOTAL PROTEIN 6.6 GM/DL (6.4-8.2)
--- NOTE | 2017-08-04 07:21 | Diagnostic Imaging Report ---
Indication: Shortness of air. Comparison: 07/30/2017 Findings: Single frontal radiographic view of the chest was obtained and demonstrates stable mild cardiomegaly. Pulmonary vasculature is within normal limits. Lungs continue to show bilateral nodules and masses. There is also smaller persistent right effusion. Overall, aeration is unchanged. No pneumothorax is seen on either side. Left-sided Port-A-Cath is noted. Impression: 1. Stable exam of the chest showing bilateral pulmonary nodules and masses and a small right basilar effusion. Dictated by: Dictated on workstation # [id number]
[2017-08-04 07:23] LABS: ABG BASE EXCESS 13.3 MMOL/L (-2.5-2.5); ABG OXYGEN SATURATION 100 % (94-100); ABG PO2 115 MMHG (79-93); ABG TCO2 42.3 MMOL/L (21.0-31.0)
[2017-08-04 07:26] LABS: ABG PCO2 73 MMHG (35-45); ABG PH 7.34 (7.37-7.43)
[2017-08-04 07:27] LABS: ALLENS TEST YES-POS; INSPIRED O2 50% BIPAP; PATIENT TEMP 95; VENTILATOR NO
--- NOTE | 2017-08-04 07:50 | ED Respiratory ---
General Chief Complaint: Respiratory Problems Stated Complaint: SOB Nursing Triage Note: pt brought in by ems with complaint of sob. Source: patient, EMS, old records, other (Dr. Morgan) History of Present Illness Date Seen by Provider: Aug 04, 2017 Time Seen by Provider: 06:39 Initial Comments This 62-year-old gentleman presents to the emergency room in respiratory distress. He arrives via EMS with nebulizer treatment and progress. EMS reports end-tidal CO2 is were in the 70s and decreased to the 50s with breathing treatment. More history was obtained from the chart and from Dr. Morgan. Apparently patient has metastatic lung cancer and COPD. His last treatment for cancer was in January. He was recently enrolled in hospice. After discussion with Dr. Morgan regarding prognosis, patient elects to be DNR/ DNI. Patient denies any recent fever. Allergies and Home Medications Allergies Coded Allergies: NKANo Known Allergies (Verified Allergy, Unknown, 07/30/17) Home Medications Albuterol Sulfate 1 Puff Puff, 2 PUFF IH Q4H PRN for SHORTNESS OF BREATH, ( Reported) 1 PUFF = 90 MCG Albuterol Sulfate 2.5 Mg/3 Ml Vial.neb, 2.5 MG IH Q4H PRN for SHORTNESS OF BREATH, (Reported) Amitriptyline HCl 100 Mg Tablet, 100 MG PO HS, (Reported) Baclofen 10 Mg Tablet, 10 MG PO TID, (Reported) Celecoxib 100 Mg Capsule, 100 MG PO BID Prescribed by: RHONDA MORGAN on 08/02/17 0846 Fluticasone/Salmeterol 1 Each Blst.w.dev, 1 PUFF IH BID, (Reported) Furosemide 20 Mg Tablet, 20 MG PO DAILY PRN for FLUID RETENTION, (Reported) Hydromorphone HCl 4 Mg Tablet, 4-8 MG PO EVERY 3 HOURS PRN for BREAKTHROUGH PAIN , (Reported) Levothyroxine Sodium 25 Mcg Tablet, 25 MCG PO DAILY, (Reported) Lorazepam 2 Mg Tablet, 2 MG PO Q6H PRN for ANXIETY, (Reported) Morphine Sulfate 60 Mg Tablet.er, 60 MG PO Q12H, (Reported) Omeprazole Magnesium 20 Mg Tablet.dr, 20 MG PO DAILY PRN for HEARTBURN, ( Reported) Ondansetron 8 Mg Tab.rapdis, 8 MG PO Q8H PRN for NAUSEA/VOMITING-1ST LINE, ( Reported) Polyethylene Glycol 3350 255 Gm Powder, 17 GM PO BID PRN for CONSTIPATION-2ND LINE, (Reported) Prednisone 10 Mg Tab, PO UD, (Reported) TAKES 3 (10MG) TABS DAILY X 3 DAYS, THEN 2 (10MG) TABS DAILY X 3 DAYS, THEN 1 (10MG) TAB DAILY X 3 DAYS. #18 TABS FILLED 08-02-17 Patient Home Medication List Home Medication List Reviewed: Yes Review of Systems Constitutional: no symptoms reported EENTM: no symptoms reported Respiratory: see HPI Cardiovascular: no symptoms reported Gastrointestinal: no symptoms reported Genitourinary: no symptoms reported Musculoskeletal: no symptoms reported Skin: no symptoms reported Psychiatric/Neurological: No Symptoms Reported Hematologic/Lymphatic: No Symptoms Reported Immunological/Allergic: see HPI Past Xzemrsj-Vnmcer-Afftjv Hx Patient Social History Alcohol Use: Denies Use Recreational Drug Use: No Smoking Status: Former Smoker Type Used: Cigarettes Former Smoker, Quit: Jan 18, 2005 2nd Hand Smoke Exposure: No Recent Foreign Travel: No Contact w/Someone Who Travel: No Recent Infectious Disease Expo: No Recent Hopitalizations: No Immunizations Up To Date Tetanus Booster (TDap): Unknown PED Vaccines UTD: No Date of Pneumonia Vaccine: Oct 13, 2013 Date of Influenza Vaccine: Jan 13, 2014 Seasonal Allergies Seasonal Allergies: No Past Medical History Surgeries: Yes (3 INGUNIAL HERNIA REPAIRS,LASER SURGERY ON THROAT FOR SLEEP APNEA) Abdominal, Bowel Surgery, Lobectomy Respiratory: Yes (LUNG CANCER) COPD Currently Using CPAP: No Currently Using BIPAP: No Cardiac: Yes (PAROXYSMAL A.FIB--NOT ON ANTICOAGULANTS OR ANTIARRHYTHMICS OF 12/27/16) Atrial Fibrillation, Hypertension Neurological: No Reproductive Disorders: No Genitourinary: Yes (CHRONIC RENAL INSUFFICIENCY SINCE STARTING CHEMO ) Renal Failure Gastrointestinal: Yes (MULTIPLE ABDOMINAL HERNIAS) Abdominal Hernia, Gastroesophageal Reflux, Diverticulosis, Polyps Musculoskeletal: No Endocrine: No HEENT: Yes Glaucoma 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, Lung Did You Recieve Any Treatments: Yes What Type of Treatment Did You: Chemotherapy, Radiation, Surgical Intervention Psychosocial: Yes Anxiety, Depression Integumentary: No (MYCOSIS FUNGOIDES) Blood Disorders: No Family Medical History Asthma Cancer of mouth 19 FATHER Cataracts 19 FATHER Prostate cancer 19 FATHER Respiratory disorder 19 FATHER Severe allergy G8 BROTHER No Family History of: AIDS Abdominal aortic aneurysm Graham's disease Alcoholism Alzheimer's disease Aphasia Arthritis Cardiovascular disease Colon cancer Completed stroke Congenital disease Congenital heart disease Coronary thrombosis Cystic fibrosis Deafness or hearing loss Dementia Diabetes mellitus Drug abuse Dysphasia Fibrocystic disease of breast Gastroenteritis Glaucoma Headache disorder Hypercholesterolemia Hypertension Infertility Kidney disease Myocardial infarction Neoplasm Not obtainable due to adoption Osteoporosis Parkinson's disease Psychosocial problem Seizure disorder Thyroid disease Tuberculosis Visual disorder Physical Exam Vital Signs Vital Signs - First Documented 08/04/17 06:40 Temp 95.0 Pulse 117 Resp 30 B/P (MAP) 145/93 (110) Pulse Ox 99 O2 Delivery OxyMask O2 Flow Rate 5.00 Capillary Refill : Less Than 3 Seconds General Appearance: WD/WN, moderate distress HEENT: PERRL/EOMI, normal ENT inspection Neck: normal inspection Respiratory: respiratory distress, accessory muscle use, wheezing Cardiovascular: regular rate, rhythm, no edema, no murmur Gastrointestinal: non tender, soft Extremities: normal inspection, swelling, other (mild left ankle tenderness) 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, no motor/sensory deficits, alert, other (cognition dulled) Skin: normal color, warm/dry Progress/Results/Core Measures Suspected Sepsis Recent Fever Within 48 Hours: No Infection Criteria Present: None New/Unexplained Altered Menta: No Sepsis Screen: No Definite Risk SIRS Temperature:95.0 Pulse: 117 Respiratory Rate: 22 Laboratory Tests 08/04/17 06:45: White Blood Count 11.0 Blood Pressure 142 /85 Mean: 110 Laboratory Tests 08/04/17 06:45: Creatinine 0.70, Platelet Count 217, Total Bilirubin 0.7 Results/Orders Lab Results Laboratory Tests Test 08/04/17 06:45 08/04/17 07:15 Range/Units White Blood Count 11.0 4.3-11.0 10^3/uL Red Blood Count 4.60 4.35-5.85 10^6/uL Hemoglobin 10.9 L 13.3-17.7 G/DL Hematocrit 39 L 40-54 % Mean Corpuscular Volume 85 80-99 FL Mean Corpuscular Hemoglobin 24 L 25-34 PG Mean Corpuscular Hemoglobin Concent 28 L 32-36 G/DL Red Cell Distribution Width 17.3 H 10.0-14.5 % Platelet Count 217 130-400 10^3/uL Mean Platelet Volume 10.5 H 7.4-10.4 FL Neutrophils (%) (Auto) 92 H 42-75 % Lymphocytes (%) (Auto) 3 L 12-44 % Monocytes (%) (Auto) 5 0-12 % Eosinophils (%) (Auto) 0 0-10 % Basophils (%) (Auto) 0 0-10 % Neutrophils # (Auto) 10.1 H 1.8-7.8 X 10^3 Lymphocytes # (Auto) 0.3 L 1.0-4.0 X 10^3 Monocytes # (Auto) 0.6 0.0-1.0 X 10^3 Eosinophils # (Auto) 0.0 0.0-0.3 10^3/uL Basophils # (Auto) 0.0 0.0-0.1 10^3/uL Neutrophils % (Manual) 96 % Lymphocytes % (Manual) 1 % Monocytes % (Manual) 3 % Hypochromasia MODERATE Poikilocytosis SLIGHT Anisocytosis SLIGHT Microcytosis SLIGHT Sodium Level 141 135-145 MMOL/L Potassium Level 4.1 3.6-5.0 MMOL/L Chloride Level 94 L 98-107 MMOL/L Carbon Dioxide Level 36 H 21-32 MMOL/L Anion Gap 11 5-14 MMOL/L Blood Urea Nitrogen 15 7-18 MG/DL Creatinine 0.70 0.60-1.30 MG/DL Estimat Glomerular Filtration Rate > 60 BUN/Creatinine Ratio 21 Glucose Level 121 H 70-105 MG/DL Calcium Level 9.5 8.5-10.1 MG/DL Total Bilirubin 0.7 0.1-1.0 MG/DL Aspartate Amino Transf (AST/SGOT) 31 5-34 U/L Alanine Aminotransferase (ALT/SGPT) 16 0-55 U/L Alkaline Phosphatase 154 H 40-136 U/L C-Reactive Protein High Sensitivity 6.58 H 0.00-0.50 MG/DL B-Type Natriuretic Peptide 105.7 H <100.0 PG/ML Total Protein 6.6 6.4-8.2 GM/DL Albumin 3.7 3.2-4.5 GM/DL Blood Gas Puncture Site RT RAD Blood Gas Patient Temperature 95 Arterial Blood pH 7.34 *L 7.37-7.43 Arterial Blood Partial Pressure CO2 73 *H 35-45 MMHG Arterial Blood Partial Pressure O2 115 H 79-93 MMHG Arterial Blood HCO3 40 H 23-27 MMOL/L Arterial Blood Total CO2 42.3 H 21.0-31.0 MMOL/L Arterial Blood Oxygen Saturation 100 94-100 % Arterial Blood Base Excess 13.3 H -2.5-2.5 MMOL/L Zachary Test YES-POS Blood Gas Ventilator Setting NO Blood Gas Inspired Oxygen 50% BIPAP Micro Results Microbiology 08/04/17 Influenza Types A,B Antigen ([place]) - Final, Complete My Orders Orders - HILARY MANUEL MD BNP (08/04/17 06:48) Cbc With Automated Diff (08/04/17 06:48) Comprehensive Metabolic Panel (08/04/17 06:48) Hs C Reactive Protein (08/04/17 06:48) Chest 1 View, Ap/Pa Only (08/04/17 06:48) Albuterol Pre-Mix Nebs (Rt) (Proventil (08/04/17 06:48) Ipratropium 0.02% Neb Solution (Atrovent (08/04/17 07:00) Svn Small Volume Nebulizer (08/04/17 06:48) Svn Small Volume Nebulizer (08/04/17 06:48) Implanted Port: Access (08/04/17 06:48) O2 (08/04/17 06:48) Monitor-Rhythm Ecg Trace Only (08/04/17 06:48) Methylprednisolone Sod Succ (Solu-Medrol (08/04/17 07:00) Influenza A And B Antigens (08/04/17 06:48) Manual Differential (08/04/17 06:45) Arterial Blood Gas (08/04/17 07:11) Medications Given in ED Current Medications Medications Dose Ordered Sig/Felix Route Start Time Stop Time Status Last Admin Dose Admin Ipratropium [place] 0.5 mg ONCE ONCE IH 08/04/17 07:00 08/04/17 07:01 DC 08/04/17 06:54 0.5 MG Methylprednisolone Sodium Succinate 125 mg ONCE ONCE IVP 08/04/17 07:00 08/04/17 07:01 DC 08/04/17 07:19 125 MG Vital Signs/I&O 08/04/17 08/04/17 08/04/17 06:40 06:40 06:54 Temp 95.0 Pulse 117 117 Resp 30 22 B/P (MAP) 145/93 (110) Pulse Ox 99 99 100 O2 Delivery OxyMask OxyMask O2 Flow Rate 5.00 5.00 60.00 Capillary Refill : Less Than 3 Seconds Blood Pressure Mean: 110 Progress Note : Progress Note Patient received an hour-long breathing treatment and Solu-Medrol 125 mg IV. BiPAP was initiated. Case was reviewed with Dr. Morgan who will admit this gentleman and determine disposition for more long-term plans. Patient reported pain in the left ankle after rushing down the stairs [place] [facility]. He requests that a BX rate. X-ray was negative. Diagnostic Imaging Diagonstic Imaging: Xray Plain Films/CT/US/NM/MRI: chest Comments Chest x-ray viewed by me and report reviewed. See report below: NAME: CASSIDY GALAVIZ [facility] REC#: [id number] PT STATUS: REG ER : 1955 PHYSICIAN: HILARY MANUEL MD ADMIT DATE: 08/04/17/ER Draft Date of Exam:08/04/17 CHEST 1 VIEW, AP/PA ONLY Indication: Shortness of air. Comparison: 07/30/2017 Findings: Single frontal radiographic view of the chest was obtained and demonstrates stable mild cardiomegaly. Pulmonary vasculature is within normal limits. Lungs continue to show bilateral nodules and masses. There is also smaller persistent right effusion. Overall, aeration is unchanged. No pneumothorax is seen on either side. Left-sided Port-A-Cath is noted. Impression: 1. Stable exam of the chest showing bilateral pulmonary nodules and masses and a small right basilar effusion. Dictated on workstation # [id number] Dict: 08/04/1717 Trans: 08/04/17 0720 [facility] [id number] Interpreted by: ESDRAS MODI MD Diagonstic Imaging: Xray Plain Films/CT/US/NM/MRI: ankle Comments NAME: CASSIDY GALAVIZ [facility] REC#: [id number] PT STATUS: ADM IN : 1955 PHYSICIAN: HILARY MANUEL MD ADMIT DATE: 08/04/17/4TH Draft Date of Exam:08/04/17 ANKLE, LEFT, 3 VIEWS Indication: Left ankle injury with pain. AP, oblique and lateral views of the left ankle are obtained. No acute fracture or malalignment is identified. There is mild diffuse ankle swelling. A small fragment posterior to the calcaneus may be related to old avulsion injury or calcific tendinitis in the Achilles tendon. Impression: No definite acute osseous abnormality is identified. Diffuse swelling is present which could be related to underlying ligamentous injury and clinical correlation is recommended. Dictated on workstation # [id number] Dict: 08/04/17814 Trans: 08/04/17819 [facility] [id number] Interpreted by: TERESA MARIE MD Departure Communication (Admissions) Time/Spoke to Admitting Phy: 07:40 Dr. Morgan Impression Primary Impression: Respiratory failure with hypoxia and hypercapnia Qualified Codes: J96.21 - Acute and chronic respiratory failure with hypoxia; J96.22 - Acute and chronic respiratory failure with hypercapnia Additional Impressions: Metastatic primary lung cancer Qualified Codes: C34.90 - Malignant neoplasm of unspecified part of unspecified bronchus or lung COPD exacerbation Left ankle pain Qualified Codes: M25.572 - Pain in left ankle and joints of left foot Disposition: 09 ADMITTED INPATIENT Condition: Improved Admissions Decision to Admit Reason: Admit from ER (General) Decision to Admit/Date: Aug 04, 2017 Time/Decision to Admit Time: 07:40 Departure-Patient Inst. Referrals: RHONDA MORGAN MD (PCP/Family) Primary Care Physician HILARY MANUEL MD Aug 04, 2017 07:50
--- OUTSIDE RECORDS SUMMARY | 2017-08-04 08:01 | XMS REPORT | Clinical Summary ---
Author Author [facility] Organization [facility] Address Unknown Phone Unavailable Care Team Providers Care Reconciliation Coordinator Name Role Phone PCP Unavailable Source Comments Some departments are not documenting in the electronic medical record. If you do not see the information that you expected, contact Release of Information in the Health Information Management department at [phone] for further assistance in locating additional records.[facility] Allergies Not on File Current Medications Not [...]
--- OUTSIDE RECORDS SUMMARY | 2017-08-04 08:04 | XMS REPORT | Continuity of Care Document ---
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 01/03/2017 CRALTON HUNT DO Ot E86.0 DEHYDRATION 01/03/2017 CARLTON [...] 01/03/2017 CARLTON HUNT DO Ot Z79.899 OTHER TRAFFIC EXPERT (CURRENT) DRUG THERAPY 01/03/2017 CARLTON HUNT DO [...] 01/04/2017 CARLTON HUNT DO Ot Z79.899 OTHER TRAFFIC EXPERT (CURRENT) DRUG THERAPY 01/04/2017 CARLTON HUNT DO [...] ADVERSE EFFECT OF OTHER OPIOIDS, INITIAL 01/04/2017 CARLOTN HUNT DO Ot T45.1X5A ADVERSE EFFECT OF ANTINEOPLASTIC AND IMM 01/04/2017 CARLTON HUNT DO Ot Z79.899 OTHER TRAFFIC EXPERT (CURRENT) DRUG THERAPY 01/04/2017 CARLTON HUNT DO [...] 01/05/2017 CARLTON HUNT DO Ot Z79.899 OTHER TRAFFIC EXPERT (CURRENT) DRUG THERAPY 01/05/2017 CARLTON HUNT DO [...] 01/06/2017 CARLTON HUNT DO Ot Z79.899 OTHER JAIL (CURRENT) DRUG THERAPY 01/06/2017 CARLTON HUNT DO Ot Z85.118 PERSONAL HISTORY OF MALIGNANT NEOPLASM O 01/06/2017 CARLTON HUNT DO Ot Z86.010 PERSONAL HISTORY OF COLONIC POLYPS 01/06/2017 CARLTON UHNT DO Ot Z87.891 PERSONAL HISTORY OF NICOTINE [...] 01/06/2017 CARLTON HUNT DO Ot Z79.899 OTHER TRAFFIC EXPERT (CURRENT) DRUG THERAPY 01/06/2017 CARLTON HUNT DO [...] SECONDARY MALIGNANT NEOPLASM OF BONE 02/16/2017 WILFRED OCNWAY MD Ot 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 NEOPLASM OF [...] 03/15/2017 LIBAN LIRA MD Ot Z79.899 OTHER TRAFFIC EXPERT (CURRENT) DRUG THERAPY 03/15/2017 LIBAN LIRA MD [...] 03/21/2017 LIBAN LIRA MD Ot Z79.899 OTHER TRAFFIC EXPERT (CURRENT) DRUG THERAPY 03/21/2017 LIBAN LIRA MD [...] CHRONIC KIDNEY DISEASE W ST 04/28/2017 JEANNIE CHEAHTAM MD Ot I48.0 PAROXYSMAL ATRIAL FIBRILLATION 04/28/2017 JEANNIE CHEATHAM MD Ot J44.9 CHRONIC OBSTRUCTIVE PULMONARY DISEASE, U 04/28/2017 JEANNIE CHEATHAM MD Ot N18.9 CHRONIC KIDNEY DISEASE, UNSPECIFIED 04/28/2017 JEANNIE CHEATHAM MD Ot R07.89 OTHER CHEST PAIN 04/28/2017 JEANNIE CHEATHAM MD Ot Z79.01 TRAFFIC EXPERT (CURRENT) USE OF ANTICOAGULANT 04/28/2017 JEANNIE CHEATHAM [...] PAIN 05/01/2017 JEANNIE CHEATHAM MD Ot Z79.01 TRAFFIC EXPERT (CURRENT) USE OF ANTICOAGULANT 05/01/2017 JEANNIE CHEATHAM [...] PAIN 05/02/2017 JEANNIE CHEATHAM MD Ot Z79.01 JAIL (CURRENT) USE OF ANTICOAGULANT 05/02/2017 JEANNIE CHEATHAM [...] SECONDARY MALIGNANT NEOPLASM OF OTHER SP 05/31/2017 LIBAN LIRA MD Ot 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, [...] PAIN 07/06/2017 HUSSEIN BERRY MD Ot Z79.51 JAIL (CURRENT) USE OF INHALED STERO 07/06/2017 HUSSEIN BERRY MD Ot Z79.52 TRAFFIC EXPERT (CURRENT) USE OF SYSTEMIC STER 07/06/2017 HUSSEIN [...] PAIN 07/10/2017 HUSSEIN BERRY MD Ot Z79.51 TRAFFIC EXPERT (CURRENT) USE OF INHALED STERO 07/10/2017 HUSSEIN BERRY MD Ot Z79.52 JAIL (CURRENT) USE OF SYSTEMIC STER 07/10/2017 HUSSEIN [...] Procedures Code Description Performed By Performed On [id number] DRAINAGE OF ESOPHAGAST JUNCT WITH DRAIN 12/28/2016 [...] NRG Blood erythrocyte morphology finding identification NORMAL [facility] Comprehensive metabolic panel - 12/27/16 21:32 Serum [...] culture - 04/28/17 17:56 Bacterial blood culture [facility] Complete blood count (CBC) with automated white [...] FOR INFLUENZA A AND B ANTIGENS BY [facility] Comprehensive metabolic panel - 04/28/17 18:24 Serum [...] culture - 04/28/17 18:24 Bacterial blood culture [facility] Influenza virus A and B antigen detection - 05/17/17 14:30 FLU RESULT NEGATIVE FOR INFLUENZA A AND B ANTIGENS BY [facility] Complete blood count (CBC) with [...] GROWTH Abundant Growth NRG Bacterial sputum culture [id number] NRG Complete urinalysis with reflex to culture [...] platelet poor plasma (mass/volume) 1.18 ug/mL 0.00-0.49 Complete blood count (CBC) with automated white blood cell (WBC) differential - 08/04/17 06:45 Blood leukocytes automated count (number/volume) 11.0 10*3/uL 4.3-11.0 Blood erythrocytes automated count (number/volume) 4.60 10*6/uL 4.35-5.85 Venous blood hemoglobin measurement (mass/volume) 10.9 g/dL 13.3-17.7 Blood hematocrit (volume fraction) 39 % 40-54 Automated erythrocyte mean corpuscular volume 85 [foz_us] 80-99 Automated erythrocyte mean corpuscular hemoglobin (mass per erythrocyte) 24 pg 25-34 Automated erythrocyte mean corpuscular hemoglobin concentration measurement ( mass/volume) 28 g/dL 32-36 Automated erythrocyte distribution width ratio 17.3 % 10.0-14.5 Automated blood platelet count (count/volume) 217 10*3/uL 130-400 Automated blood platelet mean volume measurement 10.5 [foz_us] 7.4-10.4 Automated blood neutrophils/100 leukocytes 92 % 42-75 Automated blood lymphocytes/100 leukocytes 3 % 12-44 Blood monocytes/100 leukocytes 5 % 0-12 Automated blood eosinophils/100 leukocytes 0 % 0-10 Automated blood basophils/100 leukocytes 0 % 0-10 Blood neutrophils automated count (number/volume) 10.1 10*3 1.8-7.8 Blood lymphocytes automated count (number/volume) 0.3 10*3 1.0-4.0 Blood monocytes automated count (number/volume) 0.6 10*3 0.0-1.0 Automated eosinophil count 0.0 10*3/uL 0.0-0.3 Automated blood basophil count (count/volume) 0.0 10*3/uL 0.0-0.1 Blood manual differential performed detection - 08/04/17 06:45 Blood monocytes/100 leukocytes 3 % NRG Manual blood segmented neutrophils/100 leukocytes 96 % NRG Manual blood lymphocytes/100 leukocytes 1 % NRG Blood anisocytosis detection by light microscopy SLIGHT NRG Blood poikilocytosis detection by light microscopy SLIGHT BANNER Blood hypochromia detection by light microscopy MODERATE BANNER Blood microcytes detection by light microscopy SLIGHT BANNER Influenza virus A and B antigen detection - 08/04/17 06:45 FLU RESULT NEGATIVE FOR INFLUENZA A AND B ANTIGENS BY [facility] Comprehensive metabolic panel - 08/04/17 06:45 Serum or plasma sodium measurement (moles/volume) 141 mmol/L 135-145 Serum or plasma potassium measurement (moles/volume) 4.1 mmol/L 3.6-5.0 Serum or plasma chloride measurement (moles/volume) 94 mmol/L 98-107 Carbon dioxide 36 mmol/L 21-32 Serum or plasma anion gap determination (moles/volume) 11 mmol/L 5-14 Serum or plasma urea nitrogen measurement (mass/volume) 15 mg/dL 7-18 Serum or plasma creatinine measurement (mass/volume) 0.70 mg/dL 0.60-1.30 Serum or plasma urea nitrogen/creatinine mass ratio 21 NR Serum or plasma creatinine measurement with calculation of estimated glomerular filtration rate > [facility]NER Serum or plasma glucose measurement (mass/volume) 121 mg/dL 70-105 Serum or plasma calcium measurement (mass/volume) 9.5 mg/dL 8.5-10.1 Serum or plasma total bilirubin measurement (mass/volume) 0.7 mg/dL 0.1-1.0 Serum or plasma alkaline phosphatase measurement (enzymatic activity/volume) 154 U/L 40-136 Serum or plasma aspartate aminotransferase measurement (enzymatic activity/ volume) 31 U/L 5-34 Serum or plasma alanine aminotransferase measurement (enzymatic activity/volume ) 16 U/L 0-55 Serum or plasma protein measurement (mass/volume) 6.6 g/dL 6.4-8.2 Serum or plasma albumin measurement (mass/volume) 3.7 g/dL 3.2-4.5 Serum or plasma C reactive protein measurement (mass/volume) - 08/04/17 06:45 Serum or plasma C reactive protein measurement (mass/volume) 6.58 mg /dL 0.00-0.50 Serum or plasma lithium measurement (moles/volume) - 08/04/17 06:45 BNP level 105.7 pg/mL <100.0 Arterial blood gas measurement - 08/04/17 07:15 Blood pCO2 73 mm[Hg] 35-45 Blood pO2 115 mm[Hg] 79-93 Arterial blood bicarbonate measurement (moles/volume) 40 mmol/L 23-27 Arterial blood base excess by calculation 13.3 mmol/L - 2.5-2.5 Arterial blood oxygen saturation measurement 100 % 94- 100 * Inhaled oxygen flow rate 50% BIPAP NRG Arterial blood pH measurement with patient temperature correction 7.34 7.37-7.43 Arterial blood carbon dioxide, total measurement (moles/volume) 42.3 mmol/L 21.0-31.0 Body site RT RAD NRG Assessment of wrist artery patency prior to arterial puncture YES- POS NRG Setting of ventilation mode NO NRG Measurement of body temperature 95 NRG Encounters ACCT No. Visit Date/Time Discharge Status Pt. Type Provider Facility Loc./Unit Complaint [id number] 02/20/2014 16:01:00 02/20/2014 23:59:59 CLS Outpatient ELBA CHAVA MORLEY [id number] 07/30/2017 07:50:00 08/02/2017 13:40:00 DIS Inpatient GABBIE COLEMAN, ELEANOR Jaquez [facility] 4TH CPOD,ACUTE EXACERBATION [id number] 07/21/2017 13:35:00 07/21/2017 23:59:59 CLS Outpatient LIBAN LIRA MD [facility] ONC [id number] 07/06/2017 18:13:00 07/06/2017 23:23:00 DIS Emergency HUSSEIN BERRY MD [facility] ER ABD PAIN R SIDE [id number] 06/26/2017 14:40:00 06/26/2017 14:40:00 CAN Preadmit ILBAN LIRA MD [facility] RAD M25.559 [id number] 05/23/2017 12:45:00 05/25/2017 00:01:00 DIS Outpatient LIBAN LIRA MD [facility] ONC [id number] 05/17/2017 14:20:00 05/17/2017 23:59:59 CLS Outpatient RHONDA FONSECA MD [facility] LAB CHILL,FEVER [id number] 04/28/2017 11:54:00 04/28/2017 23:59:59 CLS Outpatient LIBAN LIRA MD [facility] RAD NON-SMALL CELL CA OF RT LUNG PAIN [id number] 04/28/2017 16:44:00 04/28/2017 20:01:00 DIS Emergency JEANNIE CHEATHAM MD [facility] ER CHEST PAIN WHEN BREATHING/SOB [id number] 03/16/2017 11:14:00 03/16/2017 23:59:59 CLS Outpatient LIBAN LIRA MD [facility] RAD [id number] 03/15/2017 09:46:00 03/15/2017 16:30:00 DIS Outpatient LIBAN LIRA MD [facility] RAD NON-SMALL CELL CA OF RT LUNG [id number] 03/10/2017 11:04:00 03/10/2017 23:59:59 CLS Outpatient LIBAN LIRA MD [facility] RAD 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 [id number] 01/18/2017 10:38:00 02/16/2017 16:53:00 DIS Outpatient WILFRED CONWAY MD [facility] ONC [id number] 12/28/2016 01:00:00 01/06/2017 18:45:00 DIS Inpatient CARLTON HUNT DO [facility] 4TH SMALL BOWEL OBSTRUCTION; DYSPNEA W/ HYPOXIA; [id number] 07/21/2014 00:10:00 07/21/2014 23:59:59 CLS Preadmit WILFRED CONWAY MD [facility] ONC [id number] 05/09/2014 09:42:00 07/20/2014 00:01:00 DIS Outpatient WILFRED CONWAY MD [facility] ONC [id number] 04/15/2014 20:04:00 04/17/2014 13:30:00 DIS Inpatient RHONDA FONSECA MD [facility] CSD [id number] 11/18/2013 12:14:00 02/16/2014 00:01:00 DIS Outpatient JACEK DAVISON MD [facility] ONC [id number] 10/16/2013 15:50:00 10/16/2013 23:59:59 CLS Outpatient RHONDA FONSECA MD [facility] [id number] 07/19/2013 08:40:00 07/19/2013 23:59:59 CLS Outpatient RHONDA FONSECA MD [facility] LAB [id number] 04/19/2013 10:43:00 04/19/2013 23:59:59 CLS Outpatient RHONDA FONSECA MD [facility] LAB [id number] 12/21/2012 07:44:00 12/21/2012 23:59:59 CLS Outpatient RHONDA FONSECA MD [facility] LAB [id number] 11/12/2012 11:53:00 11/12/2012 23:59:59 CLS Outpatient RHONDA FONSECA MD [facility] LAB [id number] 08/04/2017 06:57:00 Document Registration [id number] 02/17/2014 00:00:00 Document Registration [id number] 04/26/2012 15:32:00 Document Registration [id number] 12/30/2011 10:55:00 Document Registration [id number] 12/25/2011 06:22:00 Document Registration [id number] 06/24/2011 07:01:00 Document Registration [id number] 06/22/2011 07:27:00 Document Registration [id number] 04/08/2011 09:04:00 Document Registration [id number] 02/14/2011 15:45:00 Document Registration [id number] 05/17/2014 09:09:55 ACT Document Registration
--- NOTE | 2017-08-04 08:21 | Diagnostic Imaging Report ---
Indication: Left ankle injury with pain. AP, oblique and lateral views of the left ankle are obtained. No acute fracture or malalignment is identified. There is mild diffuse ankle swelling. A small fragment posterior to the calcaneus may be related to old avulsion injury or calcific tendinitis in the Achilles tendon. Impression: No definite acute osseous abnormality is identified. Diffuse swelling is present which could be related to underlying ligamentous injury and clinical correlation is recommended. Dictated by: Dictated on workstation # [id number]
[2017-08-04 08:56] VITALS: BP 135/77
[2017-08-04] MEDS ORDERED: morphine ER 30 MG (MS CONTIN) TAB PO SCH ×2 (09:15→21:00)
[2017-08-04] MEDS: morphine INJ 10 MG/ML 1ML (SYR OR VIAL) IVP PRN ×6 (09:26→23:58)
[2017-08-04] MEDS ORDERED: RT-ALBUTEROL SULF 2.5 MG/3 ML PRE-MIX VIAL IH PRN ×2 (09:30→09:45)
[2017-08-04] MEDS: RT-ALBUTEROL/IPRATROPIUM 3 ML (DUONEB) VIAL IH SCH ×4 (10:49→22:56)
[2017-08-04] MEDS ORDERED: ONDANSETRON 8 MG (ZOFRAN) ORAL DISSOLVE TAB PO PRN (11:30)
[2017-08-04] MEDS ORDERED: LORazepam 1 MG (ATIVAN) TAB PO PRN (11:30)
[2017-08-04] MEDS ORDERED: LORazepam INJ 2 MG/ML (ATIVAN) VIAL IVP NR (11:45)
[2017-08-04 12:00] VITALS: BP 125/70
--- NOTE | 2017-08-04 12:30 | History & Physical-Hospitalist ---
History of Present Illness HPI/Chief Complaint Mr. Khanna is a 62-year-old white male with severe COPD and widely metastatic adenocarcinoma along to bone and liver as well as extensive hilar metastasis. Developed increasing shortness of breath causing presented to the hospital. We had him just set up for hospice care but my suspicion is that some CO2 narcosis clouded his judgment solidity called EMS. He was subsequently brought to the emergency room where he was noted to be in acute respiratory distress. BiPAP was initiated. His circumstances were still quite tenuous he has become increasingly fatigued nearing bedbound status due to significant decline in his pulmonary reserve. He is being admitted for symptomatically management of diffuse chest wall pain and respiratory distress. He's had a mild cough nonproductive and denies chills or fever. Date Seen 08/04/17 Time Seen by Provider: 11:00 Attending Physician Rhonda Fonseca MD PCP Rhonda Fonseca MD Referring Physician Date of Admission Aug 04, 2017 at 07:47 Home Medications & Allergies Home Medications Reviewed patient Home Medication Reconciliation performed by pharmacy medication reconciliations water and fire technician and/or nursing. Patients Allergies have been reviewed. Allergies Allergies Coded Allergies NKANo Known Allergies (Verified Allergy, Unknown, 07/30/17) Past Hhpjqpk-Rnlpij-Kzimdy Hx Past Med/Social Hx: Reviewed and Corrections made Patient Social History Alcohol Use: Denies Use Recreational Drug Use: No Smoking Status: Former Smoker Former Smoker, Quit: Jan 18, 2005 Type Used: Cigarettes 2nd Hand Smoke Exposure: No Recent Foreign Travel: No Contact w/other who traveled: No Recent Hopitalizations: No Recent Infectious Disease Expo: No Immunizations Up To Date Tetanus Booster (TDap): Unknown Pediatric: No Date of Pneumonia Vaccine: Oct 13, 2013 Date of Influenza Vaccine: Jan 13, 2014 Seasonal Allergies Seasonal Allergies: No Past Medical History Surgeries: Abdominal, Bowel Surgery, Lobectomy Currently Using CPAP: No Currently Using BIPAP: No Cardiac: Atrial Fibrillation, Hypertension Reproductive: No Genitourinary: Renal Failure Gastrointestinal: Abdominal Hernia, Gastroesophageal Reflux, Diverticulosis, Polyps HEENT: Glaucoma Cancer: Bone, Lung Did You Recieve Any Treatments: Yes What Type of Treatment Did You: Chemotherapy, Radiation, Surgical Intervention Psychosocial: Anxiety, Depression History of Blood Disorders: No Family History Asthma Cancer of mouth 19 FATHER Cataracts 19 FATHER Prostate cancer 19 FATHER Respiratory disorder 19 FATHER Severe allergy G8 BROTHER No Family History of: AIDS Abdominal aortic aneurysm Mcdonald's disease Alcoholism Alzheimer's disease Aphasia Arthritis Cardiovascular disease Colon cancer Completed stroke Congenital disease Congenital heart disease Coronary thrombosis Cystic fibrosis Deafness or hearing loss Dementia Diabetes mellitus Drug abuse Dysphasia Fibrocystic disease of breast Gastroenteritis Glaucoma Headache disorder Hypercholesterolemia Hypertension Infertility Kidney disease Myocardial infarction Neoplasm Not obtainable due to adoption Osteoporosis Parkinson's disease Psychosocial problem Seizure disorder Thyroid disease Tuberculosis Visual disorder Review of Systems Constitutional: see HPI, weakness, weight loss Physical Exam Physical Exam Vital Signs Vital Signs - First Documented 08/04/17 06:40 Temp 95.0 Pulse 117 Resp 30 B/P (MAP) 145/93 (110) Pulse Ox 99 O2 Delivery OxyMask O2 Flow Rate 5.00 Capillary Refill : Less Than 3 Seconds General Appearance: Anxious, Chronically ill, Moderate Distress Neck: Normal Inspection, Non Tender Respiratory: Other (Mild inspiratory and expiratory wheezing throughout without rales or rhonchi. There is mild accessory muscle of respiration usage.) Cardiovascular: Regular Rate, Rhythm, No Edema, No Gallop, No JVD, No Murmur, Normal Peripheral Pulses Extremity: Other (2+ pedal edema with trace pretibial edema. No ulcerations or inflammatory change noted. No pain to palpation.) Neurologic/Psychiatric: Other (Alert anxious oriented 2) Results Results/Procedures Labs Laboratory Tests 08/04/17 06:45 Patient resulted labs reviewed. Assessment/Plan Admission Diagnosis A/P 1. Acute on chronic hypercapnic respiratory failure secondary to advancing adenocarcinoma of the long with diffuse hilar metastasis and underlying significant COPD. 2. 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 3. Deconditioning with severe diffuse muscle wasting secondary to number 1. End-of-life expectations were discussed with life expectancy most likely measured in weeks at best. After discussion of the futile nature of mechanical ventilation as well as CPR the patient again elects DNR/DNI status. We had a long discussion about hospice and my suspicion is we will need to look into hospice admission to either medical [facility] or [facility] if an assisted living facility would be agreeable to accepting a terminally ill patient on hospice. We will increase by mouth MS Contin add scheduled lorazepam for anxiety and when necessary IV morphine for shortness of breath or discomfort. The patient finds BiPAP and comfortable so we discussed increased utilization of morphine for shortness of breath and continued nasal cannula oxygen advising against future BiPAP usage. Admission Status: Inpatient Order (span 2 midnights) Reason for Inpatient Admission: See admission diagnosis Assessment and Plan See above Critical Care Critically Ill Patient RHONDA FONSECA MD Aug 04, 2017 12:30
[2017-08-04] MEDS ORDERED: LORazepam 1 MG (ATIVAN) TAB PO SCH (14:00)
[2017-08-04] MEDS: LORazepam 1 MG (ATIVAN) TAB PO SCH ×2 (16:12→21:06)
[2017-08-04 16:45] VITALS: BP 98/51
[2017-08-04 20:00] VITALS: BP 107/56
[2017-08-04] MEDS: CELECOXIB 100 MG (CeleBREX) CAP PO SCH (20:06)
[2017-08-04] MEDS: AMITRIPTYLINE 50 MG (ELAVIL) TAB PO SCH (20:07)
[2017-08-04] MEDS: morphine ER 30 MG (MS CONTIN) TAB PO SCH (20:08)
[2017-08-05 00:53] VITALS: BP 113/56
[2017-08-05] MEDS: morphine INJ 10 MG/ML 1ML (SYR OR VIAL) IVP PRN ×7 (02:52→19:51)
[2017-08-05] MEDS: RT-ALBUTEROL/IPRATROPIUM 3 ML (DUONEB) VIAL IH SCH ×5 (02:58→19:41)
[2017-08-05 04:36] VITALS: BP 113/56
[2017-08-05] MEDS: LORazepam 1 MG (ATIVAN) TAB PO SCH ×2 (05:12→14:08)
[2017-08-05] MEDS ORDERED: LEVOTHYROXINE 25 MCG (LEVOTHROID) TAB PO SCH (06:30)
[2017-08-05] MEDS ORDERED: PANTOPRAZOLE 20 MG TABLET (PROTONIX) PO PRN (07:00)
[2017-08-05 08:00] VITALS: BP 111/55
[2017-08-05] MEDS ORDERED: SCOPOLAMINE 1.5 MG (TRANSDERM-SCOP) PATCH TOP SCH ×2 (10:00→18:45)
[2017-08-05] MEDS: morphine ER 30 MG (MS CONTIN) TAB PO SCH ×2 (11:24→20:10)
[2017-08-05] MEDS: CELECOXIB 100 MG (CeleBREX) CAP PO SCH ×3 (11:24→20:10)
--- NOTE | 2017-08-05 11:25 | Progress Note-Hospitalist ---
Subjective HPI/CC On Admission Date Seen by Provider: August 08, 2017 Time Seen by Provider: 10:00 Mr. Khanna is a 62-year-old white male with severe COPD and widely metastatic adenocarcinoma along to bone and liver as well as extensive hilar metastasis. Developed increasing shortness of breath causing presented to the hospital. We had him just set up for hospice care but my suspicion is that some CO2 narcosis clouded his judgment solidity called EMS. He was subsequently brought to the emergency room where he was noted to be in acute respiratory distress. BiPAP was initiated. His circumstances were still quite tenuous he has become increasingly fatigued nearing bedbound status due to significant decline in his pulmonary reserve. He is being admitted for symptomatically management of diffuse chest wall pain and respiratory distress. He's had a mild cough nonproductive and denies chills or fever. Subjective/Events-last exam Patient comatose unresponsive resting comfortably with nonlabored respirations. Family at bedside. Objective Exam Vital Signs Vital Signs Date Time Temp Pulse Resp B/P (MAP) Pulse Ox O2 Delivery O2 Flow Rate FiO2 08/05/17 19:54 98.2 78 22 122/77 (92) 29 Room Air 08/05/17 19:45 2.00 Capillary Refill : Less Than 3 Seconds General Appearance: Chronically ill, Cachetic Respiratory: No Respiratory Distress, Other (Coarse rhonchi throughout) Cardiovascular: Regular Rate, Rhythm Results/Procedures Lab Patient resulted labs reviewed. Assessment/Plan Assessment and Plan Assess & Plan/Chief Complaint 1. Acute on chronic hypercapnic respiratory failure secondary to end-stage COPD and adenocarcinoma of the long with advanced hilar mediastinal and pulmonary metastasis as well as liver metastasis and bone metastasis. Patient is in the active stage of dying end-of-life expectations discussed with family with expectations that he may not survive the day. Patient appears comfortable on palliative care. Critical Care Critical Care: Critically Ill Patient Clinical Quality Measures DVT/VTE Risk/Contraindication: Risk Factor Score Per Nursin RFS Level Per Nursing on Admit: 3=High RHONDA FONSECA MD Aug 05, 2017 11:25
[2017-08-05 12:00] VITALS: BP 94/58
[2017-08-05 15:57] VITALS: BP 105/52
[2017-08-05] MEDS ORDERED: ARTIFICIAL TEARS OINT (LACRI-LUBE) 3.5 GM TUBE OU PRN ×2 (18:45)
[2017-08-05] MEDS ORDERED: RT-ALBUTEROL/IPRATROPIUM 3 ML (DUONEB) VIAL INH PRN (18:45)
[2017-08-05] MEDS ORDERED: GLYCOPYRROLATE 0.2 MG/ML (ROBINUL) 2 ML VIAL IV PRN (18:45)
[2017-08-05] MEDS ORDERED: BISACODYL 10 MG SUPP (DULCOLAX) PR PRN ×2 (18:45)
[2017-08-05] MEDS ORDERED: ARTIFICAL TEARS 0.4 ML UNIT DOSE (REFRESH PLUS) OU PRN ×2 (18:45)
[2017-08-05] MEDS ORDERED: ACETAMINOPHEN 650 MG SUPP (TYLENOL) PR PRN ×2 (18:45)
[2017-08-05] MEDS ORDERED: ONDANSETRON 4 MG/2 ML (SDV) Z0FRAN IVP PRN (18:45)
[2017-08-05] MEDS ORDERED: PROMETHAZINE INJ 25 MG/ML (PHENERGAN) AMP IVP PRN (18:45)
[2017-08-05] MEDS ORDERED: SALIVA STIMULANT MOUTH SPRAY (BIOTENE) 1.5 OZ MM PRN ×2 (18:45)
[2017-08-05] MEDS ORDERED: LORazepam INJ 2 MG/ML (ATIVAN) VIAL IVP PRN ×2 (18:45)
[2017-08-05] MEDS ORDERED: LORazepam INJ 2 MG/ML (ATIVAN) VIAL IVP ONE (19:00)
[2017-08-05] MEDS ORDERED: morphine INJ 10 MG/ML 1ML (SYR OR VIAL) IVP ONE (19:00)
[2017-08-05 19:54] VITALS: BP 122/77
[2017-08-05] MEDS: AMITRIPTYLINE 50 MG (ELAVIL) TAB PO SCH (20:10)
[2017-08-08] MEDS ORDERED: PATCH REMOVAL TP SCH (10:00)
--- NOTE | 2017-08-09 17:03 | Discharge Summary-Hospitalist ---
Discharge Summary Date of Admission Aug 04, 2017 at 07:47 Date of Discharge Aug 07, 2017 at 05:20 Discharge Date: September 06, 2017 Admission Diagnosis A/P 1. Acute on chronic hypercapnic respiratory failure secondary to advancing adenocarcinoma of the long with diffuse hilar metastasis and underlying significant COPD. 2. 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 3. Deconditioning with severe diffuse muscle wasting secondary to number 1. End-of-life expectations were discussed with life expectancy most likely measured in weeks at best. After discussion of the futile nature of mechanical ventilation as well as CPR the patient again elects DNR/DNI status. We had a long discussion about hospice and my suspicion is we will need to look into hospice admission to either medical [facility] or [facility] if an assisted living facility would be agreeable to accepting a terminally ill patient on hospice. We will increase by mouth MS Contin add scheduled lorazepam for anxiety and when necessary IV morphine for shortness of breath or discomfort. The patient finds BiPAP and comfortable so we discussed increased utilization of morphine for shortness of breath and continued nasal cannula oxygen advising against future BiPAP usage. Comfort Measures/ End of Life Care: Pallative Care Advance Care discuss with: patient, family member (s) Plan: identified end-of-life goals, developed treatment plan Date of : September 06, 2017 Mr. Khanna was admitted to the hospital for treatment of acute on chronic hypercapnic respiratory failure secondary to combination of progressing adenocarcinoma of the lung in addition to advanced COPD secondary to pass tobaccoism. There was initial response on BiPAP but after discussion of end-of- life goals initiating palliative care patient and family members were agreeable to palliative care and comfort issues. He lapsed into a coma presumably due to increasing CO2 levels. Surprisingly did arouse several hours prior to this time of with family members present and no evidence for suffering. Discharge Diagnosis 1. Acute on chronic hypercapnic respiratory failure secondary to end-stage COPD and adenocarcinoma of the long with advanced hilar mediastinal and pulmonary metastasis as well as liver metastasis and bone metastasis. Patient is in the active stage of dying end-of-life expectations discussed with family with expectations that he may not survive the day. Patient appears comfortable on palliative care. RHONDA FONSECA MD August 09, 2017 17:02
== END 2017-08-05 20:17 | disposition expired | DRG 189 ==
LOC: EDUNIT# 06:38 → ER 06:39 → 4TH 07:47 → UNDODISIN 08-07 05:20
PROVIDERS: ADMIT Internal Medicine; ATTEND Internal Medicine
DX: J96.21 Acute and chronic respiratory failure with hypoxia (principal); J96.22 Acute and chronic respiratory failure with hypercapnia; J44.1 Chronic obstructive pulmonary disease with (acute) exacerbation; C78.01 Secondary malignant neoplasm of right lung; C78.02 Secondary malignant neoplasm of left lung; C78.1 Secondary malignant neoplasm of mediastinum; C79.51 Secondary malignant neoplasm of bone; C78.7 Secondary malignant neoplasm of liver and intrahepatic bile duct; Z66 Do not resuscitate; Z51.5 Encounter for palliative care; C84.A0 Cutaneous T-cell lymphoma, unspecified, unspecified site; I48.0 Paroxysmal atrial fibrillation; I12.9 Hypertensive chronic kidney disease with stage 1 through stage 4 chronic kidney disease, or unspecified chronic kidney disease; N18.9 Chronic kidney disease, unspecified; H40.9 Unspecified glaucoma; K21.9 Gastro-esophageal reflux disease without esophagitis; M25.572 Pain in left ankle and joints of left foot; Z85.118 Personal history of other malignant neoplasm of bronchus and lung; Z90.2 Acquired absence of lung [part of]; Z92.21 Personal history of antineoplastic chemotherapy; Z87.891 Personal history of nicotine dependence; Z86.010 Personal history of colon polyps; Z87.19 Personal history of other diseases of the digestive system
CPT/HCPCS: 36415; 36600; 71045; 73610; 80053; 82805; 83880; 85007; 85027; 86141; 87804; 93041; 94640; 94660; 94760; 96374